=== PATIENT | male | born 1935 | race African-American/Black ===

== ENCOUNTER 2016-08-04 19:28 | Inpatient (IN) | payer OTHER ==
--- NOTE | 2016-08-04 19:44 | PDOC ---
History of Present Illness - General History Source: Old Records - History of Present Illness Initial Comments: 08/04/16 23:32 Patient is an 80 year old male with significant medical hx of HTN, HLD, prostate CA, Parkinsons, peripheral neuropathy, and on Heparin (subcutaneous) for DVT, who is presenting to the ED via EMS s/p fall from today. The patient reports he ambulates poorly due to Parkinsons and today he fell on the way to the bathroom. He states that he felt both legs collapse and he hit his right shoulder against the wall on his way down. The patient denies head trauma or LOC. The patient was on the floor for six hours until his came home and found him. The patient notes that hes had increased weakness over the past few weeks. He complains of pain to his right arm and right axilla. EMS reports that when they brought him in, they received a container of urine that was dark brown. Denies headache, chest pain, shortness of breath, shoulder pain, dizziness, and nausea. <Elvira Greene - Last Filed: 08/05/16 01:21> <Shannon Pichardo - Last Filed: 08/05/16 02:56> - General Stated Complaint: FALL/WEAKNESS Time Seen by Provider: 08/04/16 19:38 Past History <Elvira Greene - Last Filed: 08/05/16 01:21> - Past Medical History Anemia: No Asthma: No Cancer: Yes (PROSTATE) Cardiac Disorders: No CVA: No COPD: No CHF: No Dementia: No Diabetes: No GI Disorders: No Disorders: Yes (PROSTATE CA) HTN: Yes Hypercholesterolemia: Yes Liver Disease: No Seizures: No Thyroid Disease: No - Surgical History Abdominal Surgery: No Appendectomy: No Cardiac Surgery: No Cholecystectomy: No Lung Surgery: No Neurologic Surgery: No Orthopedic Surgery: No - Psycho/Social/Smoking Cessation Hx Anxiety: No Suicidal Ideation: No Smoking Status: No Smoking History: Former smoker Have you smoked in the past 12 months: No Number of Cigarettes Smoked Daily: 0 If you are a former smoker, when did you quit?: 1950 Hx Alcohol Use: No Drug/Substance Use Hx: No Substance Use Type: None Hx Substance Use Treatment: No <Shannon Pichardo - Last Filed: 08/05/16 02:56> - Past Medical History Allergies/Adverse Reactions: Allergies Allergy/AdvReac Type Severity Reaction Status Date / Time No Known Allergies Allergy Verified 08/04/16 19:59 Home Medications: Ambulatory Orders Aspirin [ASA -] 81 mg PO DAILY #30 tab.chew 03/30/14 Meclizine HCl [Antivert -] 12.5 mg PO Q12H PRN #0 tablet 03/30/14 Losartan/Hydrochlorothiazide [Losartan-Hctz 100-25 mg Tab] 1 each PO DAILY 12/06 Meloxicam 7.5 mg PO DAILY 12/07/15 Acetaminophen [Tylenol .Regular Strength -] 650 mg PO Q4H PRN #0 tablet Carbidopa/Levodopa 25/250 [Sinemet 25/250 -] 1 each PO TID #90 tablet 12/11/15 Ropinirole HCl [Requip -] 1 mg PO TID #90 tablet 12/11/15 Review of Systems - Review of Systems Comments:: 08/04/16 23:33 CONSTITUTIONAL: Present: generalized weakness Absent: fever, chills, diaphoresis, malaise, loss of appetite HEENT: Absent: rhinorrhea, nasal congestion, throat pain, throat swelling, difficulty swallowing, mouth swelling, ear pain, eye pain, visual changes CARDIOVASCULAR: Absent: chest pain, syncope, palpitations, irregular heart rate, lightheadedness , peripheral edema RESPIRATORY: Absent: cough, shortness of breath, dyspnea with exertion, orthopnea, wheezing, stridor, hemoptysis GASTROINTESTINAL: Absent: abdominal pain, abdominal distension, nausea, vomiting, diarrhea, constipation, melena, hematochezia GENITOURINARY: Absent: dysuria, frequency, urgency, hesitancy, hematuria, flank pain, genital pain MUSCULOSKELETAL: Present: right arm and right axillary pain Absent: joint swelling SKIN: Absent: rash, itching, pallor HEMATOLOGIC/IMMUNOLOGIC: Absent: easy bleeding, easy bruising, lymphadenopathy, frequent infections ENDOCRINE: Absent: unexplained weight gain, unexplained weight loss, heat intolerance, cold intolerance NEUROLOGIC: Absent: headache, focal weakness or paresthesia, dizziness, unsteady gait, seizure, mental status changes, bladder or bowel incontinence. PSYCHIATRIC: Absent: anxiety, depression, suicidal or homicidal ideation, hallucinations <Elvira Greene - Last Filed: 08/05/16 01:21> *Physical Exam - Vital Signs Last Vital Signs Temp Pulse Resp BP Pulse Ox 97.8 F 96 H 19 140/98 99 08/04/16 19:54 08/04/16 19:54 08/04/16 19:54 08/04/16 19:54 08/04/16 19:54 - Physical Exam Comments: 08/05/16 01:16 GENERAL: Well developed, well nourished. Awake and alert. No acute distress. HEENT: Normocephalic, atraumatic. PERRLA, EOMI. No conjunctival pallor. Sclera are non- icteric. Moist mucous membranes. Oropharynx is clear. NECK: Supple. Full ROM. No JVD. Carotid pulses 2+ and symmetric, without bruits. No thyromegaly. No lymphadenopathy. CARDIOVASCULAR: Regular rate and rhythm. No murmurs, rubs, or gallops. Distal pulses are 2+ and symmetric. PULMONARY: No evidence of respiratory distress. Lungs clear to auscultation bilaterally. No wheezing, rales or rhonchi. ABDOMINAL: Soft. Non-tender. Non-distended. No rebound or guarding. No organomegaly. Normoactive bowel sounds. MUSCULOSKELETAL: Right axilla erythema. Cannot fully extend right arm chronically, mild contracture. No edema. EXTREMITIES: No cyanosis. No clubbing. No edema. No calf tenderness. SKIN: Warm and dry. Normal capillary refill. No rashes. No jaundice. NEUROLOGICAL: Alert, awake, appropriate. Cranial nerves 2-12 intact. No resistance against gravity to lower extremities. Normal speech. PSYCHIATRIC: Cooperative. Good eye contact. Appropriate mood and affect. <Elvira Greene - Last Filed: 08/05/16 01:21> Heart Score/ECG Review #1 08/04/16 23:34 Normal sinus rhythm at 82 bpm Inferior infarct, age undetermined Abnormal ECG <Elvira Greene - Last Filed: 08/05/16 01:21> ED Treatment Course - LABORATORY CBC & Chemistry Diagram: 08/04/16 21:00 08/04/16 22:00 - ADDITIONAL ORDERS Additional order review: Laboratory Results 08/04/16 08/04/16 08/04/16 22:20 22:00 21:00 INR Sodium 143 Potassium 3.2 L Chloride 104 Carbon Dioxide 27 Anion Gap 12 BUN 33 H D Creatinine 1.3 D Creat Clearance w eGFR 52.98 Random Glucose 110 H Calcium 9.6 Total Bilirubin 0.8 AST 87 H D ALT 41 D Alkaline Phosphatase 142 H D Creatine Kinase Creatine Kinase Index CK-MB (CK-2) CK-MB (CK-2) Rel Index Cancelled Troponin I Total Protein 7.1 D Albumin 4.2 D Urine Color Yellow Urine Appearance Clear Urine pH 5.0 Ur Specific [place] 1.020 Urine Protein Negative Urine Glucose (UA) Negative Urine Ketones Trace H Urine Blood 1+ H Urine Nitrite Negative Urine Bilirubin Negative Urine Urobilinogen Negative Ur Leukocyte Esterase Negative Urine RBC <1 Urine WBC <1 Ur Epithelial Cells Rare Hyaline Casts 1 Granular Casts 2 Urine Mucus Rare 08/04/16 08/04/16 21:00 21:00 INR 1.18 H Sodium Potassium Chloride Carbon Dioxide Anion Gap BUN Creatinine Creat Clearance w eGFR Random Glucose Calcium Total Bilirubin AST ALT Alkaline Phosphatase Creatine Kinase 3478 H D Creatine Kinase Index 0.4 CK-MB (CK-2) 12.390 H CK-MB (CK-2) Rel Index Troponin I 0.02 Total Protein Albumin Urine Color Urine Appearance Urine pH Ur Specific [place] Urine Protein Urine Glucose (UA) Urine Ketones Urine Blood Urine Nitrite Urine Bilirubin Urine Urobilinogen Ur Leukocyte Esterase Urine RBC Urine WBC Ur Epithelial Cells Hyaline Casts Granular Casts Urine Mucus 08/04/16 21:00 RBC 3.77 L MCV 90.5 MCHC 34.2 RDW 12.6 MPV 9.4 Neutrophils % 72.3 D Lymphocytes % 19.0 D Monocytes % 8.1 Eosinophils % 0.3 D Basophils % 0.3 - RADIOLOGY Radiograph Interpretation: 08/04/16 23:[address] Impression: No significant interval change or acute lung disease is present. 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 Reported By: Shanti Alfaro MD - Medications Given in the ED: ED Medications Discontinued Medications Generic Name Dose Route Start Last Admin Trade Name Freq PRN Reason Stop Dose Admin Ketorolac Tromethamine 60 mg 08/04/16 22:05 08/04/16 22:24 Toradol Injection - IM 08/04/16 22:06 60 mg ONCE ONE Administration <Elvira Greene - Last Filed: 08/05/16 01:21> - LABORATORY CBC & Chemistry Diagram: 08/04/16 21:00 08/04/16 22:00 <Shannon Pichardo - Last Filed: 08/05/16 02:56> Medical Decision Making - Medical Decision Making 08/05/16 02:06 80-year-old male with a history of advanced Parkinson's fell today in the bathroom and was not able to get up. He is not on any anticoagulation. -At this time he is wheelchair dependent -initially He didn't have any complaints but after several hour he started have pain in the right shoulder. He states as he was falling he hit his right shoulder and that broke his fall. X-ray of the right shoulder did not show any dislocation or fracture. -CAT scan of head was negative for any acute intracranial pathology EKG was normal sinus rhythm at 82 bpm. . His first troponin is negative -significant CPK over 3400, and requires IV hydration -The patient had been having frequent falls last year and was sent to [place] for rehabilitation. His states that after he left [place] he was totally wheelchair bound and unable to ambulate. He was then sent to [facility] and discharged home in April. 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 -he has not seen his Neurologist for his worsening Parkinson's and at least half a year because of the difficulty of getting him to the physician's office IMP Worsening Parkinsonism/ frequent falls/ rhabdo /dehydration requiring Iv hydration 08/05/16 02:11 08/05/16 02:50 Dr. Radhames Arechiga is covered by Dr. Mejia who was being covered by Dr. Burgos WHO IS being covered by Dr. Amor I spoke with who requested that we give the patient to the hospitalist, who can then signout to Dr. Mejia in the morning <Shannon Pichardo - Last Filed: 08/05/16 02:56> *DC/Admit/Observation/Transfer - Attestations Scribe Attestion: 08/04/16 23:37 Documentation prepared by Elvira Greene, acting as medical translator for Shannon Pichardo MD. <Elvira Greene - Last Filed: 08/05/16 01:21> - Discharge Dispostion Admit: Yes <Shannon Pichardo - Last Filed: 08/05/16 02:56> Diagnosis at time of Disposition: Parkinson disease Fall Qualifiers: Encounter type: initial encounter Qualified Code(s): W19.XXXA - Unspecified fall, initial encounter Rhabdomyolysis Qualifiers: Rhabdomyolysis type: traumatic Encounter type: initial encounter Qualified Code (s): T79.6XXA - Traumatic ischemia of muscle, initial encounter - Referrals
[2016-08-04 21:24] LABS: BASOPHIL 0.3 % (0-2.0); EOSINOPHIL 0.3 % (0-4.5); MCHC 34.2 g/dl (32.0-35.9); MEAN CELL VOLUME 90.5 fl (80-96); MEAN PLT VOLUME 9.4 fl (7.5-11.1); NEUTROPHILS 72.3 % (42.8-82.8); PLATELET COUNT 144 K/MM3 (134-434); RDW 12.6 % (11.9-15.9); WHITE BLOOD COUNT 7.1 K/mm3 (4.0-10.0)
[2016-08-04 21:51] LABS: INR 1.18 (0.82-1.09)
[2016-08-04 22:05] LABS: TROPONIN I 0.02 ng/ml (0.00-0.05)
[2016-08-04] MEDS ORDERED: KETOROLAC TROMETHAMINE 60 MG/2 ML VIAL IM ONE (22:05)
[2016-08-04] MEDS ORDERED: KETOROLAC TROMETHAMINE 60 MG/2 ML VIAL ONE (22:08)
[2016-08-04 22:28] LABS: URINE APPEARANCE CLEAR; URINE BILIRUBIN NEGATIVE (NEGATIVE); URINE BLOOD 1+ (NEGATIVE); URINE COLOR YELLOW; URINE GLUCOSE (UA) NEGATIVE (NEGATIVE); URINE KETONE TRACE (NEGATIVE); URINE LEUK ESTERASE NEGATIVE (NEGATIVE); URINE NITRITE NEGATIVE (NEGATIVE); URINE PROTEIN NEGATIVE (NEGATIVE); URINE UROBILINOGEN NEGATIVE E.U./dl (0.2-1.0)
[2016-08-04 22:30] LABS: GRANULAR CASTS 2 /lpf; URINE HYALINE CAST 1 /lpf; URINE MUCUS RARE; URINE RBC <1 /hpf (0-3); URINE WBC <1 /hpf (3-5)
[2016-08-04 22:52] LABS: ALBUMIN 4.2 g/dl (3.4-5.0); BILIRUBIN,TOTAL 0.8 mg/dL (0.2-1.0); CALCIUM 9.6 mg/dL (8.5-10.1); CREATININE 1.3 mg/dL (0.7-1.3); TOT PROT 7.1 g/dl (6.4-8.2)
[2016-08-04] MEDS ORDERED: SODIUM CHLORIDE 1,000 ML IV STA (23:13)
[2016-08-04] MEDS ORDERED: POTASSIUM CHLORIDE TABS 20 MEQ TABLET.ER (FP) PO ONE ×2 (23:29→23:32)
--- NOTE | 2016-08-05 02:56 | PN ---
<Jocelin Gamboa - Last Filed: 08/05/16 02:56> Teaching Attending Note Name of Resident: Lovely Girard ATTENDING PHYSICIAN STATEMENT I saw and evaluated the patient. I reviewed the resident's note and discussed the case with the resident. I agree with the resident's findings and plan as documented. SUBJECTIVE: OBJECTIVE: ASSESSMENT AND PLAN: <RolandoMillie chua - Last Filed: 08/05/16 04:15> Teaching Attending Note ATTENDING PHYSICIAN STATEMENT I saw and evaluated the patient. I reviewed the resident's note and discussed the case with the resident. I agree with the resident's findings and plan as documented. SUBJECTIVE: The patient is a 80 yo M with a PMHx of HTN, HLD, Prostate CA, Parkinsons, Peripheral Neuropathy, on Heparin SQ for DVT who presents s/p mechanical fall in the bathroom today. The patient states both of his legs gave out and hit his R shoulder on the wall. He denies chest pain, headache or dizziness. He denies fever, chills, nausea, vomit, diarrhea or constipation. He denies dysuria, frequency, urgency and hematuria. OBJECTIVE: Physical Last Vital Signs Temp Pulse Resp BP Pulse Ox 97.8 F 96 H 19 140/98 99 08/04/16 19:54 08/04/16 19:54 08/04/16 19:54 08/04/16 19:54 08/04/16 19:54 GEN: NAD + Mildly drowsy. Unable to answer questions. HEENT: NCAT, PERRL CARD: RRR, S1 S2 RESP: CTAB ABD: NT, BWS x4 EXT: - CC. + 1+ pitting edema. CBCD WBC 7.1 K/mm3 (4.0-10.0) D 08/04/16 21:00 RBC 3.77 M/mm3 (4.00-5.60) L 08/04/16 21:00 Hgb 11.7 GM/dL (11.7-16.9) 08/04/16 21:00 Hct 34.1 % (35.4-49) L 08/04/16 21:00 MCV 90.5 fl (80-96) 08/04/16 21:00 MCHC 34.2 g/dl (32.0-35.9) 08/04/16 21:00 RDW 12.6 % (11.9-15.9) 08/04/16 21:00 Plt Count 144 K/MM3 (134-434) D 08/04/16 21:00 MPV 9.4 fl (7.5-11.1) 08/04/16 21:00 CMP Sodium 143 mmol/L (136-145) 08/04/16 22:00 Potassium 3.2 mmol/L (3.5-5.1) L 08/04/16 22:00 Chloride 104 mmol/L (98-107) 08/04/16 22:00 Carbon Dioxide 27 mmol/L (21-32) 08/04/16 22:00 Anion Gap 12 (8-16) 08/04/16 22:00 BUN 33 mg/dL (7-18) H D 08/04/16 22:00 Creatinine 1.3 mg/dL (0.7-1.3) D 08/04/16 22:00 Creat Clearance w eGFR 52.98 (>60) 08/04/16 22:00 Calcium 9.6 mg/dL (8.5-10.1) 08/04/16 22:00 Total Bilirubin 0.8 mg/dL (0.2-1.0) 08/04/16 22:00 AST 87 U/L (15-37) H D 08/04/16 22:00 ALT 41 U/L (12-78) D 08/04/16 22:00 Alkaline Phosphatase 142 U/L (45-117) H D 08/04/16 22:00 Total Protein 7.1 g/dl (6.4-8.2) D 08/04/16 22:00 Albumin 4.2 g/dl (3.4-5.0) D 08/04/16 22:00 Imaging: Head CT Impression: No significant interval change or acute lung disease is present R Shoulder Xray Impression: 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 Chest Xray Impression: Cardiomegaly ASSESSMENT AND PLAN: The patient is a 80 yo M with a PMHx of HTN, HLD, Prostate CA, Parkinsons, Peripheral Neuropathy, on Heparin SQ for DVT who presents with RABDO. 1.) Rhabdomyolysis - IVF - Recheck electrolytes 2.) Mechanical Fall - PT evaluation 3.) Parkinson's - Continue home meds 4.) Transaminitis - Trend LFTs 5.) Acute Renal Failure - IV hydration 6.) DVT PPx - Low to moderate risk - Heparin --- Asked by Dr. Day to admit patient to go back to Dr. Mejia in the AM. Admit to Med Surg Documentation prepared by Millie Marshall, acting as medical office scheduler for Jocelin Gamboa MD
[2016-08-05] MEDS ORDERED: HYDROmorphone HCL CARPU-JECT 1 MG/1 ML DISP.SYRIN ONE (03:24)
[2016-08-05] MEDS: SODIUM CHLORIDE 1,000 ML IV SCH ×3 (03:28→23:23)
[2016-08-05] MEDS ORDERED: HYDROmorphone HCL CARPU-JECT 1 MG/1 ML DISP.SYRIN IVPUSH ONE (03:31)
--- NOTE | 2016-08-05 04:06 | HP ---
CHIEF COMPLAINT: Fall PCP: Dr. Radhames Arechiga HISTORY OF PRESENT ILLNESS: Unable to obtain full history due to patients medical condition. Patient is an 80 year old male with a PMHx of HTN, HLD, Prostate CA, Parkinsons , Peripheral Neuropathy, DVT's who is a poor historian who presented today s/p mechanical fall that happened yesterday afternoon around 13:00. Patient reports his "legs gave out on him" and he fell against the door on his right shoulder and was on the floor for unknown amount of time. Patient reported earlier that his Parkinson's is getting worse and he has not followed up with his Neurologist, Dr. Hartmann, in over 6 months. Patient denied having any shortness of breath, dizziness, palpitations, or seizure activity before or after the fall. Otherwise, patient denies nausea, vomiting, chest pain, fever, chills, abdominal pain, headache. ER course was notable for: (1) Shoulder x-ray, Head CT, Chest X-ray (2) Toradol, Dilaudid Potassium chloride (3) IV Gabby Saline Recent Travel: Denies PAST MEDICAL HISTORY: HTN, HLD, Prostate CA, Parkinsons, Peripheral Neuropathy PAST SURGICAL HISTORY: Denies Social History: Smoking: Denies Alcohol: Denies Drugs: Denies Family History: Unable to obtain due to patients medical condition Allergies: No Known Allergies Allergy (Verified 08/04/16 19:59) HOME MEDICATIONS: Medication Instructions Recorded Aspirin [ASA -] 81 mg PO DAILY #30 tab.chew 03/30/14 Meclizine HCl [Antivert -] 12.5 mg PO Q12H PRN #0 tablet 03/30/14 Losartan/Hydrochlorothiazide 1 each PO DAILY 12/07/15 [Losartan-Hctz 100-25 mg Tab] Meloxicam 7.5 mg PO DAILY 12/07/15 Acetaminophen [Tylenol .Regular 650 mg PO Q4H PRN #0 tablet 12/11/15 Strength -] Carbidopa/Levodopa 25/250 [Sinemet 1 each PO TID #90 tablet 12/11/15 25/250 -] Ropinirole HCl [Requip -] 1 mg PO TID #90 tablet 12/11/15 REVIEW OF SYSTEMS Unable to obtain due to patients medical condition PHYSICAL EXAMINATION Vital Signs - 24 hr 08/05/16 03:27 Pulse Rate [ 86 Left Radial] Respiratory 18 Rate Blood Pressure 187/109 [Right Arm] O2 Sat by Pulse 100 Oximetry (%) GENERAL: In no acute distress, mildly lethargic and drowsy. Unable to answer many questions HEAD: Normal with no signs of trauma. NECK: No lymphadenopathy, JVD, or masses. LUNGS: Breath sounds equal, clear to auscultation bilaterally. No wheezes, and no crackles. No accessory muscle use. HEART: Regular rate and rhythm, normal S1 and S2 without murmur, rub or gallop. ABDOMEN: Soft, nontender, not distended, normoactive bowel sounds, no guarding, no rebound, no masses. No hepatomegaly or splenomegaly. MUSCULOSKELETAL: Normal range of motion at all joints. No bony deformities or tenderness. No CVA tenderness. UPPER EXTREMITIES: (+) Gynecomastia. No peripheral edema. LOWER EXTREMITIES: 1+ pitting edema SKIN: Warm, dry, normal turgor, no rashes or lesions noted. ASSESSMENT/PLAN: Patient is an 80 year old male with a PMHx of HTN, HLD, Prostate CA, Parkinsons , Peripheral Neuropathy, DVT's who presented s/p mechanical fall and was found to have Rhabdomyolysis. Patient admitted to med/surg for further monitoring and management. Rhabdomyolysis -From s/p mechanical fall with a long period of time on the floor -CK >3000 and potassium 3.2 -Potassium chloride 40meq once given in ED -Continue hydration with IV NS @100mls/hr -Continue to monitor BMP and CK Acute Kidney Injury -Likely from Rhabdomyolysis s/p mechanical fall -Creatinine 1.3 with baseline 0.8-1.0 -Continue hydration with Normal Saline @100mls/hr -Trend BMP Mechanical Fall -Likely from worsening Parkinson's disease -Physical Therapy evaluation -Fall Risk precautions Parkinson's Disease -Continue Sinemet 25/250mg TID -Continue Ropinirole HCl 1 tab daily -Neurology consult Transaminitis -Alkaline Phosphatase 142, AST 87 -Continue to trend CMP HTN -Home medication Losartan-HCTZ placed on hold due to ROBERT -Continue to monitor BP HLD -On no medication History of DVT's -Medical records state patient is on Heparin but is not on patients ambulatory medications -Will follow up with pharmaxcy F/E/N -On normal saline @100mls/hr -Hypokalemia. Repleted with Postassium chloride 40meq once -Sodium controlled diet Prophylaxis -Heparin for DVT -No GI needed Disposition -Full code -Admitted to med/surg. Asked by Dr. Day to admit patient and will go back to Dr. Mejia in the morning. Visit type - Emergency Visit Emergency Visit: Yes ED Registration Date: 08/05/16 Care time: The patient presented to the Emergency Department on the above date and was hospitalized for further evaluation of their emergent condition. - New Patient This patient is new to me today: Yes Date on this admission: 08/05/16 - Critical Care Critical Care patient: No
[2016-08-05] MEDS: CARBIDOPA/LEVODOPA 25/250 TABLET (FP) PO SCH ×4 (06:56→22:30)
[2016-08-05] MEDS: rOPINIRole HCL 1 MG TABLET (FP) PO SCH ×4 (06:56→22:41)
[2016-08-05] MEDS: INSULIN SLIDING SCALE (NOVOLOG) 1 VIAL SQ SCH ×2 (06:59→17:37)
[2016-08-05 07:39] VITALS: BMI 27.6
[2016-08-05 08:15] LABS: BASOPHIL 0.3 % (0-2.0); EOSINOPHIL 2.5 % (0-4.5); MCH 31.3 pg (25.7-33.7); MCHC 34.6 g/dl (32.0-35.9); MEAN CELL VOLUME 90.6 fl (80-96); MEAN PLT VOLUME 9.3 fl (7.5-11.1); NEUTROPHILS 55.4 % (42.8-82.8); PLATELET COUNT 121 K/MM3 (134-434); RDW 12.8 % (11.9-15.9); WHITE BLOOD COUNT 5.4 K/mm3 (4.0-10.0)
[2016-08-05 09:13] LABS: ALBUMIN 3.6 g/dl (3.4-5.0); BILIRUBIN,TOTAL 0.8 mg/dL (0.2-1.0); CALCIUM 8.9 mg/dL (8.5-10.1); CREATININE 1.2 mg/dL (0.7-1.3); TOT PROT 6.3 g/dl (6.4-8.2)
[2016-08-05] MEDS: ASPIRIN 81 MG CHEWABLE TABLETS PO SCH ×2 (09:30→13:23)
[2016-08-05] MEDS ORDERED: PATIENT'S OWN MEDICATION (NON-FORMULARY) (Losartan/Hydrochlorothiazide [Losartan-Hctz 100- PO SCH (10:00)
[2016-08-05] MEDS ORDERED: PATIENT'S OWN MEDICATION (NON-FORMULARY) (Meloxicam [Meloxicam] 7.5 MG) PO SCH (10:00)
--- NOTE | 2016-08-05 10:53 | HP ---
Admitting History and Physical - Primary Care Physician PCP: Radhames Arechiga - Admission Chief Complaint: s/p fall History of Present Illness: Patient is an 80 year old male with significant medical hx of HTN, HLD, prostate CA, Parkinsons, peripheral neuropathy, and on Heparin (subcutaneous) for DVT, who is presenting to the ED via EMS s/p fall from today. The patient reports he ambulates poorly due to Parkinsons and today he fell on the way to the bathroom. He states that he felt both legs collapse and he hit his right shoulder against the wall on his way down. The patient denies head trauma or LOC. The patient was on the floor for six hours until his came home and found him. The patient notes that hes had increased weakness over the past few weeks. He complains of pain to his right arm and right axilla. EMS reports that when they brought him in, they received a container of urine that was dark brown. Denies headache, chest pain, shortness of breath, shoulder pain, dizziness, and nausea. 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: Peripheral Neuropathy, Parkinson's (RUE tremor), Vertigo, Other Cardiovascular: Yes: HTN, Hyperlipdemia Heme/Onc: Yes: Other (prostate cancer.) - Past Surgical History Past Surgical History: Yes: None - Smoking History Smoking history: Former smoker Have you smoked in the past 12 months: No Aproximately how many cigarettes per day: 0 If you are a former smoker, when did you quit?: 1950 - Alcohol/Substance Use Hx Alcohol Use: No History of Substance Use: reports: None Home Medications - Allergies Allergies/Adverse Reactions: Allergies Allergy/AdvReac Type Severity Reaction Status Date / Time No Known Allergies Allergy Verified 08/04/16 19:59 - Home Medications Home Medications: Ambulatory Orders Aspirin [ASA -] 81 mg PO DAILY #30 tab.chew 03/30/14 Meclizine HCl [Antivert -] 12.5 mg PO Q12H PRN #0 tablet 03/30/14 Losartan/Hydrochlorothiazide [Losartan-Hctz 100-25 mg Tab] 1 each PO DAILY 12/06 Meloxicam 7.5 mg PO DAILY 12/07/15 Acetaminophen [Tylenol .Regular Strength -] 650 mg PO Q4H PRN #0 tablet Carbidopa/Levodopa 25/250 [Sinemet 25/250 -] 1 each PO TID #90 tablet 12/11/15 Ropinirole HCl [Requip -] 1 mg PO TID #90 tablet 12/11/15 Review of Systems Unable to obtain ROS, reason: sleepy Physical Examination Vital Signs: Vital Signs Temperature 98.1 F 08/05/16 07:36 Pulse Rate 66 08/05/16 07:36 Respiratory Rate 18 08/05/16 07:36 Blood Pressure 135/76 08/05/16 07:36 O2 Sat by Pulse Oximetry (%) 97 08/05/16 07:28 Constitutional: Yes: Other (sleepy but arousable able to tell me his name and that he is in hospital and that he fell) Cardiovascular: Yes: Regular Rate and Rhythm, S1, S2 Respiratory: Yes: CTA Bilaterally Gastrointestinal: Yes: Normal Bowel Sounds, Soft Edema: (trace edema) Labs: CBC, BMP 08/05/16 08:06 08/05/16 08:06 Imaging - Results Chest X-ray: Report Reviewed Cat Scan: Report Reviewed Problem List - Problems (1) Fall Assessment/Plan: neuro eval PT iv hydration will mostlikely need rehab on discharge dct ppx check 25 hyroxy level as outpatient Code(s): W19.XXXA - UNSPECIFIED FALL, INITIAL ENCOUNTER Qualifiers: Encounter type: initial encounter Qualified Code(s): W19.XXXA - Unspecified fall, initial encounter (2) Parkinson disease Assessment/Plan: sinemet neuro Code(s): G20 - PARKINSON'S DISEASE (3) Rhabdomyolysis Assessment/Plan: iv fluid trend CK and renal function trend liver fucntion test(decerasing) Code(s): M62.82 - RHABDOMYOLYSIS Qualifiers: Rhabdomyolysis type: traumatic Encounter type: initial encounter Qualified Code(s): T79.6XXA - Traumatic ischemia of muscle, initial encounter (4) Hypertension Assessment/Plan: will hold HCTZ and losartan for now BP is ok monitor Code(s): I10 - ESSENTIAL (PRIMARY) HYPERTENSION
[2016-08-05] MEDS ORDERED: PT OWN MED DRAWER 7, Y5N ONE (13:20)
[2016-08-05] MEDS ORDERED: INFLUENZA VACCINE 45 MCG/0.5 ML (MDV 16-17) IM ONE (14:00)
[2016-08-05] MEDS: traMADol HCL 50 MG TABLET PO PRN (15:36)
--- NOTE | 2016-08-05 19:16 | CON.NEURO ---
Consult Consult Specialty:: NEUROLOGY Reason for Consultation:: fall at home, rigidity, Parkinson's disease - History of Present Illness History of Present Illness: 80 year old male with significant medical hx of HTN, falls, HLD, prostate CA, Parkinsons disease, peripheral neuropathy, and on Heparin (subcutaneous) for DVT, who is presenting to the ED via EMS s/p fall from today. The patient reports he ambulates poorly due to Parkinsons, he was in multiple rehab. facilities and last night he felt on the way to the bathroom. He states that he felt both legs collapse and he hit his right shoulder against the wall on his way down. The patient denies head trauma or LOC. The patient was on the floor for six hours until his came home and found him. The patient complains of increased weakness over the past few weeks. He complains of pain to his right arm and right axilla. EMS reports that when they brought him in, they received a container of urine that was dark brown. He is a patient of Neurology and last week he had adjustement in his Parkinson's medication. 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, Parkinson's (RUE tremor), Vertigo, Other Cardio/Vascular: Yes: HTN, Hyperlipdemia - Past Surgical History Past Surgical History: Yes: None - Alcohol/Substance Use Hx Alcohol Use: No History of Substance Use: reports: None - Smoking History Smoking history: Former smoker Have you smoked in the past 12 months: No Aproximately how many cigarettes per day: 0 If you are a former smoker, when did you quit?: 1950 - Social History Usual Living Arrangement: Alone Home Medications - Allergies Allergies/Adverse Reactions: Allergies Allergy/AdvReac Type Severity Reaction Status Date / Time No Known Allergies Allergy Verified 08/04/16 19:59 - Home Medications Home Medications: Ambulatory Orders Aspirin [ASA -] 81 mg PO DAILY #30 tab.chew 03/30/14 Meclizine HCl [Antivert -] 12.5 mg PO Q12H PRN #0 tablet 03/30/14 Losartan/Hydrochlorothiazide [Losartan-Hctz 100-25 mg Tab] 1 each PO DAILY 12/06 Meloxicam 7.5 mg PO DAILY 12/07/15 Acetaminophen [Tylenol .Regular Strength -] 650 mg PO Q4H PRN #0 tablet Carbidopa/Levodopa 25/250 [Sinemet 25/250 -] 1 each PO QID 08/05/16 Ropinirole HCl [Requip] 1 mg PO QID 08/05/16 Review of Systems - Review of Systems Constitutional: reports: Malaise, Weakness Eyes: reports: No Symptoms HENT: reports: No Symptoms Neck: reports: No Symptoms Cardiovascular: reports: No Symptoms Respiratory: reports: No Symptoms Genitourinary: reports: Other (brown urine) Breasts: reports: No Symptoms Reported Musculoskeletal: reports: Decreased ROM, Extremity Pain, Joint Pain, Muscle Weakness Neurological: reports: Incoordination, Pre-Existing Deficit, Tremors, Unsteady Gait, Weakness Endocrine: reports: No Symptoms Hematology/Lymphatic: reports: No Symptoms Psychiatric: reports: No Symptoms Physical Exam-Neuro Vital Signs: Vital Signs Temperature 98 F 08/05/16 16:30 Pulse Rate 74 08/05/16 16:30 Respiratory Rate 18 08/05/16 16:30 Blood Pressure 140/70 08/05/16 16:30 O2 Sat by Pulse Oximetry (%) 99 08/05/16 09:00 Constitutional: Yes: No Distress, Calm Neck: Yes: Supple, Trachea Midline. No: Lymphadenopathy Cardiovascular: Yes: Regular Rate and Rhythm, S1, S2 Respiratory: Yes: Regular, CTA Bilaterally Gastrointestinal: Yes: Normal Bowel Sounds, Soft Renal/: Yes: WNL Musculoskeletal: Yes: Joint Stiffness, Muscle Pain, Muscle Weakness, Other ( rigidity) Edema: Yes Edema: LLE: 1+, RLE: 1+ Psychiatric: Yes: Alert, Oriented Labs: CBC, BMP 08/05/16 08:06 08/05/16 08:06 INR, PTT INR 1.18 (0.82-1.09) H 08/04/16 21:00 - Neuro Exam Level Of Consciousness: Yes: Oriented to Person, Oriented to Place, Oriented to Time Eyes: Yes: PERRLA Speech: WNL Dominant Hand: Right Cranial Nerves II-XII Intact: Yes Gag: Present DTR's: 0 Left Bicep, 0 Right Bicep, 0 Left Tricep, 0 Right Tricep, 0 Left Brachioradialis, 0 Right Brachioradialis, 0 Left Achilles, 0 Right Achilles Babinski: Absent Response to light touch: Normal Response to pain prick: Normal Response to temperature: Normal Response to vibration: Normal Movement Disorders: Spasticity, Other (masked facies, flexion RUE , ) Coordination: Normal: Precision Finger Tap Motor Strength: 3/5: Right Leg, 5/5: Left Arm, Right Arm, Left Leg Gait: Ataxia, Deferred Imaging - Results Cat Scan: Report Reviewed, Image Reviewed Problem List - Problems (1) Parkinson disease Code(s): G20 - PARKINSON'S DISEASE (2) Gait abnormality Code(s): R26.9 - UNSPECIFIED ABNORMALITIES OF GAIT AND MOBILITY (3) Rigidity Code(s): R29.898 - OT SYMPTOMS AND SIGNS INVOLVING THE MUSCULOSKELETAL SYSTEM (4) Fall (on)(from) incline, initial encounter Code(s): W10.2XXA - FALL (ON)(FROM) INCLINE, INITIAL ENCOUNTER Assessment/Plan 80 year old male with significant medical hx of HTN, falls, HLD, prostate CA, Parkinsons disease, peripheral neuropathy, and on Heparin (subcutaneous) for DVT, who is presenting to the ED via EMS s/p fall from today. The patient reports he ambulates poorly due to Parkinsons, he was in multiple rehab. facilities and last night he felt on the way to the bathroom. He states that he felt both legs collapse and he hit his right shoulder against the wall on his way down. The patient denies head trauma or LOC. The patient was on the floor for six hours until his came home and found him. The patient complains of increased weakness over the past few weeks. He complains of pain to his right arm and right axilla. EMS reports that when they brought him in, they received a container of urine that was dark brown. He is a patient of Neurology and last week he had adjustement in his Parkinson's medication. Impression: severe rigidity, Parkinson's disease, falls high risk Right side increased rigidity, contraction. Arthritis. Plan: - PT/OT/ST evaluation- most probable he needs rehabilitation. - continues Sinemet per home dose. - increase Requip from 1 mg qid to 1.25 mg qid. - start Comtan 200mg.po qid with each dose of Sinemet. - Decadrone 10 mg. iv x1 for arthritis. - DVT prophyl . lovenox - CT head - no ICP - banana bag. iv daily. Thank you for this consult.
[2016-08-05] MEDS: LOSARTAN 50MG/HCTZ 12.5MG 1 TAB (FP) PO SCH (19:45)
[2016-08-05] MEDS ORDERED: FOLIC ACID INJECTION - 1 MG, THIAMINE HCL 100 MG, MULTIVIT INJECTION ADULT 10 ML in SOD... IVPB ONE (19:50)
--- NOTE | 2016-08-05 23:21 | EKG ---
Test Reason : Blood Pressure : / mmHG Vent. 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
[2016-08-06] MEDS: INSULIN SLIDING SCALE (NOVOLOG) 1 VIAL SQ SCH ×2 (06:32→17:42)
[2016-08-06] MEDS ORDERED: DEXAMETHASONE SOD PHOSPHATE 10 MG/1 ML VIAL IVPB ONE (07:38)
[2016-08-06] MEDS: SODIUM CHLORIDE 1,000 ML IV SCH ×2 (08:04→19:07)
[2016-08-06 09:17] LABS: ANION GAP 9 (8-16); BILIRUBIN,TOTAL 0.5 mg/dL (0.2-1.0); CALCIUM 8.2 mg/dL (8.5-10.1); CO2 26 mmol/L (21-32); GLUCOSE,RANDOM 97 mg/dL (74-106); SGOT/AST 42 U/L (15-37); SGPT/ALT 10 U/L (12-78)
[2016-08-06 09:18] LABS: ALK PHOS 112 U/L (45-117); CREATININE 1.1 mg/dL (0.7-1.3); TOT PROT 5.7 g/dl (6.4-8.2)
[2016-08-06] MEDS ORDERED: PT OWN MED DRAWER 7, Y5N ONE ×8 (09:45→21:09)
[2016-08-06] MEDS: LOSARTAN 50MG/HCTZ 12.5MG 1 TAB (FP) PO SCH (09:47)
[2016-08-06] MEDS: ASPIRIN 81 MG CHEWABLE TABLETS PO SCH (09:48)
[2016-08-06] MEDS: CARBIDOPA/LEVODOPA 25/250 TABLET (FP) PO SCH ×4 (09:48→21:39)
[2016-08-06] MEDS: ENTACAPONE 200 MG TABLET PO SCH ×4 (09:49→21:38)
[2016-08-06] MEDS ORDERED: rOPINIRole HCL 1 MG TABLET (FP) PO SCH (10:00)
[2016-08-06] MEDS ORDERED: rOPINIRole HCL 2 MG TABLET (FP) PO SCH (10:00)
[2016-08-06] MEDS: ROPINIROLE HCL PO SCH ×4 (10:30→21:39)
[2016-08-06] MEDS: traMADol HCL 50 MG TABLET PO PRN ×2 (11:28→23:53)
--- NOTE | 2016-08-06 15:22 | PN ---
Progress Note (short form) - Note Progress Note: Pt seen and examined. He is an 80 yo M with Parkinsons who fell onto his right side/shoulder 2 days ago. He c/o mild pain R shoulder, getting better. PE RUE looks good, no bruising, minimal swelling. No malangulation or deformity NVI (at his baseline, with a tremor) Goos ROM at the right shoulder in all planes, elbow, forearm, wrist, fingers Xray and CT scan show only mild OA of the glenohumeral joint. No acute pathology , no fractures. Imp 2 days s/p fall, R shoulder contusion Rec ROM exercises, WBAT RUE. No sling Can DC from an ortho pov
--- NOTE | 2016-08-06 22:15 | PN ---
Progress Note, Physician History of Present Illness: No new complaints - Current Medication List Current Medications: Active Medications Aspirin (Asa -) 81 mg PO DAILY [facility] Last Admin: 08/06/16 09:48 Dose: 81 mg Carbidopa/Levodopa (Sinemet 25/250 -) 1 each PO QID [facility] Last Admin: 08/06/16 21:39 Dose: 1 each Entacapone (Comtan -) 200 mg PO QID [facility] Last Admin: 08/06/16 21:38 Dose: 200 mg HCTZ/Losartan Potassium (Hyzaar -) 2 tab PO DAILY [facility] Last Admin: 08/06/16 09:47 Dose: 2 tab Sodium Chloride (Normal Saline -) 1,000 mls @ 50 mls/hr IV ASDIR [facility] Last Admin: 08/06/16 19:07 Dose: Not Given Insulin Aspart (Novolog Vial Sliding Scale -) 1 vial SQ BIDI [facility] PRN Reason: Protocol Last Admin: 08/06/16 17:42 Dose: 2 units Ropinirole HCl 1 mg/ (Ropinirole HCl 0.25 mg) 1.25 mg PO QID [facility] Last Admin: 08/06/16 21:39 Dose: 1.25 mg Tramadol HCl (Ultram -) 50 mg PO Q6H PRN PRN Reason: PAIN Last Admin: 08/06/16 11:28 Dose: 50 mg - Objective Vital Signs: Vital Signs Temperature 98.6 F 08/06/16 16:30 Pulse Rate 75 08/06/16 16:30 Respiratory Rate 20 08/06/16 16:30 Blood Pressure 126/64 08/06/16 16:30 O2 Sat by Pulse Oximetry (%) 96 08/06/16 09:00 Constitutional: Yes: Calm Cardiovascular: Yes: WNL, Regular Rate and Rhythm Respiratory: Yes: WNL, Regular, CTA Bilaterally Gastrointestinal: Yes: WNL, Normal Bowel Sounds, Soft, Abdomen, Obese Labs: CBC, BMP 08/05/16 08:06 08/06/16 06:15 INR, PTT INR 1.18 (0.82-1.09) H 08/04/16 21:00 Problem List - Problems (1) Fall Assessment/Plan: Multifactorial May need PT eval Code(s): W19.XXXA - UNSPECIFIED FALL, INITIAL ENCOUNTER Qualifiers: Encounter type: initial encounter Qualified Code(s): W19.XXXA - Unspecified fall, initial encounter (2) Parkinson disease Assessment/Plan: Cont sinemet Requip was increased Code(s): G20 - PARKINSON'S DISEASE (3) Rhabdomyolysis Assessment/Plan: Cont to monitor Code(s): M62.82 - RHABDOMYOLYSIS Qualifiers: Rhabdomyolysis type: traumatic Encounter type: initial encounter Qualified Code(s): T79.6XXA - Traumatic ischemia of muscle, initial encounter (4) Gait abnormality Code(s): R26.9 - UNSPECIFIED ABNORMALITIES OF GAIT AND MOBILITY (5) Hypertension Assessment/Plan: BP stable Code(s): I10 - ESSENTIAL (PRIMARY) HYPERTENSION
[2016-08-07] MEDS ORDERED: PT OWN MED DRAWER 7, Y5N ONE ×8 (06:14→21:22)
[2016-08-07] MEDS: SODIUM CHLORIDE 1,000 ML IV SCH ×3 (06:28→22:01)
[2016-08-07] MEDS: INSULIN SLIDING SCALE (NOVOLOG) 1 VIAL SQ SCH ×2 (06:29→17:27)
[2016-08-07 08:01] LABS: BASOPHIL 0.1 % (0-2.0); EOSINOPHIL 1.3 % (0-4.5); MCH 31.7 pg (25.7-33.7); MCHC 35.1 g/dl (32.0-35.9); MEAN CELL VOLUME 90.2 fl (80-96); MEAN PLT VOLUME 9.7 fl (7.5-11.1); PLATELET COUNT 103 K/MM3 (134-434); RDW 12.5 % (11.9-15.9); WHITE BLOOD COUNT 5.9 K/mm3 (4.0-10.0)
[2016-08-07 08:32] LABS: ALBUMIN 2.9 g/dl (3.4-5.0); ANION GAP 11 (8-16); BILIRUBIN,TOTAL 0.3 mg/dL (0.2-1.0); CALCIUM 8.2 mg/dL (8.5-10.1); CO2 25 mmol/L (21-32); GLUCOSE,RANDOM 104 mg/dL (74-106); SGOT/AST 28 U/L (15-37); SGPT/ALT 9 U/L (12-78); TOT PROT 5.5 g/dl (6.4-8.2)
[2016-08-07 08:33] LABS: ALK PHOS 107 U/L (45-117)
[2016-08-07] MEDS: ASPIRIN 81 MG CHEWABLE TABLETS PO SCH (09:59)
[2016-08-07] MEDS: LOSARTAN 50MG/HCTZ 12.5MG 1 TAB (FP) PO SCH (09:59)
[2016-08-07] MEDS: ROPINIROLE HCL PO SCH ×4 (10:00→22:00)
[2016-08-07] MEDS: CARBIDOPA/LEVODOPA 25/250 TABLET (FP) PO SCH ×4 (10:00→22:00)
[2016-08-07] MEDS: ENTACAPONE 200 MG TABLET PO SCH ×4 (10:00→22:00)
--- NOTE | 2016-08-07 10:11 | PN ---
Progress Note (short form) - Note Progress Note: Pt seen, doing well, R shoulder with min pain, he is trying to move it more. Overall R shoulder doing fine. ROM exercises, P.T. if necessary
--- NOTE | 2016-08-07 16:33 | PN ---
Progress Note, Physician History of Present Illness: 80 year old male with significant medical hx of HTN, falls, HLD, prostate CA, Parkinsons disease, peripheral neuropathy, and on Heparin (subcutaneous) for DVT, who is presenting to the ED via EMS s/p fall from today. The patient reports he ambulates poorly due to Parkinsons, he was in multiple rehab. facilities and last night he felt on the way to the bathroom. He states that he felt both legs collapse and he hit his right shoulder against the wall on his way down. The patient denies head trauma or LOC. The patient was on the floor for six hours until his came home and found him. The patient complains of increased weakness over the past few weeks. He complains of pain to his right arm and right axilla. EMS reports that when they brought him in, they received a container of urine that was dark brown. He is a patient of Neurology and last week he had adjustement in his Parkinson's medication. - Current Medication List Current Medications: Active Medications Aspirin (Asa -) 81 mg PO DAILY [facility] Last Admin: 08/07/16 09:59 Dose: 81 mg Carbidopa/Levodopa (Sinemet 25/250 -) 1 each PO QID [facility] Last Admin: 08/07/16 14:21 Dose: 1 each Entacapone (Comtan -) 200 mg PO QID [facility] Last Admin: 08/07/16 14:22 Dose: 200 mg HCTZ/Losartan Potassium (Hyzaar -) 2 tab PO DAILY [facility] Last Admin: 08/07/16 09:59 Dose: 2 tab Sodium Chloride (Normal Saline -) 1,000 mls @ 50 mls/hr IV ASDIR [facility] Last Admin: 08/07/16 06:28 Dose: 50 mls/hr Insulin Aspart (Novolog Vial Sliding Scale -) 1 vial SQ BIDI [facility] PRN Reason: Protocol Last Admin: 08/07/16 06:29 Dose: Not Given Meclizine HCl (Antivert -) 12.5 mg PO Q6H PRN PRN Reason: vertigo Ropinirole HCl 1 mg/ (Ropinirole HCl 0.25 mg) 1.25 mg PO QID [facility] Last Admin: 08/07/16 14:21 Dose: 1.25 mg Tramadol HCl (Ultram -) 50 mg PO Q6H PRN PRN Reason: PAIN Last Admin: 08/06/16 23:53 Dose: 50 mg - Objective Vital Signs: Vital Signs Temperature 98.0 F 08/07/16 14:50 Pulse Rate 82 08/07/16 14:50 Respiratory Rate 16 08/07/16 14:50 Blood Pressure 140/70 08/07/16 14:50 O2 Sat by Pulse Oximetry (%) 97 08/07/16 09:00 Constitutional: Yes: No Distress, Calm Eyes: Yes: Conjunctiva Clear, EOM Intact, PERRL HENT: Yes: Atraumatic, Normocephalic Neck: Yes: Supple, Trachea Midline Cardiovascular: Yes: Regular Rate and Rhythm, S1, S2 Respiratory: Yes: Regular, CTA Bilaterally Gastrointestinal: Yes: Normal Bowel Sounds, Soft Genitourinary: Yes: WNL Breast(s): Yes: WNL Musculoskeletal: Yes: Back Pain, Joint Stiffness, Muscle Pain Extremities: Yes: WNL Edema: Yes Edema: LLE: 1+, RLE: 1+ Peripheral Pulses WNL: Yes Peripheral Pulses: Left Radial: 1+, Right Radial: 1+ Neurological: Yes: Alert, Oriented, Asterixis, Ataxia, Babinski negative, Cran Nerves II-XII Intact, Tremors, Unsteady Gait, Other (rigidity , masked facies, spasticity RUE with flexion contraction, RLE 4/5 , LLE 4/5 , RUE 4/5, LUE 5/5 , ataxia FTN, asterixis, tremor UE bilaterally,) Psychiatric: Yes: Alert, Oriented Labs: CBC, BMP 08/07/16 06:20 08/07/16 06:20 INR, PTT INR 1.18 (0.82-1.09) H 08/04/16 21:00 Problem List - Problems (1) Parkinson disease Code(s): G20 - PARKINSON'S DISEASE (2) Gait abnormality Code(s): R26.9 - UNSPECIFIED ABNORMALITIES OF GAIT AND MOBILITY (3) Rigidity Code(s): R29.898 - OTH SYMPTOMS AND SIGNS INVOLVING THE MUSCULOSKELETAL SYSTEM (4) Fall (on)(from) incline, initial encounter Code(s): W10.2XXA - FALL (ON)(FROM) INCLINE, INITIAL ENCOUNTER (5) Fall Code(s): W19.XXXA - UNSPECIFIED FALL, INITIAL ENCOUNTER Qualifiers: Encounter type: initial encounter Qualified Code(s): W19.XXXA - Unspecified fall, initial encounter Assessment/Plan 80 year old male with significant medical hx of HTN, falls, HLD, prostate CA, Parkinsons disease, peripheral neuropathy, and on Heparin (subcutaneous) for DVT, who is presenting to the ED via EMS s/p fall from today. The patient reports he ambulates poorly due to Parkinsons, he was in multiple rehab. facilities and last night he felt on the way to the bathroom. He states that he felt both legs collapse and he hit his right shoulder against the wall on his way down. The patient denies head trauma or LOC. The patient was on the floor for six hours until his came home and found him. The patient complains of increased weakness over the past few weeks. He complains of pain to his right arm and right axilla. EMS reports that when they brought him in, they received a container of urine that was dark brown. Today the patient is more alert, awake, the rigidity of the body is improved. We increased Requip and we started Entacapone for his Parkinson's rigidity. Impression: severe rigidity, Parkinson's disease, falls high risk, ataxic gait. Right side increased rigidity, contraction. Arthritis. Plan: - PT/OT/ST evaluation - continues Sinemet per home dose. - he tolerated well the increase Requip from 1 mg qid to 1.25 mg qid. - he tolerated well starting Comtan 200mg.po qid with each dose of Sinemet. - DVT prophyl . lovenox - banana bag. iv daily. Thank you for this consult.
--- NOTE | 2016-08-07 22:51 | PN ---
Progress Note, Physician - Current Medication List Current Medications: Active Medications Aspirin (Asa -) 81 mg PO DAILY [facility] Last Admin: 08/07/16 09:59 Dose: 81 mg Carbidopa/Levodopa (Sinemet 25/250 -) 1 each PO QID [facility] Last Admin: 08/07/16 22:00 Dose: 1 each Entacapone (Comtan -) 200 mg PO QID [facility] Last Admin: 08/07/16 22:00 Dose: 200 mg HCTZ/Losartan Potassium (Hyzaar -) 2 tab PO DAILY [facility] Last Admin: 08/07/16 09:59 Dose: 2 tab Sodium Chloride (Normal Saline -) 1,000 mls @ 50 mls/hr IV ASDIR [facility] Last Admin: 08/07/16 22:01 Dose: 50 mls/hr Insulin Aspart (Novolog Vial Sliding Scale -) 1 vial SQ BIDI [facility] PRN Reason: Protocol Last Admin: 08/07/16 17:27 Dose: Not Given Meclizine HCl (Antivert -) 12.5 mg PO Q6H PRN PRN Reason: vertigo Ropinirole HCl 1 mg/ (Ropinirole HCl 0.25 mg) 1.25 mg PO QID [facility] Last Admin: 08/07/16 22:00 Dose: 1.25 mg Tramadol HCl (Ultram -) 50 mg PO Q6H PRN PRN Reason: PAIN Last Admin: 08/06/16 23:53 Dose: 50 mg - Objective Vital Signs: Vital Signs Temperature 98.5 F 08/07/16 17:12 Pulse Rate 60 08/07/16 17:12 Respiratory Rate 20 08/07/16 17:12 Blood Pressure 122/64 08/07/16 17:12 O2 Sat by Pulse Oximetry (%) 97 08/07/16 09:00 Labs: CBC, BMP 08/07/16 06:20 08/07/16 06:20 INR, PTT INR 1.18 (0.82-1.09) H 08/04/16 21:00 Problem List - Problems (1) Fall Code(s): W19.XXXA - UNSPECIFIED FALL, INITIAL ENCOUNTER Qualifiers: Encounter type: initial encounter Qualified Code(s): W19.XXXA - Unspecified fall, initial encounter (2) Parkinson disease Code(s): G20 - PARKINSON'S DISEASE (3) Rhabdomyolysis Code(s): M62.82 - RHABDOMYOLYSIS Qualifiers: Rhabdomyolysis type: traumatic Encounter type: initial encounter Qualified Code(s): T79.6XXA - Traumatic ischemia of muscle, initial encounter (4) Gait abnormality Code(s): R26.9 - UNSPECIFIED ABNORMALITIES OF GAIT AND MOBILITY (5) Hypertension Code(s): I10 - ESSENTIAL (PRIMARY) HYPERTENSION
[2016-08-07] MEDS: traMADol HCL 50 MG TABLET PO PRN (23:14)
[2016-08-08] MEDS: INSULIN SLIDING SCALE (NOVOLOG) 1 VIAL SQ SCH ×2 (06:22→17:40)
[2016-08-08] MEDS ORDERED: PT OWN MED DRAWER 7, Y5N ONE ×2 (09:28→21:29)
[2016-08-08] MEDS: ASPIRIN 81 MG CHEWABLE TABLETS PO SCH (09:29)
[2016-08-08] MEDS: ENTACAPONE 200 MG TABLET PO SCH ×4 (09:30→22:27)
[2016-08-08] MEDS: LOSARTAN 50MG/HCTZ 12.5MG 1 TAB (FP) PO SCH (09:30)
[2016-08-08] MEDS: ROPINIROLE HCL PO SCH ×4 (09:31→22:27)
[2016-08-08] MEDS: CARBIDOPA/LEVODOPA 25/250 TABLET (FP) PO SCH ×4 (09:32→22:28)
[2016-08-08] MEDS: traMADol HCL 50 MG TABLET PO PRN (09:32)
--- NOTE | 2016-08-08 09:53 | PN ---
Progress Note (short form) - Note Progress Note: Ortho Pt seen and examined feeling better but still c/o pain decr pain, incr rom nvi a/p PT pain control d/c planning d/w Dr. Ramos
--- NOTE | 2016-08-08 22:47 | PN ---
Progress Note, Physician - Current Medication List Current Medications: Active Medications Aspirin (Asa -) 81 mg PO DAILY [facility] Last Admin: 08/08/16 09:29 Dose: 81 mg Carbidopa/Levodopa (Sinemet 25/250 -) 1 each PO QID [facility] Last Admin: 08/08/16 22:28 Dose: 1 each Entacapone (Comtan -) 200 mg PO QID [facility] Last Admin: 08/08/16 22:27 Dose: 200 mg HCTZ/Losartan Potassium (Hyzaar -) 2 tab PO DAILY [facility] Last Admin: 08/08/16 09:30 Dose: 2 tab Insulin Aspart (Novolog Vial Sliding Scale -) 1 vial SQ BIDI [facility] PRN Reason: Protocol Last Admin: 08/08/16 17:40 Dose: Not Given Meclizine HCl (Antivert -) 12.5 mg PO Q6H PRN PRN Reason: vertigo Meloxicam 7.5mg (Pt (Own Med)) 1 each PO DAILY [facility] Ropinirole HCl 1 mg/ (Ropinirole HCl 0.25 mg) 1.25 mg PO QID [facility] Last Admin: 08/08/16 22:27 Dose: 1.25 mg - Objective Vital Signs: Vital Signs Temperature 98.0 F 08/08/16 17:41 Pulse Rate 67 08/08/16 17:41 Respiratory Rate 18 08/08/16 17:41 Blood Pressure 135/80 08/08/16 17:41 O2 Sat by Pulse Oximetry (%) 98 08/08/16 09:00 Labs: CBC, BMP 08/07/16 06:20 08/07/16 06:20 INR, PTT INR 1.18 (0.82-1.09) H 08/04/16 21:00 Problem List - Problems (1) Fall Code(s): W19.XXXA - UNSPECIFIED FALL, INITIAL ENCOUNTER Qualifiers: Encounter type: initial encounter Qualified Code(s): W19.XXXA - Unspecified fall, initial encounter (2) Parkinson disease Code(s): G20 - PARKINSON'S DISEASE (3) Rhabdomyolysis Code(s): M62.82 - RHABDOMYOLYSIS Qualifiers: Rhabdomyolysis type: traumatic Encounter type: initial encounter Qualified Code(s): T79.6XXA - Traumatic ischemia of muscle, initial encounter (4) Gait abnormality Code(s): R26.9 - UNSPECIFIED ABNORMALITIES OF GAIT AND MOBILITY (5) Hypertension Code(s): I10 - ESSENTIAL (PRIMARY) HYPERTENSION
[2016-08-09] MEDS ORDERED: PT OWN MED DRAWER 7, Y5N ONE ×8 (06:09→21:41)
[2016-08-09] MEDS: INSULIN SLIDING SCALE (NOVOLOG) 1 VIAL SQ SCH ×2 (06:17→16:58)
[2016-08-09] MEDS: ASPIRIN 81 MG CHEWABLE TABLETS PO SCH (09:56)
[2016-08-09] MEDS: ROPINIROLE HCL PO SCH ×4 (09:56→21:57)
[2016-08-09] MEDS: CARBIDOPA/LEVODOPA 25/250 TABLET (FP) PO SCH ×4 (09:56→21:58)
[2016-08-09] MEDS: LOSARTAN 50MG/HCTZ 12.5MG 1 TAB (FP) PO SCH (09:56)
[2016-08-09] MEDS: MELOXICAM 7.5 MG PO SCH (09:57)
[2016-08-09] MEDS: ENTACAPONE 200 MG TABLET PO SCH ×4 (09:58→21:57)
[2016-08-09] MEDS ORDERED: INSULIN (NOVOLOG) ASPART 100 UNITS/ML 10ML VIAL ONE (18:12)
[2016-08-09] MEDS ORDERED: INSULIN DETEMIR 100 UNITS/ML MDV SQ ONE (18:12)
--- NOTE | 2016-08-09 22:39 | PN ---
Progress Note, Physician History of Present Illness: No new complaints Pt c/o rt shoulder pain and states his legs are weak - Current Medication List Current Medications: Active Medications Aspirin (Asa -) 81 mg PO DAILY [facility] Last Admin: 08/09/16 09:56 Dose: 81 mg Carbidopa/Levodopa (Sinemet 25/250 -) 1 each PO QID [facility] Last Admin: 08/09/16 21:58 Dose: 1 each Entacapone (Comtan -) 200 mg PO QID [facility] Last Admin: 08/09/16 21:57 Dose: 200 mg HCTZ/Losartan Potassium (Hyzaar -) 2 tab PO DAILY [facility] Last Admin: 08/09/16 09:56 Dose: 2 tab Insulin Aspart (Novolog Vial Sliding Scale -) 1 vial SQ BIDI [facility] PRN Reason: Protocol Last Admin: 08/09/16 16:58 Dose: Not Given Meclizine HCl (Antivert -) 12.5 mg PO Q6H PRN PRN Reason: vertigo Meloxicam 7.5mg (Pt (Own Med)) 1 each PO DAILY [facility] Last Admin: 08/09/16 09:57 Dose: 1 each Ropinirole HCl 1 mg/ (Ropinirole HCl 0.25 mg) 1.25 mg PO QID [facility] Last Admin: 08/09/16 21:57 Dose: 1.25 mg - Objective Vital Signs: Vital Signs Temperature 98.8 F 08/09/16 18:01 Pulse Rate 77 08/09/16 18:01 Respiratory Rate 20 08/09/16 18:01 Blood Pressure 137/70 08/09/16 18:01 O2 Sat by Pulse Oximetry (%) 98 08/09/16 09:00 Cardiovascular: Yes: WNL, Regular Rate and Rhythm Respiratory: Yes: WNL, Regular, CTA Bilaterally Gastrointestinal: Yes: WNL, Normal Bowel Sounds, Soft Edema: No Labs: CBC, BMP 08/07/16 06:20 08/07/16 06:20 INR, PTT INR 1.18 (0.82-1.09) H 08/04/16 21:00 Problem List - Problems (1) Fall Assessment/Plan: Multifactorial Long d/w pt about possible need for STR and dc planning Code(s): W19.XXXA - UNSPECIFIED FALL, INITIAL ENCOUNTER Qualifiers: Encounter type: initial encounter Qualified Code(s): W19.XXXA - Unspecified fall, initial encounter (2) Parkinson disease Assessment/Plan: Cont sinemet Cont Requip Code(s): G20 - PARKINSON'S DISEASE (3) Rhabdomyolysis Assessment/Plan: Cont to monitor Code(s): M62.82 - RHABDOMYOLYSIS Qualifiers: Rhabdomyolysis type: traumatic Encounter type: initial encounter Qualified Code(s): T79.6XXA - Traumatic ischemia of muscle, initial encounter (4) Gait abnormality Code(s): R26.9 - UNSPECIFIED ABNORMALITIES OF GAIT AND MOBILITY (5) Hypertension Code(s): I10 - ESSENTIAL (PRIMARY) HYPERTENSION
[2016-08-10] MEDS ORDERED: PT OWN MED DRAWER 7, Y5N ONE ×8 (06:55→23:22)
[2016-08-10] MEDS: INSULIN SLIDING SCALE (NOVOLOG) 1 VIAL SQ SCH ×2 (07:02→17:09)
[2016-08-10] MEDS: MELOXICAM 7.5 MG PO SCH ×2 (07:39→09:18)
[2016-08-10] MEDS: CARBIDOPA/LEVODOPA 25/250 TABLET (FP) PO SCH ×4 (09:25→22:32)
[2016-08-10] MEDS: ASPIRIN 81 MG CHEWABLE TABLETS PO SCH (09:25)
[2016-08-10] MEDS: ENTACAPONE 200 MG TABLET PO SCH ×4 (09:25→22:35)
[2016-08-10] MEDS: ROPINIROLE HCL PO SCH ×4 (09:25→22:36)
[2016-08-10] MEDS: LOSARTAN 50MG/HCTZ 12.5MG 1 TAB (FP) PO SCH (09:25)
[2016-08-10] MEDS ORDERED: traMADol HCL 50 MG TABLET PO PRN (18:44)
--- NOTE | 2016-08-10 20:47 | PN ---
Progress Note, Physician History of Present Illness: No new change - Current Medication List Current Medications: Active Medications Aspirin (Asa -) 81 mg PO DAILY [facility] Last Admin: 08/10/16 09:25 Dose: 81 mg Carbidopa/Levodopa (Sinemet 25/250 -) 1 each PO QID [facility] Last Admin: 08/10/16 18:14 Dose: 1 each Entacapone (Comtan -) 200 mg PO QID [facility] Last Admin: 08/10/16 18:14 Dose: 200 mg HCTZ/Losartan Potassium (Hyzaar -) 2 tab PO DAILY [facility] Last Admin: 08/10/16 09:25 Dose: 2 tab Insulin Aspart (Novolog Vial Sliding Scale -) 1 vial SQ BIDI [facility] PRN Reason: Protocol Last Admin: 08/10/16 17:09 Dose: Not Given Meclizine HCl (Antivert -) 12.5 mg PO Q6H PRN PRN Reason: vertigo Meloxicam 7.5mg (Pt (Own Med)) 1 each PO DAILY [facility] Last Admin: 08/10/16 09:18 Dose: Not Given Ropinirole HCl 1 mg/ (Ropinirole HCl 0.25 mg) 1.25 mg PO QID [facility] Last Admin: 08/10/16 18:13 Dose: 1.25 mg Tramadol HCl (Ultram -) 50 mg PO Q6H PRN PRN Reason: PAIN Last Admin: 08/10/16 18:50 Dose: 50 mg - Objective Vital Signs: Vital Signs Temperature 98.9 F 08/10/16 17:08 Pulse Rate 84 08/10/16 17:08 Respiratory Rate 20 08/10/16 17:08 Blood Pressure 118/64 08/10/16 17:08 O2 Sat by Pulse Oximetry (%) 98 08/10/16 09:00 Cardiovascular: Yes: WNL, Regular Rate and Rhythm Respiratory: Yes: WNL, Regular, CTA Bilaterally Gastrointestinal: Yes: WNL, Normal Bowel Sounds, Soft, Abdomen, Obese Extremities: Yes: Other (Limited ROM due to pain) Labs: CBC, BMP 08/07/16 06:20 08/07/16 06:20 INR, PTT INR 1.18 (0.82-1.09) H 08/04/16 21:00 Problem List - Problems (1) Fall Code(s): W19.XXXA - UNSPECIFIED FALL, INITIAL ENCOUNTER Qualifiers: Encounter type: initial encounter Qualified Code(s): W19.XXXA - Unspecified fall, initial encounter (2) Parkinson disease Code(s): G20 - PARKINSON'S DISEASE (3) Rhabdomyolysis Code(s): M62.82 - RHABDOMYOLYSIS Qualifiers: Rhabdomyolysis type: traumatic Encounter type: initial encounter Qualified Code(s): T79.6XXA - Traumatic ischemia of muscle, initial encounter (4) Gait abnormality Code(s): R26.9 - UNSPECIFIED ABNORMALITIES OF GAIT AND MOBILITY (5) Hypertension Code(s): I10 - ESSENTIAL (PRIMARY) HYPERTENSION
[2016-08-10] MEDS: MECLIZINE HCL 12.5 MG TABLET PO PRN (22:34)
[2016-08-11] MEDS: INSULIN SLIDING SCALE (NOVOLOG) 1 VIAL SQ SCH ×2 (06:35→17:40)
[2016-08-11] MEDS: MECLIZINE HCL 12.5 MG TABLET PO PRN (09:46)
[2016-08-11] MEDS: CARBIDOPA/LEVODOPA 25/250 TABLET (FP) PO SCH ×4 (09:46→21:48)
[2016-08-11] MEDS: ASPIRIN 81 MG CHEWABLE TABLETS PO SCH (09:46)
[2016-08-11] MEDS: ROPINIROLE HCL PO SCH ×4 (09:47→21:45)
[2016-08-11] MEDS: ENTACAPONE 200 MG TABLET PO SCH ×4 (09:49→21:46)
[2016-08-11] MEDS: LOSARTAN 50MG/HCTZ 12.5MG 1 TAB (FP) PO SCH (09:50)
[2016-08-11] MEDS: MELOXICAM 7.5 MG PO SCH (09:51)
[2016-08-11] MEDS ORDERED: PT OWN MED DRAWER 7, Y5N ONE (17:43)
--- NOTE | 2016-08-11 19:51 | PN ---
Progress Note, Physician History of Present Illness: No new change - Current Medication List Current Medications: Active Medications Aspirin (Asa -) 81 mg PO DAILY [facility] Last Admin: 08/11/16 09:46 Dose: 81 mg Carbidopa/Levodopa (Sinemet 25/250 -) 1 each PO QID [facility] Last Admin: 08/11/16 17:44 Dose: 1 each Entacapone (Comtan -) 200 mg PO QID [facility] Last Admin: 08/11/16 17:38 Dose: 200 mg HCTZ/Losartan Potassium (Hyzaar -) 2 tab PO DAILY [facility] Last Admin: 08/11/16 09:50 Dose: 2 tab Insulin Aspart (Novolog Vial Sliding Scale -) 1 vial SQ BIDI [facility] PRN Reason: Protocol Last Admin: 08/11/16 17:40 Dose: Not Given Meclizine HCl (Antivert -) 12.5 mg PO Q6H PRN PRN Reason: vertigo Last Admin: 08/11/16 09:46 Dose: 12.5 mg Meloxicam 7.5mg (Pt (Own Med)) 1 each PO DAILY [facility] Last Admin: 08/11/16 09:51 Dose: 1 each Ropinirole HCl 1 mg/ (Ropinirole HCl 0.25 mg) 1.25 mg PO QID [facility] Last Admin: 08/11/16 17:39 Dose: 1.25 mg Tramadol HCl (Ultram -) 50 mg PO Q6H PRN PRN Reason: PAIN Last Admin: 08/10/16 18:50 Dose: 50 mg - Objective Vital Signs: Vital Signs Temperature 97.5 F L 08/11/16 15:00 Pulse Rate 76 08/11/16 15:00 Respiratory Rate 18 08/11/16 15:00 Blood Pressure 109/61 08/11/16 15:00 O2 Sat by Pulse Oximetry (%) 98 08/11/16 09:00 Neck: Yes: Supple Cardiovascular: Yes: WNL, Regular Rate and Rhythm Respiratory: Yes: WNL, Regular, CTA Bilaterally Gastrointestinal: Yes: WNL, Normal Bowel Sounds, Soft, Abdomen, Obese Labs: CBC, BMP 08/07/16 06:20 08/07/16 06:20 INR, PTT INR 1.18 (0.82-1.09) H 08/04/16 21:00 Problem List - Problems (1) Fall Assessment/Plan: Multifactorial Long d/w pt about possible need for STR and dc planning Code(s): W19.XXXA - UNSPECIFIED FALL, INITIAL ENCOUNTER Qualifiers: Encounter type: initial encounter Qualified Code(s): W19.XXXA - Unspecified fall, initial encounter (2) Parkinson disease Assessment/Plan: Cont sinemet Cont Requip Code(s): G20 - PARKINSON'S DISEASE (3) Rhabdomyolysis Code(s): M62.82 - RHABDOMYOLYSIS Qualifiers: Rhabdomyolysis type: traumatic Encounter type: initial encounter Qualified Code(s): T79.6XXA - Traumatic ischemia of muscle, initial encounter (4) Gait abnormality Code(s): R26.9 - UNSPECIFIED ABNORMALITIES OF GAIT AND MOBILITY (5) Hypertension Assessment/Plan: BP stable Code(s): I10 - ESSENTIAL (PRIMARY) HYPERTENSION
[2016-08-12] MEDS: INSULIN SLIDING SCALE (NOVOLOG) 1 VIAL SQ SCH (06:05)
[2016-08-12 08:50] VITALS: BP 123/59; PULSE 86; TEMP 98.2
[2016-08-12] MEDS: ASPIRIN 81 MG CHEWABLE TABLETS PO SCH (09:56)
[2016-08-12] MEDS: CARBIDOPA/LEVODOPA 25/250 TABLET (FP) PO SCH (09:56)
[2016-08-12] MEDS: MECLIZINE HCL 12.5 MG TABLET PO PRN (09:57)
[2016-08-12] MEDS: MELOXICAM 7.5 MG PO SCH (09:58)
[2016-08-12] MEDS: ENTACAPONE 200 MG TABLET PO SCH (09:59)
[2016-08-12] MEDS: ROPINIROLE HCL PO SCH (09:59)
[2016-08-12] MEDS: LOSARTAN 50MG/HCTZ 12.5MG 1 TAB (FP) PO SCH (10:00)
[2016-08-12] MEDS ORDERED: PT OWN MED DRAWER 7, Y5N ONE (11:45)
== END 2016-08-12 11:47 | DRG 565 ==
LOC: JER 19:28 → JERBED 08-05 02:16 → UNDOADMIN 08-05 02:16 → JERBED 08-05 02:56 → J8W 08-05 05:45 → JERBED 08-05 05:45 → J8W 08-06 16:45
PROVIDERS: ADMIT Internal Medicine; ATTEND Internal Medicine
DX: T79.6XXA Traumatic ischemia of muscle, initial encounter (principal); N17.9 Acute kidney failure, unspecified; G20 Parkinson's disease; G62.9 Polyneuropathy, unspecified; I10 Essential (primary) hypertension; E78.5 Hyperlipidemia, unspecified; E86.0 Dehydration; M25.511 Pain in right shoulder; W18.39XA Other fall on same level, initial encounter; Z91.81 History of falling; Y92.002 Bathroom of unspecified non-institutional (private) residence as the place of occurrence of the external cause; R26.2 Difficulty in walking, not elsewhere classified; R74.0 Nonspecific elevation of levels of transaminase and lactic acid dehydrogenase [LDH]; E87.6 Hypokalemia; M19.011 Primary osteoarthritis, right shoulder
CPT/HCPCS: 36415; 70450-TC; 71010-TC; 73030-TC-RT; 73200-TC-RT; 80053; 81003; 81015; 82550; 82553; 84484; 85025; 85610; 93005; 93010; 97116-GP; 97162-PG; 99281-25; 99284-25; G0008; Q2037

== ENCOUNTER 2016-10-15 10:00 | Emergency (ER) | payer OTHER ==
[2016-10-15 10:21] VITALS: BMI 28.7
--- NOTE | 2016-10-15 10:34 | PDOC ---
History of Present Illness - General History Source: Patient, Old Records Exam Limitations: Clinical Condition <Montserrat Greene - Last Filed: 10/15/16 13:27> - General History Source: Patient, Friend (Neighbor) - History of Present Illness Initial Comments: 10/15/16 10:34 The patient is an 80-year-old man with a significant past medical history of hypertension, hypercholesterolemia, deep venous thrombosis, peripheral neuropathy, prostate Ca, Parkinsons disease, who presents to the emergency department for further evaluation via EMS for further evaluation of generalized weakness. Patient was obtained by patient's neighbor, who checks up on the patient every morning, to make sure he is doing okay. As per neighbor, she checked up on the patient this morning, when she noted that the patient appeared to be breathing slowly and to not respond to verbal stimuli. He states he is unable to walk on his own and often has difficulty transferring from his wheelchair to the bed. He notes that his difficulty transferring now more so than usual, over the past 2 weeks. Last night, he attempted to transfer, but "slid off his wheelchair". No fall, head injury, as per patient. He currently reports right chronic shoulder pain that radiates down his arm, with associated numbness and tingling at his fingertips and he reports feeling stiff, but attributes these symptoms to his Parkinson's disease, as he admits he has not followed up with his Neurologist, Dr. Hartmann. Patient did not take his morning medications, as he was in a pedro to come to the emergency department. Patient was admitted to this ED on July for similar complaints. He was ultimately discharged to [facility] for physical therapy. Allergies: No known drug allergies. Past Surgical History: None reported Social History: No tobacco, ETOH use and recreational drug use. Primary Care Physician: Dr. Radhames Arechiga [phone] Neurologist: Dr. Kulwant Hartmann [phone] <Vida Goff - Last Filed: 10/15/16 15:05> - General Chief Complaint: Weakness Stated Complaint: WEAKNESS Time Seen by Provider: 10/15/16 10:14 Past History - Past Medical History Anemia: No Cancer: Yes (PROSTATE) Disorders: Yes (PROSTATE CA) HTN: Yes Hypercholesterolemia: Yes Other medical history: PARKINSONS. - Psycho/Social/Smoking Cessation Hx Anxiety: No Suicidal Ideation: No Smoking Status: No Smoking History: Former smoker Have you smoked in the past 12 months: No Number of Cigarettes Smoked Daily: 0 If you are a former smoker, when did you quit?: 1949 Information on smoking cessation initiated: No Hx Alcohol Use: No Drug/Substance Use Hx: No Substance Use Type: None Hx Substance Use Treatment: No <Montserrat Greene - Last Filed: 10/15/16 13:27> <Vida Goff - Last Filed: 10/15/16 15:05> - Past Medical History Allergies/Adverse Reactions: Allergies Allergy/AdvReac Type Severity Reaction Status Date / Time No Known Allergies Allergy Verified 10/15/16 10:21 Home Medications: Ambulatory Orders Losartan/Hydrochlorothiazide [Losartan-Hctz 100-25 mg Tab] 1 each PO DAILY 12/06 Carbidopa/Levodopa 25/250 [Sinemet 25/250 -] 1 each PO QID tablet 08/12/16 Insulin Sliding Scale [Novolog Vial Sliding Scale -] 1 vial SQ BIDI units 08/12 Meclizine HCl [Antivert -] 12.5 mg PO Q6H PRN #0 tablet 08/12/16 Docusate Sodium 100 mg PO BID 10/15/16 Entacapone 200 mg PO QID 10/15/16 Ropinirole HCl [Requip -] 1.25 mg PO QID 10/15/16 Sennosides/Docusate Sodium [[facility]vs Senna Plus Tablet] 2 each PO HS 10/15/16 *Physical Exam - Vital Signs Last Vital Signs Temp Pulse Resp BP Pulse Ox 86 18 119/60 98 10/15/16 10:18 10/15/16 10:18 10/15/16 10:18 10/15/16 10:18 <Montserrat Greene - Last Filed: 10/15/16 13:27> - Vital Signs Last Vital Signs Temp Pulse Resp BP Pulse Ox 86 18 119/60 98 10/15/16 10:18 10/15/16 10:18 10/15/16 10:18 10/15/16 10:18 - Physical Exam Comments: 10/15/16 10:34 GENERAL: Awake. Alert. HEENT: Normocephalic, atraumatic. PERRLA, EOMI. No conjunctival pallor. Sclera are non-icteric. Moist mucous membranes. Oropharynx is clear. NECK: Supple. Full ROM. No JVD. CARDIOVASCULAR: Regular rate and rhythm. No murmurs, rubs, or gallops. PULMONARY: No evidence of respiratory distress. Lungs clear to auscultation bilaterally. No wheezing, rales or rhonchi. ABDOMINAL: Soft. Non-tender. Non-distended. No rebound or guarding. No organomegaly. Normoactive bowel sounds. MUSCULOSKELETAL: Normal range of motion at all joints. No bony deformities or tenderness. No CVA tenderness. EXTREMITIES: No cyanosis. No clubbing. No edema. No calf tenderness. SKIN: Warm and dry. Normal capillary refill. No rashes. No jaundice. NEUROLOGICAL: Alert, awake, appropriate. Normal speech. PSYCHIATRIC: Cooperative. Good eye contact. Appropriate mood and affect. <Vida Goff - Last Filed: 10/15/16 15:05> Heart Score/ECG Review #1 ECG reviewed & interpreted by me at: 10:22 Normal sinus rhythm at a rate of 88 bpm with a poor baseline. Occasional PVCs. Normal intervals. <Vida Goff - Last Filed: 10/15/16 15:05> ED Treatment Course - LABORATORY CBC & Chemistry Diagram: 10/15/16 10:40 10/15/16 10:40 <Montserrat Greene - Last Filed: 10/15/16 13:27> - LABORATORY CBC & Chemistry Diagram: 10/15/16 10:40 10/15/16 10:40 - ADDITIONAL ORDERS Additional order review: 10/15/16 10:40 RBC 3.51 L MCV 92.5 MCHC 34.4 RDW 13.5 MPV 9.7 Neutrophils % 52.8 Lymphocytes % 30.3 Monocytes % 11.3 H Eosinophils % 5.1 H D Basophils % 0.5 D - RADIOLOGY Radiograph Interpretation: 10/15/16 11:39 EXAM: RAD/CHEST X-RAY PORTABLE IMPRESSION: A single view the chest reveals clear lungs, rotation to the right, normal mediastinum with some hilar calcifications and sharp angles. An acute process is not seen. Since 08/05/2016, there is a better inspiration and no sign of an acute change. EXAM: CT/HEAD CT WITHOUT CONTRAST IMPRESSION: Compared to prior examination dated 08/04/2016 There remains moderate atrophy, ventricular dilatation and mild periventricular chronic microvascular ischemic changes. No mass lesion, gross acute infarct or intracranial hemorrhage is identified. There is no shift of the midline structures. The calvarium is intact. Minimal mucosal thickening in the ethmoid air cells. Mild deformity of the right orbital medial wall consistent with an old fracture. Calcification of the cavernous carotid arteries are present. The mastoid air cells are well aerated - Medications Given in the ED: ED Medications Discontinued Medications Generic Name Dose Route Start Last Admin Trade Name Freq PRN Reason Stop Dose Admin Oxycodone/Acetaminophen 1 combo 10/15/16 10:58 10/15/16 11:22 Percocet 5/325 - PO 10/15/16 10:59 1 combo ONCE ONE Administration Oxycodone/Acetaminophen 1 combo 10/15/16 11:16 10/15/16 11:22 Percocet 5/325 - PO 10/15/16 11:17 1 combo ONCE ONE Administration <Vida Goff - Last Filed: 10/15/16 15:05> Medical Decision Making - Medical Decision Making 10/15/16 11:56 am 80-year-old male with history of hypertension, high cholesterol, DVT, prostate CA, Parkinson's disease who presents the emergency department with his Neighbors/friend who states that the patient has generalized weakness and has had difficulty ambulating at home. Differential diagnosis includes but is not limited to: Infection (pneumonia versus UTI), electrolyte abnormality, dehydration, ACS, intracranial process. Plan: 1. Labs 2. Chest x-ray 3. CT head 4. Urine analysis 5. Social work consult to evaluate home situation 6. Observe and reevaluate 10/15/16 13:27 Addendum: The labs were reviewed and are noted in the EMR> CXR and CT head were negative and all serologic studies are within acceptable parameters. The SW team has arranged for visiting nurse evaluation at the patient's home within the next 24 hours. Will discharge home, follow-up with PCP and return to the ED if Sx persist, worsen or new Sx arise. <Montserrat Greene - Last Filed: 10/15/16 13:27> - Medical Decision Making 10/15/16 10:34 Documentation prepared by Vida Goff, acting as emergency medical dispatcher for Montserrat Greene MD. <Vida Goff - Last Filed: 10/15/16 15:05> *DC/Admit/Observation/Transfer - Discharge Dispostion Admit: No - Attestations Physician Attestion: 10/15/16 11:56 I, Dr. Montserrat Greene, attest that the scribes documentation that appears above has been prepared under my direction and personally reviewed by me in its entirety. I confirmed that the note above accurately reflects all work, treatment, procedures, and medical decision-making performed by me. <Montserrat Greene - Last Filed: 10/15/16 13:27> <Vida Goff - Last Filed: 10/15/16 15:05> Diagnosis at time of Disposition: Weakness, Parkinson disease - Discharge Dispostion Disposition: HOME Condition at time of disposition: Stable - Referrals Referrals: Radhames Arechiga MD [Primary Care Provider] - - Patient Instructions Printed Discharge Instructions: DI for Muscle Weakness Additional Instructions: Please follow-up with your primary care physician within the next week. You will be getting an evaluation for visiting nurse services in your home within the next 24 hours. Return to the ED if your symptoms persist, worsen or new symptoms arise.
[2016-10-15 10:52] LABS: BASOPHIL 0.5 % (0-2.0); EOSINOPHIL 5.1 % (0-4.5); MCH 31.9 pg (25.7-33.7); MCHC 34.4 g/dl (32.0-35.9); MEAN CELL VOLUME 92.5 fl (80-96); MEAN PLT VOLUME 9.7 fl (7.5-11.1); NEUTROPHILS 52.8 % (42.8-82.8); PLATELET COUNT 120 K/MM3 (134-434); RDW 13.5 % (11.9-15.9)
[2016-10-15] MEDS ORDERED: OXYCODONE/APAP 5/325MG COMBO TABLET PO ONE ×2 (10:58→11:16)
[2016-10-15] MEDS ORDERED: OXYCODONE/APAP 5/325MG COMBO TABLET ONE (11:18)
[2016-10-15 11:19] LABS: ALBUMIN 3.6 g/dl (3.4-5.0); ANION GAP 9 (8-16); BILIRUBIN,TOTAL 0.8 mg/dL (0.2-1.0); CALCIUM 8.8 mg/dL (8.5-10.1); CO2 25 mmol/L (21-32); COCKROFT - GAULT 61.94; CREATININE 1.2 mg/dL (0.7-1.3); GLUCOSE,RANDOM 137 mg/dL (74-106); PHOSPHOROUS 3.1 mg/dL (2.5-4.9); SGPT/ALT 24 U/L (12-78); TOT PROT 6.7 g/dl (6.4-8.2)
[2016-10-15 11:20] LABS: ALK PHOS 144 U/L (45-117); TROPONIN I < 0.02 ng/ml (0.00-0.05)
[2016-10-15 11:30] LABS: URINE APPEARANCE CLEAR; URINE BILIRUBIN NEGATIVE (NEGATIVE); URINE BLOOD NEGATIVE (NEGATIVE); URINE COLOR YELLOW; URINE GLUCOSE (UA) NEGATIVE (NEGATIVE); URINE KETONE TRACE (NEGATIVE); URINE LEUK ESTERASE NEGATIVE (NEGATIVE); URINE NITRITE NEGATIVE (NEGATIVE); URINE PROTEIN NEGATIVE (NEGATIVE); URINE UROBILINOGEN NEGATIVE E.U./dl (0.2-1.0)
[2016-10-15 11:31] LABS: MAGNESIUM 2.1 mg/dL (1.8-2.4); SGOT/AST 45 U/L (15-37)
[2016-10-15 11:59] VITALS: TEMP 98.1
[2016-10-15 14:04] VITALS: PULSE 81
--- NOTE | 2016-10-15 14:11 | EKG ---
Test Reason : Blood Pressure : / mmHG Vent. Rate : 088 BPM Atrial Rate : 088 BPM P-R Int : 186 ms QRS Dur : 076 ms QT Int : 358 ms P-R-T Axes : 068 035 -10 degrees QTc Int : 433 ms SINUS RHYTHM WITH OCCASIONAL PREMATURE VENTRICULAR COMPLEXES NONSPECIFIC ST ABNORMALITY ABNORMAL ECG WHEN COMPARED WITH ECG OF 04-AUG-2016 20:58, PREMATURE VENTRICULAR COMPLEXES ARE NOW PRESENT CRITERIA FOR INFERIOR INFARCT ARE NO LONGER PRESENT T WAVE INVERSION MORE EVIDENT IN INFERIOR LEADS Confirmed by MIGUEL ANGEL ALLISON, FAY ([id number]) on 10/15/2016 2:10:41 PM Referred By: Confirmed By:FAY MICHELLE MD
[2016-10-15 15:40] VITALS: BP 124/74
--- NOTE | 2016-10-18 19:40 | PDOC ---
Patient Follow-up (Call Back) - Post ED Follow - Up Condition at time of discharge: Stable Disposition at time of original discharge: HOME Reason for Call Back: Abnwl. Microbiology (urine C & S + for enterococcus faecalis > 100,00 sensitive to PCN will order keflex 500 mg bid for 7 days, pt. called and informed results he [place] [facility] [place] it [place] tomorrow, he was also informed to follow up with his PCP)
== END 2016-10-15 15:40 | disposition home or self-care (01) ==
LOC: JER 10:00
DX: G20 Parkinson's disease (principal); I10 Essential (primary) hypertension; E78.00 Pure hypercholesterolemia, unspecified; Z85.46 Personal history of malignant neoplasm of prostate; Z86.718 Personal history of other venous thrombosis and embolism; Z79.01 Long term (current) use of anticoagulants
CPT/HCPCS: 36415; 70450-TC; 71010-TC; 73030-TC-RT; 73060-TC-RT; 73070-TC-RT; 80053; 81003; 82550; 82553; 83690; 83735; 84100; 84484; 85025; 87086; 87186; 93005; 93010; 99285-25

== ENCOUNTER 2016-11-06 11:52 | Inpatient (IN) | payer OTHER ==
--- NOTE | 2016-11-06 12:23 | PDOC ---
[id number] 100 11/06/16 12:05 11/06/16 12:05 11/06/16 12:05 11/06/16 12:05 11/06/16 12:05 - Physical Exam Comments: 11/06/16 12:23 Pt seen by the Advanced Practice Provider under my direct supervision Pt interviewed and examined Ancillary studies reviewed I agree with plan as outlined by the Advanced Practice Provider ED Treatment Course - LABORATORY CBC & Chemistry Diagram: 11/08/16 06:00 11/08/16 06:00 *DC/Admit/Observation/Transfer Diagnosis at time of Disposition: Dizziness, Weakness, Parkinson disease, Poor appetite - Discharge Dispostion Disposition: CUSTODIAL FACILITY
--- NOTE | 2016-11-06 12:44 | PDOC ---
History of Present Illness - General Chief Complaint: Weakness Stated Complaint: WEAKNESS Time Seen by Provider: 11/06/16 12:09 History Source: Patient Exam Limitations: No Limitations - History of Present Illness Initial Comments: 11/06/16 13:07 80-year-old male resents the ED with complaints of generalized weakness, decreased appetite, decreased ambulation, and intermittent dizziness for the past few months worsening over the past month. Patient has not seen his PCP for the above and decided to bring him to the ER for further evaluation. Patient denies fever, chills, chest pain, cough, abdominal pain, dysuria or diarrhea. Patient also denies constipation, rash, or lower extremity edema. Timing/Duration: getting worse Severity: moderate Associated Symptoms: reports: loss of appetite, weakness Past History - Past Medical History Allergies/Adverse Reactions: Allergies Allergy/AdvReac Type Severity Reaction Status Date / Time No Known Allergies Allergy Verified 11/06/16 12:05 Home Medications: Ambulatory Orders Carbidopa/Levodopa 25/250 [Sinemet 25/250 -] 1 each PO QID tablet 08/12/16 Meclizine HCl [Antivert -] 12.5 mg PO Q6H PRN #0 tablet 08/12/16 Entacapone 200 mg PO QID 10/15/16 Ropinirole HCl [Requip -] 1 mg PO QID 10/15/16 Losartan/Hydrochlorothiazide [Losartan-Hctz 100-12.5 mg Tab] 1 each PO DAILY 10/20 Meloxicam 7.5 mg PO DAILY 11/06/16 Anemia: No Cancer: Yes (PROSTATE) Disorders: Yes (PROSTATE CA) HTN: Yes Hypercholesterolemia: Yes - Psycho/Social/Smoking Cessation Hx Anxiety: No Suicidal Ideation: No Smoking Status: No Smoking History: Former smoker Have you smoked in the past 12 months: No Number of Cigarettes Smoked Daily: 0 If you are a former smoker, when did you quit?: 1950 Information on smoking cessation initiated: No Hx Alcohol Use: No Drug/Substance Use Hx: No Substance Use Type: None Hx Substance Use Treatment: No Patient Lives Alone: No Lives with/in: spouse/SO Review of Systems - Review of Systems Able to Perform ROS?: Yes Constitutional: Yes: Loss of Appetite, Weakness HEENTM: No: Symptoms Reported Respiratory: No: Symptoms reported Cardiac (ROS): No: Symptoms Reported ABD/GI: Yes: Poor Appetite, Poor Fluid Intake : No: Symptoms Reported Musculoskeletal: Yes: Muscle Weakness Integumentary: No: Symptoms Reported Neurological: Yes: Weakness, Dizziness Endocrine: No: Symptoms Reported Hematologic/Lymphatic: No: Symptoms Reported *Physical Exam - Vital Signs Last Vital Signs Temp Pulse Resp BP Pulse Ox 97.4 F L 76 20 131/66 100 11/06/16 12:05 11/06/16 12:05 11/06/16 12:05 11/06/16 12:05 11/06/16 12:05 - Physical Exam General Appearance: Yes: Nourished, Appropriately Dressed. No: Apparent Distress HEENT: positive: EOMI, SCOTT. negative: Pale Conjunctivae Neck: positive: Supple Respiratory/Chest: positive: Lungs Clear, Normal Breath Sounds. negative: Respiratory Distress, Accessory Muscle Use Cardiovascular: positive: Regular Rhythm, Regular Rate. negative: Murmur Gastrointestinal/Abdominal: positive: Soft. negative: Tenderness Extremity: positive: Normal Capillary Refill. negative: Pedal Edema Integumentary: positive: Normal Color, Warm, Moist Neurologic: positive: Normal Mood/Affect Heart Score/ECG Review - Electrocardiogram EKG: Normal - Age Age: >/= 65 - Risk Factors Based on the list above the patient has:: 1-2 risk factors - Troponin Troponin: </= normal limit - ECG Intrepretation Rhythm: Regular Rhythm (rate 70 normal sinus rhythm) ED Treatment Course - LABORATORY CBC & Chemistry Diagram: 11/08/16 06:00 11/08/16 06:00 Medical Decision Making - Medical Decision Making 11/06/16 13:15 Patient brought in by for worsening weakness, decreased appetite increased dizziness, concerning for dehydration. Called Dr. Arechiga and explained the case to him who told me to contact Dr. Mejia which I did and is aware patient will be admitted to [facility] inpatient if labs are not critical 11/06/16 13:19 Chest x-ray negative 11/06/16 14:38 Laboratory Tests 11/06/16 11/06/16 12:50 12:50 WBC 7.0 D Hgb 12.2 Hct 34.3 L Plt Count 148 D Sodium 139 Potassium 3.9 Chloride 107 Carbon Dioxide 22 Anion Gap 10 BUN 29 H Creatinine 1.3 Creat Clearance w eGFR 52.98 Random Glucose 92 D Calcium 9.3 Magnesium 2.0 Total Bilirubin 0.5 D AST 25 D ALT 26 Alkaline Phosphatase 130 H Troponin I < 0.02 urine pending *DC/Admit/Observation/Transfer Diagnosis at time of Disposition: Dizziness, Weakness, Parkinson disease, Poor appetite - Discharge Dispostion Admit: Yes - Referrals
[2016-11-06 13:43] LABS: ALBUMIN 3.7 g/dl (3.4-5.0); ANION GAP 10 (8-16); BILIRUBIN,TOTAL 0.5 mg/dL (0.2-1.0); CALCIUM 9.3 mg/dL (8.5-10.1); CO2 22 mmol/L (21-32); COCKROFT - GAULT 62.9; CREATININE 1.3 mg/dL (0.7-1.3); GLUCOSE,RANDOM 92 mg/dL (74-106); SGPT/ALT 26 U/L (12-78); TOT PROT 7.1 g/dl (6.4-8.2)
[2016-11-06 13:45] LABS: ALK PHOS 130 U/L (45-117); TROPONIN I < 0.02 ng/ml (0.00-0.05)
[2016-11-06 14:11] LABS: SGOT/AST 25 U/L (15-37)
[2016-11-06 14:19] LABS: BASOPHIL 0.2 % (0-2.0); EOSINOPHIL 1.6 % (0-4.5); MCH 32.2 pg (25.7-33.7); MCHC 35.7 g/dl (32.0-35.9); MEAN CELL VOLUME 90.4 fl (80-96); NEUTROPHILS 55.5 % (42.8-82.8); PLATELET COUNT 148 K/MM3 (134-434); RDW 13.2 % (11.9-15.9)
[2016-11-06 19:29] VITALS: BMI 27.4
--- NOTE | 2016-11-07 02:15 | HP ---
Admitting History and Physical - Admission History of Present Illness: Pt is a 80 y/o male W/ PMH significant for HTN, parkinson's dz, diabetes, vertigo and restless leg syndrome. Pt was brought to the ER by his who is not present now bc of deterioration of general medical condition. This included weakness and decreased appetite the ED with complaints of generalized weakness, decreased appetite, and decreased ambulation. Pt has also had significant vertigo. - Past Medical History [employer]: Yes: Peripheral Neuropathy, Parkinson's (RUE tremor), Vertigo, Other Cardiovascular: Yes: HTN, Hyperlipdemia Heme/Onc: Yes: Other (prostate cancer.) - Past Surgical History Past Surgical History: Yes: None - Smoking History Smoking history: Former smoker Have you smoked in the past 12 months: No Aproximately how many cigarettes per day: 0 If you are a former smoker, when did you quit?: 1950 - Alcohol/Substance Use Hx Alcohol Use: No History of Substance Use: reports: None Home Medications - Allergies Allergies/Adverse Reactions: Allergies Allergy/AdvReac Type Severity Reaction Status Date / Time No Known Allergies Allergy Verified 11/06/16 12:05 - Home Medications Home Medications: Ambulatory Orders Carbidopa/Levodopa 25/250 [Sinemet 25/250 -] 1 each PO QID tablet 08/12/16 Meclizine HCl [Antivert -] 12.5 mg PO Q6H PRN #0 tablet 08/12/16 Entacapone 200 mg PO QID 10/15/16 Ropinirole HCl [Requip -] 1 mg PO QID 10/15/16 Losartan/Hydrochlorothiazide [Losartan-Hctz 100-12.5 mg Tab] 1 each PO DAILY 10/20 Meloxicam 7.5 mg PO DAILY 11/06/16 Family Disease History - Family Disease History Family History: Unable to Obtain Review of Systems - Review of Systems Constitutional: reports: Loss of Appetite, Malaise, Weakness Eyes: reports: No Symptoms HENT: reports: No Symptoms Neck: reports: No Symptoms Cardiovascular: reports: No Symptoms Respiratory: reports: No Symptoms Gastrointestinal: reports: No Symptoms Genitourinary: reports: No Symptoms Physical Examination Vital Signs: Vital Signs Temperature 98.1 F 11/06/16 19:21 Pulse Rate 87 11/06/16 19:21 Respiratory Rate 18 11/06/16 19:21 Blood Pressure 126/58 11/06/16 19:21 O2 Sat by Pulse Oximetry (%) 97 11/06/16 19:21 Constitutional: Yes: Well Nourished HENT: Yes: WNL Neck: Yes: WNL Cardiovascular: Yes: WNL, Regular Rate and Rhythm Respiratory: Yes: WNL, Regular, CTA Bilaterally Gastrointestinal: Yes: WNL, Normal Bowel Sounds, Soft, Abdomen, Obese Musculoskeletal: Yes: WNL Extremities: Yes: WNL Edema: No Neurological: Yes: WNL, Alert, Oriented ...Motor Strength: WNL Problem List - Problems (1) Dizziness Assessment/Plan: Will check ct scan head/caarotid doppler and echo Neuro consult called IVF PT eval Pt may need placement Code(s): R42 - DIZZINESS AND GIDDINESS (2) Parkinson disease Assessment/Plan: Cont sinemet Code(s): G20 - PARKINSON'S DISEASE (3) Weakness Code(s): R53.1 - WEAKNESS (4) Hypertension Code(s): I10 - ESSENTIAL (PRIMARY) HYPERTENSION (5) Poor appetite Code(s): R63.0 - ANOREXIA
[2016-11-07] MEDS ORDERED: PT OWN MED DRAWER 7, Y5N ONE ×2 (09:11→22:00)
[2016-11-07] MEDS: CARBIDOPA/LEVODOPA 25/250 TABLET (FP) PO SCH ×4 (09:12→22:46)
[2016-11-07] MEDS: MECLIZINE HCL 12.5 MG TABLET PO PRN (09:13)
[2016-11-07] MEDS: HEPARIN NA (PORCINE) 5,000 UNITS/ML 1ML VIAL SQ SCH ×2 (09:13→22:46)
[2016-11-07] MEDS: ENTACAPONE 200 MG TABLET PO SCH ×4 (09:13→22:45)
[2016-11-07] MEDS: rOPINIRole HCL 1 MG TABLET (FP) PO SCH ×4 (09:13→22:45)
[2016-11-07] MEDS ORDERED: PATIENT'S OWN MEDICATION (NON-FORMULARY) (Meloxicam [Meloxicam] 7.5 MG) PO SCH (10:00)
--- NOTE | 2016-11-07 10:57 | EKG ---
Test Reason : Blood Pressure : / mmHG Vent. Rate : 070 BPM Atrial Rate : 070 BPM P-R Int : 182 ms QRS Dur : 076 ms QT Int : 384 ms P-R-T Axes : 054 -02 031 degrees QTc Int : 414 ms NORMAL SINUS RHYTHM INFERIOR INFARCT , AGE UNDETERMINED ABNORMAL ECG Confirmed by CAMI GARDINER MD ([id number]) on 11/07/2016 10:57:13 AM Referred By: Confirmed By:CAMI GARDINER MD
[2016-11-08] MEDS ORDERED: ACETAMINOPHEN 325 MG TABLET (FP) PO ONE (02:45)
[2016-11-08 07:46] LABS: BASOPHIL 0.2 % (0-2.0); EOSINOPHIL 6.6 % (0-4.5); MCH 32.3 pg (25.7-33.7); MCHC 35.4 g/dl (32.0-35.9); MEAN CELL VOLUME 91.2 fl (80-96); NEUTROPHILS 38.8 % (42.8-82.8); PLATELET COUNT 119 K/MM3 (134-434); RDW 12.8 % (11.9-15.9); WHITE BLOOD COUNT 4.3 K/mm3 (4.0-10.0)
[2016-11-08 08:20] LABS: ALBUMIN 3.3 g/dl (3.4-5.0); ANION GAP 5 (8-16); CALCIUM 8.8 mg/dL (8.5-10.1); CO2 27 mmol/L (21-32); COCKROFT - GAULT 59.31; CREATININE 1.2 mg/dL (0.7-1.3); GLUCOSE,RANDOM 104 mg/dL (74-106); SGOT/AST 13 U/L (15-37); SGPT/ALT 7 U/L (12-78)
[2016-11-08 08:25] LABS: ALK PHOS 107 U/L (45-117); BILIRUBIN,TOTAL 0.3 mg/dL (0.2-1.0); TOT PROT 5.9 g/dl (6.4-8.2); TROPONIN I < 0.02 ng/ml (0.00-0.05)
[2016-11-08] MEDS ORDERED: PT OWN MED DRAWER 7, Y5N ONE (09:05)
[2016-11-08] MEDS: CARBIDOPA/LEVODOPA 25/250 TABLET (FP) PO SCH ×4 (09:30→21:49)
[2016-11-08] MEDS: MECLIZINE HCL 12.5 MG TABLET PO PRN (09:30)
[2016-11-08] MEDS: HEPARIN NA (PORCINE) 5,000 UNITS/ML 1ML VIAL SQ SCH ×2 (09:30→21:49)
[2016-11-08] MEDS: ENTACAPONE 200 MG TABLET PO SCH ×4 (09:31→21:49)
[2016-11-08] MEDS: rOPINIRole HCL 1 MG TABLET (FP) PO SCH ×4 (09:31→21:49)
--- NOTE | 2016-11-08 17:52 | CONSULT ---
Consult - text type - Consultation Consultation Note: NEUROLOGY CONSULTATION is greatly appreciated: This 80 RH s man lives with his girlfriend who cares for him. 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 PMH of HTN, DM (?) and "Parkinson's disease" x "1 1/2 years." He describes a relatively sudden-onset of tremors in the Right side with gait deterioration. Claims Dx of PD was "confirmed" at [facility]. Has been treating with Dr. Hadley and is currently maintained on: Sinemet 25/250 + entacadone 200mg + ropinirole 1mg @ 9, 1, 5 and 9 but doesn't feel the meds are working. Notes he has not walked at home for "1 1/2 years" and that it is sometimes hard for his girlfriend to care for him. Over the last year he has been "in and out of nursing homes" and thinks [place] "[place]." Denies pain or insomnia but does note Numbness, tingling, and "sleepiness" over the Right side of his body. PORFIRIO: No bruits. No head trauma. Cor reg. Contracture Right knee. NEURO: MS/Speech: Normal. Not hypophonic. CN II-XII normal. Good facial expressiveness. Gag Normal. Full EOM's including vertical gaze. Motor: Right arm and leg are extremely rigid with high frequency tremor (8-10 cps) at rest and with intended mov't. Almost no BEN's right hand. Brisk reflexes on right. Right Babinski. No tremor on left. Minimal cogwheeling on Left. Coord: slow on left with tremor. Sensory: Extinguishes DSS on the right. Gait: Cannot IMP: Many features are not classical for PD including the degree of asymmetry and rigidity and the frequency of tremor, rapidity of onset and apparent lack of responsiveness to L-Dopa. May be more consistent with a basal ganglia stroke or Cortico-Basal Ganglia Degeneration (CBGD). Suggest: Aggressive PT for Right knee contracture. MRI of brain (C-) prior to D/C or transfer. Review prior work-up and consider Dopamine Transporter (ALAN) scan. Continue current meds at this time (D/C meclizine). Thank you very much, Lei Varela MD
[2016-11-08] MEDS ORDERED: ACETAMINOPHEN 325 MG TABLET (FP) PO PRN (19:17)
--- NOTE | 2016-11-08 20:42 | PN ---
Progress Note, Physician History of Present Illness: No new complaints Pt remains confused ?Probable baseline - Current Medication List Current Medications: Active Medications Acetaminophen (Tylenol -) 650 mg PO Q4H PRN PRN Reason: FEVER OR PAIN Carbidopa/Levodopa (Sinemet 25/250 -) 1 each PO QID [facility] Last Admin: 11/08/16 17:06 Dose: 1 each Entacapone (Comtan -) 200 mg PO QID [facility] Last Admin: 11/08/16 17:06 Dose: 200 mg Heparin Sodium (Porcine) (Heparin -) 5,000 unit SQ BID [facility] Last Admin: 11/08/16 09:30 Dose: 5,000 unit Non-Formulary Medication (Meloxicam [Meloxicam]) 7.5 mg PO DAILY [facility] Ropinirole HCl (Requip -) 1 mg PO QID [facility] Last Admin: 11/08/16 17:06 Dose: 1 mg - Objective Vital Signs: Vital Signs Temperature 98.6 F 11/08/16 17:44 Pulse Rate 102 H 11/08/16 17:44 Respiratory Rate 18 11/08/16 17:44 Blood Pressure 126/66 11/08/16 17:44 O2 Sat by Pulse Oximetry (%) 98 11/08/16 09:00 Constitutional: Yes: Well Nourished Neck: Yes: Supple Cardiovascular: Yes: WNL, Regular Rate and Rhythm Respiratory: Yes: WNL, Regular, CTA Bilaterally Gastrointestinal: Yes: WNL, Normal Bowel Sounds, Soft Extremities: Yes: WNL Edema: No Labs: CBC, BMP 11/08/16 06:00 11/08/16 06:00 Problem List - Problems (1) Unsteady gait Assessment/Plan: Neuro consult appreciated Progression of parkinson's vs new event Check MRI brain to r/o cva Carotid doppler did not show any significant stenosis Code(s): R26.81 - UNSTEADINESS ON FEET (2) Dizziness Assessment/Plan: Check MRI brain Will need STR Code(s): R42 - DIZZINESS AND GIDDINESS (3) Parkinson disease Assessment/Plan: Cont sinemet/comtan Code(s): G20 - PARKINSON'S DISEASE (4) Weakness Code(s): R53.1 - WEAKNESS (5) Hypertension Assessment/Plan: BP stable off antihypertensives Code(s): I10 - ESSENTIAL (PRIMARY) HYPERTENSION (6) Poor appetite Code(s): R63.0 - ANOREXIA
[2016-11-09] MEDS ORDERED: PT OWN MED DRAWER 7, Y5N ONE (08:52)
[2016-11-09] MEDS: HEPARIN NA (PORCINE) 5,000 UNITS/ML 1ML VIAL SQ SCH ×2 (09:05→21:36)
[2016-11-09] MEDS: rOPINIRole HCL 1 MG TABLET (FP) PO SCH ×4 (09:07→21:36)
[2016-11-09] MEDS: CARBIDOPA/LEVODOPA 25/250 TABLET (FP) PO SCH ×4 (09:07→21:37)
[2016-11-09] MEDS: ENTACAPONE 200 MG TABLET PO SCH ×4 (09:07→21:36)
--- NOTE | 2016-11-09 22:00 | PN ---
Progress Note, Physician History of Present Illness: Pt complains of constipation - Current Medication List Current Medications: Active Medications Acetaminophen (Tylenol -) 650 mg PO Q4H PRN PRN Reason: FEVER OR PAIN Last Admin: 11/08/16 21:49 Dose: 650 mg Carbidopa/Levodopa (Sinemet 25/250 -) 1 each PO QID [facility] Last Admin: 11/09/16 21:37 Dose: 1 each Entacapone (Comtan -) 200 mg PO QID [facility] Last Admin: 11/09/16 21:36 Dose: 200 mg Heparin Sodium (Porcine) (Heparin -) 5,000 unit SQ BID [facility] Last Admin: 11/09/16 21:36 Dose: 5,000 unit Non-Formulary Medication (Meloxicam [Meloxicam]) 7.5 mg PO DAILY [facility] Ropinirole HCl (Requip -) 1 mg PO QID [facility] Last Admin: 11/09/16 21:36 Dose: 1 mg - Objective Vital Signs: Vital Signs Temperature 98.3 F 11/09/16 16:25 Pulse Rate 63 11/09/16 16:25 Respiratory Rate 20 11/09/16 16:25 Blood Pressure 110/58 11/09/16 16:25 O2 Sat by Pulse Oximetry (%) 98 11/09/16 09:00 Constitutional: Yes: Well Nourished Neck: Yes: Supple Cardiovascular: Yes: WNL, Regular Rate and Rhythm Respiratory: Yes: WNL, Regular, CTA Bilaterally Gastrointestinal: Yes: WNL, Normal Bowel Sounds, Soft Labs: CBC, BMP 11/08/16 06:00 11/08/16 06:00 Problem List - Problems (1) Unsteady gait Assessment/Plan: DC planning for am to STR Progression of parkinson's vs new event MRI did not show any acute pathoogy Carotid doppler did not show any significant stenosis Code(s): R26.81 - UNSTEADINESS ON FEET (2) Dizziness Code(s): R42 - DIZZINESS AND GIDDINESS (3) Parkinson disease Code(s): G20 - PARKINSON'S DISEASE (4) Weakness Code(s): R53.1 - WEAKNESS (5) Hypertension Code(s): I10 - ESSENTIAL (PRIMARY) HYPERTENSION (6) Poor appetite Code(s): R63.0 - ANOREXIA
[2016-11-09] MEDS: DOCUSATE SODIUM 100 MG CAPSULE (FP) PO PRN (22:16)
[2016-11-10] MEDS ORDERED: PT OWN MED DRAWER 7, Y5N ONE ×2 (09:52→14:18)
[2016-11-10] MEDS: ENTACAPONE 200 MG TABLET PO SCH ×4 (10:00→22:01)
[2016-11-10] MEDS: HEPARIN NA (PORCINE) 5,000 UNITS/ML 1ML VIAL SQ SCH ×2 (10:00→22:01)
[2016-11-10] MEDS: CARBIDOPA/LEVODOPA 25/250 TABLET (FP) PO SCH ×4 (10:00→22:01)
[2016-11-10] MEDS: rOPINIRole HCL 1 MG TABLET (FP) PO SCH ×4 (10:00→22:01)
--- NOTE | 2016-11-10 21:47 | PN ---
Progress Note, Physician History of Present Illness: Pt complains of constipation - Current Medication List Current Medications: Active Medications Acetaminophen (Tylenol -) 650 mg PO Q4H PRN PRN Reason: FEVER OR PAIN Last Admin: 11/08/16 21:49 Dose: 650 mg Carbidopa/Levodopa (Sinemet 25/250 -) 1 each PO QID [facility] Last Admin: 11/10/16 18:43 Dose: 1 each Docusate Sodium (Colace -) 300 mg PO HS PRN PRN Reason: CONSTIPATION Last Admin: 11/09/16 22:16 Dose: 300 mg Entacapone (Comtan -) 200 mg PO QID [facility] Last Admin: 11/10/16 18:44 Dose: 200 mg Heparin Sodium (Porcine) (Heparin -) 5,000 unit SQ BID [facility] Last Admin: 11/10/16 10:00 Dose: 5,000 unit Non-Formulary Medication (Meloxicam [Meloxicam]) 7.5 mg PO DAILY [facility] Polyethylene Glycol (Miralax (For Daily Use) -) 17 gm PO DAILY [facility] Ropinirole HCl (Requip -) 1 mg PO QID [facility] Last Admin: 11/10/16 18:43 Dose: 1 mg - Objective Vital Signs: Vital Signs Temperature 97.5 F L 11/10/16 16:20 Pulse Rate 62 11/10/16 16:20 Respiratory Rate 18 11/10/16 20:15 Blood Pressure 109/59 11/10/16 16:20 O2 Sat by Pulse Oximetry (%) 97 11/10/16 20:15 Constitutional: Yes: Well Nourished HENT: Yes: WNL Neck: Yes: Supple Cardiovascular: Yes: WNL, Regular Rate and Rhythm Respiratory: Yes: WNL, Regular, CTA Bilaterally Gastrointestinal: Yes: WNL, Normal Bowel Sounds, Soft Labs: CBC, BMP 11/08/16 06:00 11/08/16 06:00 Problem List - Problems (1) Unsteady gait Assessment/Plan: DC planning for am to STR Progression of parkinson's vs new event MRI did not show any acute pathoogy Carotid doppler did not show any significant stenosis Code(s): R26.81 - UNSTEADINESS ON FEET (2) Parkinson disease Assessment/Plan: Cont sinemet/comtan Code(s): G20 - PARKINSON'S DISEASE (3) Dizziness Assessment/Plan: Resolved Code(s): R42 - DIZZINESS AND GIDDINESS (4) Weakness Code(s): R53.1 - WEAKNESS (5) Hypertension Code(s): I10 - ESSENTIAL (PRIMARY) HYPERTENSION (6) Poor appetite Code(s): R63.0 - ANOREXIA
[2016-11-10] MEDS: DOCUSATE SODIUM 100 MG CAPSULE (FP) PO PRN (22:05)
[2016-11-10] MEDS: POLYETHYLENE GLYCOL 3350 119 GM BTL PO SCH (22:05)
[2016-11-11] MEDS ORDERED: PT OWN MED DRAWER 7, Y5N ONE ×2 (09:35→09:45)
[2016-11-11] MEDS: HEPARIN NA (PORCINE) 5,000 UNITS/ML 1ML VIAL SQ SCH (09:43)
[2016-11-11] MEDS: ENTACAPONE 200 MG TABLET PO SCH (09:43)
[2016-11-11] MEDS: CARBIDOPA/LEVODOPA 25/250 TABLET (FP) PO SCH (09:43)
[2016-11-11] MEDS: POLYETHYLENE GLYCOL 3350 119 GM BTL PO SCH (09:44)
[2016-11-11] MEDS: rOPINIRole HCL 1 MG TABLET (FP) PO SCH (09:46)
[2016-11-11 11:20] VITALS: BP 116/87; PULSE 102; TEMP 98.8
== END 2016-11-11 11:23 | DRG 57 ==
LOC: JER 11:52 → SUPCPDRO 11:52 → JERBED 14:45 → J8W 18:20
PROVIDERS: ADMIT Internal Medicine; ATTEND Internal Medicine
DX: G20 Parkinson's disease (principal); I10 Essential (primary) hypertension; E11.9 Type 2 diabetes mellitus without complications; Z87.891 Personal history of nicotine dependence; R42 Dizziness and giddiness; R26.81 Unsteadiness on feet; G25.81 Restless legs syndrome; K59.00 Constipation, unspecified; R63.0 Anorexia
CPT/HCPCS: 36415; 70450-TC; 70551-TC; 71010-TC; 80053; 82550; 83735; 84484; 85025; 87086; 93005; 93010; 93306-TC; 93880-TC; 97116-GP; 97161-GP; 99283-25; J1644

== ENCOUNTER 2017-11-12 23:29 | Inpatient (IN) | payer OTHER ==
--- NOTE | 2017-11-12 23:53 | PDOC ---
History of Present Illness - General History Source: Patient Exam Limitations: No Limitations - History of Present Illness Initial Comments: 11/13/17 00:37 The patient is an 82 year old male with a significant past medical history of Prostate cancer, HTN, HLD, and parkinsons disease, brought in by EMS from longterm, presents to the emergency department for evaluation of period of unresponsiveness. As per EMS, the patient was found unresponsive in the longterm and not responding to tactile stimulation for 10 minutes. At presentation, the patient is awake and alert. Of note, the medics were not able to administer IV, so IO was placed. The patient denies chest pain, shortness of breath, headache, and dizziness. Denies fevers, chills, nausea, vomiting, diarrhea, and constipation. Denies dysuria, frequency, urgency, and hematuria. Denies any other kinds of injury and falls. Allergies: NKA Past surgical history: Patient denies. Social history: Former smoker 1950. No reported alcohol or drug use. <Facundo Romero - Last Filed: 11/13/17 00:37> <Cleo Ken - Last Filed: 11/13/17 02:05> - General Chief Complaint: Lethargy Stated Complaint: DEHYDRATED Time Seen by Provider: 11/12/17 23:39 Past History <Facundo Romero - Last Filed: 11/13/17 00:37> - Past Medical History Anemia: No Cancer: Yes (PROSTATE) COPD: No Disorders: Yes (PROSTATE CA) HTN: Yes Hypercholesterolemia: Yes Other medical history: parkinsons - Suicide/Smoking/Psychosocial Hx Smoking Status: No Smoking History: Former smoker Have you smoked in the past 12 months: No Number of Cigarettes Smoked Daily: 0 If you are a former smoker, when did you quit?: 1950 Information on smoking cessation initiated: No Hx Alcohol Use: No Drug/Substance Use Hx: No Substance Use Type: None Hx Substance Use Treatment: No <Cleo Ken - Last Filed: 11/13/17 02:05> - Past Medical History Allergies/Adverse Reactions: Allergies Allergy/AdvReac Type Severity Reaction Status Date / Time No Known Allergies Allergy Verified 11/12/17 23:39 Home Medications: Ambulatory Orders Aspirin 81 mg PO DAILY 11/12/17 Carbidopa/Levodopa 25/250 [Sinemet 25/250 -] 1.5 each PO QID 11/12/17 Cyanocobalamin [Vitamin B12 -] 1,000 mcg PO DAILY 11/12/17 Entacapone 200 mg PO QID 11/12/17 Losartan/Hydrochlorothiazide [Losartan-Hctz 100-12.5 mg Tab] 0.5 each PO DAILY 11/12/17 Ropinirole HCl [Requip] 1 mg PO ASDIR 11/12/17 Ropinirole HCl [Requip] 2 mg PO HS 11/12/17 Tamsulosin HCl [Flomax] 0.8 mg PO DAILY 11/12/17 clonazePAM [Klonopin -] 0.125 mg PO BID 11/12/17 Review of Systems - Review of Systems Able to Perform ROS?: Yes Comments:: GENERAL/CONSTITUTIONAL: (+)Weakness. No fever or chills. HEAD, EYES, EARS, NOSE AND THROAT: No change in vision. No ear pain or discharge. No sore throat. GASTROINTESTINAL: No nausea, vomiting, diarrhea or constipation. GENITOURINARY: No dysuria, frequency, or change in urination. CARDIOVASCULAR: No chest pain or shortness of breath. RESPIRATORY: No cough, wheezing, or hemoptysis. MUSCULOSKELETAL: No joint or muscle swelling or pain. No neck or back pain. SKIN: No rash NEUROLOGIC: No headache, vertigo, loss of consciousness, or change in strength/ sensation. ENDOCRINE: No increased thirst. No abnormal weight change. HEMATOLOGIC/LYMPHATIC: No anemia, easy bleeding, or history of blood clots. ALLERGIC/IMMUNOLOGIC: No hives or skin allergy. <Facundo Romero - Last Filed: 11/13/17 00:37> *Physical Exam - Vital Signs Last Vital Signs Temp Pulse Resp BP Pulse Ox 98.2 F 66 18 126/66 96 11/12/17 23:30 11/12/17 23:30 11/12/17 23:30 11/12/17 23:30 11/12/17 23:30 - Physical Exam Comments: Constitutional: Awake, alert, oriented. No acute distress. Head: Normocephalic. Atraumatic Eyes: PERRL. EOMI. Conjunctivae are not pale. ENT: (+)Dry cracked tongue. (+)Very dry mucous membrane. Posterior pharynx without exudates or erythema. Uvula midline. Neck: Supple. Full ROM. No lymphadenopathy. Cardiovascular: Regular rate. Regular rhythm. S1, S2 regular. Distal pulses are 2+ and symmetric. Pulmonary/Chest: No evidence of respiratory distress. Clear to auscultation bilaterally No wheezing, rales or rhonchi. Abdominal: Soft and non-distended. There is no tenderness. No rebound, guarding or rigidity. No organomegaly. No palpable masses. Good bowel sounds. Back: No CVA tenderness. Musculoskeletal: (+) Parkinsonian tremor to upper extremity. No edema. No cyanosis. No clubbing. Full range of motion in all extremities. Nocalf tenderness. Radial/pedal pulses are intact and 2+ bilaterally Genitourinary: External genitalia normal, circumcised, no rashes, no wounds. Skin: Skin is warm and dry. No petechiae. No purpura. Neurological: (+)Drooping of right eyelid,chronic. (+)Generally weak all over, but nothing focal. Awake, alert, and oriented to person, place, and time. Cranial nerves II-XII are grossly intact. Normal speech. No sensory deficits. Psychiatric: Good eye contact. Normal interaction, affect and behavior. <aFcundo Romero - Last Filed: 11/13/17 00:37> - Vital Signs Last Vital Signs Temp Pulse Resp BP Pulse Ox 98.2 F 66 18 126/66 96 11/12/17 23:30 11/12/17 23:30 11/12/17 23:30 11/12/17 23:30 11/12/17 23:30 <Cleo Ken - Last Filed: 11/13/17 02:05> Heart Score/ECG Review - ECG Intrepretation Comment:: 11/13/17 00:56 sinus at 66, nl axis, nl interval, no acute st/t wave findings <Cleo Ken - Last Filed: 11/13/17 02:05> ED Treatment Course - LABORATORY CBC & Chemistry Diagram: 11/13/17 00:27 11/13/17 00:27 <Facundo Romero - Last Filed: 11/13/17 00:37> - LABORATORY CBC & Chemistry Diagram: 11/13/17 00:27 11/13/17 00:27 <Cleo Ken - Last Filed: 11/13/17 02:05> Medical Decision Making - Medical Decision Making 11/13/17 01:08 a/p: 82yo male sent from the [place] for eval of unresponsiveness -difficult to arouse per the [place] records -arrives with medics awake, alert, oriented -pt appears dehydrated on exam -pt with dry mm, tachy mm -denies somatic complaints -resting tremor from parkinsons -nonfocal neuro exam -will cehck labs, ua, ekg, cxr, head ct -will monitor and reassess 11/13/17 02:[address] without acute finding labs reviewed, mildly dehydrated on bun pending UA and repeat lactate pt will be signed out the oncoming ED physician pending repeat eval and pending labs <Cleo Ken - Last Filed: 11/13/17 02:05> *DC/Admit/Observation/Transfer - Attestations Scribe Attestion: Documentation prepared by Facundo Romero, acting as certified medical technician assistant for Cleo Ken DO. <Facundo Romero - Last Filed: 11/13/17 00:37> - Attestations Physician Attestion: 11/13/17 02:04 I, Dr. Cleo Ken DO, attest that this document has been prepared under my direction and personally reviewed by me in its entirety. I further attest, that it accurately reflects all work, treatment, procedures and medical decision -making performed by me. <Cleo Ken - Last Filed: 11/13/17 02:05> Diagnosis at time of Disposition: Dehydration
[2017-11-13 00:34] LABS: BASO % 0.2 % (0-2.0); EOS % 4.5 % (0-4.5); HEMATOCRIT 33.7 % (35.4-49); HEMOGLOBIN 12.1 GM/dL (11.7-16.9); MCH 33.6 pg (25.7-33.7); MCHC 35.7 g/dl (32.0-35.9); MEAN CELL VOLUME 93.9 fl (80-96); MEAN PLT VOLUME 8.6 fl (7.5-11.1); MONO % 10.5 % (3.8-10.2); NEUT % 39.8 % (42.8-82.8); PLATELET COUNT 155 K/MM3 (134-434); RBC 3.59 M/mm3 (4.00-5.60); RDW 13.1 % (11.9-15.9); WHITE BLOOD COUNT 4.3 K/mm3 (4.0-10.0)
[2017-11-13 00:48] LABS: INR 1.07 (0.82-1.09); PROTHROMBIN TIME (PATIENT) 12.1 SEC (9.7-13.0)
[2017-11-13 00:58] LABS: ALBUMIN 3.7 g/dl (3.4-5.0); ANION GAP 10 (8-16); BILIRUBIN,TOTAL 0.6 mg/dL (0.2-1.0); BLOOD UREA NITROGEN 21 mg/dL (7-18); CALCIUM 9.1 mg/dL (8.5-10.1); CHLORIDE 107 mmol/L (98-107); CO2 27 mmol/L (21-32); CREATININE 1.1 mg/dL (0.7-1.3); GLUCOSE,RANDOM 112 mg/dL (74-106); SGOT/AST 18 U/L (15-37); SGPT/ALT 8 U/L (12-78); SODIUM 144 mmol/L (136-145); TOT PROT 6.6 g/dl (6.4-8.2)
[2017-11-13 01:01] LABS: ALK PHOS 175 U/L (45-117)
[2017-11-13] MEDS ORDERED: SODIUM CHLORIDE 0.9% 1000 ML INFUS.BAG IV ONE ×2 (01:41→02:00)
[2017-11-13 02:19] LABS: URINE APPEARANCE CLEAR; URINE BILIRUBIN NEGATIVE (<2.0 mg/dL); URINE COLOR AMBER; URINE GLUCOSE (UA) NEGATIVE (NEGATIVE); URINE KETONE TRACE (NEGATIVE); URINE NITRITE NEGATIVE (NEGATIVE); URINE PROTEIN NEGATIVE (NEGATIVE); URINE UROBILINOGEN NEGATIVE mg/dL (0.2-1.0)
[2017-11-13 02:22] LABS: URINE LEUK ESTERASE 1+ (NEGATIVE)
[2017-11-13 02:25] LABS: EPI CELLS RARE /HPF (FEW); URINE MUCUS RARE
--- NOTE | 2017-11-13 04:24 | PDOC ---
*Physical Exam - Vital Signs Last Vital Signs Temp Pulse Resp BP Pulse Ox 98.2 F 66 18 126/66 96 11/12/17 23:30 11/12/17 23:30 11/12/17 23:30 11/12/17 23:30 11/12/17 23:30 ED Treatment Course - LABORATORY CBC & Chemistry Diagram: 11/13/17 00:27 11/13/17 00:27 - ADDITIONAL ORDERS Additional order review: Laboratory Results 11/13/17 11/13/17 11/13/17 03:25 03:25 02:14 PT with INR INR Sodium Potassium Chloride Carbon Dioxide Anion Gap BUN Creatinine Creat Clearance w eGFR POC Glucometer Random Glucose Lactic Acid 3.4 H* Calcium Magnesium Total Bilirubin AST ALT Alkaline Phosphatase Creatine Kinase Troponin I < 0.02 Total Protein Albumin Urine Color Jennie Urine Appearance Clear Urine pH 5.0 Ur Specific Orient 1.024 Urine Protein Negative Urine Glucose (UA) Negative Urine Ketones Trace H Urine Blood 2+ H Urine Nitrite Negative Urine Bilirubin Negative Urine Urobilinogen Negative Ur Leukocyte Esterase 1+ H Urine WBC (Auto) 29 Urine RBC (Auto) 23 Ur Epithelial Cells Rare Urine Mucus Rare 11/13/17 11/13/17 11/13/17 00:27 00:27 00:27 PT with INR 12.10 INR 1.07 Sodium 144 Potassium 4.0 Chloride 107 Carbon Dioxide 27 Anion Gap 10 BUN 21 H D Creatinine 1.1 Creat Clearance w eGFR > 60 POC Glucometer Random Glucose 112 H Lactic Acid 2.5 H* Calcium 9.1 Magnesium 2.0 Total Bilirubin 0.6 D AST 18 D ALT 8 L Alkaline Phosphatase 175 H D Creatine Kinase 60 Troponin I < 0.02 Total Protein 6.6 Albumin 3.7 Urine Color Urine Appearance Urine pH Ur Specific Orient Urine Protein Urine Glucose (UA) Urine Ketones Urine Blood Urine Nitrite Urine Bilirubin Urine Urobilinogen Ur Leukocyte Esterase Urine WBC (Auto) Urine RBC (Auto) Ur Epithelial Cells Urine Mucus 11/13/17 00:15 PT with INR INR Sodium Potassium Chloride Carbon Dioxide Anion Gap BUN Creatinine Creat Clearance w eGFR POC Glucometer [id number] Random Glucose Lactic Acid Calcium Magnesium Total Bilirubin AST ALT Alkaline Phosphatase Creatine Kinase Troponin I Total Protein Albumin Urine Color Urine Appearance Urine pH Ur Specific Orient Urine Protein Urine Glucose (UA) Urine Ketones Urine Blood Urine Nitrite Urine Bilirubin Urine Urobilinogen Ur Leukocyte Esterase Urine WBC (Auto) Urine RBC (Auto) Ur Epithelial Cells Urine Mucus 11/13/17 11/13/17 00:27 00:15 RBC 3.59 L MCV 93.9 MCHC 35.7 RDW 13.1 MPV 8.6 D Neutrophils % 39.8 L Lymphocytes % 45.0 H Monocytes % 10.5 H Eosinophils % 4.5 Basophils % 0.2 POC Glucometer [id number] - Medications Given in the ED: ED Medications Discontinued Medications Generic Name Dose Route Start Last Admin Trade Name Freq PRN Reason Stop Dose Admin Sodium Chloride 1,000 ml 11/13/17 01:41 11/13/17 00:30 Normal Saline - IV 11/13/17 01:42 1,000 ml ONCE ONE Administration Sodium Chloride 1,000 ml 11/13/17 02:00 11/13/17 02:08 Normal Saline - IV 11/13/17 02:01 1,000 ml ONCE ONE Administration Medical Decision Making - Medical Decision Making 11/13/17 04:33 Pt with recurrent UTI. C/o back pain as well. will give ABx for UTI and Morphine for back pain 11/13/17 05:[address] Mejia, covering for Dr. Radhames Moore. She will give orders and admit pt. *DC/Admit/Observation/Transfer Diagnosis at time of Disposition: Dehydration UTI (urinary tract infection) Qualifiers: Urinary tract infection type: site unspecified Hematuria presence: without hematuria Qualified Code(s): N39.0 - Urinary tract infection, site not specified - Discharge Dispostion Condition at time of disposition: Stable Decision to Admit order: Yes - Referrals - Patient Instructions - Post Discharge Activity
[2017-11-13] MEDS ORDERED: morphine CARPU-JECT 2 MG/1 ML DISP.SYRIN IVPUSH ONE ×2 (04:32→04:36)
[2017-11-13] MEDS ORDERED: ONDANSETRON 4 MG/2 ML VIAL IVPUSH STA (04:32)
[2017-11-13] MEDS ORDERED: morphine SULFATE 4 MG/ML VIAL ONE (04:52)
[2017-11-13] MEDS ORDERED: CEFTRIAXONE 1 GM/50 ML BAG ONE (04:53)
[2017-11-13] MEDS ORDERED: ONDANSETRON 4 MG/2 ML VIAL ONE (04:53)
--- NOTE | 2017-11-13 09:33 | EKG ---
Test Reason : Blood Pressure : / mmHG Vent. 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
[2017-11-13] MEDS ORDERED: PATIENT'S OWN MEDICATION (NON-FORMULARY) (Losartan/Hydrochlorothiazide [Losartan-Hctz 100- PO SCH (13:45)
--- NOTE | 2017-11-13 14:42 | CON.ID ---
Consult Consult Specialty:: infectious diseases Reason for Consultation:: ams,sepsis - History of Present Illness Chief Complaint: ams History of Present Illness: 82 year old male with a significant past medical history of Prostate cancer, HTN, HLD, and parkinsons disease, brought in by EMS from intermediate, presents to the emergency department for evaluation of period of unresponsiveness. As per EMS, the patient was found unresponsive in the intermediate and not responding to stimulation f. At presentation, the patient is awake and alert. 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: Peripheral Neuropathy, Parkinson's (RUE tremor), Vertigo, Other Cardio/Vascular: Yes: HTN, Hyperlipdemia - Past Surgical History Past Surgical History: Yes: None - Alcohol/Substance Use Hx Alcohol Use: No History of Substance Use: reports: None - Smoking History Smoking history: Former smoker Have you smoked in the past 12 months: No Aproximately how many cigarettes per day: 0 If you are a former smoker, when did you quit?: 1949 - Social History Usual Living Arrangement: Alone Home Medications - Allergies Allergies/Adverse Reactions: Allergies Allergy/AdvReac Type Severity Reaction Status Date / Time No Known Allergies Allergy Verified 11/12/17 23:39 - Home Medications Home Medications: Ambulatory Orders Aspirin 81 mg PO DAILY 11/12/17 Carbidopa/Levodopa 25/250 [Sinemet 25/250 -] 1.5 each PO QID 11/12/17 Cyanocobalamin [Vitamin B12 -] 1,000 mcg PO DAILY 11/12/17 Entacapone 200 mg PO QID 11/12/17 Losartan/Hydrochlorothiazide [Losartan-Hctz 100-12.5 mg Tab] 0.5 each PO DAILY 11/12/17 Ropinirole HCl [Requip] 1 mg PO ASDIR 11/12/17 Ropinirole HCl [Requip] 2 mg PO HS 11/12/17 Tamsulosin HCl [Flomax] 0.8 mg PO DAILY 11/12/17 clonazePAM [Klonopin -] 0.125 mg PO BID 11/12/17 Review of Systems Unable to obtain ROS, reason: unable to obtain Physical Exam Vital Signs: Vital Signs Temperature 98.0 F 11/13/17 08:46 Pulse Rate 84 11/13/17 08:46 Respiratory Rate 18 11/13/17 08:46 Blood Pressure 148/89 11/13/17 08:46 O2 Sat by Pulse Oximetry (%) 96 11/13/17 08:46 Constitutional: Yes: Well Nourished, No Distress, Calm Eyes: Yes: Conjunctiva Clear Neck: Yes: Supple, Trachea Midline Cardiovascular: Yes: Regular Rate and Rhythm Respiratory: Yes: Regular, CTA Bilaterally Gastrointestinal: Yes: Normal Bowel Sounds, Soft Musculoskeletal: Yes: WNL Extremities: Yes: WNL Neurological: Yes: Alert, Other Psychiatric: Yes: Other Labs: CBC, BMP 11/13/17 00:27 11/13/17 00:27 Imaging - Results Chest X-ray: Report Reviewed, Image Reviewed Cat Scan: Report Reviewed, Image Reviewed Assessment/Plan uti sepsis lactic acid dehydration plan will stop ceftriaxone will switch to zosyn await for cx reports hydration rest as per the team
[2017-11-13] MEDS: CYANOCOBALAMIN 1,000 MCG TABLET (FP) PO SCH (15:01)
[2017-11-13] MEDS: DEXTROSE 5%-0.45% SALINE 1,000 ML IV SCH (15:18)
[2017-11-13 16:14] VITALS: BMI 30.8
[2017-11-13] MEDS ORDERED: PIPERACILLIN/TAZOBACTAM 3.375 GM VIAL IVPB ONE (17:15)
[2017-11-13] MEDS ORDERED: DEXTROSE 5%-WATER - 50 ML IVPB ONE (17:15)
[2017-11-13] MEDS: PIPERACILLIN/TAZOB 3.375 GM 3.375 GM in DEXTROSE 5%-WATER - 50 ML IVPB SCH (17:20)
[2017-11-13] MEDS: CARBIDOPA/LEVODOPA 25/250 TABLET (FP) PO SCH ×3 (17:54→21:18)
[2017-11-13] MEDS: ENTACAPONE 200 MG TABLET PO SCH ×3 (17:54→21:18)
[2017-11-13] MEDS ORDERED: PT OWN MED DRAWER 7, Y5N ONE (21:15)
[2017-11-13] MEDS ORDERED: clonazePAM 0.5 MG TABLET PO SCH (22:00)
[2017-11-14] MEDS ORDERED: DEXTROSE 5%-WATER - 50 ML IVPB ONE ×3 (02:04→19:16)
[2017-11-14] MEDS ORDERED: PIPERACILLIN/TAZOBACTAM 3.375 GM VIAL IVPB ONE ×3 (02:04→19:16)
[2017-11-14] MEDS: DEXTROSE 5%-0.45% SALINE 1,000 ML IV SCH ×2 (02:08→21:22)
[2017-11-14] MEDS: PIPERACILLIN/TAZOB 3.375 GM 3.375 GM in DEXTROSE 5%-WATER - 50 ML IVPB SCH ×3 (02:08→19:19)
--- NOTE | 2017-11-14 03:02 | HP ---
Admitting History and Physical - Admission History of Present Illness: Pt is an 82 y/o male with a PMH significant for Prostate cancer, HTN, HLD, and parkinsons disease. Pt was brought in by EMS from senior care for evaluation of period of unresponsiveness. As per EMS, the patient was found unresponsive in the senior care and not responding to tactile stimulation for 10 minutes. In the ER pt was awake and alert. She was found to have lactic acid of 2.5 but was afebrile w/ normal WBC. 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: Peripheral Neuropathy, Parkinson's (RUE tremor), Vertigo, Other Cardiovascular: Yes: HTN, Hyperlipdemia Heme/Onc: Yes: Other (prostate cancer.) - Past Surgical History Past Surgical History: Yes: None - Advance Directives Advance Directives: Yes: DNR - Smoking History Smoking history: Former smoker Have you smoked in the past 12 months: No Aproximately how many cigarettes per day: 0 If you are a former smoker, when did you quit?: 1950 - Alcohol/Substance Use Hx Alcohol Use: No History of Substance Use: reports: None Home Medications - Allergies Allergies/Adverse Reactions: Allergies Allergy/AdvReac Type Severity Reaction Status Date / Time No Known Allergies Allergy Verified 11/12/17 23:39 - Home Medications Home Medications: Ambulatory Orders Aspirin 81 mg PO DAILY 11/12/17 Carbidopa/Levodopa 25/250 [Sinemet 25/250 -] 1.5 each PO QID 11/12/17 Cyanocobalamin [Vitamin B12 -] 1,000 mcg PO DAILY 11/12/17 Entacapone 200 mg PO QID 11/12/17 Losartan/Hydrochlorothiazide [Losartan-Hctz 100-12.5 mg Tab] 0.5 each PO DAILY 11/12/17 Ropinirole HCl [Requip] 1 mg PO ASDIR 11/12/17 Ropinirole HCl [Requip] 2 mg PO HS 11/12/17 Tamsulosin HCl [Flomax] 0.8 mg PO DAILY 11/12/17 clonazePAM [Klonopin -] 0.125 mg PO BID 11/12/17 Family Disease History - Family Disease History Family History: Unremarkable Review of Systems - Review of Systems Constitutional: reports: No Symptoms HENT: reports: No Symptoms Neck: reports: No Symptoms Cardiovascular: reports: No Symptoms Respiratory: reports: No Symptoms Gastrointestinal: reports: No Symptoms Physical Examination Vital Signs: Vital Signs Temperature 97.8 F 11/14/17 02:00 Pulse Rate 66 11/14/17 02:00 Respiratory Rate 20 11/14/17 02:00 Blood Pressure 138/70 11/14/17 02:00 O2 Sat by Pulse Oximetry (%) 96 11/13/17 22:00 HENT: Yes: WNL Neck: Yes: WNL, Supple Cardiovascular: Yes: WNL, Regular Rate and Rhythm Respiratory: Yes: WNL, Regular, CTA Bilaterally Gastrointestinal: Yes: WNL, Normal Bowel Sounds, Soft Extremities: Yes: WNL Neurological: Yes: WNL, Alert, Oriented ...Motor Strength: WNL Labs: CBC, BMP 11/13/17 00:27 11/13/17 00:27 Problem List - Problems (1) Sepsis Assessment/Plan: Due to UTI Cont IV antibxs ID consult Code(s): A41.9 - SEPSIS, UNSPECIFIED ORGANISM (2) Hypertension Assessment/Plan: BP stable Cont losartan/hctz Code(s): I10 - ESSENTIAL (PRIMARY) HYPERTENSION (3) Parkinson disease Assessment/Plan: Cont sinemet/comtan Code(s): G20 - PARKINSON'S DISEASE (4) Prostate cancer Code(s): C61 - MALIGNANT NEOPLASM OF PROSTATE
[2017-11-14 08:27] LABS: BASO % 0.4 % (0-2.0); EOS % 6.2 % (0-4.5); HEMATOCRIT 34.8 % (35.4-49); HEMOGLOBIN 12.4 GM/dL (11.7-16.9); LYMPH % 28.9 % (8-40); MCH 33.6 pg (25.7-33.7); MCHC 35.6 g/dl (32.0-35.9); MEAN CELL VOLUME 94.2 fl (80-96); MEAN PLT VOLUME 8.9 fl (7.5-11.1); NEUT % 54.5 % (42.8-82.8); PLATELET COUNT 134 K/MM3 (134-434); RBC 3.69 M/mm3 (4.00-5.60); WHITE BLOOD COUNT 5.4 K/mm3 (4.0-10.0)
[2017-11-14 09:07] LABS: ALBUMIN 3.1 g/dl (3.4-5.0); ANION GAP 6 (8-16); BLOOD UREA NITROGEN 14 mg/dL (7-18); CALCIUM 8.4 mg/dL (8.5-10.1); CHLORIDE 110 mmol/L (98-107); CO2 28 mmol/L (21-32); GLUCOSE,RANDOM 107 mg/dL (74-106); POTASSIUM 3.9 mmol/L (3.5-5.1); SODIUM 144 mmol/L (136-145)
[2017-11-14] MEDS: TAMSULOSIN HCL 0.4 MG CAP.ER.24H (FP) PO SCH (09:08)
[2017-11-14] MEDS: ASPIRIN 81 MG CHEWABLE TABLETS PO SCH (09:08)
[2017-11-14] MEDS: HEPARIN NA (PORCINE) 5,000 UNITS/ML 1ML VIAL SQ SCH ×2 (09:08→21:24)
[2017-11-14] MEDS: CYANOCOBALAMIN 1,000 MCG TABLET (FP) PO SCH (09:08)
[2017-11-14] MEDS: ENTACAPONE 200 MG TABLET PO SCH ×4 (09:09→21:24)
[2017-11-14] MEDS: CARBIDOPA/LEVODOPA 25/250 TABLET (FP) PO SCH ×4 (09:09→21:23)
[2017-11-14 09:10] LABS: ALK PHOS 161 U/L (45-117); BILIRUBIN,TOTAL 0.7 mg/dL (0.2-1.0); CREATININE 1.1 mg/dL (0.7-1.3); SGOT/AST 17 U/L (15-37); SGPT/ALT 13 U/L (12-78); TOT PROT 6.2 g/dl (6.4-8.2)
[2017-11-14] MEDS ORDERED: HYDROCHLOROTHIAZIDE 12.5 MG CAPSULE (FP) PO SCH (10:00)
[2017-11-14] MEDS ORDERED: LOSARTAN POTASSIUM 50 MG TABLET (FP) PO SCH (10:00)
[2017-11-14] MEDS ORDERED: CEFTRIAXONE 1 GM in DEXTROSE 5%-WATER - 50 ML IVPB SCH (10:00)
[2017-11-14] MEDS: rOPINIRole HCL 1 MG TABLET (FP) PO SCH ×3 (10:38→18:28)
[2017-11-14] MEDS ORDERED: PT OWN MED DRAWER 7, Y5N ONE ×3 (10:38→21:15)
--- NOTE | 2017-11-14 14:28 | PN ---
Progress Note, Physician History of Present Illness: ID f/u: Pt seen and examined. Girlfriend at bedside. He is alert but weak, remains afebrile. Unable to say if he has urinary f/u/d. Still sleepy as per GF. No other complaints. - Current Medication List Current Medications: Active Medications Aspirin (Asa -) 81 mg PO DAILY [facility] Last Admin: 11/14/17 09:08 Dose: 81 mg Carbidopa/Levodopa (Sinemet 25/250 -) 1.5 each PO QID [facility] Last Admin: 11/14/17 09:09 Dose: 1.5 each Clonazepam (Klonopin -) 0.125 mg PO BID [facility] Cyanocobalamin (Vitamin B12 -) 1,000 mcg PO DAILY [facility] Last Admin: 11/14/17 09:08 Dose: 1,000 mcg Entacapone (Comtan -) 200 mg PO QID [facility] Last Admin: 11/14/17 09:09 Dose: 200 mg Heparin Sodium (Porcine) (Heparin -) 5,000 unit SQ BID [facility] Last Admin: 11/14/17 09:08 Dose: 5,000 unit Dextrose/Sodium Chloride (D5-1/2ns -) 1,000 mls @ 75 mls/hr IV ASDIR [facility] Last Admin: 11/14/17 02:08 Dose: 75 mls/hr Piperacillin Sod/Tazobactam (Sod 3.375 gm/ Dextrose) 50 mls @ 100 mls/hr IVPB Q8H-IV [facility] PRN Reason: Protocol Last Admin: 11/14/17 09:08 Dose: 100 mls/hr Non-Formulary Medication (Losartan/Hydrochlorothiazide [Losartan-Hctz 100-12.5 Mg Tab]) 0.5 each PO DAILY [facility] Ropinirole HCl (Requip -) 1 mg PO 0630,1100,1500,1900 [facility] Last Admin: 11/14/17 10:38 Dose: 1 mg Tamsulosin HCl (Flomax -) 0.8 mg PO DAILY@0830 [facility] Last Admin: 11/14/17 09:08 Dose: 0.8 mg - Objective Vital Signs: Vital Signs Temperature 98 F 11/14/17 05:32 Pulse Rate 54 L 11/14/17 10:42 Respiratory Rate 20 11/14/17 10:42 Blood Pressure 127/80 11/14/17 10:42 O2 Sat by Pulse Oximetry (%) 96 11/13/17 22:00 Constitutional: Yes: No Distress, Calm Neck: Yes: Supple Cardiovascular: Yes: Regular Rate and Rhythm Respiratory: Yes: Regular Gastrointestinal: Yes: Normal Bowel Sounds, Soft Genitourinary: Yes: WNL Extremities: Yes: WNL Integumentary: Yes: WNL Neurological: Yes: Tremors (RUE tremor) Psychiatric: Yes: Alert Labs: CBC, BMP 11/14/17 07:45 11/14/17 07:45 INR, PTT INR 1.07 (0.82-1.09) 11/13/17 00:27 Microbiology 11/13/17 10:30 Blood - Peripheral Venous Blood Culture - Preliminary NO GROWTH OBTAINED AFTER 24 HOURS, INCUBATION TO CONTINUE FOR 4 DAYS. 11/13/17 09:48 Blood - Peripheral Venous Blood Culture - Preliminary NO GROWTH OBTAINED AFTER 24 HOURS, INCUBATION TO CONTINUE FOR 4 DAYS. Urine culture result pending Lactate 2.1 Problem List - Problems (1) Dehydration Code(s): E86.0 - DEHYDRATION (2) Dizziness Code(s): R42 - DIZZINESS AND GIDDINESS (3) Hypertension Code(s): I10 - ESSENTIAL (PRIMARY) HYPERTENSION (4) Parkinson disease Code(s): G20 - PARKINSON'S DISEASE (5) Prostate cancer Code(s): C61 - MALIGNANT NEOPLASM OF PROSTATE (6) Unsteady gait Code(s): R26.81 - UNSTEADINESS ON FEET Assessment/Plan 82 y.o. male with Hx of Parkinsons, HTN, HLD, and Prostate CA (s/p treatment, details unknown) presenting with AMS/lack of responsiveness and elevated lactate level. As per GF pt underwent a possible urologic procedure as outpt at [facility] 3-4 wks ago and had a f/u appt 2 days from now. Pt still more somnolent than usual as per GF. r/o UTI f/u urine culture results cont Zosyn empirically for now lactate level decreased pt currently afebrile continue monitor
[2017-11-15] MEDS ORDERED: DEXTROSE 5%-WATER - 50 ML IVPB ONE ×3 (01:37→17:45)
[2017-11-15] MEDS ORDERED: PIPERACILLIN/TAZOBACTAM 3.375 GM VIAL IVPB ONE ×3 (01:37→17:45)
[2017-11-15] MEDS ORDERED: PT OWN MED DRAWER 7, Y5N ONE ×5 (01:38→20:55)
[2017-11-15] MEDS: PIPERACILLIN/TAZOB 3.375 GM 3.375 GM in DEXTROSE 5%-WATER - 50 ML IVPB SCH ×3 (01:53→17:49)
[2017-11-15] MEDS: rOPINIRole HCL 1 MG TABLET (FP) PO SCH ×4 (05:57→18:37)
[2017-11-15 08:10] LABS: ALBUMIN 3.2 g/dl (3.4-5.0); ANION GAP 6 (8-16); BLOOD UREA NITROGEN 12 mg/dL (7-18); CALCIUM 8.4 mg/dL (8.5-10.1); CHLORIDE 110 mmol/L (98-107); CO2 27 mmol/L (21-32); GLUCOSE,RANDOM 117 mg/dL (74-106); POTASSIUM 3.6 mmol/L (3.5-5.1); SODIUM 143 mmol/L (136-145)
[2017-11-15 08:12] LABS: ALK PHOS 159 U/L (45-117); BILIRUBIN,TOTAL 0.7 mg/dL (0.2-1.0); CREATININE 1.1 mg/dL (0.7-1.3); SGOT/AST 18 U/L (15-37); SGPT/ALT 14 U/L (12-78); TOT PROT 6.2 g/dl (6.4-8.2)
[2017-11-15] MEDS: TAMSULOSIN HCL 0.4 MG CAP.ER.24H (FP) PO SCH (08:36)
[2017-11-15] MEDS: CARBIDOPA/LEVODOPA 25/250 TABLET (FP) PO SCH ×4 (09:01→21:15)
[2017-11-15] MEDS: HEPARIN NA (PORCINE) 5,000 UNITS/ML 1ML VIAL SQ SCH ×2 (09:01→21:13)
[2017-11-15] MEDS: ENTACAPONE 200 MG TABLET PO SCH ×4 (09:01→21:16)
[2017-11-15] MEDS: ASPIRIN 81 MG CHEWABLE TABLETS PO SCH (09:01)
[2017-11-15] MEDS: CYANOCOBALAMIN 1,000 MCG TABLET (FP) PO SCH (09:01)
[2017-11-15 09:43] LABS: BASO % 0.6 % (0-2.0); HEMATOCRIT 34.4 % (35.4-49); HEMOGLOBIN 12.3 GM/dL (11.7-16.9); LYMPH % 27.1 % (8-40); MCH 33.5 pg (25.7-33.7); MEAN CELL VOLUME 93.4 fl (80-96); MEAN PLT VOLUME 10.3 fl (7.5-11.1); NEUT % 57.3 % (42.8-82.8); PLATELET COUNT 105 K/MM3 (134-434); RBC 3.68 M/mm3 (4.00-5.60); RDW 13.5 % (11.9-15.9); WHITE BLOOD COUNT 5.6 K/mm3 (4.0-10.0)
[2017-11-15 09:45] LABS: MCHC 35.8 g/dl (32.0-35.9)
--- NOTE | 2017-11-15 11:58 | PN ---
Progress Note, Physician History of Present Illness: Pt more alert today. Remains afebrile, without distress. No new complaints. - Current Medication List Current Medications: Active Medications Aspirin (Asa -) 81 mg PO DAILY [facility] Last Admin: 11/15/17 09:01 Dose: 81 mg Carbidopa/Levodopa (Sinemet 25/250 -) 1.5 each PO QID [facility] Last Admin: 11/15/17 09:01 Dose: 1.5 each Clonazepam (Klonopin -) 0.125 mg PO BID [facility] Cyanocobalamin (Vitamin B12 -) 1,000 mcg PO DAILY [facility] Last Admin: 11/15/17 09:01 Dose: 1,000 mcg Entacapone (Comtan -) 200 mg PO QID [facility] Last Admin: 11/15/17 09:01 Dose: 200 mg Heparin Sodium (Porcine) (Heparin -) 5,000 unit SQ BID [facility] Last Admin: 11/15/17 09:01 Dose: 5,000 unit Dextrose/Sodium Chloride (D5-1/2ns -) 1,000 mls @ 75 mls/hr IV ASDIR [facility] Last Admin: 11/14/17 21:22 Dose: 75 mls/hr Piperacillin Sod/Tazobactam (Sod 3.375 gm/ Dextrose) 50 mls @ 100 mls/hr IVPB Q8H-IV [facility] PRN Reason: Protocol Last Admin: 11/15/17 09:00 Dose: 100 mls/hr Non-Formulary Medication (Losartan/Hydrochlorothiazide [Losartan-Hctz 100-12.5 Mg Tab]) 0.5 each PO DAILY [facility] Ropinirole HCl (Requip -) 1 mg PO 0630,1100,1500,1900 [facility] Last Admin: 11/15/17 11:21 Dose: 1 mg Tamsulosin HCl (Flomax -) 0.8 mg PO DAILY@0830 [facility] Last Admin: 11/15/17 08:36 Dose: 0.8 mg - Objective Vital Signs: Vital Signs Temperature 98.6 F 11/15/17 06:00 Pulse Rate 82 11/15/17 06:00 Respiratory Rate 18 11/15/17 06:00 Blood Pressure 130/68 11/15/17 06:00 O2 Sat by Pulse Oximetry (%) 97 11/14/17 21:00 Constitutional: Yes: No Distress, Calm Cardiovascular: Yes: Regular Rate and Rhythm Respiratory: Yes: Regular Gastrointestinal: Yes: Normal Bowel Sounds, Soft Genitourinary: Yes: WNL Neurological: Yes: Alert Labs: CBC, BMP 11/15/17 07:20 11/15/17 07:20 INR, PTT INR 1.07 (0.82-1.09) 11/13/17 00:27 Microbiology 11/13/17 10:30 Blood - Peripheral Venous Blood Culture - Preliminary NO GROWTH OBTAINED AFTER 48 HOURS, INCUBATION TO CONTINUE FOR 3 DAYS. 11/13/17 09:48 Blood - Peripheral Venous Blood Culture - Preliminary NO GROWTH OBTAINED AFTER 48 HOURS, INCUBATION TO CONTINUE FOR 3 DAYS. 11/13/17 13:16 Urine - Urine Clean Catch Urine Culture - Final NO GROWTH OBTAINED 11/15/17: lactate - wnl Problem List - Problems (1) Dehydration Code(s): E86.0 - DEHYDRATION (2) Dizziness Code(s): R42 - DIZZINESS AND GIDDINESS (3) Hypertension Code(s): I10 - ESSENTIAL (PRIMARY) HYPERTENSION (4) Parkinson disease Code(s): G20 - PARKINSON'S DISEASE (5) Prostate cancer Code(s): C61 - MALIGNANT NEOPLASM OF PROSTATE (6) Unsteady gait Code(s): R26.81 - UNSTEADINESS ON FEET Assessment/Plan 82 y.o. male with Hx of Parkinsons, HTN, HLD, and Prostate CA (s/p treatment, details unknown) presenting with AMS/lack of responsiveness and elevated lactate level. Urine culture neg, Blood cultures no growth d/c Zosyn after today's doses afebrile, no leukocytosis Pt appears alert, without distress today continue monitor
--- NOTE | 2017-11-15 21:12 | PN ---
Progress Note, Physician History of Present Illness: No new complaints - Current Medication List Current Medications: Active Medications Aspirin (Asa -) 81 mg PO DAILY [facility] Last Admin: 11/15/17 09:01 Dose: 81 mg Carbidopa/Levodopa (Sinemet 25/250 -) 1.5 each PO QID [facility] Last Admin: 11/15/17 17:54 Dose: 1.5 each Clonazepam (Klonopin -) 0.125 mg PO BID [facility] Cyanocobalamin (Vitamin B12 -) 1,000 mcg PO DAILY [facility] Last Admin: 11/15/17 09:01 Dose: 1,000 mcg Entacapone (Comtan -) 200 mg PO QID [facility] Last Admin: 11/15/17 17:53 Dose: 200 mg Heparin Sodium (Porcine) (Heparin -) 5,000 unit SQ BID [facility] Last Admin: 11/15/17 09:01 Dose: 5,000 unit Dextrose/Sodium Chloride (D5-1/2ns -) 1,000 mls @ 75 mls/hr IV ASDIR [facility] Last Admin: 11/14/17 21:22 Dose: 75 mls/hr Piperacillin Sod/Tazobactam (Sod 3.375 gm/ Dextrose) 50 mls @ 100 mls/hr IVPB Q8H-IV [facility] PRN Reason: Protocol Last Admin: 11/15/17 17:49 Dose: 100 mls/hr Non-Formulary Medication (Losartan/Hydrochlorothiazide [Losartan-Hctz 100-12.5 Mg Tab]) 0.5 each PO DAILY [facility] Ropinirole HCl (Requip -) 1 mg PO 0630,1100,1500,1900 [facility] Last Admin: 11/15/17 18:37 Dose: 1 mg Tamsulosin HCl (Flomax -) 0.8 mg PO DAILY@0830 [facility] Last Admin: 11/15/17 08:36 Dose: 0.8 mg - Objective Vital Signs: Vital Signs Temperature 98.2 F 11/15/17 20:18 Pulse Rate 64 11/15/17 20:18 Respiratory Rate 20 11/15/17 20:18 Blood Pressure 123/67 11/15/17 20:18 O2 Sat by Pulse Oximetry (%) 97 11/15/17 20:26 HENT: Yes: WNL Neck: Yes: WNL, Supple Cardiovascular: Yes: WNL, Regular Rate and Rhythm Respiratory: Yes: WNL, Regular, CTA Bilaterally Gastrointestinal: Yes: WNL, Normal Bowel Sounds, Soft Labs: CBC, BMP 11/15/17 07:20 11/15/17 07:20 INR, PTT INR 1.07 (0.82-1.09) 11/13/17 00:27 Problem List - Problems (1) Sepsis Assessment/Plan: Due to UTI Cont IV antibxs for another 24 hrs as per ID Cultures remain negative Code(s): A41.9 - SEPSIS, UNSPECIFIED ORGANISM (2) Hypertension Assessment/Plan: BP stable Cont losartan/hctz Code(s): I10 - ESSENTIAL (PRIMARY) HYPERTENSION (3) Parkinson disease Assessment/Plan: Cont sinemet/comtan Code(s): G20 - PARKINSON'S DISEASE (4) Prostate cancer Code(s): C61 - MALIGNANT NEOPLASM OF PROSTATE
[2017-11-15] MEDS: DEXTROSE 5%-0.45% SALINE 1,000 ML IV SCH (21:47)
[2017-11-16] MEDS ORDERED: PIPERACILLIN/TAZOBACTAM 3.375 GM VIAL IVPB ONE ×3 (01:12→17:10)
[2017-11-16] MEDS ORDERED: DEXTROSE 5%-WATER - 50 ML IVPB ONE ×3 (01:12→17:11)
[2017-11-16] MEDS: PIPERACILLIN/TAZOB 3.375 GM 3.375 GM in DEXTROSE 5%-WATER - 50 ML IVPB SCH ×3 (01:36→18:21)
[2017-11-16] MEDS: rOPINIRole HCL 1 MG TABLET (FP) PO SCH ×4 (06:11→18:22)
[2017-11-16] MEDS ORDERED: PT OWN MED DRAWER 7, Y5N ONE ×2 (09:29→22:01)
[2017-11-16] MEDS: HEPARIN NA (PORCINE) 5,000 UNITS/ML 1ML VIAL SQ SCH ×2 (09:41→22:36)
[2017-11-16] MEDS: CARBIDOPA/LEVODOPA 25/250 TABLET (FP) PO SCH ×4 (09:41→22:35)
[2017-11-16] MEDS: TAMSULOSIN HCL 0.4 MG CAP.ER.24H (FP) PO SCH (09:41)
[2017-11-16] MEDS: CYANOCOBALAMIN 1,000 MCG TABLET (FP) PO SCH (09:43)
[2017-11-16] MEDS: ASPIRIN 81 MG CHEWABLE TABLETS PO SCH (09:43)
[2017-11-16] MEDS: ENTACAPONE 200 MG TABLET PO SCH ×4 (09:43→22:35)
--- NOTE | 2017-11-16 11:39 | PN ---
Progress Note, Physician History of Present Illness: patient doing much better awake and alert feels like crap comfortable though - Current Medication List Current Medications: Active Medications Aspirin (Asa -) 81 mg PO DAILY [facility] Last Admin: 11/16/17 09:43 Dose: 81 mg Carbidopa/Levodopa (Sinemet 25/250 -) 1.5 each PO QID [facility] Last Admin: 11/16/17 09:41 Dose: 1.5 each Clonazepam (Klonopin -) 0.125 mg PO BID [facility] Cyanocobalamin (Vitamin B12 -) 1,000 mcg PO DAILY [facility] Last Admin: 11/16/17 09:43 Dose: 1,000 mcg Entacapone (Comtan -) 200 mg PO QID [facility] Last Admin: 11/16/17 09:43 Dose: 200 mg Heparin Sodium (Porcine) (Heparin -) 5,000 unit SQ BID [facility] Last Admin: 11/16/17 09:41 Dose: 5,000 unit Dextrose/Sodium Chloride (D5-1/2ns -) 1,000 mls @ 75 mls/hr IV ASDIR [facility] Last Admin: 11/15/17 21:47 Dose: 75 mls/hr Piperacillin Sod/Tazobactam (Sod 3.375 gm/ Dextrose) 50 mls @ 100 mls/hr IVPB Q8H-IV [facility] PRN Reason: Protocol Last Admin: 11/16/17 11:18 Dose: 100 mls/hr Non-Formulary Medication (Losartan/Hydrochlorothiazide [Losartan-Hctz 100-12.5 Mg Tab]) 0.5 each PO DAILY [facility] Ropinirole HCl (Requip -) 1 mg PO 0630,1100,1500,1900 [facility] Last Admin: 11/16/17 06:11 Dose: 1 mg Tamsulosin HCl (Flomax -) 0.8 mg PO DAILY@0830 [facility] Last Admin: 11/16/17 09:41 Dose: 0.8 mg - Objective Vital Signs: Vital Signs Temperature 98.4 F 11/16/17 09:24 Pulse Rate 78 11/16/17 09:24 Respiratory Rate 17 11/16/17 09:24 Blood Pressure 121/55 11/16/17 09:24 O2 Sat by Pulse Oximetry (%) 97 11/15/17 20:26 Constitutional: Yes: No Distress, Calm Cardiovascular: Yes: Regular Rate and Rhythm Respiratory: Yes: Regular, CTA Bilaterally Gastrointestinal: Yes: Normal Bowel Sounds, Soft Musculoskeletal: Yes: WNL Extremities: Yes: WNL Neurological: Yes: Alert Psychiatric: Yes: Alert Labs: CBC, BMP 11/15/17 07:20 11/15/17 07:20 INR, PTT INR 1.07 (0.82-1.09) 11/13/17 00:27 Assessment/Plan Problem List - Problems (1) Sepsis Code(s): A41.9 - SEPSIS, UNSPECIFIED ORGANISM (2) Hypertension Code(s): I10 - ESSENTIAL (PRIMARY) HYPERTENSION (3) Parkinson disease Code(s): G20 - PARKINSON'S DISEASE (4) Prostate cancer Code(s): C61 - MALIGNANT NEOPLASM OF PROSTATE plan stop zosyn after completing todays dose rest continue current mgmt patient improving
[2017-11-16] MEDS: DEXTROSE 5%-0.45% SALINE 1,000 ML IV SCH (14:30)
--- NOTE | 2017-11-16 21:57 | PN ---
Progress Note, Physician History of Present Illness: No new complaints - Current Medication List Current Medications: Active Medications Aspirin (Asa -) 81 mg PO DAILY [facility] Last Admin: 11/16/17 09:43 Dose: 81 mg Carbidopa/Levodopa (Sinemet 25/250 -) 1.5 each PO QID [facility] Last Admin: 11/16/17 18:22 Dose: 1.5 each Clonazepam (Klonopin -) 0.125 mg PO BID [facility] Cyanocobalamin (Vitamin B12 -) 1,000 mcg PO DAILY [facility] Last Admin: 11/16/17 09:43 Dose: 1,000 mcg Entacapone (Comtan -) 200 mg PO QID [facility] Last Admin: 11/16/17 18:22 Dose: 200 mg Heparin Sodium (Porcine) (Heparin -) 5,000 unit SQ BID [facility] Last Admin: 11/16/17 09:41 Dose: 5,000 unit Dextrose/Sodium Chloride (D5-1/2ns -) 1,000 mls @ 75 mls/hr IV ASDIR [facility] Last Admin: 11/16/17 14:30 Dose: 75 mls/hr Piperacillin Sod/Tazobactam (Sod 3.375 gm/ Dextrose) 50 mls @ 100 mls/hr IVPB Q8H-IV [facility] PRN Reason: Protocol Last Admin: 11/16/17 18:21 Dose: 100 mls/hr Non-Formulary Medication (Losartan/Hydrochlorothiazide [Losartan-Hctz 100-12.5 Mg Tab]) 0.5 each PO DAILY [facility] Ropinirole HCl (Requip -) 1 mg PO 0630,1100,1500,1900 [facility] Last Admin: 11/16/17 18:22 Dose: 1 mg Tamsulosin HCl (Flomax -) 0.8 mg PO DAILY@0830 [facility] Last Admin: 11/16/17 09:41 Dose: 0.8 mg - Objective Vital Signs: Vital Signs Temperature 97.6 F 11/16/17 19:55 Pulse Rate 64 11/16/17 19:55 Respiratory Rate 18 11/16/17 19:55 Blood Pressure 112/54 11/16/17 19:55 O2 Sat by Pulse Oximetry (%) 97 11/16/17 09:00 Neck: Yes: WNL, Supple Cardiovascular: Yes: WNL, Regular Rate and Rhythm Respiratory: Yes: WNL, Regular, CTA Bilaterally Gastrointestinal: Yes: WNL, Normal Bowel Sounds, Soft Labs: CBC, BMP 11/15/17 07:20 11/15/17 07:20 INR, PTT INR 1.07 (0.82-1.09) 11/13/17 00:27 Problem List - Problems (1) Sepsis Assessment/Plan: Due to UTI Change to PO antibxs in am DC planning for am Cultures remain negative Code(s): A41.9 - SEPSIS, UNSPECIFIED ORGANISM (2) Hypertension Assessment/Plan: BP stable Cont losartan/hctz Code(s): I10 - ESSENTIAL (PRIMARY) HYPERTENSION (3) Parkinson disease Assessment/Plan: Cont sinemet/comtan Code(s): G20 - PARKINSON'S DISEASE (4) Prostate cancer Code(s): C61 - MALIGNANT NEOPLASM OF PROSTATE
[2017-11-17] MEDS ORDERED: PIPERACILLIN/TAZOBACTAM 3.375 GM VIAL IVPB ONE ×2 (02:17→09:00)
[2017-11-17] MEDS ORDERED: DEXTROSE 5%-WATER - 50 ML IVPB ONE ×2 (02:17→09:01)
[2017-11-17] MEDS: PIPERACILLIN/TAZOB 3.375 GM 3.375 GM in DEXTROSE 5%-WATER - 50 ML IVPB SCH ×2 (02:25→09:09)
[2017-11-17] MEDS: DEXTROSE 5%-0.45% SALINE 1,000 ML IV SCH (04:15)
[2017-11-17] MEDS: rOPINIRole HCL 1 MG TABLET (FP) PO SCH ×4 (06:32→18:24)
[2017-11-17] MEDS ORDERED: PT OWN MED DRAWER 7, Y5N ONE ×2 (06:45→09:01)
[2017-11-17] MEDS: TAMSULOSIN HCL 0.4 MG CAP.ER.24H (FP) PO SCH (08:25)
[2017-11-17] MEDS: ASPIRIN 81 MG CHEWABLE TABLETS PO SCH (09:07)
[2017-11-17] MEDS: CYANOCOBALAMIN 1,000 MCG TABLET (FP) PO SCH (09:07)
[2017-11-17] MEDS: ENTACAPONE 200 MG TABLET PO SCH ×3 (09:08→17:51)
[2017-11-17] MEDS: HEPARIN NA (PORCINE) 5,000 UNITS/ML 1ML VIAL SQ SCH (09:08)
[2017-11-17] MEDS: CARBIDOPA/LEVODOPA 25/250 TABLET (FP) PO SCH ×3 (09:08→17:51)
--- NOTE | 2017-11-17 11:42 | PN ---
Progress Note, Physician History of Present Illness: patient stable no complaints - Current Medication List Current Medications: Active Medications Aspirin (Asa -) 81 mg PO DAILY [facility] Last Admin: 11/17/17 09:07 Dose: 81 mg Carbidopa/Levodopa (Sinemet 25/250 -) 1.5 each PO QID [facility] Last Admin: 11/17/17 09:08 Dose: 1.5 each Clonazepam (Klonopin -) 0.125 mg PO BID [facility] Cyanocobalamin (Vitamin B12 -) 1,000 mcg PO DAILY [facility] Last Admin: 11/17/17 09:07 Dose: 1,000 mcg Entacapone (Comtan -) 200 mg PO QID [facility] Last Admin: 11/17/17 09:08 Dose: 200 mg Heparin Sodium (Porcine) (Heparin -) 5,000 unit SQ BID [facility] Last Admin: 11/17/17 09:08 Dose: 5,000 unit Dextrose/Sodium Chloride (D5-1/2ns -) 1,000 mls @ 75 mls/hr IV ASDIR [facility] Last Admin: 11/17/17 04:15 Dose: 75 mls/hr Piperacillin Sod/Tazobactam (Sod 3.375 gm/ Dextrose) 50 mls @ 100 mls/hr IVPB Q8H-IV [facility] PRN Reason: Protocol Last Admin: 11/17/17 09:09 Dose: 100 mls/hr Non-Formulary Medication (Losartan/Hydrochlorothiazide [Losartan-Hctz 100-12.5 Mg Tab]) 0.5 each PO DAILY [facility] Ropinirole HCl (Requip -) 1 mg PO 0630,1100,1500,1900 [facility] Last Admin: 11/17/17 11:01 Dose: 1 mg Tamsulosin HCl (Flomax -) 0.8 mg PO DAILY@0830 [facility] Last Admin: 11/17/17 08:25 Dose: 0.8 mg - Objective Vital Signs: Vital Signs Temperature 99.4 F 11/17/17 09:07 Pulse Rate 75 11/17/17 09:07 Respiratory Rate 18 11/17/17 09:07 Blood Pressure 136/56 11/17/17 09:07 O2 Sat by Pulse Oximetry (%) 97 11/17/17 09:00 Constitutional: Yes: No Distress, Calm Cardiovascular: Yes: Regular Rate and Rhythm Respiratory: Yes: Regular, CTA Bilaterally Gastrointestinal: Yes: Normal Bowel Sounds, Soft Musculoskeletal: Yes: WNL Extremities: Yes: WNL Neurological: Yes: Alert, Other Psychiatric: Yes: Alert Labs: CBC, BMP 11/15/17 07:20 11/15/17 07:20 INR, PTT INR 1.07 (0.82-1.09) 11/13/17 00:27 Assessment/Plan Problem List - Problems (1) Sepsis Code(s): A41.9 - SEPSIS, UNSPECIFIED ORGANISM (2) Hypertension Code(s): I10 - ESSENTIAL (PRIMARY) HYPERTENSION (3) Parkinson disease Code(s): G20 - PARKINSON'S DISEASE (4) Prostate cancer Code(s): C61 - MALIGNANT NEOPLASM OF PROSTATE plan stop abx continue to monitor rest as per the team patient stable
[2017-11-17 14:36] VITALS: BP 112/55; PULSE 63; TEMP 99
--- NOTE | 2017-11-18 16:22 | DS ---
Physical Examination Vital Signs: Vital Signs Temperature 99.0 F 11/17/17 14:35 Pulse Rate 63 11/17/17 14:35 Respiratory Rate 18 11/17/17 09:07 Blood Pressure 112/55 11/17/17 14:35 O2 Sat by Pulse Oximetry (%) 97 11/17/17 09:00 Constitutional: Yes: No Distress Neck: Yes: Trachea Midline Cardiovascular: Yes: Regular Rate and Rhythm Respiratory: Yes: Regular, CTA Bilaterally Gastrointestinal: Yes: Normal Bowel Sounds Labs: CBC, BMP 11/15/17 07:20 11/15/17 07:20 Discharge Summary Reason For Visit: UTI/DEHYDRATION (1) Sepsis (2) Hypertension (3) Parkinson disease (4) Prostate cancer Hospital Course: Pt is an 82 y/o male with a PMH significant for Prostate cancer, HTN, HLD, and parkinsons disease. Pt was brought in by EMS from longterm for evaluation of period of unresponsiveness. As per EMS, the patient was found unresponsive in the longterm and not responding to tactile stimulation for 10 minutes. In the ER pt was awake and alert. She was found to have lactic acid of 2.5 but was afebrile w/ normal WBC. He was found to have sepsis from UTI. He was treated with abx and improved significantly. He was d/c'd to nursing facility. Condition: Stable - Instructions Diet, Activity, Other Instructions: 2 gram sodium diet See Dr Arechiga in 1 week Disposition: ASSISTED FACILITY - Home Medications Comprehensive Discharge Medication List: Ambulatory Orders Aspirin 81 mg PO DAILY 11/12/17 Carbidopa/Levodopa 25/250 [Sinemet 25/250 -] 1.5 each PO QID 11/12/17 Cyanocobalamin [Vitamin B12 -] 1,000 mcg PO DAILY 11/12/17 Entacapone 200 mg PO QID 11/12/17 Losartan/Hydrochlorothiazide [Losartan-Hctz 100-12.5 mg Tab] 0.5 each PO DAILY 11/12/17 Ropinirole HCl [Requip] 1 mg PO ASDIR 11/12/17 Ropinirole HCl [Requip] 2 mg PO HS 11/12/17 Tamsulosin HCl [Flomax -] 0.8 mg PO DAILY 11/12/17 clonazePAM [Klonopin -] 0.125 mg PO BID 11/12/17
== END 2017-11-17 19:30 | DRG 690 ==
LOC: JER 23:29 → JERBED 11-13 04:30 → J6S 11-13 10:24
PROVIDERS: ADMIT Internal Medicine; ATTEND Internal Medicine
DX: N39.0 Urinary tract infection, site not specified (principal); E86.0 Dehydration; I10 Essential (primary) hypertension; E78.5 Hyperlipidemia, unspecified; G20 Parkinson's disease; G62.9 Polyneuropathy, unspecified; M54.9 Dorsalgia, unspecified; R42 Dizziness and giddiness; R26.81 Unsteadiness on feet; C61 Malignant neoplasm of prostate; Z85.46 Personal history of malignant neoplasm of prostate; Z66 Do not resuscitate
CPT/HCPCS: 36415; 70450-TC; 71045-TC-FY; 80053; 81003; 81015; 82550; 82962; 83605; 83735; 84484; 85025; 85610; 87040; 87086; 93005; 93010; 99284-25; J1644; J7030

== ENCOUNTER 2018-01-22 21:03 | Inpatient (IN) | payer OTHER ==
[2018-01-22] MEDS ORDERED: SODIUM CHLORIDE 1,000 ML IV STA (21:21)
--- NOTE | 2018-01-22 21:23 | PDOC ---
History of Present Illness - General Chief Complaint: SIRS, Suspected/Possible Stated Complaint: HYPOXIA Time Seen by Provider: 01/22/18 21:20 Past History - Past Medical History Allergies/Adverse Reactions: Allergies Allergy/AdvReac Type Severity Reaction Status Date / Time No Known Allergies Allergy Verified 01/22/18 21:09 Home Medications: Ambulatory Orders Aspirin 81 mg PO DAILY 11/12/17 Carbidopa/Levodopa 25/250 [Sinemet 25/250 -] 1.5 each PO QID 11/12/17 Cyanocobalamin [Vitamin B12 -] 1,000 mcg PO DAILY 11/12/17 Entacapone 200 mg PO QID 11/12/17 Losartan/Hydrochlorothiazide [Losartan-Hctz 100-12.5 mg Tab] 0.5 each PO DAILY 11/12/17 Ropinirole HCl [Requip] 1 mg PO ASDIR 11/12/17 Ropinirole HCl [Requip] 2 mg PO HS 11/12/17 Tamsulosin HCl [Flomax -] 0.8 mg PO DAILY 11/12/17 clonazePAM [Klonopin -] 0.125 mg PO BID 11/12/17 Anemia: No Cancer: Yes (PROSTATE) COPD: No Disorders: Yes (PROSTATE CA) HTN: Yes Hypercholesterolemia: Yes - Suicide/Smoking/Psychosocial Hx Smoking Status: No Smoking History: Unknown if ever smoked Have you smoked in the past 12 months: No Number of Cigarettes Smoked Daily: 0 If you are a former smoker, when did you quit?: 1949 Information on smoking cessation initiated: No Hx Alcohol Use: No Drug/Substance Use Hx: No Substance Use Type: None Hx Substance Use Treatment: No Respiratory Specific PMHX - Complaint Specific PMHX Pulmonary Embolus: No *Physical Exam - Vital Signs Last Vital Signs Temp Pulse Resp BP Pulse Ox 100.1 F H 124 H 22 105/60 93 L 01/22/18 21:09 01/22/18 21:09 01/22/18 21:09 01/22/18 21:09 01/22/18 21:09
--- NOTE | 2018-01-22 21:59 | PDOC ---
History of Present Illness - General Chief Complaint: SIRS, Suspected/Possible Stated Complaint: HYPOXIA Time Seen by Provider: 01/22/18 21:20 - History of Present Illness Initial Comments: 82 year old male with PMH of prostate cancer, HTN, HLD, and Parkinson disease presenting with hematuria, urinary burning, fevers, and hypoxia from [facility]. Patient and family at bedside state he saw his urologist (Dr. Arechiga) earlier today and he attempted to perform some procedure. Per Dr. Arechiga, he attempted to place a Menendez because of concern for a UTI. Menendez placement was unsuccessful but then patient voided on his own later. When he returned to the [place] they noted hematuria and the patient became acutely hypoxic. Upon EMS arrival, they noted Hyoxia to high 70s, monitor demonstrating frequent PVCs, and slightly elevated temperature of 100.1. Patient was placed on non-rebreather and his SATs improved. In our ED his SATs were 100% on RA, he was tachycardic to 130s with frequent PVCs, and pressures were elevated to 140s systolic. Patient was also mentating per his baseline AOx2 and able to illicit 01/23/18 00:44 Past History - Past Medical History Allergies/Adverse Reactions: Allergies Allergy/AdvReac Type Severity Reaction Status Date / Time No Known Allergies Allergy Verified 01/22/18 21:09 Home Medications: Ambulatory Orders Aspirin 81 mg PO DAILY 11/12/17 Carbidopa/Levodopa 25/250 [Sinemet 25/250 -] 1.5 each PO QID 11/12/17 Cyanocobalamin [Vitamin B12 -] 1,000 mcg PO DAILY 11/12/17 Entacapone 200 mg PO QID 11/12/17 Losartan/Hydrochlorothiazide [Losartan-Hctz 100-12.5 mg Tab] 0.5 each PO DAILY 11/12/17 Ropinirole HCl [Requip] 1 mg PO ASDIR 11/12/17 Tamsulosin HCl [Flomax -] 0.8 mg PO DAILY 11/12/17 clonazePAM [Klonopin -] 0.125 mg PO BID 11/12/17 Acetaminophen [Tylenol] 325 mg PO BID PRN 01/23/18 Cefuroxime Axetil [Cefuroxime] 500 mg PO DAILY 01/23/18 Cephalexin [Keflex] 500 mg PO TID 01/23/18 Cyanocobalamin (Vitamin B-12) [Vitamin B-12] 1,000 mcg PO DAILY 01/23/18 Lactobacillus Acidophilus [Bacid -] 1 each PO TID 01/23/18 Magnesium Hydrox 2400MG/30Ml [Milk of Magnesia -] 30 ml PO DAILY 01/23/18 Meclizine HCl 25 mg PO DAILY 01/23/18 Anemia: No Cancer: Yes (PROSTATE) COPD: No Disorders: Yes (PROSTATE CA) HTN: Yes Hypercholesterolemia: Yes - Suicide/Smoking/Psychosocial Hx Smoking Status: No Smoking History: Unknown if ever smoked Have you smoked in the past 12 months: No Number of Cigarettes Smoked Daily: 0 If you are a former smoker, when did you quit?: 1950 Information on smoking cessation initiated: No Hx Alcohol Use: No Drug/Substance Use Hx: No Substance Use Type: None Hx Substance Use Treatment: No Review of Systems - Review of Systems Constitutional: Yes: Fever. No: Chills, Diaphoresis HEENTM: No: Blurred Vision, Tearing, Recent change in vision, Double Vision Respiratory: Yes: Shortness of Breath. No: Cough, Wheezing, Productive cough Cardiac (ROS): No: Chest Pain, Irregular Heart Rate, Chest Tightness ABD/GI: No: Diarrhea, Difficulty Swallowing, Nausea, Poor Appetite, Poor Fluid Intake, Vomiting : Yes: Burning, Dysuria, Frequency, Hematuria, Incontinence, Urgency. No: Discharge Musculoskeletal: No: Back Pain, Joint Swelling Integumentary: No: Flushing, Lesions, Lumps Neurological: No: Headache, Numbness, Paresthesia Psychiatric: No: Anxiety, Depression Endocrine: No: Flushing, Intolerance to Cold, Intolerance to Heat *Physical Exam - Vital Signs Last Vital Signs Temp Pulse Resp BP Pulse Ox 100.1 F H 124 H 22 105/60 93 L 01/22/18 21:09 01/22/18 21:09 01/22/18 21:01/22/18 21:01/22/18 21:09 - Physical Exam General Appearance: Yes: Nourished, Appropriately Dressed. No: Apparent Distress HEENT: positive: EOMI, SCOTT, Normal ENT Inspection. negative: Normal Voice ( tremulous voice) Neck: positive: Trachea midline, Normal Thyroid, Supple. negative: Tender, Rigid Respiratory/Chest: positive: Lungs Clear, Normal Breath Sounds. negative: Chest Tender, Respiratory Distress, Accessory Muscle Use Cardiovascular: positive: Tachycardia, Other (PVCS). negative: Regular Rhythm, Regular Rate Gastrointestinal/Abdominal: positive: Normal Bowel Sounds, Flat, Soft. negative : Tender Male Genitalia: positive: normal genitalia, hematuria Lymphatic: negative: Adenopathy, Tenderness Musculoskeletal: positive: Decreased Range of Motion, Muscle Spasm, Other ( contracted and tremulous). negative: Normal Inspection Extremity: positive: Normal Capillary Refill, Normal Inspection. negative: Normal Range of Motion (contracted per above) Integumentary: positive: Normal Color, Dry, Warm Neurologic: positive: Alert, Normal Mood/Affect, Normal Response. negative: Fully Oriented (AOx 2 and communicative) ED Treatment Course - LABORATORY CBC & Chemistry Diagram: 01/22/18 22:46 01/22/18 22:46 Medical Decision Making - Medical Decision Making 82 year old with recent suspected UTI presenting with hematuria, fevers, hypoxia , and general weakness for the past day after attempted Menendez placement at Dr. Arechiga's office. We attempted to place a Menendez multiple times without success. There was some blood at the meatus. Spoke to Dr. Arechiga and he will set patient up for cystoscopy tomorrow. Labs combined with tachycardia corroborate severe sepsis with likely source in the urine, however, we were unable to collect urine. Patient given 3 L NS for elevated lactic acid and repeat lacate/ repeat troponin pending. ASA was deferred because of hematuria. Patient was signed out to Dr. Mejia with consults for Dr. Arechiga and Inga. EKG demonstrated Rate of 107, VA 187, QRS 78, QTc 429, II/III/aVF TW flattening/ inversion but no ST or T wave changes otherwise. There are frequent PVCs. Overall the EKG is similar to the previous EKG in our system. 01/23/18 02:24 *DC/Admit/Observation/Transfer Diagnosis at time of Disposition: Severe sepsis, Elevated troponin I level, ROBERT (acute kidney injury) UTI (urinary tract infection) Qualifiers: Urinary tract infection type: acute cystitis Hematuria presence: with hematuria Qualified Code(s): N30.01 - Acute cystitis with hematuria - Referrals - Patient Instructions - Post Discharge Activity
--- NOTE | 2018-01-22 22:21 | PDOC ---
Attending Attestation - HPI HPI: 01/23/18 01:44 The patient is a 82 year old male, from [facility], with a significant PMH of prostate cancer, HTN, HLD, and parkinson's disease, who presents to the emergency department via EMS with hematuria, dysuria, fever and hypoxia noted on room air beginning today. As per patient and family present at bedside, the patient visited his urologist Dr. Darlene Arechiga earlier today for a kern placement. They report the kern placement procedure was unsuccessful but the patient was able to urinate on his own later. Family states that after the patient arrived back to the intermediate they noted hematuria and that the patient was hypoxic on room air which prompted the call to EMS for the ED visit. EMS states upon arrival the patient was hypoxic to high 70s, frequent PVCs on monitor and febrile to 100.1 F. EMS reports giving the patient a non rebreather mask with improvement. The patient denies chest pain, headache and dizziness. Denies nausea, vomit, diarrhea and constipation. Denies frequency and urgency. Allergies: NKA Urologist: Dr Darlene Arechiga. PCP: Dr Radhames Arechiga - Physicial Exam PE: 01/23/18 02:43 GENERAL: Awake, alert, and fully oriented, in no acute distress HEAD: No signs of trauma EYES: PERRLA, EOMI, sclera anicteric, conjunctiva clear ENT: Auricles normal inspection, hearing grossly normal, nares patent, oropharynx clear without exudates. Moist mucosa NECK: Normal ROM, supple, no lymphadenopathy, JVD, or masses LUNGS: Breath sounds equal, clear to auscultation bilaterally. No wheezes, and no crackles HEART: (+) Tachycardia. Normal S1 and S2, no murmurs, rubs or gallops ABDOMEN: Soft, nontender, normoactive bowel sounds. No guarding, no rebound. No masses EXTREMITIES: (+) Decreased range of motion. No edema. No clubbing or cyanosis. No cords, erythema, or tenderness NEUROLOGICAL: Cranial nerves II through XII grossly intact. Normal speech. SKIN: Warm, Dry, normal turgor, no rashes or lesions noted. <Moris Ayala - Last Filed: 01/23/18 02:46> - Resident Resident Name: Emily Owen - ED Attending Attestation I have performed the following: I have examined & evaluated the patient, The case was reviewed & discussed with the resident, I agree w/resident's findings & plan - Medical Decision Making 01/24/18 00:49 Pt was sent to the ER for evaluation and admission by his urologist today as t has pain and prostate enlargement possible prostatitis and uti. 01/24/18 00:50 Pt appears septic in the ER and he is unable to urinate. Lactic acid went from 7 +tp 4+ in the ER. Pt has low grade temp. He will be admitted for further management, as urology outpatient and we in the ER were unable to place a kern catheter through the patient's penis to his bladder. <Marsha Moore - Last Filed: 01/24/18 00:51> Attestations - Attestations 01/23/18 01:45 Documentation prepared by Moris Ayala, acting as medical scheduler for Marsha Moore MD. <Moris Ayala - Last Filed: 01/23/18 02:46>
[2018-01-22 23:15] LABS: BASO % 0.1 % (0-2.0); EOS % 0.2 % (0-4.5); HEMOGLOBIN 12.3 GM/dL (11.7-16.9); LYMPH % 3.7 % (8-40); MCH 33.2 pg (25.7-33.7); MCHC 35.2 g/dl (32.0-35.9); MEAN CELL VOLUME 94.3 fl (80-96); MEAN PLT VOLUME 9.4 fl (7.5-11.1); MONO % 0.7 % (3.8-10.2); NEUT % 95.3 % (42.8-82.8); PLATELET COUNT 118 K/MM3 (134-434); RBC 3.71 M/mm3 (4.00-5.60); RDW 12.9 % (11.9-15.9); WHITE BLOOD COUNT 10.8 K/mm3 (4.0-10.0)
[2018-01-22] MEDS ORDERED: ACETAMINOPHEN 1000 MG/100 ML VIAL (NON FORMULARY) IVPB ONE (23:19)
[2018-01-22] MEDS ORDERED: CEFTRIAXONE 1,000 MG in DEXTROSE 5%-WATER - 50 ML IVPB ONE (23:19)
[2018-01-22 23:29] LABS: INR 1.21 (0.82-1.09); PROTHROMBIN TIME (PATIENT) 13.7 SEC (9.7-13.0)
[2018-01-22 23:31] LABS: ACTIVATED PTT 26.1 SECONDS (25.2-36.5)
[2018-01-22 23:38] LABS: ALBUMIN 3.7 g/dl (3.4-5.0); ALK PHOS 172 U/L (45-117); ANION GAP 11 (8-16); BILIRUBIN,TOTAL 0.6 mg/dL (0.2-1.0); BLOOD UREA NITROGEN 28 mg/dL (7-18); CALCIUM 9.2 mg/dL (8.5-10.1); CHLORIDE 106 mmol/L (98-107); CO2 22 mmol/L (21-32); CREATININE 1.9 mg/dL (0.7-1.3); GLUCOSE,RANDOM 94 mg/dL (74-106); POTASSIUM 3.7 mmol/L (3.5-5.1); SGOT/AST 28 U/L (15-37); SGPT/ALT 18 U/L (12-78); SODIUM 139 mmol/L (136-145); TOT PROT 6.7 g/dl (6.4-8.2)
[2018-01-22] MEDS ORDERED: SODIUM CHLORIDE 0.9% 500 ML INFUS.BAG IV ONE (23:51)
[2018-01-22 23:59] LABS: ANISOCYTOSIS 1+; MACROCYTOSIS 1+; PLATELET ESTIMATE SLT DECREASE
[2018-01-23 00:18] LABS: ARTERIAL BLD GAS O2 SATURATION 97.3 % (90-98.9); ARTERIAL BLOOD GAS BASE EXCESS -5.3 meq/l (-2-2); ARTERIAL BLOOD GAS PO2 83.3 mmHg (68-100); ARTERIAL BLOOD GAS pH 7.46 (7.35-7.45); CARBOXYHEMOGLOBIN 1.5 gm% (0.5-2.0)
[2018-01-23 00:19] LABS: ALLENS TEST POSITIVE
[2018-01-23 00:20] LABS: ARTERIAL BLOOD GAS PCO2 24.5 mmHg (35-45)
[2018-01-23] MEDS ORDERED: ACETAMINOPHEN INJECTION 100 ML IVPB ONE (01:21)
[2018-01-23] MEDS ORDERED: CEFTRIAXONE 1 GM/50 ML BAG ONE (01:21)
[2018-01-23] MEDS ORDERED: clonazePAM 0.5 MG TABLET PO PRN (05:29)
[2018-01-23] MEDS: DEXTROSE 5%-0.45% SALINE 1,000 ML IV SCH ×2 (06:23→19:47)
[2018-01-23] MEDS: LACTOBACILLUS ACIDOPHILUS 1 TABLET PO SCH ×3 (06:25→21:38)
[2018-01-23] MEDS: ACETAMINOPHEN 325 MG TABLET (FP) PO PRN ×2 (06:47→21:53)
[2018-01-23 08:56] LABS: BASO % 0.2 % (0-2.0); EOS % 0.5 % (0-4.5); HEMATOCRIT 31.9 % (35.4-49); HEMOGLOBIN 11.3 GM/dL (11.7-16.9); LYMPH % 1.7 % (8-40); MCH 33.6 pg (25.7-33.7); MCHC 35.4 g/dl (32.0-35.9); MEAN CELL VOLUME 95.1 fl (80-96); MEAN PLT VOLUME 9.6 fl (7.5-11.1); MONO % 8.7 % (3.8-10.2); NEUT % 88.9 % (42.8-82.8); PLATELET COUNT 98 K/MM3 (134-434); RBC 3.36 M/mm3 (4.00-5.60)
[2018-01-23 09:35] LABS: ALBUMIN 3.2 g/dl (3.4-5.0); ANION GAP 11 (8-16); BLOOD UREA NITROGEN 32 mg/dL (7-18); CALCIUM 8.4 mg/dL (8.5-10.1); CHLORIDE 112 mmol/L (98-107); CO2 20 mmol/L (21-32); GLUCOSE,RANDOM 84 mg/dL (74-106); POTASSIUM 4.5 mmol/L (3.5-5.1); SODIUM 143 mmol/L (136-145)
--- NOTE | 2018-01-23 09:35 | EKG ---
Test Reason : Blood Pressure : / mmHG Vent. 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 RATE HAS INCREASED BY 45 BPM Confirmed by MIGUEL ANGEL ALLISON, FAY ([id number]) on 01/23/2018 9:35:12 AM Referred By: Confirmed By:FAY MICHELLE MD
--- NOTE | 2018-01-23 09:35 | EKG ---
Test Reason : Blood Pressure : / mmHG Vent. 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
[2018-01-23] MEDS: TAMSULOSIN HCL 0.4 MG CAP.ER.24H (FP) PO SCH (09:37)
[2018-01-23] MEDS: MAGNESIUM HYDROX 2400MG/30ML ORAL SUSPENSION 30 ML CUP PO SCH (09:37)
[2018-01-23] MEDS: ASPIRIN 81 MG CHEWABLE TABLETS PO SCH (09:38)
[2018-01-23] MEDS: MECLIZINE HCL 25 MG TABLET (FP) PO SCH (09:38)
[2018-01-23] MEDS: HEPARIN NA (PORCINE) 5,000 UNITS/ML 1ML VIAL SQ SCH ×2 (09:39→21:38)
[2018-01-23] MEDS ORDERED: DEXTROSE 5%-WATER 100 ML IVPB ONE (09:42)
[2018-01-23] MEDS ORDERED: cefTRIAXone SODIUM 1 GM VIAL ONE (09:42)
[2018-01-23 09:49] LABS: ALK PHOS 135 U/L (45-117); BILIRUBIN,TOTAL 0.5 mg/dL (0.2-1.0); SGOT/AST 49 U/L (15-37); SGPT/ALT 37 U/L (12-78); TOT PROT 6.1 g/dl (6.4-8.2)
[2018-01-23] MEDS ORDERED: CEFTRIAXONE 1 GM in DEXTROSE 5%-WATER 100 ML IVPB SCH (10:00)
--- NOTE | 2018-01-23 11:02 | CON.CARD ---
Consult Consult Specialty:: Cardiology f/u for Dr. Fleming Referred by:: Rasheeda Mejia Reason for Consultation:: +Trops - History of Present Illness Chief Complaint: Acute hypoxic respiratory failure, urinary retention History of Present Illness: 82 year old male with PMH of prostate cancer, HTN, HLD, and Parkinson disease referred with hematuria, dysuria, fevers, and hypoxia from [facility]. Dr. Arechiga attempted to place a Kern, was unsiccessful, but then patient voided on his own later. When he returned to the [place] they noted hematuria and the patient became acutely hypoxic. Upon EMS arrival, they noted Hyoxia to high 70s, monitor demonstrating frequent PVCs, and slightly elevated temperature of 100.1. Patient was placed on non-rebreather and his O2 sats improved. In our ED his SATs were 100% on RA, he was tachycardic to 130s with frequent PVCs, and pressures were elevated to 140s systolic. Patient was also mentating per his baseline AOx2. The patient denies chest pain, dyspnea, palpitations, cardiology input requested for demand ischemia. Allergies: NKA Urologist: Dr Darlene Arechiga. 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: Peripheral Neuropathy, Parkinson's (RUE tremor), Vertigo, Other Cardio/Vascular: Yes: HTN, Hyperlipdemia - Past Surgical History Past Surgical History: Yes: None - Alcohol/Substance Use Hx Alcohol Use: No History of Substance Use: reports: None - Smoking History Smoking history: Unknown if ever smoked Have you smoked in the past 12 months: No Aproximately how many cigarettes per day: 0 If you are a former smoker, when did you quit?: 1950 - Social History Usual Living Arrangement: Alone Home Medications - Allergies Allergies/Adverse Reactions: Allergies Allergy/AdvReac Type Severity Reaction Status Date / Time No Known Allergies Allergy Verified 01/22/18 21:09 - Home Medications Home Medications: Ambulatory Orders Aspirin 81 mg PO DAILY 11/12/17 Carbidopa/Levodopa 25/250 [Sinemet 25/250 -] 1.5 each PO QID 11/12/17 Cyanocobalamin [Vitamin B12 -] 1,000 mcg PO DAILY 11/12/17 Entacapone 200 mg PO QID 11/12/17 Losartan/Hydrochlorothiazide [Losartan-Hctz 100-12.5 mg Tab] 0.5 each PO DAILY 11/12/17 Ropinirole HCl [Requip] 1 mg PO ASDIR 11/12/17 Tamsulosin HCl [Flomax -] 0.8 mg PO DAILY 11/12/17 clonazePAM [Klonopin -] 0.125 mg PO BID 11/12/17 Acetaminophen [Tylenol] 325 mg PO BID PRN 01/23/18 Cefuroxime Axetil [Cefuroxime] 500 mg PO DAILY 01/23/18 Cephalexin [Keflex] 500 mg PO TID 01/23/18 Cyanocobalamin (Vitamin B-12) [Vitamin B-12] 1,000 mcg PO DAILY 01/23/18 Lactobacillus Acidophilus [Bacid -] 1 each PO TID 01/23/18 Magnesium Hydrox 2400MG/30Ml [Milk of Magnesia -] 30 ml PO DAILY 01/23/18 Meclizine HCl 25 mg PO DAILY 01/23/18 Review of Systems - Review of Systems Genitourinary: reports: Burning, Hematuria Vital Signs: Vital Signs Temperature 102.0 F H 01/23/18 09:05 Pulse Rate 108 H 01/23/18 09:05 Respiratory Rate 22 01/23/18 09:05 Blood Pressure 127/70 01/23/18 09:05 O2 Sat by Pulse Oximetry (%) 98 01/23/18 09:00 Constitutional: Yes: No Distress, Calm Neck: Yes: Supple Respiratory: Yes: Regular, Diminished Gastrointestinal: Yes: Normal Bowel Sounds, Soft Renal/: Yes: Hematuria Cardiovascular: Yes: Regular Rate and Rhythm, Tachycardia JVD: No Carotid Bruit: No Heart Sounds: Yes: S1, S2 Edema: No - Other Data Labs, Other Data: CBC, BMP 01/23/18 08:30 01/23/18 08:30 INR, PTT INR 1.21 (0.82-1.09) H 01/22/18 22:46 Troponin, BNP 01/22/18 01/23/18 01/23/18 22:46 03:30 08:30 Troponin I 0.16 H D 0.12 H 0.12 H Troponin, BNP 01/22/18 01/23/18 01/23/18 22:46 03:30 08:30 Troponin I 0.16 H D 0.[address] @ 108 PVC Ejection Fraction %: LVEF > or = 40 % Imaging - Results Chest X-ray: Report Reviewed (Possible RLL infiltrate) Problem List - Problems (1) Demand ischemia Code(s): I24.8 - OTHER FORMS OF ACUTE ISCHEMIC HEART DISEASE (2) Urinary retention Code(s): R33.9 - RETENTION OF URINE, UNSPECIFIED (3) ROBERT (acute kidney injury) Code(s): N17.9 - ACUTE KIDNEY FAILURE, UNSPECIFIED (4) Elevated troponin I level Code(s): R74.8 - ABNORMAL LEVELS OF OTHER SERUM ENZYMES (5) UTI (urinary tract infection) Code(s): N39.0 - URINARY TRACT INFECTION, SITE NOT SPECIFIED Qualifiers: Urinary tract infection type: acute cystitis Hematuria presence: with hematuria Qualified Code(s): N30.01 - Acute cystitis with hematuria (6) Hypertension Code(s): I10 - ESSENTIAL (PRIMARY) HYPERTENSION Qualifiers: Hypertension type: essential hypertension Qualified Code(s): I10 - Essential (primary) hypertension (7) Parkinson disease Code(s): G20 - PARKINSON'S DISEASE (8) Sepsis Code(s): A41.9 - SEPSIS, UNSPECIFIED ORGANISM Qualifiers: Sepsis type: sepsis due to unspecified organism Qualified Code(s): A41.9 - Sepsis, unspecified organism Assessment/Plan 11/07/2016 Echo: Normal LV size and fxn without sig valve abnl 1. Sepsis source with lactic acidosis, leukocytosis, hematuria, urinary retention 2. Demand ischemia 3. Acute hypoxic respiratory failure 4. Acute kidney injury suspect obstructive uropathy 5. PVC 6. Parkinson's Disease 7. HTN 8. Hyperlipidemia 9. Prostate culture P: 1. Unsuccessful kern placement by [facility] PARKER plans for cystoscopy 2. IVF, abx, trend trops, WBC and lactate to document peak, O2 as needed, monitor renal fxn 3. Echo to assess ventricular and valve fxn 4. input to relieve obstruction and obtain urine for cultures 5. Hold Hyzaar pending renal recovery, ASA and heparin pending cystoscopy 6. Thank you for consultative oppprtunity
[2018-01-23] MEDS ORDERED: ACETAMINOPHEN 1000 MG/100 ML VIAL (NON FORMULARY) IVPB ONE (11:30)
[2018-01-23] MEDS: ENTACAPONE 200 MG TABLET PO SCH ×4 (11:33→21:35)
[2018-01-23] MEDS: CARBIDOPA/LEVODOPA 25/250 TABLET (FP) PO SCH ×4 (11:33→21:35)
[2018-01-23] MEDS ORDERED: PIPERACILLIN/TAZOB 2.25 GM 2.25 GM in DEXTROSE 5%-WATER - 50 ML IVPB SCH (12:00)
--- NOTE | 2018-01-23 12:43 | CON.ID ---
Consult - History of Present Illness History of Present Illness: 82 y.o. male with PMH of Prostate CA, uti/hematuria, Parkinsons disease presents with fever, dysuria, hematuria, fever (now 102F) and leukocytosis, lactic acidosis, worsening renal function, hypoxia with O2 sat 70% initially, and altered mental status. Patient was started on IV ceftriaxone and today wbc count is increased to 22K and patient remains extremely lethargic and tachycardic. Attempts to place a kern catheter multiple times have been unsuccessful. O2 sats have improved on O2 NC. 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: Peripheral Neuropathy, Parkinson's (RUE tremor), Vertigo, Other Cardio/Vascular: Yes: HTN, Hyperlipdemia Renal/: Yes: Hematuria Heme/Onc: Yes: Other (Prostate CA) - Past Surgical History Past Surgical History: Yes: None - Alcohol/Substance Use Hx Alcohol Use: No History of Substance Use: reports: None - Smoking History Smoking history: Unknown if ever smoked Have you smoked in the past 12 months: No Aproximately how many cigarettes per day: 0 If you are a former smoker, when did you quit?: 1950 - Social History Usual Living Arrangement: Alone Home Medications - Allergies Allergies/Adverse Reactions: Allergies Allergy/AdvReac Type Severity Reaction Status Date / Time No Known Allergies Allergy Verified 01/22/18 21:09 - Home Medications Home Medications: Ambulatory Orders Aspirin 81 mg PO DAILY 11/12/17 Carbidopa/Levodopa 25/250 [Sinemet 25/250 -] 1.5 each PO QID 11/12/17 Cyanocobalamin [Vitamin B12 -] 1,000 mcg PO DAILY 11/12/17 Entacapone 200 mg PO QID 11/12/17 Losartan/Hydrochlorothiazide [Losartan-Hctz 100-12.5 mg Tab] 0.5 each PO DAILY 11/12/17 Ropinirole HCl [Requip] 1 mg PO ASDIR 11/12/17 Tamsulosin HCl [Flomax -] 0.8 mg PO DAILY 11/12/17 clonazePAM [Klonopin -] 0.125 mg PO BID 11/12/17 Acetaminophen [Tylenol] 325 mg PO BID PRN 01/23/18 Cefuroxime Axetil [Cefuroxime] 500 mg PO DAILY 01/23/18 Cephalexin [Keflex] 500 mg PO TID 01/23/18 Cyanocobalamin (Vitamin B-12) [Vitamin B-12] 1,000 mcg PO DAILY 01/23/18 Lactobacillus Acidophilus [Bacid -] 1 each PO TID 01/23/18 Magnesium Hydrox 2400MG/30Ml [Milk of Magnesia -] 30 ml PO DAILY 01/23/18 Meclizine HCl 25 mg PO DAILY 01/23/18 Review of Systems - Review of Systems Constitutional: reports: Fever, Lethargy Eyes: reports: No Symptoms HENT: reports: No Symptoms Neck: reports: No Symptoms Respiratory: reports: SOB Gastrointestinal: reports: No Symptoms Genitourinary: reports: Burning, Hematuria Musculoskeletal: reports: No Symptoms Integumentary: reports: No Symptoms Neurological: reports: Other (altered mental status) Physical Exam Vital Signs: Vital Signs Temperature 101.2 F H 01/23/18 12:21 Pulse Rate 108 H 01/23/18 09:05 Respiratory Rate 22 01/23/18 09:05 Blood Pressure 127/70 01/23/18 09:05 O2 Sat by Pulse Oximetry (%) 98 01/23/18 09:00 Constitutional: Yes: Other (lethargic) Neck: Yes: Supple Cardiovascular: Yes: Tachycardia Respiratory: Yes: Regular Gastrointestinal: Yes: Normal Bowel Sounds, Soft Renal/: Yes: Hematuria, Oliguria Extremities: Yes: WNL Integumentary: Yes: WNL Neurological: Yes: Lethargy Labs: CBC, BMP 01/23/18 08:30 01/23/18 08:30 Laboratory Tests 01/22/18 01/22/18 01/22/18 22:46 22:46 22:46 WBC 10.8 H RBC 3.71 L Hgb 12.3 Hct 35.0 L MCV 94.3 MCH 33.2 MCHC 35.2 RDW 12.9 Plt Count 118 L MPV 9.4 Absolute Neuts (auto) 10.3 Total Counted 100 Neutrophils % 95.3 H D Neutrophils % (Manual) 87.0 H Band Neutrophils % 5.0 Lymphocytes % 3.7 L D Lymphocytes % (Manual) 4.0 L Monocytes % 0.7 L D Monocytes % (Manual) 4 Eosinophils % 0.2 D Eosinophils % (Manual) Basophils % 0.1 Basophils % (Manual) Myelocytes % (Man) Promyelocytes % (Man) Blast Cells % (Manual) Nucleated RBC % 0 Metamyelocytes Hypochromia 1+ Platelet Estimate Slt decrease Platelet Comment No clumping noted Anisocytosis 1+ Macrocytosis 1+ PT with INR 13.70 H INR 1.21 H PTT (Actin FS) 26.1 L Puncture Site ABG pH ABG pCO2 at Pt Temp ABG pO2 at Pt Temp ABG HCO3 ABG O2 Sat (Measured) ABG O2 Content ABG Base Excess Justin Test Carboxyhemoglobin Methemoglobin O2 Delivery Device Oxygen Flow Rate PEEP Sodium 139 Potassium 3.7 Chloride 106 Carbon Dioxide 22 Anion Gap 11 BUN 28 H Creatinine 1.9 H Creat Clearance w eGFR 34.02 Random Glucose 94 Lactic Acid Calcium 9.2 Total Bilirubin 0.6 AST 28 D ALT 18 D Alkaline Phosphatase 172 H Creatine Kinase Creatine Kinase Index CK-MB (CK-2) Troponin I Total Protein 6.7 Albumin 3.7 01/22/18 01/22/18 01/23/18 22:46 22:46 00:10 WBC RBC Hgb Hct MCV MCH MCHC RDW Plt Count MPV Absolute Neuts (auto) Total Counted Neutrophils % Neutrophils % (Manual) Band Neutrophils % Lymphocytes % Lymphocytes % (Manual) Monocytes % Monocytes % (Manual) Eosinophils % Eosinophils % (Manual) Basophils % Basophils % (Manual) Myelocytes % (Man) Promyelocytes % (Man) Blast Cells % (Manual) Nucleated RBC % Metamyelocytes Hypochromia Platelet Estimate Platelet Comment Anisocytosis Macrocytosis PT with INR INR PTT (Actin FS) Puncture Site Right radial ABG pH 7.46 H ABG pCO2 at Pt Temp 24.5 L ABG pO2 at Pt Temp 83.3 ABG HCO3 16.9 L ABG O2 Sat (Measured) 97.3 ABG O2 Content 15.5 ABG Base Excess -5.3 L Justin Test Positive Carboxyhemoglobin 1.5 Methemoglobin 1.5 O2 Delivery Device Nasal Oxygen Flow Rate 3l PEEP 0.0 Sodium Potassium Chloride Carbon Dioxide Anion Gap BUN Creatinine Creat Clearance w eGFR Random Glucose Lactic Acid 7.1 H* Calcium Total Bilirubin AST ALT Alkaline Phosphatase Creatine Kinase Creatine Kinase Index CK-MB (CK-2) Troponin I 0.16 H D Total Protein Albumin 01/23/18 01/23/18 01/23/18 01:51 03:30 08:30 WBC RBC Hgb Hct MCV MCH MCHC RDW Plt Count MPV Absolute Neuts (auto) Total Counted Neutrophils % Neutrophils % (Manual) Band Neutrophils % Lymphocytes % Lymphocytes % (Manual) Monocytes % Monocytes % (Manual) Eosinophils % Eosinophils % (Manual) Basophils % Basophils % (Manual) Myelocytes % (Man) Promyelocytes % (Man) Blast Cells % (Manual) Nucleated RBC % Metamyelocytes Hypochromia Platelet Estimate Platelet Comment Anisocytosis Macrocytosis PT with INR INR PTT (Actin FS) Puncture Site ABG pH ABG pCO2 at Pt Temp ABG pO2 at Pt Temp ABG HCO3 ABG O2 Sat (Measured) ABG O2 Content ABG Base Excess Justin Test Carboxyhemoglobin Methemoglobin O2 Delivery Device Oxygen Flow Rate PEEP Sodium 143 Potassium 4.5 D Chloride 112 H Carbon Dioxide 20 L Anion Gap 11 BUN 32 H Creatinine 2.0 H Creat Clearance w eGFR 32.07 Random Glucose 84 Lactic Acid 4.2 H* Calcium 8.4 L Total Bilirubin 0.5 AST 49 H D ALT 37 D Alkaline Phosphatase 135 H D Creatine Kinase 1788 H Creatine Kinase Index 0.3 CK-MB (CK-2) 6.72 H Troponin I 0.12 H 0.12 H Total Protein 6.1 L Albumin 3.2 L 01/23/18 01/23/18 08:30 08:30 WBC 22.0 H RBC 3.36 L Hgb 11.3 L Hct 31.9 L MCV 95.1 MCH 33.6 MCHC 35.4 RDW 13.0 Plt Count 98 L MPV 9.6 Absolute Neuts (auto) 19.6 Total Counted Neutrophils % 88.9 H Neutrophils % (Manual) 55.3 D Band Neutrophils % 23.4 Lymphocytes % 1.7 L D Lymphocytes % (Manual) 3.2 L Monocytes % 8.7 D Monocytes % (Manual) 5 Eosinophils % 0.5 D Eosinophils % (Manual) 0.0 Basophils % 0.2 Basophils % (Manual) 1.1 Myelocytes % (Man) 0 Promyelocytes % (Man) 0 Blast Cells % (Manual) 0 Nucleated RBC % 0 Metamyelocytes 11 H Hypochromia Platelet Estimate Platelet Comment Anisocytosis Macrocytosis PT with INR INR PTT (Actin FS) Puncture Site ABG pH ABG pCO2 at Pt Temp ABG pO2 at Pt Temp ABG HCO3 ABG O2 Sat (Measured) ABG O2 Content ABG Base Excess Justin Test Carboxyhemoglobin Methemoglobin O2 Delivery Device Oxygen Flow Rate PEEP Sodium Potassium Chloride Carbon Dioxide Anion Gap BUN Creatinine Creat Clearance w eGFR Random Glucose Lactic Acid 6.5 H* Calcium Total Bilirubin AST ALT Alkaline Phosphatase Creatine Kinase Creatine Kinase Index CK-MB (CK-2) Troponin I Total Protein Albumin Microbiology 01/22/18 22:46 Blood - Peripheral Venous Blood Culture - Preliminary Pending Organism 01/22/18 22:46 Blood - Peripheral Venous Blood Culture - Preliminary Pending Organism Blood cultures +Gram negative bacilli Imaging - Results Chest X-ray: Report Reviewed (questionable RLL infiltrate) Problem List - Problems (1) ROBERT (acute kidney injury) Code(s): N17.9 - ACUTE KIDNEY FAILURE, UNSPECIFIED (2) Demand ischemia Code(s): I24.8 - OTHER FORMS OF ACUTE ISCHEMIC HEART DISEASE (3) Severe sepsis Code(s): A41.9 - SEPSIS, UNSPECIFIED ORGANISM; R65.20 - SEVERE SEPSIS WITHOUT SEPTIC SHOCK (4) UTI (urinary tract infection) Code(s): N39.0 - URINARY TRACT INFECTION, SITE NOT SPECIFIED Qualifiers: Urinary tract infection type: acute cystitis Hematuria presence: with hematuria Qualified Code(s): N30.01 - Acute cystitis with hematuria (5) Urinary retention Code(s): R33.9 - RETENTION OF URINE, UNSPECIFIED (6) Hypertension Code(s): I10 - ESSENTIAL (PRIMARY) HYPERTENSION Qualifiers: Hypertension type: essential hypertension Qualified Code(s): I10 - Essential (primary) hypertension (7) Parkinson disease Code(s): G20 - PARKINSON'S DISEASE (8) Prostate cancer Code(s): C61 - MALIGNANT NEOPLASM OF PROSTATE Assessment/Plan 82 y.o. male with PMH of Prostate CA, hematuria, Parkinsons Disease, HTN presenting with altered mental status, dysuria, oliguria, worsening renal function, fever, tachycardia, hypoxia, elevated wbc and lactic acid level Severe sepsis/impending shock Gram negative Bacteremia Prostate CA with stricture Altered mental status Hematuria Worsening leukocytosis Fever ROBERT -- will d/c Ceftriaxone, start Meropenem -- recommend critical care evaluation -- urology following -- on IV fluids, O2 NC -- send urine c+s, f/u blood culture results -- repeat lactic acid, monitor wbc and renal function -- case d/w Dr Cotton and Dr Owen -- will follow up Thank you
[2018-01-23] MEDS: MEROPENEM 1 GM in DEXTROSE 5%-WATER 100 ML IVPB SCH ×2 (13:13→21:34)
--- NOTE | 2018-01-23 13:24 | PN ---
Progress Note (short form) - Note Progress Note: UROLOGY NOTE 82 Y/O Male patient with history of Prostate cancer, HT, Hyperlipedemia and parkinson disease, he developed sepsis, he is on IV ceftrixone, ID consult done to change antibiotic, patient admitted to ICU, patient seen on bedside, bladder is not palpable, bladder scan 70ml, multiple trial of kern catheter insertion done but failed, so plan is to book patient for cystoscopy and OIU, change IV antibiotic according to culture and ID doc.
--- NOTE | 2018-01-23 14:16 | PN ---
Teaching Attending Note Name of Resident: Oswaldo Arechiga ATTENDING PHYSICIAN STATEMENT I saw and evaluated the patient. I reviewed the resident's note and discussed the case with the resident. I agree with the resident's findings and plan as documented. SUBJECTIVE: Pt seen and examined in the ICU. Briefly, 82yo male with h/o HTN, hyperlipidemia , prostate ca, Parkinsons disease who was admitted with fevers, hypoxia and altered mental status. Currently lethargic, unable to provide further history at this time. Tachycardic, borderline hypotensive with leukocytosis, lactic acidosis and acute renal failure. Blood cultures growing gram negative bacilli. Transferred to the ICU for closer monitoring. Menendez has not been placed after multiple attempts. OBJECTIVE: Vital Signs Period Temp Pulse Resp BP Sys/Howard Pulse Ox Last 24 Hr 100.1 F-102.0 F 89-124 20-22 105-127/42-78 93-98 Intake & Output 01/20/18 01/21/18 01/22/18 01/23/18 23:59 23:59 23:59 23:59 Intake Total 350 Balance 350 Weight 90.718 kg 91.036 kg Gen: lethargic Heart: RRR Lung: decreased breath sounds at the bases Abd: soft, nontender, distended bladder Ext: distal edema CBC, BMP 01/23/18 08:30 01/23/18 08:30 Active Medications Acetaminophen (Tylenol -) 650 mg PO Q4H PRN PRN Reason: FEVER Last Admin: 01/23/18 06:47 Dose: 650 mg Aspirin (Asa -) 81 mg PO DAILY [facility] Last Admin: 01/23/18 09:38 Dose: 81 mg Carbidopa/Levodopa (Sinemet 25/250 -) 1.5 each PO QID [facility] Last Admin: 01/23/18 11:33 Dose: 1.5 each Clonazepam (Klonopin -) 0.125 mg PO BID PRN PRN Reason: ANXIETY Last Admin: 01/23/18 09:39 Dose: 0.125 mg Entacapone (Comtan -) 200 mg PO QID [facility] Last Admin: 01/23/18 11:33 Dose: 200 mg Heparin Sodium (Porcine) (Heparin -) 5,000 unit SQ BID [facility] Last Admin: 01/23/18 09:39 Dose: Not Given Dextrose/Sodium Chloride (D5-1/2ns -) 1,000 mls @ 75 mls/hr IV ASDIR [facility] Last Admin: 01/23/18 06:23 Dose: 75 mls/hr Meropenem 1 gm/ Dextrose 100 mls @ 0 mls/hr IVPB BID [facility] Last Admin: 01/23/18 13:13 Dose: 100 mls/hr Lactobacillus Acidophilus (Bacid -) 1 tab PO TID [facility] Last Admin: 01/23/18 06:25 Dose: 1 tab Magnesium Hydroxide (Milk Of Magnesia -) 30 ml PO DAILY [facility] Last Admin: 01/23/18 09:37 Dose: 30 ml Meclizine HCl (Antivert -) 25 mg PO DAILY [facility] Last Admin: 01/23/18 09:38 Dose: 25 mg Ropinirole HCl (Requip -) 1 mg PO ASDIR [facility] Tamsulosin HCl (Flomax -) 0.8 mg PO DAILY@0830 [facility] Last Admin: 01/23/18 09:37 Dose: 0.8 mg ASSESSMENT AND PLAN: UTI/Urinary Retention h/o Prostate Ca Gram Negative Bacteremia Severe Sepsis Lactic Acidosis Acute Kidney Injury +Troponins likely Demand Ischemia Thrombocytopenia Parkinsons Disease - IV antibiotics - IVF resuscitation - monitor urine output, creatinine - trend cardiac enzymes - trend lactic acid - urology f/u as pt may need suprapubic catheter placement - echocardiogram - monitor CXR with IVF resuscitation - aspiration precautions - DVT prophylaxis - ICU monitoring critical care time spent in reviewing chart, evaluating patient and formulating plan 35 min
[2018-01-23 14:29] LABS: PLATELET ESTIMATE SLT DECREASE
[2018-01-23] MEDS ORDERED: LIDOCAINE HCL 1%, 10 MG/ML (20ML VIAL) ONE (15:07)
--- NOTE | 2018-01-23 15:59 | PN ---
Progress Note (short form) - Note Progress Note: UROLOGY NOTE at 3.00 pm patient developed AUR with bladder scan 300ml under U/S guide SPC 12F inserted and drained 400 ml. SPC was fixed with 15 ml ballon and 03 silk suture. Plan: keep SPC and do manual bladder irrigation Q12 Hrs.
--- NOTE | 2018-01-23 18:15 | HP ---
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: Peripheral Neuropathy, Parkinson's (RUE tremor), Vertigo, Other Cardiovascular: Yes: HTN, Hyperlipdemia Renal/: Yes: Hematuria Heme/Onc: Yes: Other (Prostate CA) - Past Surgical History Past Surgical History: Yes: None - Advance Directives Advance Directives: Yes: Health Care Proxy - Smoking History Smoking history: Unknown if ever smoked Have you smoked in the past 12 months: No Aproximately how many cigarettes per day: 0 If you are a former smoker, when did you quit?: 1950 - Alcohol/Substance Use Hx Alcohol Use: No History of Substance Use: reports: None Home Medications - Allergies Allergies/Adverse Reactions: Allergies Allergy/AdvReac Type Severity Reaction Status Date / Time No Known Allergies Allergy Verified 01/22/18 21:09 - Home Medications Home Medications: Ambulatory Orders Aspirin 81 mg PO DAILY 11/12/17 Carbidopa/Levodopa 25/250 [Sinemet 25/250 -] 1.5 each PO QID 11/12/17 Cyanocobalamin [Vitamin B12 -] 1,000 mcg PO DAILY 11/12/17 Entacapone 200 mg PO QID 11/12/17 Losartan/Hydrochlorothiazide [Losartan-Hctz 100-12.5 mg Tab] 0.5 each PO DAILY 11/12/17 Ropinirole HCl [Requip] 1 mg PO ASDIR 11/12/17 Tamsulosin HCl [Flomax -] 0.8 mg PO DAILY 11/12/17 clonazePAM [Klonopin -] 0.125 mg PO BID 11/12/17 Acetaminophen [Tylenol] 325 mg PO BID PRN 01/23/18 Cefuroxime Axetil [Cefuroxime] 500 mg PO DAILY 01/23/18 Cephalexin [Keflex] 500 mg PO TID 01/23/18 Cyanocobalamin (Vitamin B-12) [Vitamin B-12] 1,000 mcg PO DAILY 01/23/18 Lactobacillus Acidophilus [Bacid -] 1 each PO TID 01/23/18 Magnesium Hydrox 2400MG/30Ml [Milk of Magnesia -] 30 ml PO DAILY 01/23/18 Meclizine HCl 25 mg PO DAILY 01/23/18 Physical Examination Vital Signs: Vital Signs Temperature 101.2 F H 01/23/18 12:21 Pulse Rate 108 H 01/23/18 09:05 Respiratory Rate 22 01/23/18 09:05 Blood Pressure 127/70 01/23/18 09:05 O2 Sat by Pulse Oximetry (%) 98 01/23/18 09:00 Labs: CBC, BMP 01/23/18 08:30 01/23/18 08:30
[2018-01-23 21:27] LABS: BASO % 0.1 % (0-2.0); EOS % 0.1 % (0-4.5); HEMATOCRIT 31.9 % (35.4-49); HEMOGLOBIN 11.2 GM/dL (11.7-16.9); LYMPH % 3.6 % (8-40); MCH 33.1 pg (25.7-33.7); MCHC 35.2 g/dl (32.0-35.9); MEAN CELL VOLUME 93.8 fl (80-96); MEAN PLT VOLUME 9.5 fl (7.5-11.1); MONO % 6.3 % (3.8-10.2); NEUT % 89.9 % (42.8-82.8); PLATELET COUNT 90 K/MM3 (134-434); WHITE BLOOD COUNT 21.6 K/mm3 (4.0-10.0)
[2018-01-23 21:51] LABS: ALBUMIN 2.9 g/dl (3.4-5.0); ANION GAP 8 (8-16); BILIRUBIN,TOTAL 0.6 mg/dL (0.2-1.0); BLOOD UREA NITROGEN 30 mg/dL (7-18); CHLORIDE 112 mmol/L (98-107); CO2 22 mmol/L (21-32); CREATININE 1.3 mg/dL (0.7-1.3); GLUCOSE,RANDOM 105 mg/dL (74-106); POTASSIUM 4.1 mmol/L (3.5-5.1); SGOT/AST 68 U/L (15-37); SGPT/ALT 13 U/L (12-78); SODIUM 142 mmol/L (136-145); TOT PROT 5.7 g/dl (6.4-8.2)
[2018-01-23 21:52] LABS: ALK PHOS 125 U/L (45-117)
--- NOTE | 2018-01-23 22:40 | CONSULT ---
Consultation: REQUESTING PROVIDER: CONSULT REQUEST: We have been asked to medically evaluate this patient for ( Sepsis). HISTORY OF PRESENT ILLNESS: Pt is an 82 y/o gentleman with a PMH of Prostate CA, uti/hematuria, and Parkinson's disease who presented to [facility] ED from [facility] with fever, dysuria , hematuria, (102F max) and leukocytosis (WBC 22 max,), lactic acidosis ( 7.1 in ED trending down---> 3.0 most recent level this evening), acute kidney injury ( BUN/Cr 28/1.9----> trending down, now 30/1.3), hypoxia with O2 sat 70% initially, as well as altered mental status. Multiple trial of kern catheter insertion done as outpatient and inpatient but unsuccessful. Patient was started on IV ceftriaxone which was switched to IV meropenem. Bedside ultrasound this afternoon of urinary bladder revealed a volume of 302 ml. Due to patient being unable to void and have regular kern catheter insertion, U/S guided suprapubic cystotomy 12F was inserted and drained 400 ml of urine. Suprapubic cystotomy was fixed with 15 ml balloon and 03 silk suture. This evening, pt's O2 sat dropped and he was subsequently placed on nonrebreather. Now on venti mask 50% and has been saturating near 100. REVIEW OF SYSTEMS: CONSTITUTIONAL: PRESENT: fever, chills, generalized weakness, malaise, HEENT: Absent: rhinorrhea, nasal congestion, throat pain, throat swelling, difficulty swallowing, mouth swelling, ear pain, eye pain, visual changes CARDIOVASCULAR: Absent: chest pain, syncope, palpitations, irregular heart rate, lightheadedness , peripheral edema RESPIRATORY: Absent: cough, shortness of breath, dyspnea with exertion, orthopnea, wheezing, stridor, hemoptysis GASTROINTESTINAL: Absent: abdominal pain, abdominal distension, nausea, vomiting, diarrhea, constipation, melena, hematochezia GENITOURINARY: PRESENT: dysuria, frequency, urgency, hesitancy, hematuria, genital pain MUSCULOSKELETAL: Absent: myalgia, arthralgia, joint swelling, back pain, neck pain SKIN: Absent: rash, itching, pallor HEMATOLOGIC/IMMUNOLOGIC: Absent: easy bleeding, easy bruising, lymphadenopathy, frequent infections ENDOCRINE: Absent: unexplained weight gain, unexplained weight loss, heat intolerance, cold intolerance NEUROLOGIC: Absent: headache, focal weakness or paresthesias, dizziness, unsteady gait, seizure, mental status changes, bladder or bowel incontinence PSYCHIATRIC: Absent: anxiety, depression, suicidal or homicidal ideation, hallucinations. PHYSICAL EXAMINATION Vital Signs - 24 hr 01/23/18 01/23/18 01/23/18 00:13 03:02 03:24 Temperature 100.3 F H 100.6 F H Pulse Rate Pulse Rate [ 110 H 89 Right Radial] Respiratory 20 22 Rate Blood Pressure Blood Pressure 112/78 110/68 [Left Arm] O2 Sat by Pulse Oximetry (%) 01/23/18 01/23/18 01/23/18 06:00 08:36 09:00 Temperature 101.5 F H 101.6 F H Pulse Rate 108 H 103 H Pulse Rate [ Right Radial] Respiratory 21 22 22 Rate Blood Pressure 124/42 127/70 Blood Pressure [Left Arm] O2 Sat by Pulse 98 98 Oximetry (%) 01/23/18 01/23/18 01/23/18 09:05 12:21 20:00 Temperature 102.0 F H 101.2 F H 100.1 F H Pulse Rate 108 H 100 H Pulse Rate [ Right Radial] Respiratory 22 20 Rate Blood Pressure 127/70 127/58 Blood Pressure [Left Arm] O2 Sat by Pulse Oximetry (%) GENERAL: RUE TREMOR 2/2 PARKINSON'S, AAOX3, LETHARGIC HEAD: NC/AT EYES: EOMI EARS, NOSE, THROAT: WNL. NECK: NO JVD LUNGS: HEART: TACHYCARDIC ABDOMEN: DISTENDED MUSCULOSKELETAL: COGWHEEL RIGIDITY UPPER EXTREMITIES: NO CCE. TREMOR LOWER EXTREMITIES: 2+ PULSES. NEUROLOGICAL: PARKINSON'S SKIN: Warm. Laboratory Results - last 24 hr 01/22/18 01/22/18 01/22/18 22:46 22:46 22:46 WBC 10.8 H RBC 3.71 L Hgb 12.3 Hct 35.0 L MCV 94.3 MCH 33.2 MCHC 35.2 RDW 12.9 Plt Count 118 L MPV 9.4 Absolute Neuts (auto) 10.3 Total Counted 100 Neutrophils % 95.3 H D Neutrophils % (Manual) 87.0 H Band Neutrophils % 5.0 Lymphocytes % 3.7 L D Lymphocytes % (Manual) 4.0 L Monocytes % 0.7 L D Monocytes % (Manual) 4 Eosinophils % 0.2 D Eosinophils % (Manual) Basophils % 0.1 Basophils % (Manual) Myelocytes % (Man) Promyelocytes % (Man) Blast Cells % (Manual) Nucleated RBC % 0 Metamyelocytes Hypochromia 1+ Platelet Estimate Slt decrease Platelet Comment No clumping noted Anisocytosis 1+ Macrocytosis 1+ PT with INR 13.70 H INR 1.21 H PTT (Actin FS) 26.1 L Puncture Site ABG pH ABG pCO2 at Pt Temp ABG pO2 at Pt Temp ABG HCO3 ABG O2 Sat (Measured) ABG O2 Content ABG Base Excess Justin Test Carboxyhemoglobin Methemoglobin O2 Delivery Device Oxygen Flow Rate PEEP Sodium 139 Potassium 3.7 Chloride 106 Carbon Dioxide 22 Anion Gap 11 BUN 28 H Creatinine 1.9 H Creat Clearance w eGFR 34.02 Random Glucose 94 Lactic Acid Calcium 9.2 Total Bilirubin 0.6 AST 28 D ALT 18 D Alkaline Phosphatase 172 H Creatine Kinase Creatine Kinase Index CK-MB (CK-2) Troponin I Total Protein 6.7 Albumin 3.7 01/22/18 01/22/18 01/23/18 22:46 22:46 00:10 WBC RBC Hgb Hct MCV MCH MCHC RDW Plt Count MPV Absolute Neuts (auto) Total Counted Neutrophils % Neutrophils % (Manual) Band Neutrophils % Lymphocytes % Lymphocytes % (Manual) Monocytes % Monocytes % (Manual) Eosinophils % Eosinophils % (Manual) Basophils % Basophils % (Manual) Myelocytes % (Man) Promyelocytes % (Man) Blast Cells % (Manual) Nucleated RBC % Metamyelocytes Hypochromia Platelet Estimate Platelet Comment Anisocytosis Macrocytosis PT with INR INR PTT (Actin FS) Puncture Site Right radial ABG pH 7.46 H ABG pCO2 at Pt Temp 24.5 L ABG pO2 at Pt Temp 83.3 ABG HCO3 16.9 L ABG O2 Sat (Measured) 97.3 ABG O2 Content 15.5 ABG Base Excess -5.3 L Justin Test Positive Carboxyhemoglobin 1.5 Methemoglobin 1.5 O2 Delivery Device Nasal Oxygen Flow Rate 3l PEEP 0.0 Sodium Potassium Chloride Carbon Dioxide Anion Gap BUN Creatinine Creat Clearance w eGFR Random Glucose Lactic Acid 7.1 H* Calcium Total Bilirubin AST ALT Alkaline Phosphatase Creatine Kinase Creatine Kinase Index CK-MB (CK-2) Troponin I 0.16 H D Total Protein Albumin 01/23/18 01/23/18 01/23/18 01:51 03:30 08:30 WBC RBC Hgb Hct MCV MCH MCHC RDW Plt Count MPV Absolute Neuts (auto) Total Counted Neutrophils % Neutrophils % (Manual) Band Neutrophils % Lymphocytes % Lymphocytes % (Manual) Monocytes % Monocytes % (Manual) Eosinophils % Eosinophils % (Manual) Basophils % Basophils % (Manual) Myelocytes % (Man) Promyelocytes % (Man) Blast Cells % (Manual) Nucleated RBC % Metamyelocytes Hypochromia Platelet Estimate Platelet Comment Anisocytosis Macrocytosis PT with INR INR PTT (Actin FS) Puncture Site ABG pH ABG pCO2 at Pt Temp ABG pO2 at Pt Temp ABG HCO3 ABG O2 Sat (Measured) ABG O2 Content ABG Base Excess Justin Test Carboxyhemoglobin Methemoglobin O2 Delivery Device Oxygen Flow Rate PEEP Sodium 143 Potassium 4.5 D Chloride 112 H Carbon Dioxide 20 L Anion Gap 11 BUN 32 H Creatinine 2.0 H Creat Clearance w eGFR 32.07 Random Glucose 84 Lactic Acid 4.2 H* Calcium 8.4 L Total Bilirubin 0.5 AST 49 H D ALT 37 D Alkaline Phosphatase 135 H D Creatine Kinase 1788 H Creatine Kinase Index 0.3 CK-MB (CK-2) 6.72 H Troponin I 0.12 H 0.12 H Total Protein 6.1 L Albumin 3.2 L 01/23/18 01/23/18 01/23/18 08:30 08:30 16:40 WBC 22.0 H RBC 3.36 L Hgb 11.3 L Hct 31.9 L MCV 95.1 MCH 33.6 MCHC 35.4 RDW 13.0 Plt Count 98 L MPV 9.6 Absolute Neuts (auto) 19.6 Total Counted Neutrophils % 88.9 H Neutrophils % (Manual) 55.3 D Band Neutrophils % 23.4 Lymphocytes % 1.7 L D Lymphocytes % (Manual) 3.2 L Monocytes % 8.7 D Monocytes % (Manual) 5 Eosinophils % 0.5 D Eosinophils % (Manual) 0.0 Basophils % 0.2 Basophils % (Manual) 1.1 Myelocytes % (Man) 0 Promyelocytes % (Man) 0 Blast Cells % (Manual) 0 Nucleated RBC % 0 Metamyelocytes 11 H Hypochromia Platelet Estimate Slt decrease Platelet Comment Anisocytosis Macrocytosis PT with INR INR PTT (Actin FS) Puncture Site ABG pH ABG pCO2 at Pt Temp ABG pO2 at Pt Temp ABG HCO3 ABG O2 Sat (Measured) ABG O2 Content ABG Base Excess Justin Test Carboxyhemoglobin Methemoglobin O2 Delivery Device Oxygen Flow Rate PEEP Sodium Potassium Chloride Carbon Dioxide Anion Gap BUN Creatinine Creat Clearance w eGFR Random Glucose Lactic Acid 6.5 H* 3.0 H* Calcium Total Bilirubin AST ALT Alkaline Phosphatase Creatine Kinase Creatine Kinase Index CK-MB (CK-2) Troponin I Total Protein Albumin 01/23/18 21:00 WBC 21.6 H RBC 3.40 L Hgb 11.2 L Hct 31.9 L MCV 93.8 MCH 33.1 MCHC 35.2 RDW 13.0 Plt Count 90 L MPV 9.5 Absolute Neuts (auto) 19.4 Total Counted Neutrophils % 89.9 H Neutrophils % (Manual) Band Neutrophils % Lymphocytes % 3.6 L D Lymphocytes % (Manual) Monocytes % 6.3 Monocytes % (Manual) Eosinophils % 0.1 Eosinophils % (Manual) Basophils % 0.1 Basophils % (Manual) Myelocytes % (Man) Promyelocytes % (Man) Blast Cells % (Manual) Nucleated RBC % 0 Metamyelocytes Hypochromia Platelet Estimate Platelet Comment Anisocytosis Macrocytosis PT with INR INR PTT (Actin FS) Puncture Site ABG pH ABG pCO2 at Pt Temp ABG pO2 at Pt Temp ABG HCO3 ABG O2 Sat (Measured) ABG O2 Content ABG Base Excess Justin Test Carboxyhemoglobin Methemoglobin O2 Delivery Device Oxygen Flow Rate PEEP Sodium Potassium Chloride Carbon Dioxide Anion Gap BUN Creatinine Creat Clearance w eGFR Random Glucose Lactic Acid Calcium Total Bilirubin AST ALT Alkaline Phosphatase Creatine Kinase Creatine Kinase Index CK-MB (CK-2) Troponin I Total Protein Albumin Active Medications Generic Name Dose Route Start Last Admin Trade Name Freq PRN Reason Stop Dose Admin Acetaminophen 650 mg 01/23/18 05:33 01/23/18 21:53 Tylenol - PO 650 mg Q4H PRN Administration FEVER Aspirin 81 mg 01/23/18 10:00 01/23/18 09:38 Asa - PO 81 mg DAILY CRISTAL Administration Carbidopa/Levodopa 1.5 each 01/23/18 10:00 01/23/18 21:35 Sinemet 25/250 - PO 1.5 each QID CRISTAL Administration Clonazepam 0.125 mg 01/23/18 05:29 01/23/18 09:39 Klonopin - PO 0.125 mg BID PRN Administration ANXIETY Entacapone 200 mg 01/23/18 10:00 01/23/18 21:35 Comtan - PO 200 mg QID CRISTAL Administration Heparin Sodium (Porcine) 5,000 unit 01/23/18 10:00 01/23/18 21:38 Heparin - SQ 5,000 unit BID CRISTAL Administration Dextrose/Sodium Chloride 1,000 mls @ 75 mls/hr 01/23/18 05:45 01/23/18 19:47 D5-1/2ns - IV 75 mls/hr ASDIR CRISTAL Administration Meropenem 1 gm/ Dextrose 100 mls @ 0 mls/hr 01/23/18 12:30 01/23/18 21:34 IVPB 100 mls/hr BID CRISTAL Administration As Directed Lactobacillus Acidophilus 1 tab 01/23/18 06:00 01/23/18 21:38 Bacid - PO 1 tab TID CRISTAL Administration Magnesium Hydroxide 30 ml 01/23/18 10:00 01/23/18 09:37 Milk Of Magnesia - PO 30 ml DAILY CRISTAL Administration Meclizine HCl 25 mg 01/23/18 10:00 01/23/18 09:38 Antivert - PO 25 mg DAILY CRISTAL Administration Ropinirole HCl 1 mg 01/23/18 05:30 Requip - PO ASDIR CRISTAL Tamsulosin HCl 0.8 mg 01/23/18 08:30 01/23/18 09:37 Flomax - PO 0.8 mg DAILY@0830 CRISTAL Administration ASSESSMENT/PLAN: Sepsis 2/2 UTI--Gram Negative Bacteremia IV Meropenem ID on board Maintain suprapubic cystotomy tube and do manual bladder irrigation Q12 Hrs. Repeat Lactic Acid Monitor WBC F/U Bun/Cr levels Flomax 0.8 mg PO Daily Parkinson's Disease Ropinirole HCl 1 mg PO Entacapone 200 mg PO QID Carbidopa/Levodopa 1.5 each PO QID FEN D5-1/2ns 75 mls/hr Monitor electrolytes NPO DVT ppx: Heparin 5,000 U SQ BID Dispo: We will continue to follow the patient. Thank you for this consultative opportunity. Visit type - Emergency Visit Emergency Visit: Yes ED Registration Date: 01/23/18 Care time: The patient presented to the Emergency Department on the above date and was hospitalized for further evaluation of their emergent condition. - New Patient This patient is new to me today: Yes Date on this admission: 01/23/18 - Critical Care Critical Care patient: Yes Total Critical Care Time (in minutes): 36 Critical Care Statement: The care of this patient involved high complexity decision making to prevent further life threatening deterioration of the patient 's condition and/or to evaluate & treat vital organ system(s) failure or risk of failure.
[2018-01-24] MEDS ORDERED: SODIUM CHLORIDE 0.9% 500 ML INFUS.BAG IV ONE (04:09)
[2018-01-24] MEDS: LACTOBACILLUS ACIDOPHILUS 1 TABLET PO SCH ×3 (06:22→21:45)
[2018-01-24] MEDS: DEXTROSE 5%-0.45% SALINE 1,000 ML IV SCH (06:22)
[2018-01-24 08:53] LABS: BASO % 0.2 % (0-2.0); EOS % 0.2 % (0-4.5); HEMATOCRIT 26.5 % (35.4-49); HEMOGLOBIN 9.3 GM/dL (11.7-16.9); LYMPH % 3.9 % (8-40); MCH 33.2 pg (25.7-33.7); MCHC 35.3 g/dl (32.0-35.9); MEAN CELL VOLUME 94.2 fl (80-96); MEAN PLT VOLUME 9.6 fl (7.5-11.1); MONO % 6.5 % (3.8-10.2); NEUT % 89.2 % (42.8-82.8); PLATELET COUNT 70 K/MM3 (134-434); RBC 2.81 M/mm3 (4.00-5.60); RDW 12.8 % (11.9-15.9); WHITE BLOOD COUNT 18.5 K/mm3 (4.0-10.0)
[2018-01-24] MEDS: TAMSULOSIN HCL 0.4 MG CAP.ER.24H (FP) PO SCH (09:00)
[2018-01-24 09:21] LABS: ANION GAP 8 (8-16); BLOOD UREA NITROGEN 30 mg/dL (7-18); CHLORIDE 112 mmol/L (98-107); CO2 22 mmol/L (21-32); CREATININE 1.3 mg/dL (0.7-1.3); GLUCOSE,RANDOM 129 mg/dL (74-106); MAGNESIUM 1.7 mg/dL (1.8-2.4); PHOSPHOROUS 2.4 mg/dL (2.5-4.9); POTASSIUM 3.8 mmol/L (3.5-5.1); SODIUM 142 mmol/L (136-145)
--- NOTE | 2018-01-24 09:38 | PN ---
Teaching Attending Note Name of Resident: Dwayne Echevarria ATTENDING PHYSICIAN STATEMENT I saw and evaluated the patient. I reviewed the resident's note and discussed the case with the resident. I agree with the resident's findings and plan as documented. SUBJECTIVE: Pt seen and examined in the ICU. s/p bedside percutaneous suprapubic catheter placement yesterday by urology. More arousable today. Bloody drainage in collection bag. OBJECTIVE: Vital Signs Period Temp Pulse Resp BP Sys/Howard Pulse Ox Last 24 Hr 97.5 F-101.2 F 94-112 17-20 86-142/47-77 100 Intake & Output 01/21/18 01/22/18 01/23/18 01/24/18 23:59 23:59 23:59 23:59 Intake Total 450 1600 Output Total 700 600 Balance -250 1000 Weight 90.718 kg 91.036 kg 102.058 kg Gen: somnolent but arousable Heart: tachycardic, regular Lung: decreased breath sounds at the bases Abd: soft, nontender Ext: + distal edema CBC, BMP 01/24/18 08:30 01/24/18 08:30 Active Medications Acetaminophen (Tylenol -) 650 mg PO Q4H PRN PRN Reason: FEVER Last Admin: 01/23/18 21:53 Dose: 650 mg Aspirin (Asa -) 81 mg PO DAILY [facility] Last Admin: 01/23/18 09:38 Dose: 81 mg Carbidopa/Levodopa (Sinemet 25/250 -) 1.5 each PO QID [facility] Last Admin: 01/23/18 21:35 Dose: 1.5 each Clonazepam (Klonopin -) 0.125 mg PO BID PRN PRN Reason: ANXIETY Last Admin: 01/23/18 09:39 Dose: 0.125 mg Entacapone (Comtan -) 200 mg PO QID [facility] Last Admin: 01/23/18 21:35 Dose: 200 mg Heparin Sodium (Porcine) (Heparin -) 5,000 unit SQ BID [facility] Last Admin: 01/23/18 21:38 Dose: 5,000 unit Dextrose/Sodium Chloride (D5-1/2ns -) 1,000 mls @ 75 mls/hr IV ASDIR [facility] Last Admin: 01/24/18 06:22 Dose: Not Given Meropenem 1 gm/ Dextrose 100 mls @ 0 mls/hr IVPB BID [facility] Last Admin: 01/23/18 21:34 Dose: 100 mls/hr Lactobacillus Acidophilus (Bacid -) 1 tab PO TID [facility] Last Admin: 01/24/18 06:22 Dose: 1 tab Magnesium Hydroxide (Milk Of Magnesia -) 30 ml PO DAILY [facility] Last Admin: 01/23/18 09:37 Dose: 30 ml Meclizine HCl (Antivert -) 25 mg PO DAILY [facility] Last Admin: 01/23/18 09:38 Dose: 25 mg Ropinirole HCl (Requip -) 1 mg PO ASDIR [facility] Tamsulosin HCl (Flomax -) 0.8 mg PO DAILY@0830 [facility] Last Admin: 01/23/18 09:37 Dose: 0.8 mg ASSESSMENT AND PLAN: UTI/Urinary Retention h/o Prostate Ca s/p Percutaneous Suprapubic Catheter placement Gram Negative Bacteremia Severe Sepsis Lactic Acidosis Acute Kidney Injury +Troponins likely Demand Ischemia Thrombocytopenia Parkinsons Disease - continue antibiotics - IVF - monitor urine output, creatinine - trend cardiac enzymes - trend lactic acid - monitor H/H, transfuse as needed - echocardiogram - monitor CXR with IVF resuscitation - aspiration precautions - DVT prophylaxis - continue ICU monitoring critical care time spent in reviewing chart, evaluating patient and formulating plan 35 min
[2018-01-24 09:55] LABS: ACANTHOCYTES 0; ANISOCYTOSIS 0; HELMET CELLS 0; HOWELL-JOLLY BODIES 0; MACROCYTOSIS 0; OVALOCYTE 0; PLATELET ESTIMATE DECREASED; ROULEAU 0; SICKELED CELLS 0; TARGET CELLS 0; TEAR DROP CELLS 0; TOXIC GRANULATION 0
[2018-01-24] MEDS ORDERED: PT OWN MED DRAWER 7, Y5N ONE (10:48)
[2018-01-24] MEDS: MECLIZINE HCL 25 MG TABLET (FP) PO SCH (10:53)
[2018-01-24] MEDS: CARBIDOPA/LEVODOPA 25/250 TABLET (FP) PO SCH ×4 (10:53→21:45)
[2018-01-24] MEDS: MAGNESIUM HYDROX 2400MG/30ML ORAL SUSPENSION 30 ML CUP PO SCH (10:55)
[2018-01-24] MEDS: MEROPENEM 1 GM in DEXTROSE 5%-WATER 100 ML IVPB SCH ×2 (10:55→18:36)
[2018-01-24] MEDS: HEPARIN NA (PORCINE) 5,000 UNITS/ML 1ML VIAL SQ SCH (10:57)
[2018-01-24] MEDS: ENTACAPONE 200 MG TABLET PO SCH ×4 (10:57→21:45)
[2018-01-24] MEDS: ASPIRIN 81 MG CHEWABLE TABLETS PO SCH (10:58)
--- NOTE | 2018-01-24 11:20 | PN ---
Physical Exam: SUBJECTIVE: Previously suprapubic catheter was placed due to urinary retention with hematuria noted. Pt today continues to have hematuria and was last irrigated at 6am. Pt currently c/o some malaise, however denies any dizziness, lightheadedness, shortness of breath, chest pain. OBJECTIVE: Vital Signs Period Temp Pulse Resp BP Sys/Howard Pulse Ox Last 24 Hr 97.5 F-101.2 F 94-116 17-20 86-142/47-77 100-100 GENERAL: NAD, awake, alert, and fully oriented HEENT: NC/AT, FELIPE, MMM LUNGS: Poor inspiratory effort noted with some diminished breath sounds bilaterally, no overt wheezes or crackels. Currently on 50% VM w/o any accessory muscle use. HEART: Tachycardic with regular rhythm, S1, S2 without murmur ABDOMEN: Soft, hypo-normoactive BS, slight tenderness at site of catheter, nondistended, bandage overlying catheter site with minimal let-through on bandage. EXTREMITIES: 2+ DP pulses, warm, well-perfused, no edema. NEUROLOGICAL: Nonfocal exam. Baseline tremor at rest noted to be chronic. PSYCH: Normal mood, normal affect. SKIN: Warm, dry, no rashes or lesions noted Laboratory Results - last 24 hr 01/23/18 01/23/18 01/23/18 08:30 16:40 21:00 WBC 21.6 H RBC 3.40 L Hgb 11.2 L Hct 31.9 L MCV 93.8 MCH 33.1 MCHC 35.2 RDW 13.0 Plt Count 90 L MPV 9.5 Absolute Neuts (auto) 19.4 Neutrophils % 89.9 H Neutrophils % (Manual) 55.3 D Band Neutrophils % 23.4 Lymphocytes % 3.6 L D Lymphocytes % (Manual) 3.2 L Monocytes % 6.3 Monocytes % (Manual) 5 Eosinophils % 0.1 Eosinophils % (Manual) 0.0 Basophils % 0.1 Basophils % (Manual) 1.1 Myelocytes % (Man) 0 Promyelocytes % (Man) 0 Blast Cells % (Manual) 0 Nucleated RBC % 0 0 Metamyelocytes 11 H Hypochromia Toxic Granulation Dohle Bodies Platelet Estimate Slt decrease Polychromasia Poikilocytosis Basophilic Stippling Anisocytosis Microcytosis Macrocytosis Spherocytes Sickle Cells Target Cells Tear Drop Cells Ovalocytes Stomatocytes Helmet Cells Ritter-Daykin Bodies [place] Rings [place] Cells Acanthocytes (Spur) Rouleaux Fragmented RBCs Schistocytes Sodium Potassium Chloride Carbon Dioxide Anion Gap BUN Creatinine Creat Clearance w eGFR Random Glucose Lactic Acid 3.0 H* Calcium Phosphorus Magnesium Total Bilirubin AST ALT Alkaline Phosphatase Creatine Kinase Creatine Kinase Index CK-MB (CK-2) Troponin I Total Protein Albumin 01/23/18 01/24/18 01/24/18 21:00 08:30 08:30 WBC 18.5 H RBC 2.81 L Hgb 9.3 L Hct 26.5 L D MCV 94.2 MCH 33.2 MCHC 35.3 RDW 12.8 Plt Count 70 L D MPV 9.6 Absolute Neuts (auto) 16.5 Neutrophils % 89.2 H Neutrophils % (Manual) 90.5 H D Band Neutrophils % 2.9 Lymphocytes % 3.9 L Lymphocytes % (Manual) 3.8 L Monocytes % 6.5 Monocytes % (Manual) 3 L Eosinophils % 0.2 D Eosinophils % (Manual) 0.0 Basophils % 0.2 Basophils % (Manual) 0.0 Myelocytes % (Man) 0 Promyelocytes % (Man) 0 Blast Cells % (Manual) 0 Nucleated RBC % 0 Metamyelocytes 0 D Hypochromia 0 Toxic Granulation 0 Dohle Bodies 0 Platelet Estimate Decreased Polychromasia 0 Poikilocytosis 0 Basophilic Stippling 0 Anisocytosis 0 Microcytosis 0 Macrocytosis 0 Spherocytes 0 Sickle Cells 0 Target Cells 0 Tear Drop Cells 0 Ovalocytes 0 Stomatocytes 0 Helmet Cells 0 Ritter-Daykin Bodies 0 [place] Rings 0 [place] Cells 0 Acanthocytes (Spur) 0 Rouleaux 0 Fragmented RBCs 0 Schistocytes 0 Sodium 142 142 Potassium 4.1 3.8 Chloride 112 H 112 H Carbon Dioxide 22 22 Anion Gap 8 8 BUN 30 H 30 H Creatinine 1.3 1.3 Creat Clearance w eGFR 52.72 52.72 Random Glucose 105 D 129 H D Lactic Acid Calcium 8.0 L 8.0 L Phosphorus 2.4 L D Magnesium 1.7 L Total Bilirubin 0.6 AST 68 H D ALT 13 D Alkaline Phosphatase 125 H D Creatine Kinase 1558 H Creatine Kinase Index 0.2 CK-MB (CK-2) 3.41 Troponin I 0.06 H D Total Protein 5.7 L Albumin 2.9 L 01/24/18 08:30 WBC RBC Hgb Hct MCV MCH MCHC RDW Plt Count MPV Absolute Neuts (auto) Neutrophils % Neutrophils % (Manual) Band Neutrophils % Lymphocytes % Lymphocytes % (Manual) Monocytes % Monocytes % (Manual) Eosinophils % Eosinophils % (Manual) Basophils % Basophils % (Manual) Myelocytes % (Man) Promyelocytes % (Man) Blast Cells % (Manual) Nucleated RBC % Metamyelocytes Hypochromia Toxic Granulation Dohle Bodies Platelet Estimate Polychromasia Poikilocytosis Basophilic Stippling Anisocytosis Microcytosis Macrocytosis Spherocytes Sickle Cells Target Cells Tear Drop Cells Ovalocytes Stomatocytes Helmet Cells Ritter-Daykin Bodies [place] Rings Trista Cells Acanthocytes (Spur) Rouleaux Fragmented RBCs Schistocytes Sodium Potassium Chloride Carbon Dioxide Anion Gap BUN Creatinine Creat Clearance w eGFR Random Glucose Lactic Acid 2.2 H* Calcium Phosphorus Magnesium Total Bilirubin AST ALT Alkaline Phosphatase Creatine Kinase Creatine Kinase Index CK-MB (CK-2) Troponin I Total Protein Albumin Active Medications Generic Name Dose Route Start Last Admin Trade Name Freq PRN Reason Stop Dose Admin Acetaminophen 650 mg 01/23/18 05:33 01/23/18 21:53 Tylenol - PO 650 mg Q4H PRN Administration FEVER Aspirin 81 mg 01/23/18 10:00 01/24/18 10:58 Asa - PO 81 mg DAILY CRISTAL Administration Carbidopa/Levodopa 1.5 each 01/23/18 10:00 01/24/18 10:53 Sinemet 25/250 - PO 1.5 each QID CRISTAL Administration Clonazepam 0.125 mg 01/23/18 05:29 01/23/18 09:39 Klonopin - PO 0.125 mg BID PRN Administration ANXIETY Entacapone 200 mg 01/23/18 10:00 01/24/18 10:57 Comtan - PO 200 mg QID CRISTAL Administration Heparin Sodium (Porcine) 5,000 unit 01/23/18 10:00 01/24/18 10:57 Heparin - SQ Not Given BID CRISTAL Dextrose/Sodium Chloride 1,000 mls @ 75 mls/hr 01/23/18 05:45 01/24/18 06:22 D5-1/2ns - IV Not Given ASDIR CRISTAL Meropenem 1 gm/ Dextrose 100 mls @ 0 mls/hr 01/23/18 12:30 01/24/18 10:55 IVPB 100 mls/hr BID CRISTAL Administration As Directed Lactobacillus Acidophilus 1 tab 01/23/18 06:00 01/24/18 06:22 Bacid - PO 1 tab TID CRISTAL Administration Magnesium Hydroxide 30 ml 01/23/18 10:00 01/24/18 10:55 Milk Of Magnesia - PO 30 ml DAILY CRISTAL Administration Meclizine HCl 25 mg 01/23/18 10:00 01/24/18 10:53 Antivert - PO 25 mg DAILY CRISTAL Administration Ropinirole HCl 1 mg 01/23/18 05:30 Requip - PO ASDIR CRISTAL Tamsulosin HCl 0.8 mg 01/23/18 08:30 01/24/18 09:00 Flomax - PO 0.8 mg DAILY@0830 CRISTAL Administration ASSESSMENT/PLAN: Neuro: Pt at baseline mentation Requip medication was pending: clarified dosing times 9am, 1pm, 5pm, 9pm according to previous scheduling in medical chart Continue Entacapone 200 QID Continue Sinemet 1.5 QID Respiratory: Not in acute distress Cardiac: Holding Hyzaar due to renal function Continue ASA for cardio-protective effects despite hematuria Dr. Sosa on board --Echo for LV assessment Continue to trend troponins; likely demand ischemia : Urinary retention: s/p suprapubic catherization --Continue irrigation q12h at minimum to avoid clots --ROBERT is improving in setting of catherization Hematuria --CBC repeat in afternoon to assess any further drop in Hgb --If pt continues to have drop of Hgb will discontinue Heparin SQ --Monitor H/H and transfuse if needed ID: Gram negative Bacteremia --Most likley urological in nature due to retention --Continue Meropenem 1gm --UCx to be performed (now able to collect) --Monitor fever trend; tylenol PRN --Lactic Acidosis continues to resolve; will trend one more layer FEN: Fluids: discontinue fluids Electrolyte abnormalities: None currently Nutrition: Puree diet regular; advance as pt is more arousable PPX: DVT - SCDs only; stop heparin in lieu of H/H Dispo: continue ICU monitoring Case discussed with Dr. Yury Echevarria, DO - IM PGY-2 Visit type - Emergency Visit Emergency Visit: No - New Patient This patient is new to me today: No - Critical Care Critical Care patient: Yes Total Critical Care Time (in minutes): 35 Critical Care Statement: The care of this patient involved high complexity decision making to prevent further life threatening deterioration of the patient 's condition and/or to evaluate & treat vital organ system(s) failure or risk of failure.
--- NOTE | 2018-01-24 13:38 | PN ---
Progress Note, Physician Chief Complaint: Cardiology f/u for Dr. Fleming History of Present Illness: Patient underwent suprapubic catheter placement, gram neg bacteremia noted. Fever curve decreasing. - Current Medication List Current Medications: Active Medications Acetaminophen (Tylenol -) 650 mg PO Q4H PRN PRN Reason: FEVER Last Admin: 01/23/18 21:53 Dose: 650 mg Aspirin (Asa -) 81 mg PO DAILY [facility] Last Admin: 01/24/18 10:58 Dose: 81 mg Carbidopa/Levodopa (Sinemet 25/250 -) 1.5 each PO QID [facility] Last Admin: 01/24/18 10:53 Dose: 1.5 each Clonazepam (Klonopin -) 0.125 mg PO BID PRN PRN Reason: ANXIETY Last Admin: 01/23/18 09:39 Dose: 0.125 mg Entacapone (Comtan -) 200 mg PO QID [facility] Last Admin: 01/24/18 10:57 Dose: 200 mg Heparin Sodium (Porcine) (Heparin -) 5,000 unit SQ BID [facility] Last Admin: 01/24/18 10:57 Dose: Not Given Dextrose/Sodium Chloride (D5-1/2ns -) 1,000 mls @ 75 mls/hr IV ASDIR [facility] Last Admin: 01/24/18 06:22 Dose: Not Given Meropenem 1 gm/ Dextrose 100 mls @ 0 mls/hr IVPB BID [facility] Last Admin: 01/24/18 10:55 Dose: 100 mls/hr Lactobacillus Acidophilus (Bacid -) 1 tab PO TID [facility] Last Admin: 01/24/18 06:22 Dose: 1 tab Magnesium Hydroxide (Milk Of Magnesia -) 30 ml PO DAILY [facility] Last Admin: 01/24/18 10:55 Dose: 30 ml Meclizine HCl (Antivert -) 25 mg PO DAILY [facility] Last Admin: 01/24/18 10:53 Dose: 25 mg Ropinirole HCl (Requip -) 1 mg PO ASDIR [facility] Tamsulosin HCl (Flomax -) 0.8 mg PO DAILY@0830 [facility] Last Admin: 01/24/18 09:00 Dose: 0.8 mg - Objective Vital Signs: Vital Signs Temperature 100 F H 01/24/18 06:00 Pulse Rate 116 H 01/24/18 10:00 Respiratory Rate 18 01/24/18 10:00 Blood Pressure 128/67 01/24/18 10:00 O2 Sat by Pulse Oximetry (%) 100 01/24/18 09:00 Constitutional: Yes: No Distress, Calm Neck: Yes: Supple Cardiovascular: Yes: Regular Rate and Rhythm Respiratory: Yes: Regular, Diminished, On Nasal O2 Gastrointestinal: Yes: Normal Bowel Sounds, Soft Edema: No Labs: CBC, BMP 01/24/18 08:30 01/24/18 08:30 INR, PTT INR 1.21 (0.82-1.09) H 01/22/18 22:46 - ....Imaging Chest X-ray: Report Reviewed (NAD) Problem List - Problems (1) Demand ischemia Code(s): I24.8 - OTHER FORMS OF ACUTE ISCHEMIC HEART DISEASE (2) Urinary retention Code(s): R33.9 - RETENTION OF URINE, UNSPECIFIED (3) ROBERT (acute kidney injury) Code(s): N17.9 - ACUTE KIDNEY FAILURE, UNSPECIFIED (4) Elevated troponin I level Code(s): R74.8 - ABNORMAL LEVELS OF OTHER SERUM ENZYMES (5) UTI (urinary tract infection) Code(s): N39.0 - URINARY TRACT INFECTION, SITE NOT SPECIFIED Qualifiers: Urinary tract infection type: acute cystitis Hematuria presence: with hematuria Qualified Code(s): N30.01 - Acute cystitis with hematuria (6) Hypertension Code(s): I10 - ESSENTIAL (PRIMARY) HYPERTENSION Qualifiers: Hypertension type: essential hypertension Qualified Code(s): I10 - Essential (primary) hypertension (7) Parkinson disease Code(s): G20 - PARKINSON'S DISEASE (8) Sepsis Code(s): A41.9 - SEPSIS, UNSPECIFIED ORGANISM Qualifiers: Sepsis type: sepsis due to unspecified organism Qualified Code(s): A41.9 - Sepsis, unspecified organism (9) Suprapubic catheter Code(s): Z93.59 - OTHER CYSTOSTOMY STATUS Assessment/Plan 11/07/2016 Echo: Normal LV size and fxn without sig valve abnl 1. Gram Negative sepsis source with lactic acidosis, leukocytosis, hematuria , urinary retention s/p Percutaneous Suprapubic Catheter placement 2. Demand ischemia 3. Acute hypoxic respiratory failure 4. Acute kidney injury suspect obstructive uropathy 5. PVC 6. Parkinson's Disease 7. HTN 8. Hyperlipidemia 9. Prostate culture 10. Thrombocytopenia P: 1. POD#1 SPT 2. IVF, abx per C&S, trend trops, WBC and lactate to document peak, O2 as needed , monitor renal fxn 3. Echo to assess ventricular and valve fxn 4. Hold Hyzaar pending renal recovery, resumed ASA and heparin post-procedure
[2018-01-24 14:30] LABS: URINE APPEARANCE CLOUDY; URINE BILIRUBIN NEGATIVE (<2.0 mg/dL); URINE COLOR RED; URINE GLUCOSE (UA) 1+ (NEGATIVE); URINE KETONE NEGATIVE (NEGATIVE); URINE LEUK ESTERASE NEGATIVE (NEGATIVE); URINE NITRITE NEGATIVE (NEGATIVE); URINE UROBILINOGEN NEGATIVE mg/dL (0.2-1.0)
[2018-01-24 14:31] LABS: URINE PROTEIN 2+ (NEGATIVE)
[2018-01-24 14:37] LABS: EPI CELLS MODERATE /HPF (FEW); URINE BACTERIA 3 /hpf (NONE SEEN); URINE HYALINE CAST 2 /lpf; URINE MUCUS 2+
--- NOTE | 2018-01-24 15:50 | PN ---
Progress Note, Physician History of Present Illness: Pt seen and examined. Had suprapubic catheter placement +hematuria. Slightly more responsive today but remains lethargic. Currently with low grade fever but wbc trending down. - Current Medication List Current Medications: Active Medications Acetaminophen (Tylenol -) 650 mg PO Q4H PRN PRN Reason: FEVER Last Admin: 01/23/18 21:53 Dose: 650 mg Aspirin (Asa -) 81 mg PO DAILY [facility] Last Admin: 01/24/18 10:58 Dose: 81 mg Carbidopa/Levodopa (Sinemet 25/250 -) 1.5 each PO QID [facility] Last Admin: 01/24/18 14:30 Dose: 1.5 each Clonazepam (Klonopin -) 0.125 mg PO BID PRN PRN Reason: ANXIETY Last Admin: 01/23/18 09:39 Dose: 0.125 mg Entacapone (Comtan -) 200 mg PO QID [facility] Last Admin: 01/24/18 14:30 Dose: 200 mg Heparin Sodium (Porcine) (Heparin -) 5,000 unit SQ BID [facility] Last Admin: 01/24/18 10:57 Dose: Not Given Dextrose/Sodium Chloride (D5-1/2ns -) 1,000 mls @ 75 mls/hr IV ASDIR [facility] Last Admin: 01/24/18 06:22 Dose: Not Given Meropenem 1 gm/ Dextrose 100 mls @ 0 mls/hr IVPB BID [facility] Last Admin: 01/24/18 10:55 Dose: 100 mls/hr Lactobacillus Acidophilus (Bacid -) 1 tab PO TID [facility] Last Admin: 01/24/18 14:30 Dose: 1 tab Magnesium Hydroxide (Milk Of Magnesia -) 30 ml PO DAILY [facility] Last Admin: 01/24/18 10:55 Dose: 30 ml Meclizine HCl (Antivert -) 25 mg PO DAILY [facility] Last Admin: 01/24/18 10:53 Dose: 25 mg Ropinirole HCl (Requip -) 1 mg PO 0900,1300,1700,2100 [facility] Tamsulosin HCl (Flomax -) 0.8 mg PO DAILY@0830 [facility] Last Admin: 01/24/18 09:00 Dose: 0.8 mg - Objective Vital Signs: Vital Signs Temperature 100 F H 01/24/18 06:00 Pulse Rate 116 H 01/24/18 10:00 Respiratory Rate 01/24/18 10:00 Blood Pressure 128/67 01/24/18 10:00 O2 Sat by Pulse Oximetry (%) 100 01/24/18 09:00 Constitutional: Yes: No Distress Neck: Yes: Supple Cardiovascular: Yes: Tachycardia Respiratory: Yes: Regular Gastrointestinal: Yes: Normal Bowel Sounds, Soft Genitourinary: Yes: Hematuria, Other (suprapubic catheter with dressing intact) Edema: LLE: 1+, RLE: 1+ Integumentary: Yes: WNL Neurological: Yes: Lethargy Labs: CBC, BMP 01/24/18 08:30 01/24/18 08:30 INR, PTT INR 1.21 (0.82-1.09) H 01/22/18 22:46 Microbiology 01/22/18 22:46 Blood - Peripheral Venous Blood Culture - Preliminary Non Lactose Fermenting Gnb 01/22/18 22:46 Blood - Peripheral Venous Blood Culture - Preliminary Non Lactose Fermenting Gnb Problem List - Problems (1) ROBERT (acute kidney injury) Code(s): N17.9 - ACUTE KIDNEY FAILURE, UNSPECIFIED (2) Demand ischemia Code(s): I24.8 - OTHER FORMS OF ACUTE ISCHEMIC HEART DISEASE (3) Severe sepsis Code(s): A41.9 - SEPSIS, UNSPECIFIED ORGANISM; R65.20 - SEVERE SEPSIS WITHOUT SEPTIC SHOCK (4) UTI (urinary tract infection) Code(s): N39.0 - URINARY TRACT INFECTION, SITE NOT SPECIFIED Qualifiers: Urinary tract infection type: acute cystitis Hematuria presence: with hematuria Qualified Code(s): N30.01 - Acute cystitis with hematuria (5) Urinary retention Code(s): R33.9 - RETENTION OF URINE, UNSPECIFIED (6) Hypertension Code(s): I10 - ESSENTIAL (PRIMARY) HYPERTENSION Qualifiers: Hypertension type: essential hypertension Qualified Code(s): I10 - Essential (primary) hypertension (7) Parkinson disease Code(s): G20 - PARKINSON'S DISEASE (8) Prostate cancer Code(s): C61 - MALIGNANT NEOPLASM OF PROSTATE Assessment/Plan 82 y.o. male with PMH of Prostate CA, hematuria, Parkinsons Disease, HTN presenting with altered mental status, dysuria, oliguria, worsening renal function, fever, tachycardia, hypoxia, elevated wbc and lactic acid level Sepsis Gram negative Bacteremia Prostate CA with stricture s/p suprapubic catheter placement Altered mental status Hematuria Leukocytosis Fever ROBERT - improving -- will adjust dose of Meropenem -- f/u blood culture results, urine cultures -- urology following -- wbc trending down, febrile- continue monitor vitals closely
[2018-01-24] MEDS: rOPINIRole HCL 1 MG TABLET (FP) PO SCH ×2 (18:39→21:45)
--- NOTE | 2018-01-24 19:39 | PN ---
Progress Note, Physician - Current Medication List Current Medications: Active Medications Acetaminophen (Tylenol -) 650 mg PO Q4H PRN PRN Reason: FEVER Last Admin: 01/23/18 21:53 Dose: 650 mg Aspirin (Asa -) 81 mg PO DAILY [facility] Last Admin: 01/24/18 10:58 Dose: 81 mg Carbidopa/Levodopa (Sinemet 25/250 -) 1.5 each PO QID [facility] Last Admin: 01/24/18 18:37 Dose: 1.5 each Clonazepam (Klonopin -) 0.125 mg PO BID PRN PRN Reason: ANXIETY Last Admin: 01/23/18 09:39 Dose: 0.125 mg Entacapone (Comtan -) 200 mg PO QID [facility] Last Admin: 01/24/18 18:37 Dose: 200 mg Heparin Sodium (Porcine) (Heparin -) 5,000 unit SQ BID [facility] Last Admin: 01/24/18 10:57 Dose: Not Given Meropenem 1 gm/ Dextrose 100 mls @ 200 mls/hr IVPB Q8H-IV [facility] Last Admin: 01/24/18 18:36 Dose: 200 mls/hr Lactobacillus Acidophilus (Bacid -) 1 tab PO TID [facility] Last Admin: 01/24/18 14:30 Dose: 1 tab Magnesium Hydroxide (Milk Of Magnesia -) 30 ml PO DAILY [facility] Last Admin: 01/24/18 10:55 Dose: 30 ml Meclizine HCl (Antivert -) 25 mg PO DAILY [facility] Last Admin: 01/24/18 10:53 Dose: 25 mg Ropinirole HCl (Requip -) 1 mg PO 0900,1300,1700,2100 [facility] Last Admin: 01/24/18 18:39 Dose: 1 mg Tamsulosin HCl (Flomax -) 0.8 mg PO DAILY@0830 [facility] Last Admin: 01/24/18 09:00 Dose: 0.8 mg - Objective Vital Signs: Vital Signs Temperature 99.5 F 01/24/18 16:00 Pulse Rate 104 H 01/24/18 18:12 Respiratory Rate 18 01/24/18 18:12 Blood Pressure 132/93 01/24/18 18:12 O2 Sat by Pulse Oximetry (%) 100 01/24/18 09:00 Labs: CBC, BMP 01/24/18 08:30 01/24/18 08:30 INR, PTT INR 1.21 (0.82-1.09) H 01/22/18 22:46
[2018-01-24 19:56] LABS: HEMATOCRIT 24.5 % (35.4-49); HEMOGLOBIN 8.5 GM/dL (11.7-16.9); MCH 32.7 pg (25.7-33.7); MCHC 34.7 g/dl (32.0-35.9); MEAN CELL VOLUME 94.2 fl (80-96); MEAN PLT VOLUME 9.8 fl (7.5-11.1); PLATELET COUNT 73 K/MM3 (134-434); RDW 13.1 % (11.9-15.9)
[2018-01-25] MEDS: MEROPENEM 1 GM in DEXTROSE 5%-WATER 100 ML IVPB SCH ×3 (01:19→18:43)
[2018-01-25] MEDS: LACTOBACILLUS ACIDOPHILUS 1 TABLET PO SCH ×3 (05:22→21:52)
[2018-01-25] MEDS ORDERED: PT OWN MED DRAWER 7, Y5N ONE ×4 (05:30→18:42)
[2018-01-25 06:02] LABS: HEMATOCRIT 22.6 % (35.4-49); HEMOGLOBIN 7.7 GM/dL (11.7-16.9); MCH 32.2 pg (25.7-33.7); MEAN CELL VOLUME 94.7 fl (80-96); MEAN PLT VOLUME 10.6 fl (7.5-11.1); PLATELET COUNT 76 K/MM3 (134-434); RBC 2.39 M/mm3 (4.00-5.60); RDW 12.8 % (11.9-15.9); WHITE BLOOD COUNT 20.1 K/mm3 (4.0-10.0)
[2018-01-25 06:35] LABS: ALBUMIN 2.4 g/dl (3.4-5.0); ANION GAP 5 (8-16); BLOOD UREA NITROGEN 26 mg/dL (7-18); CHLORIDE 108 mmol/L (98-107); CO2 25 mmol/L (21-32); CREATININE 1.1 mg/dL (0.7-1.3); GLUCOSE,RANDOM 181 mg/dL (74-106); MAGNESIUM 1.8 mg/dL (1.8-2.4); PHOSPHOROUS 1.8 mg/dL (2.5-4.9); POTASSIUM 3.7 mmol/L (3.5-5.1); SGOT/AST 37 U/L (15-37); SGPT/ALT 10 U/L (12-78); SODIUM 138 mmol/L (136-145)
[2018-01-25 06:42] LABS: ALK PHOS 95 U/L (45-117); BILIRUBIN,TOTAL 0.5 mg/dL (0.2-1.0); TOT PROT 4.8 g/dl (6.4-8.2)
--- NOTE | 2018-01-25 08:42 | PN ---
Progress Note, Physician - Current Medication List Current Medications: Active Medications Acetaminophen (Tylenol -) 650 mg PO Q4H PRN PRN Reason: FEVER Last Admin: 01/23/18 21:53 Dose: 650 mg Aspirin (Asa -) 81 mg PO DAILY [facility] Last Admin: 01/24/18 10:58 Dose: 81 mg Carbidopa/Levodopa (Sinemet 25/250 -) 1.5 each PO QID [facility] Last Admin: 01/24/18 21:45 Dose: 1.5 each Clonazepam (Klonopin -) 0.125 mg PO BID PRN PRN Reason: ANXIETY Last Admin: 01/23/18 09:39 Dose: 0.125 mg Entacapone (Comtan -) 200 mg PO QID [facility] Last Admin: 01/24/18 21:45 Dose: 200 mg Meropenem 1 gm/ Dextrose 100 mls @ 200 mls/hr IVPB Q8H-IV [facility] Last Admin: 01/25/18 01:19 Dose: 200 mls/hr Lactobacillus Acidophilus (Bacid -) 1 tab PO TID [facility] Last Admin: 01/25/18 05:22 Dose: 1 tab Magnesium Hydroxide (Milk Of Magnesia -) 30 ml PO DAILY [facility] Last Admin: 01/24/18 10:55 Dose: 30 ml Meclizine HCl (Antivert -) 25 mg PO DAILY [facility] Last Admin: 01/24/18 10:53 Dose: 25 mg Ropinirole HCl (Requip -) 1 mg PO 0900,1300,1700,2100 [facility] Last Admin: 01/24/18 21:45 Dose: 1 mg Tamsulosin HCl (Flomax -) 0.8 mg PO DAILY@0830 [facility] Last Admin: 01/24/18 09:00 Dose: 0.8 mg - Objective Vital Signs: Vital Signs Temperature 99.9 F H 01/25/18 05:00 Pulse Rate 102 H 01/25/18 05:00 Respiratory Rate 20 01/25/18 05:00 Blood Pressure 127/82 01/25/18 05:00 O2 Sat by Pulse Oximetry (%) 100 01/24/18 09:00 Labs: CBC, BMP 01/25/18 05:30 01/25/18 05:30 INR, PTT INR 1.21 (0.82-1.09) H 01/22/18 22:46 Microbiology 01/22/18 22:46 Blood - Peripheral Venous Blood Culture - Preliminary Non Lactose Fermenting Gnb 01/22/18 22:46 Blood - Peripheral Venous Blood Culture - Preliminary Non Lactose Fermenting Gnb Laboratory Tests 01/22/18 01/23/18 01/23/18 22:46 03:30 08:30 WBC Hgb Plt Count Sodium Potassium BUN Creatinine Creatine Kinase Troponin I 0.16 H D 0.12 H 0.12 H 01/24/18 01/25/18 01/25/18 08:30 05:30 05:30 WBC 20.1 H Hgb 7.7 L Plt Count 76 L Sodium 138 Potassium 3.7 BUN 26 H Creatinine 1.1 Creatine Kinase 423 H Troponin I 0.06 H D 0.03 D Assessment/Plan Assessment/Plan 11/07/2016 Echo: Normal LV size and fxn without sig valve abnl 1. Gram Negative sepsis source with lactic acidosis, leukocytosis, hematuria , urinary retention s/p Percutaneous Suprapubic Catheter placement 2. Demand ischemia in setting of sepsis. 3. Acute hypoxic respiratory failure 4. Acute kidney injury suspect obstructive uropathy 5. PVC 6. Parkinson's Disease 7. HTN 8. Hyperlipidemia 9. Prostate culture 10. Thrombocytopenia P: 1. POD#2 SPT 2. IVF, abx per C&S, trend trops, WBC and lactate to document peak, O2 as needed , monitor renal fxn 3. Echo to assess ventricular and valve fxn today 4. Hold ARB pending renal recovery, resumed ASA. 5. Initiate DVT prophylaxis.
[2018-01-25] MEDS: ASPIRIN 81 MG CHEWABLE TABLETS PO SCH (09:10)
[2018-01-25] MEDS: TAMSULOSIN HCL 0.4 MG CAP.ER.24H (FP) PO SCH (09:18)
[2018-01-25] MEDS: rOPINIRole HCL 1 MG TABLET (FP) PO SCH ×4 (09:20→21:52)
[2018-01-25] MEDS: CARBIDOPA/LEVODOPA 25/250 TABLET (FP) PO SCH ×4 (09:21→21:52)
[2018-01-25] MEDS: MAGNESIUM HYDROX 2400MG/30ML ORAL SUSPENSION 30 ML CUP PO SCH (09:41)
[2018-01-25] MEDS: MECLIZINE HCL 25 MG TABLET (FP) PO SCH (09:42)
[2018-01-25] MEDS: ENTACAPONE 200 MG TABLET PO SCH ×4 (09:42→21:52)
--- NOTE | 2018-01-25 12:16 | ECHO ---
Name: VALERIANO JIE Exam:Adult Echocardiogram Study Date: 01/25/2018 09:16 AM Age: 82 yrs Reason For Study: ELEVATED TROPONIN Height: 68 in Weight: 200 lb BSA: 2.0 m2 MMode/2D Measurements & Calculations IVSd: 1.2 cm LA dimension: 2.5 cm LVIDd: 5.0 cm LVIDs: 3.7 cm LVPWd: 1.1 cm LVPWs: 1.5 cm EDV(Teich): 116.6 ml ESV(Teich): 57.7 ml LVOT diam: 3.2 cm Doppler Measurements & Calculations MV E max mio: 69.6 cm/sec Med Peak E' Mio: 6.6 cm/sec MV A max mio: 96.3 cm/sec Med E/e': 10.6 MV E/A: 0.72 Lat Peak E' Mio: 8.1 cm/sec MV dec time: 0.19 sec Lat E/e': 8.6 Procedure A two-dimensional transthoracic echocardiogram with color flow and Doppler was performed. The study w as technically difficult with many images being suboptimal in quality. Left Ventricle The left ventricular size, thickness and function are normal. The left ventricular ejection fraction is normal. E/A reversal consistent with but not diagnostic of poor LV compliance. Regional wall motion abnormalities cannot be excluded due to limited visualization. Right Ventricle The right ventricle is not well visualized. Atria Normal left and right atrial size and function. Mitral Valve There is mild mitral valve thickening. There is no mitral valve stenosis. There is trace to mild mitr al regurgitation. Tricuspid Valve The tricuspid valve is not well visualized. There is no tricuspid stenosis. There was insufficient TR detected to calculate RV systolic pressure. Aortic Valve The aortic valve is not well visualized. No hemodynamically significant valvular aortic stenosis. No aortic regurgitation is present. Pulmonic Valve The pulmonic valve is not well visualized. Great Vessels The aortic root is not well visualized. Pericardium/Pleura There is no pericardial effusion. Interpretation Summary The left ventricular ejection fraction is normal. The left ventricular size, thickness and function are normal The study was technically difficult with many images being suboptimal in quality. Regional wall motion abnormalities cannot be excluded due to limited visualization. The right ventricle is not well visualized. There is mild mitral valve thickening. E/A reversal consistent with but not diagnostic of poor LV compliance There is trace to mild mitral regurgitation. There was insufficient TR detected to calculate RV systolic pressure. MD Clive Martinez 01/25/2018 12:15 PM
--- NOTE | 2018-01-25 15:08 | PN ---
Teaching Attending Note Name of Resident: Oswaldo Arechiga ATTENDING PHYSICIAN STATEMENT I saw and evaluated the patient. I reviewed the resident's note and discussed the case with the resident. I agree with the resident's findings and plan as documented. SUBJECTIVE: Patient seen and examined in the ICU. Awake. Confused. Noted that a suprapubic catheter was placed yesterday, dark/bloody output. Hemodynamics remains stable. Intake & Output 01/22/18 01/23/18 01/24/18 01/25/18 23:59 23:59 23:59 23:59 Intake Total 450 2950 260 Output Total 700 2000 400 Balance -250 950 -140 Weight 200 lb 200 lb 11.2 oz 225 lb 226 lb Last Vital Signs Temp Pulse Resp BP Pulse Ox 99.9 F H 101 H 20 112/64 100 01/25/18 05:00 01/25/18 12:00 01/25/18 12:00 01/25/18 12:00 01/24/18 09:00 Active Medications Acetaminophen (Tylenol -) 650 mg PO Q4H PRN PRN Reason: FEVER Last Admin: 01/23/18 21:53 Dose: 650 mg Aspirin (Asa -) 81 mg PO DAILY [facility] Last Admin: 01/25/18 09:10 Dose: Not Given Carbidopa/Levodopa (Sinemet 25/250 -) 1.5 each PO QID [facility] Last Admin: 01/25/18 14:34 Dose: 1.5 each Clonazepam (Klonopin -) 0.125 mg PO BID PRN PRN Reason: ANXIETY Last Admin: 01/23/18 09:39 Dose: 0.125 mg Entacapone (Comtan -) 200 mg PO QID [facility] Last Admin: 01/25/18 14:33 Dose: 200 mg Meropenem 1 gm/ Dextrose 100 mls @ 200 mls/hr IVPB Q8H-IV [facility] Last Admin: 01/25/18 09:18 Dose: 200 mls/hr Lactobacillus Acidophilus (Bacid -) 1 tab PO TID [facility] Last Admin: 01/25/18 14:34 Dose: 1 tab Magnesium Hydroxide (Milk Of Magnesia -) 30 ml PO DAILY [facility] Last Admin: 01/25/18 09:41 Dose: 30 ml Meclizine HCl (Antivert -) 25 mg PO DAILY [facility] Last Admin: 01/25/18 09:42 Dose: 25 mg Ropinirole HCl (Requip -) 1 mg PO 0900,1300,1700,2100 [facility] Last Admin: 01/25/18 14:33 Dose: 1 mg Tamsulosin HCl (Flomax -) 0.8 mg PO DAILY@0830 [facility] Last Admin: 01/25/18 09:18 Dose: 0.8 mg GENERAL: NAD, awake, alert, and fully oriented HEENT: NC/AT, FELIPE, MMM LUNGS: Diminished at the bases, no wheezes or crackle HEART: Tachycardic with regular rhythm, S1, S2 without murmur ABDOMEN: Soft, (+) BS, slight tenderness at site of catheter, nondistended EXTREMITIES: warm, well-perfused, (+) edema. NEUROLOGICAL: slight tremor, confusion SKIN: Warm, dry, no rashes or lesions noted Laboratory Results - last 24 hr 01/24/18 01/24/18 01/25/18 19:30 19:30 05:15 WBC 19.0 H RBC 2.60 L Hgb 8.5 L Hct 24.5 L MCV 94.2 MCH 32.7 MCHC 34.7 RDW 13.1 Plt Count 73 L MPV 9.8 Sodium Potassium Chloride Carbon Dioxide Anion Gap BUN Creatinine Creat Clearance w eGFR Random Glucose Lactic Acid 1.8 Calcium Phosphorus Magnesium Total Bilirubin AST ALT Alkaline Phosphatase Creatine Kinase Creatine Kinase Index CK-MB (CK-2) Troponin I Total Protein Albumin Blood Type O POSITIVE Antibody Screen Crossmatch 01/25/18 01/25/18 01/25/18 05:30 05:30 05:30 WBC 20.1 H RBC 2.39 L Hgb 7.7 L Hct 22.6 L MCV 94.7 MCH 32.2 MCHC 34.0 RDW 12.8 Plt Count 76 L MPV 10.6 Sodium 138 Potassium 3.7 Chloride 108 H Carbon Dioxide 25 Anion Gap 5 L BUN 26 H Creatinine 1.1 Creat Clearance w eGFR > 60 Random Glucose 181 H D Lactic Acid Calcium 8.0 L Phosphorus 1.8 L D Magnesium 1.8 Total Bilirubin 0.5 AST 37 D ALT 10 L D Alkaline Phosphatase 95 D Creatine Kinase 423 H Creatine Kinase Index 0.2 CK-MB (CK-2) 1.09 Troponin I 0.03 D Total Protein 4.8 L Albumin 2.4 L Blood Type O POSITIVE Antibody Screen Negative Crossmatch See Detail ASSESSMENT/PLAN: Gram Negative Sepsis from a source Lactic acidosis Leukocytosis Hematuria Urinary retention S/P Percutaneous Suprapubic Catheter insertion Demand ischemia ROBERT due to obstructive uropathy Parkinson's Disease HTN Hyperlipidemia (?) BPH Thrombocytopenia Urology follow up Flush Catheter to avoid clot formation ECHO IVF ABX per ID Normal transfusion thresholds O2 as needed VTE prophylaxis Hold ARB ICU monitoring Dr Clinton Critical care time spent in reviewing chart, evaluating patient and formulating plan - 36 minutes.
--- NOTE | 2018-01-25 16:09 | PN ---
Progress Note, Physician History of Present Illness: events noted patient in icu hematuria from suprapubic catheter plan to see why patient having hematuria placement from foleys failed - Current Medication List Current Medications: Active Medications Acetaminophen (Tylenol -) 650 mg PO Q4H PRN PRN Reason: FEVER Last Admin: 01/23/18 21:53 Dose: 650 mg Aspirin (Asa -) 81 mg PO DAILY [facility] Last Admin: 01/25/18 09:10 Dose: Not Given Carbidopa/Levodopa (Sinemet 25/250 -) 1.5 each PO QID [facility] Last Admin: 01/25/18 14:34 Dose: 1.5 each Clonazepam (Klonopin -) 0.125 mg PO BID PRN PRN Reason: ANXIETY Last Admin: 01/23/18 09:39 Dose: 0.125 mg Entacapone (Comtan -) 200 mg PO QID [facility] Last Admin: 01/25/18 14:33 Dose: 200 mg Meropenem 1 gm/ Dextrose 100 mls @ 200 mls/hr IVPB Q8H-IV [facility] Last Admin: 01/25/18 09:18 Dose: 200 mls/hr Lactobacillus Acidophilus (Bacid -) 1 tab PO TID [facility] Last Admin: 01/25/18 14:34 Dose: 1 tab Magnesium Hydroxide (Milk Of Magnesia -) 30 ml PO DAILY [facility] Last Admin: 01/25/18 09:41 Dose: 30 ml Meclizine HCl (Antivert -) 25 mg PO DAILY [facility] Last Admin: 01/25/18 09:42 Dose: 25 mg Ropinirole HCl (Requip -) 1 mg PO 0900,1300,1700,2100 [facility] Last Admin: 01/25/18 14:33 Dose: 1 mg Tamsulosin HCl (Flomax -) 0.8 mg PO DAILY@0830 [facility] Last Admin: 01/25/18 09:18 Dose: 0.8 mg - Objective Vital Signs: Vital Signs Temperature 99.9 F H 01/25/18 05:00 Pulse Rate 101 H 01/25/18 14:00 Respiratory Rate 20 01/25/18 12:00 Blood Pressure 115/59 01/25/18 14:00 O2 Sat by Pulse Oximetry (%) 100 01/24/18 09:00 Constitutional: Yes: Calm, Mild Distress Neck: Yes: Supple Cardiovascular: Yes: Regular Rate and Rhythm Respiratory: Yes: Regular, CTA Bilaterally Gastrointestinal: Yes: Normal Bowel Sounds, Soft Genitourinary: Yes: Other (suprapubic catheter with blood) Extremities: Yes: WNL Neurological: Yes: Alert, Other (confusion) Psychiatric: Yes: Alert Labs: CBC, BMP 01/25/18 05:30 01/25/18 05:30 INR, PTT INR 1.21 (0.82-1.09) H 01/22/18 22:46 Assessment/Plan Problem List - Problems (1) ROBERT (acute kidney injury) Code(s): N17.9 - ACUTE KIDNEY FAILURE, UNSPECIFIED (2) Demand ischemia Code(s): I24.8 - OTHER FORMS OF ACUTE ISCHEMIC HEART DISEASE (3) Severe sepsis Code(s): A41.9 - SEPSIS, UNSPECIFIED ORGANISM; R65.20 - SEVERE SEPSIS WITHOUT SEPTIC SHOCK (4) UTI (urinary tract infection) Code(s): N39.0 - URINARY TRACT INFECTION, SITE NOT SPECIFIED Qualifiers: Urinary tract infection type: acute cystitis Hematuria presence: with hematuria Qualified Code(s): N30.01 - Acute cystitis with hematuria (5) Urinary retention Code(s): R33.9 - RETENTION OF URINE, UNSPECIFIED (6) Hypertension Code(s): I10 - ESSENTIAL (PRIMARY) HYPERTENSION Qualifiers: Hypertension type: essential hypertension Qualified Code(s): I10 - Essential (primary) hypertension (7) Parkinson disease Code(s): G20 - PARKINSON'S DISEASE (8) Prostate cancer Code(s): C61 - MALIGNANT NEOPLASM OF PROSTATE Assessment/Plan 82 y.o. male with PMH of Prostate CA, hematuria, Parkinsons Disease, HTN presenting with altered mental status, dysuria, oliguria, worsening renal function, fever, tachycardia, hypoxia, elevated wbc and lactic acid level Sepsis Gram negative Bacteremia Prostate CA with stricture s/p suprapubic catheter placement Altered mental status Hematuria Leukocytosis Fever ROBERT - improving continue abx repeat blood cx ordered monitor wbc rest as per the the icu transfuse if needed
--- NOTE | 2018-01-25 17:36 | PN ---
Physical Exam: SUBJECTIVE: Patient seen and examined today in icu. Pt resting in bed. Suprapubic tube in place and draining. Denies cp, sob, carney, nausea, or vomiting. OBJECTIVE: Vital Signs Period Temp Pulse Resp BP Sys/Howard Pulse Ox Last 24 Hr 99.2 F-99.9 F 100-113 18- 104-132/51-93 GENERAL: Resting in bed. Hand tremors. AAOx3. HEAD: NC/AT EYES: EOMI. ENT: WNL NECK: Supple LUNGS: CTA B/L HEART: RRR, no MRG, s1,s2+ ABDOMEN: NT, ND, No HSM. . EXTREMITIES: No CCE NEUROLOGICAL: Parkinson's disease PSYCH: Normal mood, normal affect. SKIN: Warm. Laboratory Results - last 24 hr 01/24/18 01/24/18 01/25/18 19:30 19:30 05:15 WBC 19.0 H RBC 2.60 L Hgb 8.5 L Hct 24.5 L MCV 94.2 MCH 32.7 MCHC 34.7 RDW 13.1 Plt Count 73 L MPV 9.8 Sodium Potassium Chloride Carbon Dioxide Anion Gap BUN Creatinine Creat Clearance w eGFR Random Glucose Lactic Acid 1.8 Calcium Phosphorus Magnesium Total Bilirubin AST ALT Alkaline Phosphatase Creatine Kinase Creatine Kinase Index CK-MB (CK-2) Troponin I Total Protein Albumin Blood Type O POSITIVE Antibody Screen Crossmatch 01/25/18 01/25/18 01/25/18 05:30 05:30 05:30 WBC 20.1 H RBC 2.39 L Hgb 7.7 L Hct 22.6 L MCV 94.7 MCH 32.2 MCHC 34.0 RDW 12.8 Plt Count 76 L MPV 10.6 Sodium 138 Potassium 3.7 Chloride 108 H Carbon Dioxide 25 Anion Gap 5 L BUN 26 H Creatinine 1.1 Creat Clearance w eGFR > 60 Random Glucose 181 H D Lactic Acid Calcium 8.0 L Phosphorus 1.8 L D Magnesium 1.8 Total Bilirubin 0.5 AST 37 D ALT 10 L D Alkaline Phosphatase 95 D Creatine Kinase 423 H Creatine Kinase Index 0.2 CK-MB (CK-2) 1.09 Troponin I 0.03 D Total Protein 4.8 L Albumin 2.4 L Blood Type O POSITIVE Antibody Screen Negative Crossmatch See Detail Active Medications Generic Name Dose Route Start Last Admin Trade Name Freq PRN Reason Stop Dose Admin Acetaminophen 650 mg 01/23/18 05:33 01/23/18 21:53 Tylenol - PO 650 mg Q4H PRN Administration FEVER Aspirin 81 mg 01/23/18 10:00 01/25/18 09:10 Asa - PO Not Given DAILY [facility] Carbidopa/Levodopa 1.5 each 01/23/18 10:00 01/25/18 14:34 Sinemet 25/250 - PO 1.5 each QID [facility] Administration Clonazepam 0.125 mg 01/23/18 05:29 01/23/18 09:39 Klonopin - PO 0.125 mg BID PRN Administration ANXIETY Entacapone 200 mg 01/23/18 10:00 01/25/18 14:33 Comtan - PO 200 mg QID [facility] Administration Meropenem 1 gm/ Dextrose 100 mls @ 200 mls/hr 01/24/18 18:00 01/25/18 09:18 IVPB 200 mls/hr Q8H-IV [facility] Administration Lactobacillus Acidophilus 1 tab 01/23/18 06:00 01/25/18 14:34 Bacid - PO 1 tab TID [facility] Administration Magnesium Hydroxide 30 ml 01/23/18 10:00 01/25/18 09:41 Milk Of Magnesia - PO 30 ml DAILY [facility] Administration Meclizine HCl 25 mg 01/23/18 10:00 01/25/18 09:42 Antivert - PO 25 mg DAILY [facility] Administration Ropinirole HCl 1 mg 01/24/18 17:00 01/25/18 14:33 Requip - PO 1 mg 0900,1300,1700,2100 [facility] Administration Tamsulosin HCl 0.8 mg 01/23/18 08:30 01/25/18 09:18 Flomax - PO 0.8 mg DAILY@0830 [facility] Administration ASSESSMENT/PLAN: G.U -Acute Urinary Retention 2/2 Obstructive Uropathy, 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 Irrigated bladder with tumi syringe, evacuated clots. Will need cystoscopy and OIU as outpatient once patient's CBC returns to normal and is afebrile. No acute surgical intervention required at this time. Cannot r/o -Kidney/Bladder Ultrasound (01/25/18) performed today at bedside. Per Dr Castano- --> Evaluation of bladder reveals echogenic material most likely blood clots. Possibility of neoplasm CANNOT be excluded therefore cystoscopic evaluation is recommended I.D -Dr Gutierrez evaluated pt today. Explained that bacteremia not from urinary source as urine cultures are negative. Blood Cultures + for Enterobacter Aerogenes -Sensative to Meropenem -Contine w/ I.V Meropenem 200 mls/hr Q8H Neuro- Parkinson's Disease Requip 1 mg po daily Comtan 200 mg PO QID Sinemet 25/250 1.5 each PO QID Chest X-Ray today (01/25/18)--No definite airspace consolidation, pulmonary vascular congestion, or pleural effusion. FEN No Fluids Monitor Electrolytes Sodium Controlled DVT ppx: SCD's Dispo Continue to monitor in icu. Visit type - Emergency Visit Emergency Visit: Yes ED Registration Date: 01/23/18 Care time: The patient presented to the Emergency Department on the above date and was hospitalized for further evaluation of their emergent condition. - New Patient This patient is new to me today: No - Critical Care Critical Care patient: Yes Total Critical Care Time (in minutes): 36 Critical Care Statement: The care of this patient involved high complexity decision making to prevent further life threatening deterioration of the patient 's condition and/or to evaluate & treat vital organ system(s) failure or risk of failure.
[2018-01-25 18:53] LABS: BASO % 0.1 % (0-2.0); HEMOGLOBIN 8.2 GM/dL (11.7-16.9); LYMPH % 8.2 % (8-40); MCH 31.4 pg (25.7-33.7); MEAN CELL VOLUME 92.4 fl (80-96); MEAN PLT VOLUME 10.2 fl (7.5-11.1); MONO % 6.5 % (3.8-10.2); NEUT % 83.2 % (42.8-82.8); PLATELET COUNT 76 K/MM3 (134-434); RBC 2.59 M/mm3 (4.00-5.60); RDW 14.2 % (11.9-15.9); WHITE BLOOD COUNT 17.6 K/mm3 (4.0-10.0)
[2018-01-25 19:40] LABS: ALBUMIN 2.4 g/dl (3.4-5.0); ANION GAP 6 (8-16); BILIRUBIN,TOTAL 0.7 mg/dL (0.2-1.0); BLOOD UREA NITROGEN 23 mg/dL (7-18); CALCIUM 8.1 mg/dL (8.5-10.1); CHLORIDE 110 mmol/L (98-107); CO2 25 mmol/L (21-32); CREATININE 0.8 mg/dL (0.7-1.3); GLUCOSE,RANDOM 90 mg/dL (74-106); POTASSIUM 3.6 mmol/L (3.5-5.1); SGOT/AST 32 U/L (15-37); SGPT/ALT 8 U/L (12-78); SODIUM 141 mmol/L (136-145); TOT PROT 4.8 g/dl (6.4-8.2)
[2018-01-25 19:41] LABS: ALK PHOS 91 U/L (45-117)
--- NOTE | 2018-01-25 21:48 | PN ---
Progress Note (short form) - Note Progress Note: UROLOGY NOTE. 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 s/p suprapubic cystostomy,still with gross,totel hematuria. renal and bladder ultrasoud reveal multiple filling defects in urinary bladder,most likey blood clots but bladder tumor must be ruled out.pt. will need a cysto scopy when he is med. ok.
[2018-01-26] MEDS ORDERED: PT OWN MED DRAWER 7, Y5N ONE ×3 (00:37→17:09)
[2018-01-26] MEDS: MEROPENEM 1 GM in DEXTROSE 5%-WATER 100 ML IVPB SCH ×3 (01:02→17:36)
[2018-01-26] MEDS: LACTOBACILLUS ACIDOPHILUS 1 TABLET PO SCH ×3 (05:41→21:33)
[2018-01-26 05:57] LABS: BASO % 0.3 % (0-2.0); EOS % 3.4 % (0-4.5); HEMATOCRIT 23.5 % (35.4-49); HEMOGLOBIN 8.4 GM/dL (11.7-16.9); LYMPH % 9.8 % (8-40); MCH 32.8 pg (25.7-33.7); MCHC 35.6 g/dl (32.0-35.9); MEAN CELL VOLUME 92.1 fl (80-96); MEAN PLT VOLUME 9.8 fl (7.5-11.1); MONO % 6.6 % (3.8-10.2); NEUT % 79.9 % (42.8-82.8); PLATELET COUNT 74 K/MM3 (134-434); RBC 2.55 M/mm3 (4.00-5.60); RDW 14.5 % (11.9-15.9); WHITE BLOOD COUNT 14.9 K/mm3 (4.0-10.0)
[2018-01-26 06:33] LABS: ALBUMIN 2.6 g/dl (3.4-5.0); ANION GAP 7 (8-16); BLOOD UREA NITROGEN 19 mg/dL (7-18); CALCIUM 8.2 mg/dL (8.5-10.1); CHLORIDE 109 mmol/L (98-107); CO2 25 mmol/L (21-32); POTASSIUM 3.6 mmol/L (3.5-5.1); SODIUM 141 mmol/L (136-145)
[2018-01-26 06:38] LABS: ALK PHOS 93 U/L (45-117); BILIRUBIN,TOTAL 0.6 mg/dL (0.2-1.0); CREATININE 0.8 mg/dL (0.7-1.3); GLUCOSE,RANDOM 98 mg/dL (74-106); PHOSPHOROUS 2.1 mg/dL (2.5-4.9); SGOT/AST 31 U/L (15-37); SGPT/ALT 12 U/L (12-78)
--- NOTE | 2018-01-26 08:11 | PN ---
Progress Note, Physician Chief Complaint: no CP or SOB TELE: NSR, with occ. [facility] Urology note reviewed - Current Medication List Current Medications: Active Medications Acetaminophen (Tylenol -) 650 mg PO Q4H PRN PRN Reason: FEVER Last Admin: 01/23/18 21:53 Dose: 650 mg Aspirin (Asa -) 81 mg PO DAILY [facility] Last Admin: 01/25/18 09:10 Dose: Not Given Carbidopa/Levodopa (Sinemet 25/250 -) 1.5 each PO QID [facility] Last Admin: 01/25/18 21:52 Dose: 1.5 each Clonazepam (Klonopin -) 0.125 mg PO BID PRN PRN Reason: ANXIETY Last Admin: 01/23/18 09:39 Dose: 0.125 mg Entacapone (Comtan -) 200 mg PO QID [facility] Last Admin: 01/25/18 21:52 Dose: 200 mg Meropenem 1 gm/ Dextrose 100 mls @ 200 mls/hr IVPB Q8H-IV [facility] Last Admin: 01/26/18 01:02 Dose: 200 mls/hr Lactobacillus Acidophilus (Bacid -) 1 tab PO TID [facility] Last Admin: 01/26/18 05:41 Dose: 1 tab Magnesium Hydroxide (Milk Of Magnesia -) 30 ml PO DAILY [facility] Last Admin: 01/25/18 09:41 Dose: 30 ml Meclizine HCl (Antivert -) 25 mg PO DAILY [facility] Last Admin: 01/25/18 09:42 Dose: 25 mg Ropinirole HCl (Requip -) 1 mg PO 0900,1300,1700,2100 [facility] Last Admin: 01/25/18 21:52 Dose: 1 mg Tamsulosin HCl (Flomax -) 0.8 mg PO DAILY@0830 [facility] Last Admin: 01/25/18 09:18 Dose: 0.8 mg - Objective Vital Signs: Vital Signs Temperature 98.8 F 01/26/18 06:00 Pulse Rate 85 01/26/18 06:00 Respiratory Rate 17 01/26/18 06:00 Blood Pressure 126/63 01/26/18 06:00 O2 Sat by Pulse Oximetry (%) 100 01/24/18 09:00 Constitutional: Yes: Calm Cardiovascular: Yes: Regular Rate and Rhythm Respiratory: Yes: CTA Bilaterally Gastrointestinal: Yes: Soft (no rebound or guarding) Edema: No Neurological: Yes: Alert, Oriented Labs: CBC, BMP 01/26/18 05:30 01/26/18 05:30 INR, PTT INR 1.21 (0.82-1.09) H 01/22/18 22:46 Microbiology 01/22/18 22:46 Blood - Peripheral Venous Blood Culture - Final Enterobacter Aerogenes Laboratory Tests 01/25/18 01/26/18 01/26/18 05:30 05:30 05:30 WBC 14.9 H Hgb 8.4 L Hct 23.5 L Plt Count 74 L Sodium 141 Potassium 3.6 BUN 19 H Creatinine 0.8 AST 31 Troponin I 0.03 D - ....Imaging EKG: Image Reviewed Assessment/Plan Assessment/Plan 11/07/2016 Echo: Normal LV size and fxn without sig valve abnl 1. Gram Negative sepsis source with lactic acidosis, leukocytosis, hematuria , urinary retention s/p Percutaneous Suprapubic Catheter placement 2. Demand ischemia in setting of sepsis. 3. Acute hypoxic respiratory failure 4. Acute kidney injury 5. PVCs 6. Parkinson's Disease 7. HTN 8. Hyperlipidemia 9. Prostate culture 10. Thrombocytopenia P: 1. POD#3 SPT 2. IVF, abx per C&S, trend trops, WBC and lactate 3. Repeat echo normal LV fxn, no sig valve dz 4. Hold ARB pending renal recovery, resumed ASA. 5. DVT prophylaxis as per ICU team
[2018-01-26 08:52] LABS: PLATELET ESTIMATE DECREASED; TOXIC GRANULATION 1+
[2018-01-26] MEDS: TAMSULOSIN HCL 0.4 MG CAP.ER.24H (FP) PO SCH (09:07)
[2018-01-26] MEDS: rOPINIRole HCL 1 MG TABLET (FP) PO SCH ×4 (09:08→21:32)
[2018-01-26] MEDS: MECLIZINE HCL 25 MG TABLET (FP) PO SCH (09:09)
[2018-01-26] MEDS: ASPIRIN 81 MG CHEWABLE TABLETS PO SCH (09:09)
[2018-01-26] MEDS: ENTACAPONE 200 MG TABLET PO SCH ×4 (09:09→22:53)
[2018-01-26] MEDS: CARBIDOPA/LEVODOPA 25/250 TABLET (FP) PO SCH ×4 (09:10→21:33)
[2018-01-26] MEDS: MAGNESIUM HYDROX 2400MG/30ML ORAL SUSPENSION 30 ML CUP PO SCH (09:10)
--- NOTE | 2018-01-26 11:35 | PN ---
Teaching Attending Note Name of Resident: Oswaldo Arechiga ATTENDING PHYSICIAN STATEMENT I saw and evaluated the patient. I reviewed the resident's note and discussed the case with the resident. I agree with the resident's findings and plan as documented. SUBJECTIVE: Patient seen and examined in the ICU. Awake. Mildy Confused. Suprapubic catheter still draining dark/bloody output. Hemodynamics remains stable. Intake & Output 01/23/18 01/24/18 01/25/18 01/26/18 23:59 23:59 23:59 23:59 Intake Total 450 2950 1260 250 Output Total 700 2000 1750 400 Balance -250 950 -490 -150 Weight 200 lb 11.2 oz 225 lb 226 lb 224 lb 3 oz Last Vital Signs Temp Pulse Resp BP Pulse Ox 98.8 F 80 20 116/69 100 01/26/18 06:00 01/26/18 10:00 01/26/18 10:00 01/26/18 10:00 01/24/18 09:00 Active Medications Acetaminophen (Tylenol -) 650 mg PO Q4H PRN PRN Reason: FEVER Last Admin: 01/23/18 21:53 Dose: 650 mg Aspirin (Asa -) 81 mg PO DAILY [facility] Last Admin: 01/26/18 09:09 Dose: 81 mg Carbidopa/Levodopa (Sinemet 25/250 -) 1.5 each PO QID [facility] Last Admin: 01/26/18 09:10 Dose: 1.5 each Clonazepam (Klonopin -) 0.125 mg PO BID PRN PRN Reason: ANXIETY Last Admin: 01/23/18 09:39 Dose: 0.125 mg Entacapone (Comtan -) 200 mg PO QID [facility] Last Admin: 01/26/18 09:09 Dose: 200 mg Meropenem 1 gm/ Dextrose 100 mls @ 200 mls/hr IVPB Q8H-IV [facility] Last Admin: 01/26/18 09:10 Dose: 200 mls/hr Lactobacillus Acidophilus (Bacid -) 1 tab PO TID [facility] Last Admin: 01/26/18 05:41 Dose: 1 tab Magnesium Hydroxide (Milk Of Magnesia -) 30 ml PO DAILY [facility] Last Admin: 01/26/18 09:10 Dose: Not Given Meclizine HCl (Antivert -) 25 mg PO DAILY [facility] Last Admin: 01/26/18 09:09 Dose: 25 mg Ropinirole HCl (Requip -) 1 mg PO 0900,1300,1700,2100 [facility] Last Admin: 01/26/18 09:08 Dose: 1 mg Tamsulosin HCl (Flomax -) 0.8 mg PO DAILY@0830 [facility] Last Admin: 01/26/18 09:07 Dose: 0.8 mg GENERAL: NAD, awake, alert, mildly confused HEENT: NC/AT, FELIPE, MMM LUNGS: Diminished at the bases, no wheezes or crackle HEART: Tachycardic with regular rhythm, S1, S2 without murmur ABDOMEN: Soft, (+) BS, slight tenderness at site of catheter, nondistended EXTREMITIES: warm, well-perfused, (+) edema. NEUROLOGICAL: slight tremor, confusion SKIN: Warm, dry, no rashes or lesions noted Laboratory Results - last 24 hr 01/25/18 01/25/18 01/26/18 18:40 18:40 05:30 WBC 17.6 H 14.9 H RBC 2.59 L 2.55 L Hgb 8.2 L 8.4 L Hct 24.0 L 23.5 L MCV 92.4 92.1 MCH 31.4 32.8 MCHC 34.0 35.6 RDW 14.2 D 14.5 Plt Count 76 L 74 L MPV 10.2 9.8 Absolute Neuts (auto) 14.7 11.9 Total Counted 100 Neutrophils % 83.2 H 79.9 Neutrophils % (Manual) 75.0 Band Neutrophils % 7.0 Lymphocytes % 8.2 D 9.8 Lymphocytes % (Manual) 10.0 D Monocytes % 6.5 6.6 Monocytes % (Manual) 5 Eosinophils % 2.0 D 3.4 Eosinophils % (Manual) 3.0 D Basophils % 0.1 0.3 Nucleated RBC % 0 0 Hypochromia 1+ Toxic Granulation 1+ Platelet Estimate Decreased Platelet Comment No clumping noted Polychromasia 1+ Sodium 141 Potassium 3.6 Chloride 110 H Carbon Dioxide 25 Anion Gap 6 L BUN 23 H Creatinine 0.8 Creat Clearance w eGFR > 60 Random Glucose 90 D Calcium 8.1 L Phosphorus Magnesium Total Bilirubin 0.7 AST 32 ALT 8 L Alkaline Phosphatase 91 Total Protein 4.8 L Albumin 2.4 L 01/26/18 05:30 WBC RBC Hgb Hct MCV MCH MCHC RDW Plt Count MPV Absolute Neuts (auto) Total Counted Neutrophils % Neutrophils % (Manual) Band Neutrophils % Lymphocytes % Lymphocytes % (Manual) Monocytes % Monocytes % (Manual) Eosinophils % Eosinophils % (Manual) Basophils % Nucleated RBC % Hypochromia Toxic Granulation Platelet Estimate Platelet Comment Polychromasia Sodium 141 Potassium 3.6 Chloride 109 H Carbon Dioxide 25 Anion Gap 7 L BUN 19 H Creatinine 0.8 Creat Clearance w eGFR > 60 Random Glucose 98 Calcium 8.2 L Phosphorus 2.1 L Magnesium 2.0 Total Bilirubin 0.6 AST 31 ALT 12 D Alkaline Phosphatase 93 Total Protein 5.0 L Albumin 2.6 L ASSESSMENT/PLAN: Gram Negative Sepsis from a source Lactic acidosis Leukocytosis Hematuria Urinary retention S/P Percutaneous Suprapubic Catheter insertion Demand ischemia ROBERT due to obstructive uropathy Parkinson's Disease HTN Hyperlipidemia (?) BPH Thrombocytopenia Flush Catheter Q6h to avoid clot formation ABX per ID Normal transfusion thresholds O2 as needed VTE prophylaxis Hold ARB Floor Urology follow up Dr Clinton Critical care time spent in reviewing chart, evaluating patient and formulating plan - 36 minutes.
--- NOTE | 2018-01-26 14:55 | PN ---
Progress Note, Physician History of Present Illness: events noted stable still with hematuria but improving and lightening patient is awake and alert - Current Medication List Current Medications: Active Medications Acetaminophen (Tylenol -) 650 mg PO Q4H PRN PRN Reason: FEVER Last Admin: 01/23/18 21:53 Dose: 650 mg Aspirin (Asa -) 81 mg PO DAILY [facility] Last Admin: 01/26/18 09:09 Dose: 81 mg Carbidopa/Levodopa (Sinemet 25/250 -) 1.5 each PO QID [facility] Last Admin: 01/26/18 13:06 Dose: 1.5 each Clonazepam (Klonopin -) 0.125 mg PO BID PRN PRN Reason: ANXIETY Last Admin: 01/23/18 09:39 Dose: 0.125 mg Entacapone (Comtan -) 200 mg PO QID [facility] Last Admin: 01/26/18 13:06 Dose: 200 mg Meropenem 1 gm/ Dextrose 100 mls @ 200 mls/hr IVPB Q8H-IV [facility] Last Admin: 01/26/18 09:10 Dose: 200 mls/hr Lactobacillus Acidophilus (Bacid -) 1 tab PO TID [facility] Last Admin: 01/26/18 13:06 Dose: 1 tab Magnesium Hydroxide (Milk Of Magnesia -) 30 ml PO DAILY [facility] Last Admin: 01/26/18 09:10 Dose: Not Given Meclizine HCl (Antivert -) 25 mg PO DAILY [facility] Last Admin: 01/26/18 09:09 Dose: 25 mg Ropinirole HCl (Requip -) 1 mg PO 0900,1300,1700,2100 [facility] Last Admin: 01/26/18 12:22 Dose: 1 mg Tamsulosin HCl (Flomax -) 0.8 mg PO DAILY@0830 [facility] Last Admin: 01/26/18 09:07 Dose: 0.8 mg - Objective Vital Signs: Vital Signs Temperature 98.8 F 01/26/18 06:00 Pulse Rate 82 01/26/18 14:00 Respiratory Rate 20 01/26/18 14:00 Blood Pressure 96/54 01/26/18 14:00 O2 Sat by Pulse Oximetry (%) 100 01/24/18 09:00 Constitutional: Yes: No Distress, Calm Cardiovascular: Yes: Regular Rate and Rhythm Respiratory: Yes: Regular, CTA Bilaterally Gastrointestinal: Yes: Normal Bowel Sounds, Hypoactive Bowel Sounds Genitourinary: Yes: Other (suprapubic foleys with heamturia) Musculoskeletal: Yes: WNL Extremities: Yes: WNL Neurological: Yes: Alert, Oriented Psychiatric: Yes: Alert, Oriented Labs: CBC, BMP 01/26/18 05:30 01/26/18 05:30 INR, PTT INR 1.21 (0.82-1.09) H 01/22/18 22:46 Assessment/Plan Problem List - Problems (1) ROBERT (acute kidney injury) Code(s): N17.9 - ACUTE KIDNEY FAILURE, UNSPECIFIED (2) Demand ischemia Code(s): I24.8 - OTHER FORMS OF ACUTE ISCHEMIC HEART DISEASE (3) Severe sepsis Code(s): A41.9 - SEPSIS, UNSPECIFIED ORGANISM; R65.20 - SEVERE SEPSIS WITHOUT SEPTIC SHOCK (4) UTI (urinary tract infection) Code(s): N39.0 - URINARY TRACT INFECTION, SITE NOT SPECIFIED Qualifiers: Urinary tract infection type: acute cystitis Hematuria presence: with hematuria Qualified Code(s): N30.01 - Acute cystitis with hematuria (5) Urinary retention Code(s): R33.9 - RETENTION OF URINE, UNSPECIFIED (6) Hypertension Code(s): I10 - ESSENTIAL (PRIMARY) HYPERTENSION Qualifiers: Hypertension type: essential hypertension Qualified Code(s): I10 - Essential (primary) hypertension (7) Parkinson disease Code(s): G20 - PARKINSON'S DISEASE (8) Prostate cancer Code(s): C61 - MALIGNANT NEOPLASM OF PROSTATE Assessment/Plan 82 y.o. male with PMH of Prostate CA, hematuria, Parkinsons Disease, HTN presenting with altered mental status, dysuria, oliguria, worsening renal function, fever, tachycardia, hypoxia, elevated wbc and lactic acid level Sepsis Gram negative Bacteremia Prostate CA with stricture s/p suprapubic catheter placement Altered mental status Hematuria Leukocytosis Fever ROBERT - improving continue abx await for repeat blood cx report monitor wbc rest as per the the icu transfuse if needed cc 40 min
--- NOTE | 2018-01-26 16:56 | PN ---
Physical Exam: SUBJECTIVE: Pt seen and examined today in icu. Resting in bed comfortably. Denies any pain, sob, or fever. No acute events overnight. OBJECTIVE: Vital Signs Period Temp Pulse Resp BP Sys/Howard Pulse Ox Last 24 Hr 97.8 F-99 F 79-88 17-22 96-126/54-78 GENERAL: Resting in bed. Hand tremors. AAOx3. HEAD: NC/AT EYES: EOMI. ENT: WNL NECK: Supple LUNGS: CTA B/L HEART: RRR, no MRG, s1,s2+ ABDOMEN: NT, ND, No HSM. . EXTREMITIES: No CCE NEUROLOGICAL: Parkinson's disease PSYCH: Normal mood, normal affect. SKIN: Warm. Laboratory Results - last 24 hr 01/25/18 01/25/18 01/26/18 18:40 18:40 05:30 WBC 17.6 H 14.9 H RBC 2.59 L 2.55 L Hgb 8.2 L 8.4 L Hct 24.0 L 23.5 L MCV 92.4 92.1 MCH 31.4 32.8 MCHC 34.0 35.6 RDW 14.2 D 14.5 Plt Count 76 L 74 L MPV 10.2 9.8 Absolute Neuts (auto) 14.7 11.9 Total Counted 100 Neutrophils % 83.2 H 79.9 Neutrophils % (Manual) 75.0 Band Neutrophils % 7.0 Lymphocytes % 8.2 D 9.8 Lymphocytes % (Manual) 10.0 D Monocytes % 6.5 6.6 Monocytes % (Manual) 5 Eosinophils % 2.0 D 3.4 Eosinophils % (Manual) 3.0 D Basophils % 0.1 0.3 Nucleated RBC % 0 0 Hypochromia 1+ Toxic Granulation 1+ Platelet Estimate Decreased Platelet Comment No clumping noted Polychromasia 1+ Sodium 141 Potassium 3.6 Chloride 110 H Carbon Dioxide 25 Anion Gap 6 L BUN 23 H Creatinine 0.8 Creat Clearance w eGFR > 60 Random Glucose 90 D Calcium 8.1 L Phosphorus Magnesium Total Bilirubin 0.7 AST 32 ALT 8 L Alkaline Phosphatase 91 Total Protein 4.8 L Albumin 2.4 L 01/26/18 05:30 WBC RBC Hgb Hct MCV MCH MCHC RDW Plt Count MPV Absolute Neuts (auto) Total Counted Neutrophils % Neutrophils % (Manual) Band Neutrophils % Lymphocytes % Lymphocytes % (Manual) Monocytes % Monocytes % (Manual) Eosinophils % Eosinophils % (Manual) Basophils % Nucleated RBC % Hypochromia Toxic Granulation Platelet Estimate Platelet Comment Polychromasia Sodium 141 Potassium 3.6 Chloride 109 H Carbon Dioxide 25 Anion Gap 7 L BUN 19 H Creatinine 0.8 Creat Clearance w eGFR > 60 Random Glucose 98 Calcium 8.2 L Phosphorus 2.1 L Magnesium 2.0 Total Bilirubin 0.6 AST 31 ALT 12 D Alkaline Phosphatase 93 Total Protein 5.0 L Albumin 2.6 L Active Medications Generic Name Dose Route Start Last Admin Trade Name Freq PRN Reason Stop Dose Admin Acetaminophen 650 mg 01/23/18 05:33 01/23/18 21:53 Tylenol - PO 650 mg Q4H PRN Administration FEVER Aspirin 81 mg 01/23/18 10:00 01/26/18 09:09 Asa - PO 81 mg DAILY [facility] Administration Carbidopa/Levodopa 1.5 each 01/23/18 10:00 01/26/18 13:06 Sinemet 25/250 - PO 1.5 each QID [facility] Administration Clonazepam 0.125 mg 01/23/18 05:29 01/23/18 09:39 Klonopin - PO 0.125 mg BID PRN Administration ANXIETY Entacapone 200 mg 01/23/18 10:00 01/26/18 13:06 Comtan - PO 200 mg QID [facility] Administration Meropenem 1 gm/ Dextrose 100 mls @ 200 mls/hr 01/24/18 18:00 01/26/18 09:10 IVPB 200 mls/hr Q8H-IV [facility] Administration Lactobacillus Acidophilus 1 tab 01/23/18 06:00 01/26/18 13:06 Bacid - PO 1 tab TID [facility] Administration Magnesium Hydroxide 30 ml 01/23/18 10:00 01/26/18 09:10 Milk Of Magnesia - PO Not Given DAILY [facility] Meclizine HCl 25 mg 01/23/18 10:00 01/26/18 09:09 Antivert - PO 25 mg DAILY [facility] Administration Padimate O 1 applic 01/26/18 15:38 Chapstick - TP PRN PRN ORAL PAIN/MOUTH SORES Ropinirole HCl 1 mg 01/24/18 17:00 01/26/18 12:22 Requip - PO 1 mg 0900,1300,1700,2100 [facility] Administration Tamsulosin HCl 0.8 mg 01/23/18 08:30 01/26/18 09:07 Flomax - PO 0.8 mg DAILY@0830 [facility] Administration ASSESSMENT/PLAN: G.U -Acute Urinary Retention 2/2 Obstructive Uropathy, 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 Irrigated bladder with tumi syringe, evacuated clots. Will need cystoscopy and OIU as outpatient once patient's CBC returns to normal and is afebrile. No acute surgical intervention required at this time. -Kidney/Bladder Ultrasound (01/25/18) performed today at bedside. Per Dr Castano- --> Evaluation of bladder reveals echogenic material most likely blood clots. Possibility of neoplasm CANNOT be excluded therefore cystoscopic evaluation is recommended I.D -Dr Gutierrez ----> bacteremia not from urinary source as urine cultures are negative. Blood Cultures + for Enterobacter Aerogenes -Sensative to Meropenem -Contine w/ I.V Meropenem 200 mls/hr Q8H Neuro- Parkinson's Disease Requip 1 mg po daily Comtan 200 mg PO QID Sinemet 25/250 1.5 each PO QID Chest X-Ray yesterday (01/25/18)--No definite airspace consolidation, pulmonary vascular congestion, or pleural effusion. FEN No Fluids Monitor Electrolytes Sodium Controlled DVT ppx: SCD's Compression stockings. Dispo Pt being transferred to med-surg. Visit type - Emergency Visit Emergency Visit: Yes ED Registration Date: 01/23/18 Care time: The patient presented to the Emergency Department on the above date and was hospitalized for further evaluation of their emergent condition. - New Patient This patient is new to me today: No - Critical Care Critical Care patient: Yes Total Critical Care Time (in minutes): 40 Critical Care Statement: The care of this patient involved high complexity decision making to prevent further life threatening deterioration of the patient 's condition and/or to evaluate & treat vital organ system(s) failure or risk of failure.
[2018-01-26] MEDS ORDERED: clonazePAM 0.5 MG TABLET PO PRN (19:19)
--- NOTE | 2018-01-26 19:43 | PN ---
Progress Note, Physician History of Present Illness: No new complaints Hospitalists will be covering me from 01/27 until Thu01/27/18 - Current Medication List Current Medications: Active Medications Acetaminophen (Tylenol -) 650 mg PO Q4H PRN PRN Reason: FEVER Aspirin (Asa -) 81 mg PO DAILY [facility] Carbidopa/Levodopa (Sinemet 25/250 -) 1.5 each PO QID [facility] Clonazepam (Klonopin -) 0.125 mg PO BID PRN PRN Reason: ANXIETY Entacapone (Comtan -) 200 mg PO QID [facility] Meropenem 1 gm/ Dextrose 100 mls @ 200 mls/hr IVPB Q8H-IV [facility] Lactobacillus Acidophilus (Bacid -) 1 tab PO TID [facility] Magnesium Hydroxide (Milk Of Magnesia -) 30 ml PO DAILY [facility] Meclizine HCl (Antivert -) 25 mg PO DAILY [facility] Padimate O (Chapstick -) 1 applic TP PRN PRN PRN Reason: ORAL PAIN/MOUTH SORES Ropinirole HCl (Requip -) 1 mg PO 0900,1300,1700,2100 [facility] Tamsulosin HCl (Flomax -) 0.8 mg PO DAILY@0830 [facility] - Objective Vital Signs: Vital Signs Temperature 97.8 F 01/26/18 16:16 Pulse Rate 77 01/26/18 17:50 Respiratory Rate 20 01/26/18 17:50 Blood Pressure 126/58 01/26/18 17:50 O2 Sat by Pulse Oximetry (%) 100 01/24/18 09:00 Neck: Yes: WNL, Supple Cardiovascular: Yes: WNL, Regular Rate and Rhythm Respiratory: Yes: WNL, Regular, CTA Bilaterally Gastrointestinal: Yes: WNL, Normal Bowel Sounds, Soft Labs: CBC, BMP 01/26/18 05:30 01/26/18 05:30 INR, PTT INR 1.21 (0.82-1.09) H 01/22/18 22:46 Problem List - Problems (1) Sepsis Assessment/Plan: Improved BC (+) for enterobacter Aerogenes Repeat BC have been negative Cont IV antibxs Code(s): A41.9 - SEPSIS, UNSPECIFIED ORGANISM Qualifiers: Sepsis type: sepsis due to unspecified organism Qualified Code(s): A41.9 - Sepsis, unspecified organism (2) Hypertension Code(s): I10 - ESSENTIAL (PRIMARY) HYPERTENSION Qualifiers: Hypertension type: essential hypertension Qualified Code(s): I10 - Essential (primary) hypertension (3) Parkinson disease Assessment/Plan: Cont sinemet/comtan Code(s): G20 - PARKINSON'S DISEASE (4) ROBERT (acute kidney injury) Assessment/Plan: Due to obstructive uropathy S/P percutaneous suprapubic cath Cont flomax Code(s): N17.9 - ACUTE KIDNEY FAILURE, UNSPECIFIED (5) Anemia Code(s): D64.9 - ANEMIA, UNSPECIFIED
[2018-01-27] MEDS: MEROPENEM 1 GM in SODIUM CHLORIDE 100 ML IVPB SCH ×4 (01:58→19:00)
[2018-01-27] MEDS: LACTOBACILLUS ACIDOPHILUS 1 TABLET PO SCH ×3 (05:42→22:15)
[2018-01-27 08:09] LABS: BASO % 0.1 % (0-2.0); EOS % 5.3 % (0-4.5); HEMATOCRIT 23.7 % (35.4-49); HEMOGLOBIN 8.4 GM/dL (11.7-16.9); LYMPH % 17.7 % (8-40); MCH 32.5 pg (25.7-33.7); MCHC 35.4 g/dl (32.0-35.9); MEAN CELL VOLUME 91.9 fl (80-96); MEAN PLT VOLUME 9.1 fl (7.5-11.1); MONO % 14.6 % (3.8-10.2); NEUT % 62.3 % (42.8-82.8); PLATELET COUNT 102 K/MM3 (134-434); RBC 2.57 M/mm3 (4.00-5.60); RDW 14.4 % (11.9-15.9); WHITE BLOOD COUNT 7.3 K/mm3 (4.0-10.0)
[2018-01-27 08:39] LABS: CHLORIDE 109 mmol/L (98-107); POTASSIUM 3.7 mmol/L (3.5-5.1); SODIUM 143 mmol/L (136-145)
[2018-01-27 08:56] LABS: ALBUMIN 2.6 g/dl (3.4-5.0); ALK PHOS 92 U/L (45-117); ANION GAP 7 (8-16); BILIRUBIN,TOTAL 0.5 mg/dL (0.2-1.0); BLOOD UREA NITROGEN 14 mg/dL (7-18); CALCIUM 8.2 mg/dL (8.5-10.1); CO2 27 mmol/L (21-32); CREATININE 0.8 mg/dL (0.7-1.3); GLUCOSE,RANDOM 97 mg/dL (74-106); SGOT/AST 26 U/L (15-37); SGPT/ALT 19 U/L (12-78); TOT PROT 5.1 g/dl (6.4-8.2)
--- NOTE | 2018-01-27 09:07 | PN ---
Progress Note, Physician Chief Complaint: No CP or SOB History of Present Illness: Eating breakfast with assistance of RN BP well controlled - Current Medication List Current Medications: Active Medications Acetaminophen (Tylenol -) 650 mg PO Q4H PRN PRN Reason: FEVER Aspirin (Asa -) 81 mg PO DAILY [facility] Carbidopa/Levodopa (Sinemet 25/250 -) 1.5 each PO QID [facility] Last Admin: 01/26/18 21:33 Dose: 1.5 each Clonazepam (Klonopin -) 0.125 mg PO BID PRN PRN Reason: ANXIETY Entacapone (Comtan -) 200 mg PO QID [facility] Last Admin: 01/26/18 22:53 Dose: 200 mg Meropenem 1 gm/ Sodium (Chloride) 100 mls @ 200 mls/hr IVPB Q8H-IV [facility] Last Admin: 01/27/18 01:58 Dose: 200 mls/hr Lactobacillus Acidophilus (Bacid -) 1 tab PO TID [facility] Last Admin: 01/27/18 05:42 Dose: 1 tab Magnesium Hydroxide (Milk Of Magnesia -) 30 ml PO DAILY [facility] Meclizine HCl (Antivert -) 25 mg PO DAILY [facility] Padimate O (Chapstick -) 1 applic TP PRN PRN PRN Reason: ORAL PAIN/MOUTH SORES Ropinirole HCl (Requip -) 1 mg PO 0900,1300,1700,2100 [facility] Last Admin: 01/26/18 21:32 Dose: 1 mg Tamsulosin HCl (Flomax -) 0.8 mg PO DAILY@0830 [facility] - Objective Vital Signs: Vital Signs Temperature 98.1 F 01/27/18 05:00 Pulse Rate 83 01/27/18 05:00 Respiratory Rate 20 01/27/18 05:00 Blood Pressure 125/61 01/27/18 05:00 O2 Sat by Pulse Oximetry (%) 98 01/26/18 21:00 Constitutional: Yes: No Distress Cardiovascular: Yes: Regular Rate and Rhythm Respiratory: Yes: CTA Bilaterally Gastrointestinal: Yes: Soft Genitourinary: Yes: Other (Suprapubic catheter, urine appears dark, hematuria) Edema: No Labs: CBC, BMP 01/27/18 06:10 INR, PTT INR 1.21 (0.82-1.09) H 01/22/18 22:46 Microbiology 01/25/18 18:40 Blood - Peripheral Venous Blood Culture - Preliminary NO GROWTH OBTAINED AFTER 24 HOURS, INCUBATION TO CONTINUE FOR 4 DAYS. 01/25/18 18:30 Blood - Peripheral Venous Blood Culture - Preliminary NO GROWTH OBTAINED AFTER 24 HOURS, INCUBATION TO CONTINUE FOR 4 DAYS. Laboratory Tests 01/27/18 01/27/18 06:10 06:10 WBC 7.3 Hgb 8.4 L Plt Count 102 L D Sodium Pending Potassium Pending Creatinine Pending Assessment/Plan Assessment/Plan 11/07/2016 Echo: Normal LV size and fxn without sig valve abnl 1. Gram Negative sepsis source with lactic acidosis, leukocytosis, hematuria , urinary retention s/p Percutaneous Suprapubic Catheter placement 2. Demand ischemia in setting of sepsis. 3. Acute hypoxic respiratory failure 4. Acute kidney injury 5. PVCs 6. Parkinson's Disease 7. HTN 8. Hyperlipidemia 9. Prostate culture 10. Thrombocytopenia improving Plan: 1. POD#4 SPT, appears to have hematuria. 2. IVF, abx per C&S, trend WBC and lactate. TnI flat. 3. Repeat echo normal LV fxn, no sig valve dz 4. Hold ARB pending renal recovery, resumed ASA. 5. DVT prophylaxis as per the primary medical team
[2018-01-27] MEDS: TAMSULOSIN HCL 0.4 MG CAP.ER.24H (FP) PO SCH (09:11)
[2018-01-27] MEDS ORDERED: PT OWN MED DRAWER 7, Y5N ONE ×8 (09:17→22:10)
[2018-01-27] MEDS: rOPINIRole HCL 1 MG TABLET (FP) PO SCH ×4 (09:18→22:15)
[2018-01-27] MEDS ORDERED: ASPIRIN 81 MG CHEWABLE TABLETS PO SCH (10:00)
[2018-01-27] MEDS: MECLIZINE HCL 25 MG TABLET (FP) PO SCH (10:55)
[2018-01-27] MEDS: CARBIDOPA/LEVODOPA 25/250 TABLET (FP) PO SCH ×4 (10:55→22:15)
[2018-01-27] MEDS: MAGNESIUM HYDROX 2400MG/30ML ORAL SUSPENSION 30 ML CUP PO SCH (10:56)
[2018-01-27] MEDS: ENTACAPONE 200 MG TABLET PO SCH ×4 (10:56→22:15)
[2018-01-27] MEDS: LIP BALM (CHAPSTICK) TP PRN ×3 (12:12→22:14)
[2018-01-27] MEDS: ACETAMINOPHEN 325 MG TABLET (FP) PO PRN (14:03)
[2018-01-27 14:44] LABS: ANISOCYTOSIS 1+; MACROCYTOSIS 0; PLATELET ESTIMATE DECREASED
--- NOTE | 2018-01-27 15:35 | PN ---
Physical Exam: SUBJECTIVE: Patient seen and examined. lethargic but easily arousable and maintains alertness while in conversation. requests to have SCD's removed, only wants TEDs denied chest pain, fevers, sob. OBJECTIVE: Vital Signs Period Temp Pulse Resp BP Sys/Howard Pulse Ox Last 24 Hr 97.7 F-99.2 F 77-94 20-22 108-143/58-78 98 GENERAL: The patient is alert with stimulation, in no acute distress. HEAD: Normal with no signs of trauma. EYES: right eye with deformity, left pupil reactive to light, extraocular movements intact, sclera anicteric, conjunctiva clear. No ptosis. OROPHARNYX: moist mucous membranes LUNGS: Breath sounds equal, clear to auscultation bilaterally, no wheezes, no crackles HEART: Regular rate and rhythm, S1, S2 without murmur, rub or gallop. ABDOMEN: Soft, nontender, +distended, normoactive bowel sounds, no guarding, left lateral abdomen with healing vesicle. EXTREMITIES: 2+ radial and dp pulses, warm, well-perfused, teds and scd's in place NEUROLOGICAL: Normal speech, gait not observed. SKIN: Warm, clammy, normal turgor, b/l medial thighs with erythema, left inner thigh with small serous fluid filled vesicles intact. Suprapupic catheter in place with dark red drainage. blood clot in penis unclear if leakage from kern or penis, no active bleeding from penis noted. Laboratory Results - last 24 hr 01/27/18 01/27/18 06:10 06:10 WBC 7.3 RBC 2.57 L Hgb 8.4 L Hct 23.7 L MCV 91.9 MCH 32.5 MCHC 35.4 RDW 14.4 Plt Count 102 L D MPV 9.1 Absolute Neuts (auto) 4.6 Neutrophils % 62.3 D Neutrophils % (Manual) 66.3 Band Neutrophils % 1.0 Lymphocytes % 17.7 D Lymphocytes % (Manual) 14.9 D Monocytes % 14.6 H D Monocytes % (Manual) 9 Eosinophils % 5.3 H Eosinophils % (Manual) 5.9 H D Basophils % 0.1 Basophils % (Manual) 1.0 D Myelocytes % (Man) 1 D Promyelocytes % (Man) 0 Blast Cells % (Manual) 0 Nucleated RBC % 0 Metamyelocytes 1 D Hypochromia 0 Platelet Estimate Decreased Polychromasia 0 Poikilocytosis 0 Anisocytosis 1+ Microcytosis 1+ Macrocytosis 0 Sodium 143 Potassium 3.7 Chloride 109 H Carbon Dioxide 27 Anion Gap 7 L BUN 14 Creatinine 0.8 Creat Clearance w eGFR > 60 Random Glucose 97 Calcium 8.2 L Total Bilirubin 0.5 AST 26 ALT 19 D Alkaline Phosphatase 92 Total Protein 5.1 L Albumin 2.6 L Active Medications Generic Name Dose Route Start Last Admin Trade Name Freq PRN Reason Stop Dose Admin Acetaminophen 650 mg 01/26/18 19:19 01/27/18 14:03 Tylenol - PO 650 mg Q4H PRN Administration FEVER Carbidopa/Levodopa 1.5 each 01/26/18 22:00 01/27/18 14:02 Sinemet 25/250 - PO 1.5 each QID [facility] Administration Clonazepam 0.125 mg 01/26/18 19:19 Klonopin - PO BID PRN ANXIETY Entacapone 200 mg 01/26/18 22:00 01/27/18 14:03 Comtan - PO 200 mg QID [facility]AL Administration Meropenem 1 gm/ Sodium 100 mls @ 200 mls/hr 01/27/18 02:00 01/27/18 10:58 Chloride IVPB 200 mls/hr Q8H-IV [facility]AL Administration Lactobacillus Acidophilus 1 tab 01/26/18 22:00 01/27/18 14:02 Bacid - PO 1 tab TID [facility]STAL Administration Magnesium Hydroxide 30 ml 01/27/18 10:00 01/27/18 10:56 Milk Of Magnesia - PO 30 ml DAILY [facility] Administration Meclizine HCl 25 mg 01/27/18 10:00 01/27/18 10:55 Antivert - PO 25 mg DAILY [facility]AL Administration Padimate O 1 applic 01/26/18 15:38 01/27/18 12:12 Chapstick - TP 1 applic PRN PRN Administration ORAL PAIN/MOUTH SORES Ropinirole HCl 1 mg 01/26/18 21:00 01/27/18 12:56 Requip - PO 1 mg 0900,1300,1700,2100 [facility]AL Administration Tamsulosin HCl 0.8 mg 01/27/18 08:30 01/27/18 09:11 Flomax - PO 0.8 mg DAILY@0830 [facility]AL Administration ASSESSMENT/PLAN: 82 year old male, from [facility], with prostate cancer, HTN, HLD, peripheral neuropathy and parkinson's disease, bibems for hematuria, dysuria, fever and hypoxia found to have sepsis due to UTI/gram negative bactermia. Was treated in the ICU from 01/23-01/26. Now transferred to med-surg floor for further management. Lethargy likely due to acute infectious process, will pursue further neurological w.u if mentation declines acutely. #Sepsis due to UTI/gram neg bactermia- improving - suprapubic catheter placed on 01/23 - continue q12h bladder irrigation - Merropenem 1gm IVPB q8hr - started 01/23, today is day 5 - continue tylenol 650mg po q4h prn for fever - ID consult: Dr. Gutierrez #hyphosphotemia - replete with nutraphos packets po daily #ROBERT likely due to urinary retention/BPH - improved - Cr trending down with placement of kern - continue flomax 0.8mg po daily - held hyzaar due to ROBERT, BP currently well controlled, will continue to hold while renal recovery - stop ASA due to possible plan for cystoscopy/thrombocytopenia #Hematuria - transfuse as needed - continue bladder irrigation, monitor for clot - unclear if pt has a bladder mass contributing, will need a cystoscopy once stable - urology consult: dr. Arechiga #Parkinsons - continue home medications: sinemet 1.5QID and entacapone 200QID po daily, requip 1mg po QID #Anxiety - continue home medication: Klonopin 0.125mg po bid, DVT prophylaxis with TEDs, no medical ac due to hematuria #diet: Na controlled as tolerated #physical therapy once pt is stable for mobility Visit type - Emergency Visit Emergency Visit: No - New Patient This patient is new to me today: Yes Date on this admission: 01/27/18 - Critical Care Critical Care patient: No - Discharge Referral Referred to [facility] No
--- NOTE | 2018-01-27 17:45 | PN ---
Teaching Attending Note Name of Resident: Lynn Rai ATTENDING PHYSICIAN STATEMENT I saw and evaluated the patient. I reviewed the resident's note and discussed the case with the resident. I agree with the resident's findings and plan as documented. SUBJECTIVE: Patient says he doesn't feel well but is vague about complaints. OBJECTIVE: Vital Signs Period Temp Pulse Resp BP Sys/Howard Pulse Ox Last 24 Hr 97.7 F-99.2 F 77-94 20-22 123-143/58-77 98-98 HEART: S1S2, RRR LUNGS: Clear ABDOMEN: Obese, soft, non-tender, non-distended, normal BS EXTREMITIES: No edema Laboratory Results - last 24 hr 01/27/18 01/27/18 06:10 06:10 WBC 7.3 RBC 2.57 L Hgb 8.4 L Hct 23.7 L MCV 91.9 MCH 32.5 MCHC 35.4 RDW 14.4 Plt Count 102 L D MPV 9.1 Absolute Neuts (auto) 4.6 Neutrophils % 62.3 D Neutrophils % (Manual) 66.3 Band Neutrophils % 1.0 Lymphocytes % 17.7 D Lymphocytes % (Manual) 14.9 D Monocytes % 14.6 H D Monocytes % (Manual) 9 Eosinophils % 5.3 H Eosinophils % (Manual) 5.9 H D Basophils % 0.1 Basophils % (Manual) 1.0 D Myelocytes % (Man) 1 D Promyelocytes % (Man) 0 Blast Cells % (Manual) 0 Nucleated RBC % 0 Metamyelocytes 1 D Hypochromia 0 Platelet Estimate Decreased Polychromasia 0 Poikilocytosis 0 Anisocytosis 1+ Microcytosis 1+ Macrocytosis 0 Sodium 143 Potassium 3.7 Chloride 109 H Carbon Dioxide 27 Anion Gap 7 L BUN 14 Creatinine 0.8 Creat Clearance w eGFR > 60 Random Glucose 97 Calcium 8.2 L Total Bilirubin 0.5 AST 26 ALT 19 D Alkaline Phosphatase 92 Total Protein 5.1 L Albumin 2.6 L Current Medications Generic Name Dose Route Start Last Admin Trade Name Freq PRN Reason Stop Dose Admin Acetaminophen 650 mg 01/26/18 19:19 01/27/18 14:03 Tylenol - PO 650 mg Q4H PRN Administration FEVER Carbidopa/Levodopa 1.5 each 01/26/18 22:00 01/27/18 14:02 Sinemet 25/250 - PO 1.5 each QID [facility]STAL Administration Clonazepam 0.125 mg 01/26/18 19:19 Klonopin - PO BID PRN ANXIETY Entacapone 200 mg 01/26/18 22:00 01/27/18 14:03 Comtan - PO 200 mg QID [facility]STAL Administration Meropenem 1 gm/ Sodium 100 mls @ 200 mls/hr 01/27/18 02:00 01/27/18 10:58 Chloride IVPB 200 mls/hr Q8H-IV C[facility]STAL Administration Lactobacillus Acidophilus 1 tab 01/26/18 22:00 01/27/18 14:02 Bacid - PO 1 tab TID C[facility]STAL Administration Magnesium Hydroxide 30 ml 01/27/18 10:00 01/27/18 10:56 Milk Of Magnesia - PO 30 ml DAILY C[facility]STAL Administration Meclizine HCl 25 mg 01/27/18 10:00 01/27/18 10:55 Antivert - PO 25 mg DAILY [facility]STAL Administration Padimate O 1 applic 01/26/18 15:38 01/27/18 12:12 Chapstick - TP 1 applic PRN PRN Administration ORAL PAIN/MOUTH SORES Ropinirole HCl 1 mg 01/26/18 21:00 01/27/18 12:56 Requip - PO 1 mg 0900,1300,1700,2100 [facility]AL Administration Tamsulosin HCl 0.8 mg 01/27/18 08:30 01/27/18 09:11 Flomax - PO 0.8 mg DAILY@0830 [facility]AL Administration ASSESSMENT AND PLAN: 1. Acute kidney injury secondary to obstructive uropathy/urinary retention from prostate cancer and urethral stricture - s/p suprapubic catheter placement - Bladder US shows echogenic material, likely clots, but neoplasm not excluded - Hematuria persists - Creatinine improved - Hold aspirin - Continue to hold Cozaar, HCTZ - Continue Flomax - Plan for cystoscopy 2. Severe sepsis secondary to Enterobacter bacteremia - Blood cultures 01/25 negative - Continue Merrem 3. Acute metabolic encephalopathy secondary to sepsis ad hypoxia - Improving 4. Acute hypoxic respiratory failure - Resolved 5. Demand ischemia 6. Acute blood loss anemia secondary to hematuria - Hemoglobin stable - Hold aspirin 7. Parkinson disease - Continue Requip, Comtan, Sinemet 8. HTN - Cozaar, HCTZ held secondary to ROBERT 9. Hyperlipidemia 10. Thrombocytopenia - Improving - Hold aspirin
[2018-01-28] MEDS ORDERED: PT OWN MED DRAWER 7, Y5N ONE ×6 (00:55→21:07)
[2018-01-28] MEDS: MEROPENEM 1 GM in SODIUM CHLORIDE 100 ML IVPB SCH ×3 (01:54→19:04)
[2018-01-28] MEDS: LACTOBACILLUS ACIDOPHILUS 1 TABLET PO SCH ×3 (06:28→22:02)
[2018-01-28 07:24] LABS: BASO % 0.2 % (0-2.0); EOS % 4.4 % (0-4.5); HEMATOCRIT 22.1 % (35.4-49); HEMOGLOBIN 7.9 GM/dL (11.7-16.9); LYMPH % 24.2 % (8-40); MCH 33.2 pg (25.7-33.7); MCHC 35.8 g/dl (32.0-35.9); MEAN CELL VOLUME 92.7 fl (80-96); MEAN PLT VOLUME 8.9 fl (7.5-11.1); MONO % 16.8 % (3.8-10.2); NEUT % 54.4 % (42.8-82.8); PLATELET COUNT 106 K/MM3 (134-434); RBC 2.39 M/mm3 (4.00-5.60); RDW 13.5 % (11.9-15.9); WHITE BLOOD COUNT 7.2 K/mm3 (4.0-10.0)
[2018-01-28 07:30] LABS: ANION GAP 4 (8-16); BLOOD UREA NITROGEN 13 mg/dL (7-18); CALCIUM 8.1 mg/dL (8.5-10.1); CHLORIDE 107 mmol/L (98-107); CO2 30 mmol/L (21-32); CREATININE 0.8 mg/dL (0.7-1.3); GLUCOSE,RANDOM 99 mg/dL (74-106); POTASSIUM 3.5 mmol/L (3.5-5.1); SODIUM 141 mmol/L (136-145)
[2018-01-28] MEDS: TAMSULOSIN HCL 0.4 MG CAP.ER.24H (FP) PO SCH (08:22)
[2018-01-28] MEDS: rOPINIRole HCL 1 MG TABLET (FP) PO SCH ×4 (08:23→22:01)
--- NOTE | 2018-01-28 10:40 | PN ---
Physical Exam: SUBJECTIVE: Patient seen and examined. easily arousable. denies chest pain, fevers, shortness of breath. discussed plan for cystoscopy and being NPO at midnight, pt in agreement. aware of prbc transfusion today. OBJECTIVE: Vital Signs Period Temp Pulse Resp BP Sys/Howard Pulse Ox Last 24 Hr 97.5 F-99.2 F 76-94 18-22 106-132/54-65 98-98 GENERAL: The patient is alert with stimulation, in no acute distress. EYES: right eye with deformity, left pupil reactive to light, extraocular movements intact, sclera anicteric, conjunctiva clear. No ptosis. OROPHARNYX: moist mucous membranes LUNGS: Breath sounds equal, clear to auscultation bilaterally, no wheezes, no crackles HEART: Regular rate and rhythm, S1, S2 without murmur, rub or gallop. ABDOMEN: Soft, nontender, +distended in lower abdomen, normoactive bowel sounds , no guarding, left lateral abdomen with healing vesicle covered with gauze - no erythema or discharge. EXTREMITIES: 2+ radial and dp pulses, warm, well-perfused, teds in place NEUROLOGICAL: Normal speech, gait not observed. SKIN: Warm, dry, normal turgor, b/l medial thighs with erythema, right inner thigh with small serous fluid filled vesicles intact. erythema on left thigh diminished today. (error in yesterday's note, fluid filled vesicle is on right not on left) Suprapupic catheter in place with dark red drainage. Laboratory Results - last 24 hr 01/25/18 01/27/18 01/28/18 05:30 06:10 06:30 WBC 7.2 RBC 2.39 L Hgb 7.9 L Hct 22.1 L MCV 92.7 MCH 33.2 MCHC 35.8 RDW 13.5 Plt Count 106 L MPV 8.9 Absolute Neuts (auto) 3.9 Neutrophils % 54.4 Neutrophils % (Manual) 66.3 Band Neutrophils % 1.0 Lymphocytes % 24.2 D Lymphocytes % (Manual) 14.9 D Monocytes % 16.8 H Monocytes % (Manual) 9 Eosinophils % 4.4 Eosinophils % (Manual) 5.9 H D Basophils % 0.2 Basophils % (Manual) 1.0 D Myelocytes % (Man) 1 D Promyelocytes % (Man) 0 Blast Cells % (Manual) 0 Nucleated RBC % 0 0 Metamyelocytes 1 D Hypochromia 0 Platelet Estimate Decreased Polychromasia 0 Poikilocytosis 0 Anisocytosis 1+ Microcytosis 1+ Macrocytosis 0 Sodium Potassium Chloride Carbon Dioxide Anion Gap BUN Creatinine Creat Clearance w eGFR Random Glucose Calcium Blood Type O POSITIVE Antibody Screen Negative Crossmatch See Detail 01/28/18 06:30 WBC RBC Hgb Hct MCV MCH MCHC RDW Plt Count MPV Absolute Neuts (auto) Neutrophils % Neutrophils % (Manual) Band Neutrophils % Lymphocytes % Lymphocytes % (Manual) Monocytes % Monocytes % (Manual) Eosinophils % Eosinophils % (Manual) Basophils % Basophils % (Manual) Myelocytes % (Man) Promyelocytes % (Man) Blast Cells % (Manual) Nucleated RBC % Metamyelocytes Hypochromia Platelet Estimate Polychromasia Poikilocytosis Anisocytosis Microcytosis Macrocytosis Sodium 141 Potassium 3.5 Chloride 107 Carbon Dioxide 30 Anion Gap 4 L BUN 13 Creatinine 0.8 Creat Clearance w eGFR > 60 Random Glucose 99 Calcium 8.1 L Blood Type Antibody Screen Crossmatch Active Medications Generic Name Dose Route Start Last Admin Trade Name Freq PRN Reason Stop Dose Admin Acetaminophen 650 mg 01/26/18 19:19 01/27/18 14:03 Tylenol - PO 650 mg Q4H PRN Administration FEVER Carbidopa/Levodopa 1.5 each 01/26/18 22:00 01/27/18 22:15 Sinemet 25/250 - PO 1.5 each QID [facility] Administration Clonazepam 0.125 mg 01/26/18 19:19 Klonopin - PO BID PRN ANXIETY Entacapone 200 mg 01/26/18 22:00 01/27/18 22:15 Comtan - PO 200 mg QID [facility]STAL Administration Meropenem 1 gm/ Sodium 100 mls @ 200 mls/hr 01/27/18 02:00 01/28/18 01:54 Chloride IVPB 200 mls/hr Q8H-IV C[facility]STAL Administration Lactobacillus Acidophilus 1 tab 01/26/18 22:00 01/28/18 06:28 Bacid - PO 1 tab TID C[facility]STAL Administration Magnesium Hydroxide 30 ml 01/27/18 10:00 01/27/18 10:56 Milk Of Magnesia - PO 30 ml DAILY [facility]AL Administration Meclizine HCl 25 mg 01/27/18 10:00 01/27/18 10:55 Antivert - PO 25 mg DAILY [facility]STAL Administration Padimate O 1 applic 01/26/18 15:38 01/27/18 22:14 Chapstick - TP 1 applic PRN PRN Administration ORAL PAIN/MOUTH SORES Potassium Phos/Sodium Phos 1 packet 01/28/18 10:00 Phos-Nak Packet - PO DAILY [facility] Ropinirole HCl 1 mg 01/26/18 21:00 01/28/18 08:23 Requip - PO 1 mg 0900,1300,1700,2100 C[facility]STAL Administration Tamsulosin HCl 0.8 mg 01/27/18 08:30 01/28/18 08:22 Flomax - PO 0.8 mg DAILY@0830 C[facility]STAL Administration ASSESSMENT/PLAN: 82 year old male, from [facility], with prostate cancer, HTN, HLD, peripheral neuropathy and parkinson's disease, bibems for hematuria, dysuria, fever and hypoxia found to have sepsis due to UTI/gram negative bactermia. Was treated in the ICU from 01/23-01/26. Now transferred to med-surg floor for further management. Lethargy likely due to acute infectious process, will pursue further neurological w.u if mentation declines acutely, mentation improved today. #Urethral stricture - discussed with urology, Dr. Owen, pt will undergo cystoscopy study with optical urethrotomy possible TUVP tomorrow. - NPO at midnight, not on ac - ASA held, 1 unit prbc's given for low h/h today, repeat labs in the morning. #Sepsis due to UTI/gram neg bactermia- improving - suprapubic catheter placed on 01/23 - continue q12h bladder irrigation - Merropenem 1gm IVPB q8hr - started 01/23, today is day 6 - continue tylenol 650mg po q4h prn for fever - ID consult: Dr. Gutierrez #hyphosphotemia - replete with nutraphos packets po daily #ROBERT likely due to urinary retention/BPH - improved - Cr trending down with placement of kern - continue flomax 0.8mg po daily - held hyzaar due to ROBERT, BP currently well controlled, will continue to hold while renal recovery - stop ASA due to possible plan for cystoscopy/thrombocytopenia #Hematuria - transfuse as needed - continue bladder irrigation, monitor for clots - unclear if pt has a bladder mass contributing, will need a cystoscopy once stable - urology consult: dr. Arechiga #Parkinsons - continue home medications: sinemet 1.5QID and entacapone 200QID po daily, requip 1mg po QID #Anxiety - continue home medication: Klonopin 0.125mg po bid, DVT prophylaxis with TEDs, no medical ac due to hematuria #diet: Na controlled as tolerated #physical therapy once pt is stable for mobility Visit type - Emergency Visit Emergency Visit: No - New Patient This patient is new to me today: No - Critical Care Critical Care patient: No
[2018-01-28 11:05] LABS: ANISOCYTOSIS 1+; PLATELET ESTIMATE DECREASED
[2018-01-28 11:27] LABS: MACROCYTOSIS 1+
[2018-01-28] MEDS: CARBIDOPA/LEVODOPA 25/250 TABLET (FP) PO SCH ×4 (11:35→22:01)
[2018-01-28] MEDS: MECLIZINE HCL 25 MG TABLET (FP) PO SCH (11:35)
[2018-01-28] MEDS: ENTACAPONE 200 MG TABLET PO SCH ×4 (11:36→22:01)
[2018-01-28] MEDS: MAGNESIUM HYDROX 2400MG/30ML ORAL SUSPENSION 30 ML CUP PO SCH (11:36)
[2018-01-28] MEDS: NAPH,MB-DB/K PH,MBDB POWDER PACKET PO SCH (11:37)
--- NOTE | 2018-01-28 15:27 | PN ---
Teaching Attending Note Name of Resident: Lynn Rai ATTENDING PHYSICIAN STATEMENT I saw and evaluated the patient. I reviewed the resident's note and discussed the case with the resident. I agree with the resident's findings and plan as documented. SUBJECTIVE: Patient is more alert today. He has no complaints. OBJECTIVE: Vital Signs Period Temp Pulse Resp BP Sys/Howard Pulse Ox Last 24 Hr 97.5 F-98.4 F 76-89 18-18 106-132/54-61 98 HEART: S1S2, RRR LUNGS: Clear ABDOMEN: Obese, soft, non-tender, non-distended, normal BS EXTREMITIES: No edema Laboratory Results - last 24 hr 01/25/18 01/28/18 01/28/18 05:30 06:30 06:30 WBC 7.2 RBC 2.39 L Hgb 7.9 L Hct 22.1 L MCV 92.7 MCH 33.2 MCHC 35.8 RDW 13.5 Plt Count 106 L MPV 8.9 Absolute Neuts (auto) 3.9 Neutrophils % 54.4 Neutrophils % (Manual) 52.5 D Band Neutrophils % 2.0 Lymphocytes % 24.2 D Lymphocytes % (Manual) 29.3 D Monocytes % 16.8 H Monocytes % (Manual) 6 Eosinophils % 4.4 Eosinophils % (Manual) 6.1 H Basophils % 0.2 Basophils % (Manual) 0.0 Myelocytes % (Man) 3 H D Promyelocytes % (Man) 0 Blast Cells % (Manual) 0 Nucleated RBC % 0 Metamyelocytes 1 Hypochromia 0 Platelet Estimate Decreased Polychromasia 0 Poikilocytosis 0 Anisocytosis 1+ Microcytosis 1+ Macrocytosis 1+ Sodium 141 Potassium 3.5 Chloride 107 Carbon Dioxide 30 Anion Gap 4 L BUN 13 Creatinine 0.8 Creat Clearance w eGFR > 60 Random Glucose 99 Calcium 8.1 L Blood Type O POSITIVE Antibody Screen Negative Crossmatch See Detail 01/28/18 11:15 WBC RBC Hgb Hct MCV MCH MCHC RDW Plt Count MPV Absolute Neuts (auto) Neutrophils % Neutrophils % (Manual) Band Neutrophils % Lymphocytes % Lymphocytes % (Manual) Monocytes % Monocytes % (Manual) Eosinophils % Eosinophils % (Manual) Basophils % Basophils % (Manual) Myelocytes % (Man) Promyelocytes % (Man) Blast Cells % (Manual) Nucleated RBC % Metamyelocytes Hypochromia Platelet Estimate Polychromasia Poikilocytosis Anisocytosis Microcytosis Macrocytosis Sodium Potassium Chloride Carbon Dioxide Anion Gap BUN Creatinine Creat Clearance w eGFR Random Glucose Calcium Blood Type O POSITIVE Antibody Screen Negative Crossmatch See Detail Current Medications Generic Name Dose Route Start Last Admin Trade Name Freq PRN Reason Stop Dose Admin Acetaminophen 650 mg 01/26/18 19:19 01/27/18 14:03 Tylenol - PO 650 mg Q4H PRN Administration FEVER Carbidopa/Levodopa 1.5 each 01/26/18 22:00 01/28/18 11:35 Sinemet 25/250 - PO 1.5 each QID [facility]STAL Administration Clonazepam 0.125 mg 01/26/18 19:19 Klonopin - PO BID PRN ANXIETY Entacapone 200 mg 01/26/18 22:00 01/28/18 11:36 Comtan - PO 200 mg QID CRISTAL Administration Meropenem 1 gm/ Sodium 100 mls @ 200 mls/hr 01/27/18 02:00 01/28/18 11:37 Chloride IVPB 200 mls/hr Q8H-IV C[facility]STAL Administration Lactobacillus Acidophilus 1 tab 01/26/18 22:00 01/28/18 06:28 Bacid - PO 1 tab TID CRISTAL Administration Magnesium Hydroxide 30 ml 01/27/18 10:00 01/28/18 11:36 Milk Of Magnesia - PO 30 ml DAILY CRISTAL Administration Meclizine HCl 25 mg 01/27/18 10:00 01/28/18 11:35 Antivert - PO 25 mg DAILY CRISTAL Administration Padimate O 1 applic 01/26/18 15:38 01/27/18 22:14 Chapstick - TP 1 applic PRN PRN Administration ORAL PAIN/MOUTH SORES Potassium Phos/Sodium Phos 1 packet 01/28/18 10:00 01/28/18 11:37 Phos-Nak Packet - PO 1 packet DAILY CRISTAL Administration Ropinirole HCl 1 mg 01/26/18 21:00 01/28/18 08:23 Requip - PO 1 mg 0900,1300,1700,2100 CRISTAL Administration Tamsulosin HCl 0.8 mg 01/27/18 08:30 01/28/18 08:22 Flomax - PO 0.8 mg DAILY@0830 CRISTAL Administration ASSESSMENT AND PLAN: 1. Acute kidney injury secondary to obstructive uropathy/urinary retention from prostate cancer and urethral stricture - s/p suprapubic catheter placement 01/23 - Bladder US shows echogenic material, likely clots, but neoplasm not excluded - Hematuria persists - Creatinine improved - Continue to hold aspirin - Continue to hold Cozaar, HCTZ - Continue Flomax - Plan for cystoscopy tomorrow 2. Severe sepsis secondary to Enterobacter bacteremia - Blood cultures 01/25 negative - Continue Merrem 3. Acute metabolic encephalopathy secondary to sepsis ad hypoxia - Improving 4. Acute hypoxic respiratory failure - Resolved 5. Demand ischemia 6. Acute blood loss anemia secondary to hematuria - Continue to hold aspirin - Hemoglobin 7.9 today - will transfuse 1 unit PRBCs prior to cystoscopy tomorrow 7. Parkinson disease - Continue Requip, Comtan, Sinemet 8. HTN - Cozaar, HCTZ held secondary to ROBERT 9. Hyperlipidemia 10. Thrombocytopenia - Improving - Continue to hold aspirin 11. Obesity with BMI 34.1
--- NOTE | 2018-01-28 15:41 | PN ---
Progress Note, Physician History of Present Illness: patient stable no new issues catheter clearing up urine patient awake and alert - Current Medication List Current Medications: Active Medications Acetaminophen (Tylenol -) 650 mg PO Q4H PRN PRN Reason: FEVER Last Admin: 01/27/18 14:03 Dose: 650 mg Carbidopa/Levodopa (Sinemet 25/250 -) 1.5 each PO QID [facility] Last Admin: 01/28/18 11:35 Dose: 1.5 each Clonazepam (Klonopin -) 0.125 mg PO BID PRN PRN Reason: ANXIETY Entacapone (Comtan -) 200 mg PO QID [facility] Last Admin: 01/28/18 11:36 Dose: 200 mg Meropenem 1 gm/ Sodium (Chloride) 100 mls @ 200 mls/hr IVPB Q8H-IV [facility] Last Admin: 01/28/18 11:37 Dose: 200 mls/hr Lactobacillus Acidophilus (Bacid -) 1 tab PO TID [facility] Last Admin: 01/28/18 06:28 Dose: 1 tab Magnesium Hydroxide (Milk Of Magnesia -) 30 ml PO DAILY [facility] Last Admin: 01/28/18 11:36 Dose: 30 ml Meclizine HCl (Antivert -) 25 mg PO DAILY [facility] Last Admin: 01/28/18 11:35 Dose: 25 mg Padimate O (Chapstick -) 1 applic TP PRN PRN PRN Reason: ORAL PAIN/MOUTH SORES Last Admin: 01/27/18 22:14 Dose: 1 applic Potassium Phos/Sodium Phos (Phos-Nak Packet -) 1 packet PO DAILY [facility] Last Admin: 01/28/18 11:37 Dose: 1 packet Ropinirole HCl (Requip -) 1 mg PO 0900,1300,1700,2100 [facility] Last Admin: 01/28/18 08:23 Dose: 1 mg Tamsulosin HCl (Flomax -) 0.8 mg PO DAILY@0830 [facility] Last Admin: 01/28/18 08:22 Dose: 0.8 mg - Objective Vital Signs: Vital Signs Temperature 98.4 F 01/28/18 06:00 Pulse Rate 85 01/28/18 06:00 Respiratory Rate 18 01/28/18 06:00 Blood Pressure 118/61 01/28/18 06:00 O2 Sat by Pulse Oximetry (%) 98 01/27/18 21:00 Constitutional: Yes: No Distress, Calm Cardiovascular: Yes: Regular Rate and Rhythm Respiratory: Yes: Regular, CTA Bilaterally Gastrointestinal: Yes: Normal Bowel Sounds, Soft Musculoskeletal: Yes: WNL Extremities: Yes: WNL Neurological: Yes: Alert Psychiatric: Yes: Alert Labs: CBC, BMP 01/28/18 06:30 01/28/18 06:30 INR, PTT INR 1.21 (0.82-1.09) H 01/22/18 22:46 Assessment/Plan Problem List - Problems (1) ROBERT (acute kidney injury) Code(s): N17.9 - ACUTE KIDNEY FAILURE, UNSPECIFIED (2) Demand ischemia Code(s): I24.8 - OTHER FORMS OF ACUTE ISCHEMIC HEART DISEASE (3) Severe sepsis Code(s): A41.9 - SEPSIS, UNSPECIFIED ORGANISM; R65.20 - SEVERE SEPSIS WITHOUT SEPTIC SHOCK (4) UTI (urinary tract infection) Code(s): N39.0 - URINARY TRACT INFECTION, SITE NOT SPECIFIED Qualifiers: Urinary tract infection type: acute cystitis Hematuria presence: with hematuria Qualified Code(s): N30.01 - Acute cystitis with hematuria (5) Urinary retention Code(s): R33.9 - RETENTION OF URINE, UNSPECIFIED (6) Hypertension Code(s): I10 - ESSENTIAL (PRIMARY) HYPERTENSION Qualifiers: Hypertension type: essential hypertension Qualified Code(s): I10 - Essential (primary) hypertension (7) Parkinson disease Code(s): G20 - PARKINSON'S DISEASE (8) Prostate cancer Code(s): C61 - MALIGNANT NEOPLASM OF PROSTATE Assessment/Plan 82 y.o. male with PMH of Prostate CA, hematuria, Parkinsons Disease, HTN presenting with altered mental status, dysuria, oliguria, worsening renal function, fever, tachycardia, hypoxia, elevated wbc and lactic acid level Sepsis Gram negative Bacteremia Prostate CA with stricture s/p suprapubic catheter placement Altered mental status Hematuria Leukocytosis Fever ROBERT - improving continue abx await for repeat blood cx report monitor wbc monitor h and h
--- NOTE | 2018-01-28 15:43 | PN ---
Progress Note, Physician History of Present Illness: stable no new issues patient improving wbc has normalized - Current Medication List Current Medications: Active Medications Acetaminophen (Tylenol -) 650 mg PO Q4H PRN PRN Reason: FEVER Last Admin: 01/27/18 14:03 Dose: 650 mg Carbidopa/Levodopa (Sinemet 25/250 -) 1.5 each PO QID [facility] Last Admin: 01/28/18 11:35 Dose: 1.5 each Clonazepam (Klonopin -) 0.125 mg PO BID PRN PRN Reason: ANXIETY Entacapone (Comtan -) 200 mg PO QID [facility] Last Admin: 01/28/18 11:36 Dose: 200 mg Meropenem 1 gm/ Sodium (Chloride) 100 mls @ 200 mls/hr IVPB Q8H-IV [facility] Last Admin: 01/28/18 11:37 Dose: 200 mls/hr Lactobacillus Acidophilus (Bacid -) 1 tab PO TID [facility] Last Admin: 01/28/18 06:28 Dose: 1 tab Magnesium Hydroxide (Milk Of Magnesia -) 30 ml PO DAILY [facility] Last Admin: 01/28/18 11:36 Dose: 30 ml Meclizine HCl (Antivert -) 25 mg PO DAILY [facility] Last Admin: 01/28/18 11:35 Dose: 25 mg Padimate O (Chapstick -) 1 applic TP PRN PRN PRN Reason: ORAL PAIN/MOUTH SORES Last Admin: 01/27/18 22:14 Dose: 1 applic Potassium Phos/Sodium Phos (Phos-Nak Packet -) 1 packet PO DAILY [facility] Last Admin: 01/28/18 11:37 Dose: 1 packet Ropinirole HCl (Requip -) 1 mg PO 0900,1300,1700,2100 [facility] Last Admin: 01/28/18 08:23 Dose: 1 mg Tamsulosin HCl (Flomax -) 0.8 mg PO DAILY@0830 [facility] Last Admin: 01/28/18 08:22 Dose: 0.8 mg - Objective Vital Signs: Vital Signs Temperature 98.7 F 01/28/18 14:37 Pulse Rate 96 H 01/28/18 14:37 Respiratory Rate 22 01/28/18 14:37 Blood Pressure 136/58 01/28/18 14:37 O2 Sat by Pulse Oximetry (%) 98 01/27/18 21:00 Constitutional: Yes: No Distress, Calm Cardiovascular: Yes: S1, S2 Respiratory: Yes: Regular, CTA Bilaterally Gastrointestinal: Yes: Normal Bowel Sounds, Soft Genitourinary: Yes: Other (suprapubic in place urine clearing up) Musculoskeletal: Yes: WNL Extremities: Yes: WNL Neurological: Yes: Alert Labs: CBC, BMP 01/28/18 06:30 01/28/18 06:30 INR, PTT INR 1.21 (0.82-1.09) H 01/22/18 22:46 Assessment/Plan Problem List - Problems (1) ROBERT (acute kidney injury) Code(s): N17.9 - ACUTE KIDNEY FAILURE, UNSPECIFIED (2) Demand ischemia Code(s): I24.8 - OTHER FORMS OF ACUTE ISCHEMIC HEART DISEASE (3) Severe sepsis Code(s): A41.9 - SEPSIS, UNSPECIFIED ORGANISM; R65.20 - SEVERE SEPSIS WITHOUT SEPTIC SHOCK (4) UTI (urinary tract infection) Code(s): N39.0 - URINARY TRACT INFECTION, SITE NOT SPECIFIED Qualifiers: Urinary tract infection type: acute cystitis Hematuria presence: with hematuria Qualified Code(s): N30.01 - Acute cystitis with hematuria (5) Urinary retention Code(s): R33.9 - RETENTION OF URINE, UNSPECIFIED (6) Hypertension Code(s): I10 - ESSENTIAL (PRIMARY) HYPERTENSION Qualifiers: Hypertension type: essential hypertension Qualified Code(s): I10 - Essential (primary) hypertension (7) Parkinson disease Code(s): G20 - PARKINSON'S DISEASE (8) Prostate cancer Code(s): C61 - MALIGNANT NEOPLASM OF PROSTATE Assessment/Plan 82 y.o. male with PMH of Prostate CA, hematuria, Parkinsons Disease, HTN presenting with altered mental status, dysuria, oliguria, worsening renal function, fever, tachycardia, hypoxia, elevated wbc and lactic acid level Sepsis Gram negative Bacteremia Prostate CA with stricture s/p suprapubic catheter placement Altered mental status Hematuria Leukocytosis Fever ROBERT - improving continue abx repeat blood cx negative monitor wbc monitor h and h
[2018-01-28 16:02] VITALS: BMI 34.0
--- NOTE | 2018-01-28 17:45 | PN ---
Progress Note (short form) - Note Progress Note: UROLOGY NOTE 82 Y/O Male patient with history of Prostate cancer, HT, Hyperlipedemia and parkinson disease, developed AUR and sepsis, on SPC. Plan: NPO after midnight for tomorrow Cystoscopy and optical urethrotomy possible TUVP.
[2018-01-29] MEDS: LIP BALM (CHAPSTICK) TP PRN (01:57)
[2018-01-29] MEDS: MEROPENEM 1 GM in SODIUM CHLORIDE 100 ML IVPB SCH ×4 (02:00→19:06)
[2018-01-29] MEDS: LACTOBACILLUS ACIDOPHILUS 1 TABLET PO SCH ×3 (05:57→21:10)
[2018-01-29 07:59] LABS: BASO % 0.6 % (0-2.0); EOS % 4.2 % (0-4.5); HEMATOCRIT 28.4 % (35.4-49); HEMOGLOBIN 9.9 GM/dL (11.7-16.9); LYMPH % 27.2 % (8-40); MCH 31.6 pg (25.7-33.7); MCHC 34.9 g/dl (32.0-35.9); MEAN CELL VOLUME 90.5 fl (80-96); MEAN PLT VOLUME 9.5 fl (7.5-11.1); MONO % 12.8 % (3.8-10.2); NEUT % 55.2 % (42.8-82.8); PLATELET COUNT 125 K/MM3 (134-434); RBC 3.13 M/mm3 (4.00-5.60); RDW 14.6 % (11.9-15.9); WHITE BLOOD COUNT 6.8 K/mm3 (4.0-10.0)
[2018-01-29 08:07] LABS: ANION GAP 6 (8-16); BLOOD UREA NITROGEN 12 mg/dL (7-18); CALCIUM 8.3 mg/dL (8.5-10.1); CHLORIDE 109 mmol/L (98-107); CO2 29 mmol/L (21-32); CREATININE 0.8 mg/dL (0.7-1.3); GLUCOSE,RANDOM 96 mg/dL (74-106); MAGNESIUM 2.1 mg/dL (1.8-2.4); PHOSPHOROUS 2.6 mg/dL (2.5-4.9); SODIUM 144 mmol/L (136-145)
[2018-01-29 08:24] LABS: INR 1.01 (0.82-1.09); PROTHROMBIN TIME (PATIENT) 11.4 SEC (9.7-13.0)
[2018-01-29 08:48] LABS: ACTIVATED PTT 18.6 SECONDS (25.2-36.5)
--- NOTE | 2018-01-29 08:53 | PN ---
Physical Exam: SUBJECTIVE: Patient seen and examined c.o lower abdominal pain, feels like gas and like he needs to have a bowel movement denies fevers, shortness of breath attempted to wean off supplemental oxygen, when on room air desaturated down, placed back on 1L nasal cannula to maintain >88% OBJECTIVE: Vital Signs Period Temp Pulse Resp BP Sys/Howard Pulse Ox Last 24 Hr 98.2 F-98.9 F 75-96 17-72 111-138/57-80 88-98 GENERAL: The patient is alert with stimulation, in no acute distress. EYES: right eye with deformity, left pupil reactive to light, extraocular movements intact OROPHARNYX: moist mucous membranes LUNGS: Breath sounds equal, clear to auscultation bilaterally, no wheezes, no crackles HEART: Regular rate and rhythm, S1, S2 without murmur, rub or gallop. ABDOMEN: Soft, nontender, +distended in lower abdomen, normoactive bowel sounds , no guarding, left lateral abdomen with healing vesicle covered with gauze - no erythema or discharge. EXTREMITIES: 2+ radial and dp pulses, warm, well-perfused, teds in place NEUROLOGICAL: Normal speech, gait not observed. SKIN: Warm, dry, normal turgor, b/l medial thighs with erythema, right inner thigh with small serous fluid filled vesicles intact. erythema on left thigh improved Suprapupic catheter in place with dark red drainage. catheter insertion site is clean, dry and intact. clots coming from penis Laboratory Results - last 24 hr 01/25/18 01/28/18 01/28/18 05:30 06:30 11:15 WBC RBC Hgb Hct MCV MCH MCHC RDW Plt Count MPV Absolute Neuts (auto) Neutrophils % Neutrophils % (Manual) 52.5 D Band Neutrophils % 2.0 Lymphocytes % Lymphocytes % (Manual) 29.3 D Monocytes % Monocytes % (Manual) 6 Eosinophils % Eosinophils % (Manual) 6.1 H Basophils % Basophils % (Manual) 0.0 Myelocytes % (Man) 3 H D Promyelocytes % (Man) 0 Blast Cells % (Manual) 0 Nucleated RBC % Metamyelocytes 1 Hypochromia 0 Platelet Estimate Decreased Polychromasia 0 Poikilocytosis 0 Anisocytosis 1+ Microcytosis 1+ Macrocytosis 1+ PT with INR INR Sodium Potassium Chloride Carbon Dioxide Anion Gap BUN Creatinine Creat Clearance w eGFR Random Glucose Calcium Phosphorus Magnesium Blood Type O POSITIVE O POSITIVE Antibody Screen Negative Negative Crossmatch See Detail See Detail 01/29/18 01/29/18 01/29/18 07:35 07:35 07:35 WBC 6.8 RBC 3.13 L Hgb 9.9 L Hct 28.4 L D MCV 90.5 MCH 31.6 MCHC 34.9 RDW 14.6 Plt Count 125 L MPV 9.5 Absolute Neuts (auto) 3.8 Neutrophils % 55.2 Neutrophils % (Manual) Band Neutrophils % Lymphocytes % 27.2 Lymphocytes % (Manual) Monocytes % 12.8 H Monocytes % (Manual) Eosinophils % 4.2 Eosinophils % (Manual) Basophils % 0.6 Basophils % (Manual) Myelocytes % (Man) Promyelocytes % (Man) Blast Cells % (Manual) Nucleated RBC % 0 Metamyelocytes Hypochromia Platelet Estimate Polychromasia Poikilocytosis Anisocytosis Microcytosis Macrocytosis PT with INR 11.40 INR 1.01 Sodium 144 Potassium 4.0 Chloride 109 H Carbon Dioxide 29 Anion Gap 6 L BUN 12 Creatinine 0.8 Creat Clearance w eGFR > 60 Random Glucose 96 Calcium 8.3 L Phosphorus 2.6 D Magnesium 2.1 Blood Type Antibody Screen Crossmatch Active Medications Generic Name Dose Route Start Last Admin Trade Name Roccoq PRN Reason Stop Dose Admin Acetaminophen 650 mg 01/26/18 19:19 01/27/18 14:03 Tylenol - PO 650 mg Q4H PRN Administration FEVER Carbidopa/Levodopa 1.5 each 01/26/18 22:00 01/28/18 22:01 Sinemet 25/250 - PO 1.5 each QID [facility] Administration Clonazepam 0.125 mg 01/26/18 19:19 Klonopin - PO BID PRN ANXIETY Entacapone 200 mg 01/26/18 22:00 01/28/18 22:01 Comtan - PO 200 mg QID [facility] Administration Meropenem 1 gm/ Sodium 100 mls @ 200 mls/hr 01/27/18 02:00 01/29/18 02:00 Chloride IVPB 200 mls/hr Q8H-IV [facility] Administration Lactobacillus Acidophilus 1 tab 01/26/18 22:00 01/29/18 05:57 Bacid - PO 1 tab TID [facility] Administration Magnesium Hydroxide 30 ml 01/27/18 10:00 01/28/18 11:36 Milk Of Magnesia - PO 30 ml DAILY [facility] Administration Meclizine HCl 25 mg 01/27/18 10:00 01/28/18 11:35 Antivert - PO 25 mg DAILY [facility] Administration Padimate O 1 applic 01/26/18 15:38 01/29/18 01:57 Chapstick - TP 1 applic PRN PRN Administration ORAL PAIN/MOUTH SORES Potassium Phos/Sodium Phos 1 packet 01/28/18 10:00 01/28/18 11:37 Phos-Nak Packet - PO 1 packet DAILY [facility] Administration Ropinirole HCl 1 mg 01/26/18 21:00 01/28/18 22:01 Requip - PO 1 mg 0900,1300,1700,2100 [facility] Administration Tamsulosin HCl 0.8 mg 01/27/18 08:30 01/28/18 08:22 Flomax - PO 0.8 mg DAILY@0830 [facility] Administration ASSESSMENT/PLAN: 82 year old male, from [facility], with prostate cancer, HTN, HLD, peripheral neuropathy and parkinson's disease, bibems for hematuria, dysuria, fever and hypoxia found to have sepsis due to UTI/gram negative bactermia. Was treated in the ICU from 01/23-01/26. Now transferred to med-surg floor for further management. Lethargy likely due to acute infectious process, will pursue further neurological w.u if mentation declines acutely, mentation stable today. #Urethral stricture - to undergo cystoscopy study with optical urethrotomy possible TUVP today. - labs stable #Sepsis due to UTI/gram neg bactermia- improving - suprapubic catheter placed on 01/23 - continue q12h bladder irrigation - Merropenem 1gm IVPB q8hr - started 01/23, today is day 7 - continue tylenol 650mg po q4h prn for fever - ID consult: Dr. Gutierrez #hyphosphotemia - replete with nutraphos packets po daily, phos today wnl, will give few more days of nutraphos packets and then stop #ROBERT likely due to urinary retention/BPH - improved - continue flomax 0.8mg po daily - held hyzaar due to ROBERT, BP currently well controlled, will continue to hold while renal recovery - stop ASA due to possible plan for cystoscopy/thrombocytopenia #Hematuria - transfuse as needed - continue bladder irrigation, monitor for clots - urology consult: dr. Arechiga #Parkinsons - continue home medications: sinemet 1.5QID and entacapone 200QID po daily, requip 1mg po QID #Anxiety - continue home medication: Klonopin 0.125mg po bid, DVT prophylaxis with TEDs, no medical ac due to hematuria #diet: Na controlled as tolerated #physical therapy once pt is stable for mobility Visit type - Emergency Visit Emergency Visit: No - New Patient This patient is new to me today: No - Critical Care Critical Care patient: No
[2018-01-29] MEDS ORDERED: PT OWN MED DRAWER 7, Y5N ONE ×3 (10:24→20:56)
[2018-01-29] MEDS: CARBIDOPA/LEVODOPA 25/250 TABLET (FP) PO SCH ×4 (10:26→21:09)
[2018-01-29] MEDS: MAGNESIUM HYDROX 2400MG/30ML ORAL SUSPENSION 30 ML CUP PO SCH (10:26)
[2018-01-29] MEDS: TAMSULOSIN HCL 0.4 MG CAP.ER.24H (FP) PO SCH (10:26)
[2018-01-29] MEDS: NAPH,MB-DB/K PH,MBDB POWDER PACKET PO SCH (10:27)
[2018-01-29] MEDS: MECLIZINE HCL 25 MG TABLET (FP) PO SCH (10:27)
[2018-01-29] MEDS: ENTACAPONE 200 MG TABLET PO SCH ×4 (10:29→21:10)
[2018-01-29] MEDS: rOPINIRole HCL 1 MG TABLET (FP) PO SCH ×4 (10:30→21:10)
[2018-01-29 10:49] LABS: ACANTHOCYTES 0; ANISOCYTOSIS 0; HELMET CELLS 0; HOWELL-JOLLY BODIES 0; MACROCYTOSIS 0; OVALOCYTE 0; PLATELET ESTIMATE DECREASED; ROULEAU 0; SICKELED CELLS 0; TARGET CELLS 0; TEAR DROP CELLS 0; TOXIC GRANULATION 0
[2018-01-29] MEDS: ACETAMINOPHEN 325 MG TABLET (FP) PO PRN (13:08)
--- NOTE | 2018-01-29 13:17 | PN ---
Progress Note, Physician History of Present Illness: patient looks slightly confused still with suprapubic urine draining clear - Current Medication List Current Medications: Active Medications Acetaminophen (Tylenol -) 650 mg PO Q4H PRN PRN Reason: FEVER Last Admin: 01/29/18 13:08 Dose: 650 mg Carbidopa/Levodopa (Sinemet 25/250 -) 1.5 each PO QID [facility] Last Admin: 01/29/18 13:10 Dose: 1.5 each Clonazepam (Klonopin -) 0.125 mg PO BID PRN PRN Reason: ANXIETY Entacapone (Comtan -) 200 mg PO QID [facility] Last Admin: 01/29/18 13:10 Dose: 200 mg Meropenem 1 gm/ Sodium (Chloride) 100 mls @ 200 mls/hr IVPB Q8H-IV [facility] Last Admin: 01/29/18 10:17 Dose: 200 mls/hr Lactobacillus Acidophilus (Bacid -) 1 tab PO TID [facility] Last Admin: 01/29/18 13:10 Dose: 1 tab Magnesium Hydroxide (Milk Of Magnesia -) 30 ml PO DAILY [facility] Last Admin: 01/29/18 10:26 Dose: 30 ml Meclizine HCl (Antivert -) 25 mg PO DAILY [facility] Last Admin: 01/29/18 10:27 Dose: 25 mg Padimate O (Chapstick -) 1 applic TP PRN PRN PRN Reason: ORAL PAIN/MOUTH SORES Last Admin: 01/29/18 01:57 Dose: 1 applic Potassium Phos/Sodium Phos (Phos-Nak Packet -) 1 packet PO DAILY [facility] Last Admin: 01/29/18 10:27 Dose: 1 packet Ropinirole HCl (Requip -) 1 mg PO 0900,1300,1700,2100 [facility] Last Admin: 01/29/18 13:09 Dose: 1 mg Tamsulosin HCl (Flomax -) 0.8 mg PO DAILY@0830 [facility] Last Admin: 01/29/18 10:26 Dose: 0.8 mg - Objective Vital Signs: Vital Signs Temperature 98.3 F 01/29/18 09:00 Pulse Rate 103 H 01/29/18 09:00 Respiratory Rate 18 01/29/18 09:00 Blood Pressure 139/73 01/29/18 09:00 O2 Sat by Pulse Oximetry (%) 99 01/29/18 10:00 Constitutional: Yes: No Distress, Calm Cardiovascular: Yes: Regular Rate and Rhythm Respiratory: Yes: Regular, CTA Bilaterally Gastrointestinal: Yes: Normal Bowel Sounds, Soft Genitourinary: Yes: Menendez Present (suprapubic) Musculoskeletal: Yes: WNL Extremities: Yes: WNL Neurological: Yes: Alert, Other Psychiatric: Yes: Other Labs: CBC, BMP 01/29/18 07:35 01/29/18 07:35 INR, PTT INR 1.01 (0.82-1.09) 01/29/18 07:35 Assessment/Plan Problem List - Problems (1) ROBERT (acute kidney injury) Code(s): N17.9 - ACUTE KIDNEY FAILURE, UNSPECIFIED (2) Demand ischemia Code(s): I24.8 - OTHER FORMS OF ACUTE ISCHEMIC HEART DISEASE (3) Severe sepsis Code(s): A41.9 - SEPSIS, UNSPECIFIED ORGANISM; R65.20 - SEVERE SEPSIS WITHOUT SEPTIC SHOCK (4) UTI (urinary tract infection) Code(s): N39.0 - URINARY TRACT INFECTION, SITE NOT SPECIFIED Qualifiers: Urinary tract infection type: acute cystitis Hematuria presence: with hematuria Qualified Code(s): N30.01 - Acute cystitis with hematuria (5) Urinary retention Code(s): R33.9 - RETENTION OF URINE, UNSPECIFIED (6) Hypertension Code(s): I10 - ESSENTIAL (PRIMARY) HYPERTENSION Qualifiers: Hypertension type: essential hypertension Qualified Code(s): I10 - Essential (primary) hypertension (7) Parkinson disease Code(s): G20 - PARKINSON'S DISEASE (8) Prostate cancer Code(s): C61 - MALIGNANT NEOPLASM OF PROSTATE Assessment/Plan 82 y.o. male with PMH of Prostate CA, hematuria, Parkinsons Disease, HTN presenting with altered mental status, dysuria, oliguria, worsening renal function, fever, tachycardia, hypoxia, elevated wbc and lactic acid level Sepsis Gram negative Bacteremia Prostate CA with stricture s/p suprapubic catheter placement Altered mental status Hematuria Leukocytosis Fever ROBERT - improving continue abx repeat blood cx negative monitor wbc monitor h and h
--- NOTE | 2018-01-29 14:58 | PN ---
Teaching Attending Note Name of Resident: Lynn Rai ATTENDING PHYSICIAN STATEMENT I saw and evaluated the patient. I reviewed the resident's note and discussed the case with the resident. I agree with the resident's findings and plan as documented. SUBJECTIVE: Patient appears comfortable laying in bed. OBJECTIVE: Vital Signs Period Temp Pulse Resp BP Sys/Howard Pulse Ox Last 24 Hr 98.2 F-98.9 F 75-103 17-72 111-139/57-80 88-99 HEART: S1S2, RRR LUNGS: Clear ABDOMEN: Obese, soft, non-tender, non-distended, normal BS EXTREMITIES: No edema Laboratory Results - last 24 hr 01/28/18 01/29/18 01/29/18 11:15 07:35 07:35 WBC 6.8 RBC 3.13 L Hgb 9.9 L Hct 28.4 L D MCV 90.5 MCH 31.6 MCHC 34.9 RDW 14.6 Plt Count 125 L MPV 9.5 Absolute Neuts (auto) 3.8 Neutrophils % 55.2 Neutrophils % (Manual) 52.5 Band Neutrophils % 2.0 Lymphocytes % 27.2 Lymphocytes % (Manual) 24.3 Monocytes % 12.8 H Monocytes % (Manual) 12 H D Eosinophils % 4.2 Eosinophils % (Manual) 5.1 H Basophils % 0.6 Basophils % (Manual) 0.0 Myelocytes % (Man) 4 H D Promyelocytes % (Man) 0 Blast Cells % (Manual) 0 Nucleated RBC % 0 Metamyelocytes 0 D Hypochromia 0 Toxic Granulation 0 Dohle Bodies 0 Platelet Estimate Decreased Polychromasia 0 Poikilocytosis 0 Basophilic Stippling 0 Anisocytosis 0 Microcytosis 0 Macrocytosis 0 Spherocytes 0 Sickle Cells 0 Target Cells 0 Tear Drop Cells 0 Ovalocytes 0 Stomatocytes 0 Helmet Cells 0 Ritter-Lynndyl Bodies 0 [place] Rings 0 [place] Cells 0 Acanthocytes (Spur) 0 Rouleaux 0 Fragmented RBCs 0 Schistocytes 0 PT with INR 11.40 INR 1.01 PTT (Actin FS) 18.6 L* Sodium Potassium Chloride Carbon Dioxide Anion Gap BUN Creatinine Creat Clearance w eGFR Random Glucose Calcium Phosphorus Magnesium Blood Type O POSITIVE Antibody Screen Negative Crossmatch See Detail 01/29/18 07:35 WBC RBC Hgb Hct MCV MCH MCHC RDW Plt Count MPV Absolute Neuts (auto) Neutrophils % Neutrophils % (Manual) Band Neutrophils % Lymphocytes % Lymphocytes % (Manual) Monocytes % Monocytes % (Manual) Eosinophils % Eosinophils % (Manual) Basophils % Basophils % (Manual) Myelocytes % (Man) Promyelocytes % (Man) Blast Cells % (Manual) Nucleated RBC % Metamyelocytes Hypochromia Toxic Granulation Dohle Bodies Platelet Estimate Polychromasia Poikilocytosis Basophilic Stippling Anisocytosis Microcytosis Macrocytosis Spherocytes Sickle Cells Target Cells Tear Drop Cells Ovalocytes Stomatocytes Helmet Cells Ritter-Lynndyl Bodies [place] Rings Trista Cells Acanthocytes (Spur) Rouleaux Fragmented RBCs Schistocytes PT with INR INR PTT (Actin FS) Sodium 144 Potassium 4.0 Chloride 109 H Carbon Dioxide 29 Anion Gap 6 L BUN 12 Creatinine 0.8 Creat Clearance w eGFR > 60 Random Glucose 96 Calcium 8.3 L Phosphorus 2.6 D Magnesium 2.1 Blood Type Antibody Screen Crossmatch Current Medications Generic Name Dose Route Start Last Admin Trade Name Freq PRN Reason Stop Dose Admin Acetaminophen 650 mg 01/26/18 19:19 01/29/18 13:08 Tylenol - PO 650 mg Q4H PRN Administration FEVER Carbidopa/Levodopa 1.5 each 01/26/18 22:00 01/29/18 13:10 Sinemet 25/250 - PO 1.5 each QID [facility] Administration Clonazepam 0.125 mg 01/26/18 19:19 Klonopin - PO BID PRN ANXIETY Entacapone 200 mg 01/26/18 22:00 01/29/18 13:10 Comtan - PO 200 mg QID [facility] Administration Meropenem 1 gm/ Sodium 100 mls @ 200 mls/hr 01/27/18 02:00 01/29/18 10:17 Chloride IVPB 200 mls/hr Q8H-IV [facility] Administration Lactobacillus Acidophilus 1 tab 01/26/18 22:00 01/29/18 13:10 Bacid - PO 1 tab TID [facility] Administration Magnesium Hydroxide 30 ml 01/27/18 10:00 01/29/18 10:26 Milk Of Magnesia - PO 30 ml DAILY [facility] Administration Meclizine HCl 25 mg 01/27/18 10:00 01/29/18 10:27 Antivert - PO 25 mg DAILY [facility] Administration Padimate O 1 applic 01/26/18 15:38 01/29/18 01:57 Chapstick - TP 1 applic PRN PRN Administration ORAL PAIN/MOUTH SORES Potassium Phos/Sodium Phos 1 packet 01/28/18 10:00 01/29/18 10:27 Phos-Nak Packet - PO 02/01/18 10:01 1 packet DAILY [facility] Administration Ropinirole HCl 1 mg 01/26/18 21:00 01/29/18 13:09 Requip - PO 1 mg 0900,1300,1700,2100 [facility] Administration Tamsulosin HCl 0.8 mg 01/27/18 08:30 01/29/18 10:26 Flomax - PO 0.8 mg DAILY@0830 [facility] Administration ASSESSMENT AND PLAN: 1. Acute kidney injury secondary to obstructive uropathy/urinary retention from prostate cancer and urethral stricture - s/p suprapubic catheter placement 01/23 - Bladder US shows echogenic material, likely clots, but neoplasm not excluded - Hematuria persists - Creatinine improved - Continue to hold aspirin - Continue to hold Cozaar, HCTZ - Continue Flomax - Plan for cystoscopy today 2. Severe sepsis secondary to Enterobacter bacteremia - Blood cultures 01/25 negative - Continue Merrem 3. Acute metabolic encephalopathy secondary to sepsis ad hypoxia - Improving 4. Acute hypoxic respiratory failure - Continue oxygen to maintain saturation > 90% 5. Demand ischemia 6. Acute blood loss anemia secondary to hematuria - Continue to hold aspirin - Transfused 2 unit PRBCs this admission 7. Hypophosphatemia - Improved 8. Parkinson disease - Continue Requip, Comtan, Sinemet 9. HTN - Cozaar, HCTZ held secondary to ROBERT 10. Hyperlipidemia 11. Thrombocytopenia - Improving - Continue to hold aspirin 12. Obesity with BMI 34.1
[2018-01-29] MEDS ORDERED: BUPIVACAINE 0.75% IN DEXTROSE/PF 2ML AMPULE NR ONE (16:47)
[2018-01-29] MEDS ORDERED: ceFAZolin SODIUM 1 GM VIAL IVPB ONE (17:02)
[2018-01-29] MEDS ORDERED: PROMETHAZINE HCL 25 MG/1 ML VIAL IVPUSH PRN ×2 (17:42→18:07)
[2018-01-29] MEDS ORDERED: ONDANSETRON 4 MG/2 ML VIAL IVPUSH PRN ×2 (17:42→18:07)
[2018-01-29] MEDS ORDERED: oxyCODONE HCL 5 MG TABLET PO PRN ×2 (17:42→18:07)
--- NOTE | 2018-01-29 17:49 | OP ---
Operative Note - Note: Operative Date: 01/29/18 Pre-Operative Diagnosis: gross hematuria uretheral stricture, bladder tumor Operation: cysto,oiu,turbt,evacuation of clots,d/c of spt. Findings: blood clots, badder tumor Post-Operative Diagnosis: Same as Pre-op Surgeon: Darlene Arechiga Anesthesia: General Specimens Removed: bladder tumor chips Estimated Blood Loss (mls): 40 Drains & Tubes with Location: 22f 30cc 3way kern Drains, Volume Out (mls): 0 Operative Report Dictated: Yes
--- NOTE | 2018-01-29 20:42 | OP ---
DATE OF OPERATION: 01/29/2018 PREOPERATIVE DIAGNOSES: Urethral stricture disease, gross hematuria, clot retention. POSTOPERATIVE DIAGNOSES: Clot retention, bladder tumor, urethral stricture. OPERATIVE PROCEDURE: Cystourethroscopy, optimal internal urethrotomy, evacuation of clots, transurethral resection of bladder tumor, placement of Menendez catheter, and removal of suprapubic catheter. ANESTHESIA: General. Under the above-stated anesthesia, patient is prepped and draped in the usual sterile manner. He is placed in the dorsal lithotomy position. A scope was introduced into the . A long anterior urethral stricture was found. An optical urethrotome was used. A Glidewire was passed via the cystoscope, and the urethrotome was used to excise the strictured area at the 12 o'clock position. This was carried into the corpora spongiosum. No extravasation or bleeding was noted. The bladder was entered. A large amount of clots was found. Vigorous irrigation with an Jump On Itik evacuator released approximately 700 mL of formed clots. Inspection of the base of the bladder revealed multiple papillary lesions. Therefore, a resectoscope was inserted. Resection of the lesions was performed. Ureteral orifices were within normal limits. The area that was resected was cauterized. No active bleeding was noted. The cystoscope was removed. A 22-Tajik 3-way Menendez was inserted per urethra. The suprapubic tube was then removed. The area dressed. The patient tolerated the procedure well. He returned to the recovery room in good condition. Letty [id number]
[2018-01-30] MEDS: MEROPENEM 1 GM in SODIUM CHLORIDE 100 ML IVPB SCH ×4 (02:27→17:52)
[2018-01-30] MEDS: LACTOBACILLUS ACIDOPHILUS 1 TABLET PO SCH ×3 (06:17→21:37)
--- NOTE | 2018-01-30 08:17 | PN ---
Progress Note (short form) - Note Progress Note: Anesthesia post Op Pt seen and examined S:sleeping comfortably O: Vital Signs Temperature 100 F H 01/30/18 05:00 Pulse Rate 97 H 01/30/18 05:00 Respiratory Rate 20 01/30/18 05:00 Blood Pressure 133/94 01/30/18 05:00 O2 Sat by Pulse Oximetry (%) 97 01/30/18 05:00 CBC, BMP 01/29/18 07:35 01/29/18 07:35 A/P: Current Active Problems ROBERT (acute kidney injury) (Acute) Anemia (Acute) Demand ischemia (Acute) Elevated troponin I level (Acute) Severe sepsis (Acute) Suprapubic catheter (Acute) UTI (urinary tract infection) (Acute) Urinary retention (Acute) s/p cysto TURBT Doing well post op Continue current care Dwayne Tinsley MD
[2018-01-30 09:02] LABS: ALBUMIN 2.7 g/dl (3.4-5.0); ANION GAP 7 (8-16); BLOOD UREA NITROGEN 13 mg/dL (7-18); CALCIUM 8.1 mg/dL (8.5-10.1); CHLORIDE 110 mmol/L (98-107); CO2 27 mmol/L (21-32); CREATININE 0.8 mg/dL (0.7-1.3); GLUCOSE,RANDOM 94 mg/dL (74-106); POTASSIUM 4.2 mmol/L (3.5-5.1); SGOT/AST 20 U/L (15-37); SGPT/ALT 24 U/L (12-78); SODIUM 144 mmol/L (136-145)
[2018-01-30 09:03] LABS: ALK PHOS 116 U/L (45-117); BILIRUBIN,TOTAL 0.5 mg/dL (0.2-1.0); TOT PROT 5.5 g/dl (6.4-8.2)
[2018-01-30] MEDS: rOPINIRole HCL 1 MG TABLET (FP) PO SCH ×4 (10:04→21:38)
[2018-01-30] MEDS: TAMSULOSIN HCL 0.4 MG CAP.ER.24H (FP) PO SCH (10:04)
[2018-01-30] MEDS: MECLIZINE HCL 25 MG TABLET (FP) PO SCH (10:04)
[2018-01-30] MEDS: ENTACAPONE 200 MG TABLET PO SCH ×4 (10:05→21:38)
[2018-01-30] MEDS: CARBIDOPA/LEVODOPA 25/250 TABLET (FP) PO SCH ×4 (10:05→21:36)
[2018-01-30] MEDS: MAGNESIUM HYDROX 2400MG/30ML ORAL SUSPENSION 30 ML CUP PO SCH (10:06)
[2018-01-30 10:07] LABS: BASO % 0.5 % (0-2.0); EOS % 1.2 % (0-4.5); HEMATOCRIT 27.9 % (35.4-49); HEMOGLOBIN 9.8 GM/dL (11.7-16.9); LYMPH % 15.8 % (8-40); MCH 31.9 pg (25.7-33.7); MCHC 34.9 g/dl (32.0-35.9); MEAN CELL VOLUME 91.3 fl (80-96); MEAN PLT VOLUME 9.3 fl (7.5-11.1); MONO % 8.9 % (3.8-10.2); NEUT % 73.6 % (42.8-82.8); PLATELET COUNT 178 K/MM3 (134-434); RBC 3.06 M/mm3 (4.00-5.60); RDW 14.5 % (11.9-15.9); WHITE BLOOD COUNT 11.3 K/mm3 (4.0-10.0)
[2018-01-30] MEDS: NAPH,MB-DB/K PH,MBDB POWDER PACKET PO SCH (10:07)
--- NOTE | 2018-01-30 14:50 | PN ---
Physical Exam: SUBJECTIVE: Patient seen and examined at the bedside. Denies discomfort. OBJECTIVE: Patient presents with gross hematuria, uretheral stricture, bladder tumor s/p evacuation of clots with Dr. Arechiga, started on CBI Findings: Vital Signs Period Temp Pulse Resp BP Sys/Howard Pulse Ox Last 24 Hr 97.5 F-100 F 79-97 18-20 114-160/41-94 97-100 GENERAL: The patient is awake, alert, and fully oriented, in no acute distress. HEAD: Normal with no signs of trauma. EYES: PERRL, extraocular movements intact, sclera anicteric, conjunctiva clear. No ptosis. ENT: Ears normal, nares patent, oropharynx clear without exudates, moist mucous membranes. NECK: Trachea midline, full range of motion, supple. LUNGS: Breath sounds equal, clear to auscultation bilaterally HEART: Regular rate and rhythm ABDOMEN: Soft, nontender, nondistended, normoactive bowel sounds EXTREMITIES: 2+ pulses, warm, well-perfused, no edema. NEUROLOGICAL: mild upper extremity tremors at rest PSYCH: Normal mood, normal affect. SKIN: Warm, dry, normal turgor, no rashes or lesions noted Laboratory Results - last 24 hr 01/30/18 01/30/18 01/30/18 08:18 08:18 09:35 WBC Cancelled 11.3 H Corrected WBC (auto) Cancelled RBC Cancelled 3.06 L Hgb Cancelled 9.8 L Hct Cancelled 27.9 L MCV Cancelled 91.3 MCH Cancelled 31.9 MCHC Cancelled 34.9 RDW Cancelled 14.5 Plt Count Cancelled 178 D MPV Cancelled 9.3 Absolute Neuts (auto) Cancelled 8.4 Neutrophils % Cancelled 73.6 D Lymphocytes % Cancelled 15.8 D Monocytes % Cancelled 8.9 Eosinophils % Cancelled 1.2 Basophils % Cancelled 0.5 Nucleated RBC % Cancelled 0 Platelet Estimate Cancelled Platelet Comment Cancelled Sodium 144 Potassium 4.2 Chloride 110 H Carbon Dioxide 27 Anion Gap 7 L BUN 13 Creatinine 0.8 Creat Clearance w eGFR > 60 Random Glucose 94 Calcium 8.1 L Total Bilirubin 0.5 AST 20 D ALT 24 D Alkaline Phosphatase 116 D Total Protein 5.5 L Albumin 2.7 L Active Medications Generic Name Dose Route Start Last Admin Trade Name Freq PRN Reason Stop Dose Admin Acetaminophen 650 mg 01/29/18 18:07 Tylenol - PO Q4H PRN FEVER Carbidopa/Levodopa 1.5 each 01/29/18 22:00 01/30/18 13:43 Sinemet 25/250 - PO 1.5 each QID CRISTAL Administration Clonazepam 0.125 mg 01/29/18 18:07 Klonopin - PO BID PRN ANXIETY Entacapone 200 mg 01/29/18 22:00 01/30/18 13:44 Comtan - PO 200 mg QID CRISTAL Administration Meropenem 1 gm/ Sodium 100 mls @ 200 mls/hr 01/30/18 02:00 01/30/18 11:19 Chloride IVPB 200 mls/hr Q8H-IV CRISTAL Administration Lactobacillus Acidophilus 1 tab 01/29/18 22:00 01/30/18 13:43 Bacid - PO 1 tab TID CRISTAL Administration Magnesium Hydroxide 30 ml 01/30/18 10:00 01/30/18 10:06 Milk Of Magnesia - PO Not Given DAILY CRISTAL Meclizine HCl 25 mg 01/30/18 10:00 01/30/18 10:04 Antivert - PO 25 mg DAILY CRISTAL Administration Ondansetron HCl 4 mg 01/29/18 18:07 Zofran Injection IVPUSH Q6H PRN NAUSEA AND/OR VOMITING Oxycodone HCl 5 mg 01/29/18 18:07 01/30/18 10:04 Roxicodone - PO 01/30/18 17:41 5 mg Q4H PRN Administration PAIN LEVEL 1-5 Padimate O 1 applic 01/29/18 18:07 Chapstick - TP PRN PRN ORAL PAIN/MOUTH SORES Potassium Phos/Sodium Phos 1 packet 01/30/18 10:00 01/30/18 10:07 Phos-Nak Packet - PO 02/01/18 10:01 1 packet DAILY CRISTAL Administration Ropinirole HCl 1 mg 01/29/18 21:00 01/30/18 13:44 Requip - PO 1 mg 0900,1300,1700,2100 CRISTAL Administration Tamsulosin HCl 0.8 mg 01/30/18 08:30 01/30/18 10:04 Flomax - PO 0.8 mg DAILY@0830 CRISTAL Administration ASSESSMENT/PLAN: Patient is an 82 year old male with a significant past medical history of prostate cancer, UTIs, hematuria and parkinsons disease. Patient is from [facility] and presents to the ER on 01/23/18 with fever, gross hematuria, lactic acidosis (7.1) elevated WBC, ROBERT, hypoxia and metabolic encephalopathy. He was transferred to the ICU on admission. ID: Severe sepsis, resolved. Severe sepsis secondary to UTI> patient presented with hematuria, ROBERT, elevated urine WBC, Lactic acid of 7.1. He is s/p suprapubic catheter on 01/23. and s/p cystoscopy on 01/29/2018. Blood cultures with gram negative bacteria, repeat blood cultures negative. On meropenem per ID. Ureteral stricture: s/p cystoscopoy for gross hematuria and uretheral stricture. s/p evacuation of clots with Dr. Arechiga. Now on CBI. Urology following. Renal: ROBERT, resolved: Coozar and hctz held for ROBERT. Neuro: Acute metabolic encephalopathy in the setting of sepsis and hypoxia, improved On 2 liters of nasal cannula, wean off as tolerated. Parkinsons: RUE tremors at rest. On Comtan, Sinemet, Requip. Electrolyte imbalance Hypophosphotemia: replete with Phos packs. Heme Thrombocytopenia: ASA held, platelets now wnl, restart ASA if no further hematuria. Monitor CBC. Acute blood loss anemia. s/p 2 units of prbcs. Card: Hypertension: controlled. Cozaar, hctz on hold currently for ROBERT fen monitor intake and output monitor electrolyes low salt diet Prophy: [facility] physical therapy Visit type - Emergency Visit Emergency Visit: Yes ED Registration Date: 01/23/18 Care time: The patient presented to the Emergency Department on the above date and was hospitalized for further evaluation of their emergent condition. - New Patient This patient is new to me today: Yes Date on this admission: 02/02/18 - Critical Care Critical Care patient: No - Discharge Referral Referred to [facility] Med P.C.: No
--- NOTE | 2018-01-30 15:45 | PN ---
Progress Note, Physician History of Present Illness: stable much more awake and alert no issues patients suprapubic removed foleys placed with irrigation - Current Medication List Current Medications: Active Medications Acetaminophen (Tylenol -) 650 mg PO Q4H PRN PRN Reason: FEVER Carbidopa/Levodopa (Sinemet 25/250 -) 1.5 each PO QID [facility] Last Admin: 01/30/18 13:43 Dose: 1.5 each Clonazepam (Klonopin -) 0.125 mg PO BID PRN PRN Reason: ANXIETY Entacapone (Comtan -) 200 mg PO QID [facility] Last Admin: 01/30/18 13:44 Dose: 200 mg Meropenem 1 gm/ Sodium (Chloride) 100 mls @ 200 mls/hr IVPB Q8H-IV [facility] Last Admin: 01/30/18 11:19 Dose: 200 mls/hr Lactobacillus Acidophilus (Bacid -) 1 tab PO TID [facility] Last Admin: 01/30/18 13:43 Dose: 1 tab Magnesium Hydroxide (Milk Of Magnesia -) 30 ml PO DAILY [facility] Last Admin: 01/30/18 10:06 Dose: Not Given Meclizine HCl (Antivert -) 25 mg PO DAILY [facility] Last Admin: 01/30/18 10:04 Dose: 25 mg Ondansetron HCl (Zofran Injection) 4 mg IVPUSH Q6H PRN PRN Reason: NAUSEA AND/OR VOMITING Oxycodone HCl (Roxicodone -) 5 mg PO Q4H PRN PRN Reason: PAIN LEVEL 1-5 Stop: 01/30/18 17:41 Last Admin: 01/30/18 10:04 Dose: 5 mg Padimate O (Chapstick -) 1 applic TP PRN PRN PRN Reason: ORAL PAIN/MOUTH SORES Potassium Phos/Sodium Phos (Phos-Nak Packet -) 1 packet PO DAILY [facility] Stop: 02/01/18 10:01 Last Admin: 01/30/18 10:07 Dose: 1 packet Ropinirole HCl (Requip -) 1 mg PO 0900,1300,1700,2100 [facility] Last Admin: 01/30/18 13:44 Dose: 1 mg Tamsulosin HCl (Flomax -) 0.8 mg PO DAILY@0830 [facility] Last Admin: 01/30/18 10:04 Dose: 0.8 mg - Objective Vital Signs: Vital Signs Temperature 99.2 F 01/30/18 09:00 Pulse Rate 79 01/30/18 09:00 Respiratory Rate 18 01/30/18 09:00 Blood Pressure 138/72 01/30/18 09:00 O2 Sat by Pulse Oximetry (%) 97 01/30/18 05:00 Constitutional: Yes: No Distress, Calm Cardiovascular: Yes: Regular Rate and Rhythm Respiratory: Yes: Regular, CTA Bilaterally Gastrointestinal: Yes: Normal Bowel Sounds, Soft Genitourinary: Yes: Menendez Present Musculoskeletal: Yes: WNL Extremities: Yes: WNL Neurological: Yes: Alert, Oriented Psychiatric: Yes: Alert, Oriented Labs: CBC, BMP 01/30/18 09:35 01/30/18 08:18 INR, PTT INR 1.01 (0.82-1.09) 01/29/18 07:35 Assessment/Plan Problem List - Problems (1) ROBERT (acute kidney injury) Code(s): N17.9 - ACUTE KIDNEY FAILURE, UNSPECIFIED (2) Demand ischemia Code(s): I24.8 - OTHER FORMS OF ACUTE ISCHEMIC HEART DISEASE (3) Severe sepsis Code(s): A41.9 - SEPSIS, UNSPECIFIED ORGANISM; R65.20 - SEVERE SEPSIS WITHOUT SEPTIC SHOCK (4) UTI (urinary tract infection) Code(s): N39.0 - URINARY TRACT INFECTION, SITE NOT SPECIFIED Qualifiers: Urinary tract infection type: acute cystitis Hematuria presence: with hematuria Qualified Code(s): N30.01 - Acute cystitis with hematuria (5) Urinary retention Code(s): R33.9 - RETENTION OF URINE, UNSPECIFIED (6) Hypertension Code(s): I10 - ESSENTIAL (PRIMARY) HYPERTENSION Qualifiers: Hypertension type: essential hypertension Qualified Code(s): I10 - Essential (primary) hypertension (7) Parkinson disease Code(s): G20 - PARKINSON'S DISEASE (8) Prostate cancer Code(s): C61 - MALIGNANT NEOPLASM OF PROSTATE Assessment/Plan 82 y.o. male with PMH of Prostate CA, hematuria, Parkinsons Disease, HTN presenting with altered mental status, dysuria, oliguria, worsening renal function, fever, tachycardia, hypoxia, elevated wbc and lactic acid level Sepsis Gram negative Bacteremia Prostate CA with stricture s/p suprapubic catheter placement Altered mental status Hematuria Leukocytosis Fever ROBERT - improving continue abx if patient remains stable tomorrow then will stop abx tomorrow rest continue current mgmt
[2018-01-30] MEDS ORDERED: PT OWN MED DRAWER 7, Y5N ONE (17:07)
[2018-01-31] MEDS ORDERED: PT OWN MED DRAWER 7, Y5N ONE ×3 (00:43→20:29)
[2018-01-31] MEDS: MEROPENEM 1 GM in SODIUM CHLORIDE 100 ML IVPB SCH ×2 (01:19→09:49)
[2018-01-31] MEDS: LACTOBACILLUS ACIDOPHILUS 1 TABLET PO SCH ×3 (05:08→21:10)
[2018-01-31 07:24] LABS: BASO % 0.2 % (0-2.0); EOS % 4.2 % (0-4.5); HEMATOCRIT 25.1 % (35.4-49); HEMOGLOBIN 9.1 GM/dL (11.7-16.9); LYMPH % 18.7 % (8-40); MCH 32.5 pg (25.7-33.7); MCHC 36.1 g/dl (32.0-35.9); MEAN PLT VOLUME 8.8 fl (7.5-11.1); MONO % 9.4 % (3.8-10.2); NEUT % 67.5 % (42.8-82.8); PLATELET COUNT 164 K/MM3 (134-434); RBC 2.79 M/mm3 (4.00-5.60); WHITE BLOOD COUNT 8.2 K/mm3 (4.0-10.0)
[2018-01-31 08:02] LABS: CHLORIDE 109 mmol/L (98-107); POTASSIUM 3.7 mmol/L (3.5-5.1); SODIUM 143 mmol/L (136-145)
[2018-01-31 08:08] LABS: ALBUMIN 2.7 g/dl (3.4-5.0); ALK PHOS 118 U/L (45-117); ANION GAP 5 (8-16); BILIRUBIN,TOTAL 0.5 mg/dL (0.2-1.0); BLOOD UREA NITROGEN 12 mg/dL (7-18); CO2 29 mmol/L (21-32); CREATININE 0.6 mg/dL (0.7-1.3); GLUCOSE,RANDOM 104 mg/dL (74-106); MAGNESIUM 2.2 mg/dL (1.8-2.4); SGOT/AST 18 U/L (15-37); SGPT/ALT 14 U/L (12-78); TOT PROT 5.4 g/dl (6.4-8.2)
[2018-01-31] MEDS: CARBIDOPA/LEVODOPA 25/250 TABLET (FP) PO SCH ×4 (09:46→21:10)
[2018-01-31] MEDS: TAMSULOSIN HCL 0.4 MG CAP.ER.24H (FP) PO SCH (09:46)
[2018-01-31] MEDS: MECLIZINE HCL 25 MG TABLET (FP) PO SCH (09:47)
[2018-01-31] MEDS: MAGNESIUM HYDROX 2400MG/30ML ORAL SUSPENSION 30 ML CUP PO SCH (09:47)
[2018-01-31] MEDS: NAPH,MB-DB/K PH,MBDB POWDER PACKET PO SCH (09:47)
[2018-01-31] MEDS: ENTACAPONE 200 MG TABLET PO SCH ×4 (09:48→21:11)
[2018-01-31] MEDS: rOPINIRole HCL 1 MG TABLET (FP) PO SCH ×4 (09:49→21:11)
--- NOTE | 2018-01-31 10:37 | PN ---
Physical Exam: SUBJECTIVE: Patient seen and examined at the bedside. OBJECTIVE: Vital Signs Period Temp Pulse Resp BP Sys/Howard Pulse Ox Last 24 Hr 98.1 F-98.7 F 72-82 17-18 113-137/58-64 94-98 GENERAL: The patient is awake, alert, and oriented, in no acute distress, slow to response at times, but states he feels well. HEAD: Normal with no signs of trauma. EYES: PERRL, extraocular movements intact, sclera anicteric, conjunctiva clear. No ptosis. ENT: Ears normal, nares patent, oropharynx clear without exudates, moist mucous membranes. NECK: Trachea midline, full range of motion, supple. LUNGS: Breath sounds equal, clear to auscultation bilaterally HEART: Regular rate and rhythm ABDOMEN: Soft, nontender, nondistended, normoactive bowel sounds EXTREMITIES: 2+ pulses, warm, well-perfused, no edema. NEUROLOGICAL: mild upper extremity tremors at rest PSYCH: Normal mood, normal affect. SKIN: suprapubic cath site with dressing, no drainage Laboratory Results - last 24 hr 01/31/18 01/31/18 06:00 06:00 WBC 8.2 RBC 2.79 L Hgb 9.1 L Hct 25.1 L MCV 90.0 MCH 32.5 MCHC 36.1 H RDW 14.0 Plt Count 164 MPV 8.8 Absolute Neuts (auto) 5.6 Neutrophils % 67.5 Lymphocytes % 18.7 Monocytes % 9.4 Eosinophils % 4.2 D Basophils % 0.2 Nucleated RBC % 0 Sodium 143 Potassium 3.7 Chloride 109 H Carbon Dioxide 29 Anion Gap 5 L BUN 12 Creatinine 0.6 L Creat Clearance w eGFR > 60 Random Glucose 104 Calcium 8.0 L Magnesium 2.2 Total Bilirubin 0.5 AST 18 ALT 14 D Alkaline Phosphatase 118 H Total Protein 5.4 L Albumin 2.7 L Active Medications Generic Name Dose Route Start Last Admin Trade Name Freq PRN Reason Stop Dose Admin Acetaminophen 650 mg 01/29/18 18:07 Tylenol - PO Q4H PRN FEVER Carbidopa/Levodopa 1.5 each 01/29/18 22:00 01/31/18 09:46 Sinemet 25/250 - PO 1.5 each QID CRISTAL Administration Clonazepam 0.125 mg 01/29/18 18:07 Klonopin - PO BID PRN ANXIETY Entacapone 200 mg 01/29/18 22:00 01/31/18 09:48 Comtan - PO 200 mg QID CRISTAL Administration Meropenem 1 gm/ Sodium 100 mls @ 200 mls/hr 01/30/18 02:00 01/31/18 09:49 Chloride IVPB 200 mls/hr Q8H-IV CRISTAL Administration Lactobacillus Acidophilus 1 tab 01/29/18 22:00 01/31/18 05:08 Bacid - PO 1 tab TID CRISTAL Administration Magnesium Hydroxide 30 ml 01/30/18 10:00 01/31/18 09:47 Milk Of Magnesia - PO Not Given DAILY CRISTAL Meclizine HCl 25 mg 01/30/18 10:00 01/31/18 09:47 Antivert - PO 25 mg DAILY CRISTAL Administration Ondansetron HCl 4 mg 01/29/18 18:07 Zofran Injection IVPUSH Q6H PRN NAUSEA AND/OR VOMITING Padimate O 1 applic 01/29/18 18:07 Chapstick - TP PRN PRN ORAL PAIN/MOUTH SORES Potassium Phos/Sodium Phos 1 packet 01/30/18 10:00 01/31/18 09:47 Phos-Nak Packet - PO 02/01/18 10:01 1 packet DAILY CRISTAL Administration Ropinirole HCl 1 mg 01/29/18 21:00 01/31/18 09:49 Requip - PO 1 mg 0900,1300,1700,2100 CRISTAL Administration Tamsulosin HCl 0.8 mg 01/30/18 08:30 01/31/18 09:46 Flomax - PO 0.8 mg DAILY@0830 CRISTAL Administration ASSESSMENT/PLAN: Patient is an 82 year old male with a significant past medical history of prostate cancer, UTIs, hematuria and parkinsons disease. Patient is from [facility] and presents to the ER on 01/23/18 with fever, gross hematuria, lactic acidosis (7.1) elevated WBC, ROBERT, hypoxia and metabolic encephalopathy. He was transferred to the ICU on admission. ID: Severe sepsis, resolved. Severe sepsis secondary to UTI> patient presented with hematuria, ROBERT, elevated urine WBC, Lactic acid of 7.1. He is s/p suprapubic catheter on 01/23. and s/p cystoscopy on 01/29/2018. Blood cultures with gram negative bacteria, repeat blood cultures negative. Treated with meropenem per ID, now antibiotics have been stopped. On CBI. urology following. Renal: ROBERT, resolved: Coozar and hctz held for ROBERT, BP stable. Neuro: Acute metabolic encephalopathy in the setting of sepsis and hypoxia, resolved. Tolerating room air. Sepsis resolved. Mental status back to baseline. Parkinsons: RUE tremors at rest. On Comtan, Sinemet, Requip. Electrolyte imbalance Hypophosphotemia: replete with Phos packs. Heme Thrombocytopenia: ASA held, platelets now wnl, restart ASA if no further hematuria. Monitor CBC. Acute blood loss anemia. s/p 2 units of prbcs. Card: Hypertension: controlled. Cozaar, hctz on hold as pt had ROBERT, BP stable. fen monitor intake and output monitor electrolyes low salt diet Prophy: [facility] physical therapy Visit type - Emergency Visit Emergency Visit: Yes ED Registration Date: 01/23/18 Care time: The patient presented to the Emergency Department on the above date and was hospitalized for further evaluation of their emergent condition. - New Patient This patient is new to me today: No - Critical Care Critical Care patient: No - Discharge Referral Referred to [facility] Med P.C.: No
--- NOTE | 2018-01-31 11:04 | PN ---
Progress Note, Physician History of Present Illness: patient stable no issues awake and alert foleys with irrigation present - Current Medication List Current Medications: Active Medications Acetaminophen (Tylenol -) 650 mg PO Q4H PRN PRN Reason: FEVER Carbidopa/Levodopa (Sinemet 25/250 -) 1.5 each PO QID [facility] Last Admin: 01/31/18 09:46 Dose: 1.5 each Clonazepam (Klonopin -) 0.125 mg PO BID PRN PRN Reason: ANXIETY Entacapone (Comtan -) 200 mg PO QID [facility] Last Admin: 01/31/18 09:48 Dose: 200 mg Lactobacillus Acidophilus (Bacid -) 1 tab PO TID [facility] Last Admin: 01/31/18 05:08 Dose: 1 tab Magnesium Hydroxide (Milk Of Magnesia -) 30 ml PO DAILY [facility] Last Admin: 01/31/18 09:47 Dose: Not Given Meclizine HCl (Antivert -) 25 mg PO DAILY [facility] Last Admin: 01/31/18 09:47 Dose: 25 mg Ondansetron HCl (Zofran Injection) 4 mg IVPUSH Q6H PRN PRN Reason: NAUSEA AND/OR VOMITING Padimate O (Chapstick -) 1 applic TP PRN PRN PRN Reason: ORAL PAIN/MOUTH SORES Potassium Phos/Sodium Phos (Phos-Nak Packet -) 1 packet PO DAILY [facility] Stop: 02/01/18 10:01 Last Admin: 01/31/18 09:47 Dose: 1 packet Ropinirole HCl (Requip -) 1 mg PO 0900,1300,1700,2100 [facility] Last Admin: 01/31/18 09:49 Dose: 1 mg Tamsulosin HCl (Flomax -) 0.8 mg PO DAILY@0830 [facility] Last Admin: 01/31/18 09:46 Dose: 0.8 mg - Objective Vital Signs: Vital Signs Temperature 98.5 F 01/31/18 06:00 Pulse Rate 73 01/31/18 06:00 Respiratory Rate 17 01/31/18 06:00 Blood Pressure 137/64 01/31/18 06:00 O2 Sat by Pulse Oximetry (%) 96 01/31/18 04:57 Constitutional: Yes: No Distress, Calm Cardiovascular: Yes: Regular Rate and Rhythm Respiratory: Yes: Regular, CTA Bilaterally Gastrointestinal: Yes: Normal Bowel Sounds, Soft Genitourinary: Yes: Menendez Present Musculoskeletal: Yes: WNL Extremities: Yes: WNL Neurological: Yes: Alert, Oriented Psychiatric: Yes: Alert, Oriented Labs: CBC, BMP 01/31/18 06:00 01/31/18 06:00 INR, PTT INR 1.01 (0.82-1.09) 01/29/18 07:35 Assessment/Plan Problem List - Problems (1) ROBERT (acute kidney injury) Code(s): N17.9 - ACUTE KIDNEY FAILURE, UNSPECIFIED (2) Demand ischemia Code(s): I24.8 - OTHER FORMS OF ACUTE ISCHEMIC HEART DISEASE (3) Severe sepsis Code(s): A41.9 - SEPSIS, UNSPECIFIED ORGANISM; R65.20 - SEVERE SEPSIS WITHOUT SEPTIC SHOCK (4) UTI (urinary tract infection) Code(s): N39.0 - URINARY TRACT INFECTION, SITE NOT SPECIFIED Qualifiers: Urinary tract infection type: acute cystitis Hematuria presence: with hematuria Qualified Code(s): N30.01 - Acute cystitis with hematuria (5) Urinary retention Code(s): R33.9 - RETENTION OF URINE, UNSPECIFIED (6) Hypertension Code(s): I10 - ESSENTIAL (PRIMARY) HYPERTENSION Qualifiers: Hypertension type: essential hypertension Qualified Code(s): I10 - Essential (primary) hypertension (7) Parkinson disease Code(s): G20 - PARKINSON'S DISEASE (8) Prostate cancer Code(s): C61 - MALIGNANT NEOPLASM OF PROSTATE Assessment/Plan 82 y.o. male with PMH of Prostate CA, hematuria, Parkinsons Disease, HTN presenting with altered mental status, dysuria, oliguria, worsening renal function, fever, tachycardia, hypoxia, elevated wbc and lactic acid level Sepsis Gram negative Bacteremia Prostate CA with stricture s/p suprapubic catheter placement Altered mental status Hematuria Leukocytosis Fever ROBERT - improving plan stopped abx continue current mgmt patient stable no new issues
[2018-02-01] MEDS: LACTOBACILLUS ACIDOPHILUS 1 TABLET PO SCH ×3 (05:14→21:47)
[2018-02-01 06:47] LABS: BASO % 0.3 % (0-2.0); HEMATOCRIT 26.7 % (35.4-49); HEMOGLOBIN 9.3 GM/dL (11.7-16.9); LYMPH % 22.5 % (8-40); MCH 31.7 pg (25.7-33.7); MEAN CELL VOLUME 90.7 fl (80-96); MEAN PLT VOLUME 8.5 fl (7.5-11.1); NEUT % 65.2 % (42.8-82.8); PLATELET COUNT 187 K/MM3 (134-434); RBC 2.95 M/mm3 (4.00-5.60); RDW 14.1 % (11.9-15.9); WHITE BLOOD COUNT 7.6 K/mm3 (4.0-10.0)
[2018-02-01 07:24] LABS: ALBUMIN 2.8 g/dl (3.4-5.0); ANION GAP 8 (8-16); BILIRUBIN,TOTAL 0.5 mg/dL (0.2-1.0); BLOOD UREA NITROGEN 12 mg/dL (7-18); CALCIUM 8.2 mg/dL (8.5-10.1); CHLORIDE 109 mmol/L (98-107); CO2 26 mmol/L (21-32); CREATININE 0.7 mg/dL (0.7-1.3); GLUCOSE,RANDOM 102 mg/dL (74-106); MAGNESIUM 2.1 mg/dL (1.8-2.4); POTASSIUM 3.7 mmol/L (3.5-5.1); SGOT/AST 18 U/L (15-37); SGPT/ALT 16 U/L (12-78); SODIUM 143 mmol/L (136-145); TOT PROT 5.6 g/dl (6.4-8.2)
[2018-02-01 07:25] LABS: ALK PHOS 134 U/L (45-117)
[2018-02-01] MEDS: ACETAMINOPHEN 325 MG TABLET (FP) PO PRN ×2 (10:50→21:46)
[2018-02-01] MEDS: MAGNESIUM HYDROX 2400MG/30ML ORAL SUSPENSION 30 ML CUP PO SCH (10:51)
[2018-02-01] MEDS: TAMSULOSIN HCL 0.4 MG CAP.ER.24H (FP) PO SCH (10:52)
[2018-02-01] MEDS: NAPH,MB-DB/K PH,MBDB POWDER PACKET PO SCH (10:52)
[2018-02-01] MEDS: CARBIDOPA/LEVODOPA 25/250 TABLET (FP) PO SCH ×4 (10:52→21:45)
[2018-02-01] MEDS: ENTACAPONE 200 MG TABLET PO SCH ×4 (10:53→21:47)
[2018-02-01] MEDS: MECLIZINE HCL 25 MG TABLET (FP) PO SCH (10:53)
[2018-02-01] MEDS: rOPINIRole HCL 1 MG TABLET (FP) PO SCH ×4 (10:53→21:47)
[2018-02-01] MEDS: clonazePAM 0.5 MG TABLET PO PRN (10:54)
--- NOTE | 2018-02-01 12:43 | PN ---
Progress Note, Physician History of Present Illness: stable no new issues - Current Medication List Current Medications: Active Medications Acetaminophen (Tylenol -) 650 mg PO Q4H PRN PRN Reason: FEVER Last Admin: 02/01/18 10:50 Dose: 650 mg Carbidopa/Levodopa (Sinemet 25/250 -) 1.5 each PO QID [facility] Last Admin: 02/01/18 10:52 Dose: 1.5 each Clonazepam (Klonopin -) 0.125 mg PO BID PRN PRN Reason: ANXIETY Last Admin: 02/01/18 10:54 Dose: 0.125 mg Entacapone (Comtan -) 200 mg PO QID [facility] Last Admin: 02/01/18 10:53 Dose: 200 mg Lactobacillus Acidophilus (Bacid -) 1 tab PO TID [facility] Last Admin: 02/01/18 05:14 Dose: 1 tab Magnesium Hydroxide (Milk Of Magnesia -) 30 ml PO DAILY [facility] Last Admin: 02/01/18 10:51 Dose: 30 ml Meclizine HCl (Antivert -) 25 mg PO DAILY [facility] Last Admin: 02/01/18 10:53 Dose: 25 mg Ondansetron HCl (Zofran Injection) 4 mg IVPUSH Q6H PRN PRN Reason: NAUSEA AND/OR VOMITING Padimate O (Chapstick -) 1 applic TP PRN PRN PRN Reason: ORAL PAIN/MOUTH SORES Ropinirole HCl (Requip -) 1 mg PO 0900,1300,1700,2100 [facility] Last Admin: 02/01/18 10:53 Dose: 1 mg Tamsulosin HCl (Flomax -) 0.8 mg PO DAILY@0830 [facility] Last Admin: 02/01/18 10:52 Dose: 0.8 mg - Objective Vital Signs: Vital Signs Temperature 98.8 F 02/01/18 09:00 Pulse Rate 71 02/01/18 09:00 Respiratory Rate 18 02/01/18 09:00 Blood Pressure 145/77 02/01/18 09:00 O2 Sat by Pulse Oximetry (%) 96 02/01/18 09:00 Constitutional: Yes: No Distress, Calm Cardiovascular: Yes: Regular Rate and Rhythm Respiratory: Yes: Regular, CTA Bilaterally Gastrointestinal: Yes: Normal Bowel Sounds, Soft Genitourinary: Yes: Menendez Present Musculoskeletal: Yes: WNL Extremities: Yes: WNL Neurological: Yes: Alert, Oriented Psychiatric: Yes: Alert, Oriented Labs: CBC, BMP 02/01/18 06:00 02/01/18 06:00 INR, PTT INR 1.01 (0.82-1.09) 01/29/18 07:35 Assessment/Plan Problem List - Problems (1) ROBERT (acute kidney injury) Code(s): N17.9 - ACUTE KIDNEY FAILURE, UNSPECIFIED (2) Demand ischemia Code(s): I24.8 - OTHER FORMS OF ACUTE ISCHEMIC HEART DISEASE (3) Severe sepsis Code(s): A41.9 - SEPSIS, UNSPECIFIED ORGANISM; R65.20 - SEVERE SEPSIS WITHOUT SEPTIC SHOCK (4) UTI (urinary tract infection) Code(s): N39.0 - URINARY TRACT INFECTION, SITE NOT SPECIFIED Qualifiers: Urinary tract infection type: acute cystitis Hematuria presence: with hematuria Qualified Code(s): N30.01 - Acute cystitis with hematuria (5) Urinary retention Code(s): R33.9 - RETENTION OF URINE, UNSPECIFIED (6) Hypertension Code(s): I10 - ESSENTIAL (PRIMARY) HYPERTENSION Qualifiers: Hypertension type: essential hypertension Qualified Code(s): I10 - Essential (primary) hypertension (7) Parkinson disease Code(s): G20 - PARKINSON'S DISEASE (8) Prostate cancer Code(s): C61 - MALIGNANT NEOPLASM OF PROSTATE Assessment/Plan 82 y.o. male with PMH of Prostate CA, hematuria, Parkinsons Disease, HTN presenting with altered mental status, dysuria, oliguria, worsening renal function, fever, tachycardia, hypoxia, elevated wbc and lactic acid level Sepsis Gram negative Bacteremia Prostate CA with stricture s/p suprapubic catheter placement Altered mental status Hematuria Leukocytosis Fever ROBERT - improving plan stable off of abx rest continue current mgmt
[2018-02-01] MEDS: LIP BALM (CHAPSTICK) TP PRN (15:09)
[2018-02-01] MEDS ORDERED: PT OWN MED DRAWER 7, Y5N ONE (21:19)
--- NOTE | 2018-02-01 22:18 | PN ---
Progress Note, Physician History of Present Illness: No new complaints - Current Medication List Current Medications: Active Medications Acetaminophen (Tylenol -) 650 mg PO Q4H PRN PRN Reason: FEVER Last Admin: 02/01/18 21:46 Dose: 650 mg Carbidopa/Levodopa (Sinemet 25/250 -) 1.5 each PO QID [facility] Last Admin: 02/01/18 21:45 Dose: 1.5 each Clonazepam (Klonopin -) 0.125 mg PO BID PRN PRN Reason: ANXIETY Last Admin: 02/01/18 10:54 Dose: 0.125 mg Entacapone (Comtan -) 200 mg PO QID [facility] Last Admin: 02/01/18 21:47 Dose: 200 mg Lactobacillus Acidophilus (Bacid -) 1 tab PO TID [facility] Last Admin: 02/01/18 21:47 Dose: 1 tab Magnesium Hydroxide (Milk Of Magnesia -) 30 ml PO DAILY [facility] Last Admin: 02/01/18 10:51 Dose: 30 ml Meclizine HCl (Antivert -) 25 mg PO DAILY [facility] Last Admin: 02/01/18 10:53 Dose: 25 mg Ondansetron HCl (Zofran Injection) 4 mg IVPUSH Q6H PRN PRN Reason: NAUSEA AND/OR VOMITING Ropinirole HCl (Requip -) 1 mg PO 0900,1300,1700,2100 [facility] Last Admin: 02/01/18 21:47 Dose: 1 mg Tamsulosin HCl (Flomax -) 0.8 mg PO DAILY@0830 [facility] Last Admin: 02/01/18 10:52 Dose: 0.8 mg - Objective Vital Signs: Vital Signs Temperature 97.6 F 02/01/18 18:30 Pulse Rate 77 02/01/18 18:30 Respiratory Rate 18 02/01/18 18:30 Blood Pressure 123/62 02/01/18 18:30 O2 Sat by Pulse Oximetry (%) 96 02/01/18 09:00 Neck: Yes: WNL, Supple Cardiovascular: Yes: WNL, Regular Rate and Rhythm Respiratory: Yes: WNL, Regular, CTA Bilaterally Gastrointestinal: Yes: WNL, Normal Bowel Sounds, Soft Labs: CBC, BMP 02/01/18 06:00 02/01/18 06:00 INR, PTT INR 1.01 (0.82-1.09) 01/29/18 07:35 Problem List - Problems (1) Sepsis Assessment/Plan: Resolved BC (+) for enterobacter Aerogenes Repeat BC have been negative Pt is now off antibxs DC planning for am Code(s): A41.9 - SEPSIS, UNSPECIFIED ORGANISM Qualifiers: Sepsis type: sepsis due to unspecified organism Qualified Code(s): A41.9 - Sepsis, unspecified organism (2) Hypertension Assessment/Plan: Bp stable Code(s): I10 - ESSENTIAL (PRIMARY) HYPERTENSION Qualifiers: Hypertension type: essential hypertension Qualified Code(s): I10 - Essential (primary) hypertension (3) Parkinson disease Assessment/Plan: Cont sinemet/comtan Code(s): G20 - PARKINSON'S DISEASE (4) ROBERT (acute kidney injury) Code(s): N17.9 - ACUTE KIDNEY FAILURE, UNSPECIFIED (5) Anemia Code(s): D64.9 - ANEMIA, UNSPECIFIED
[2018-02-02] MEDS: LACTOBACILLUS ACIDOPHILUS 1 TABLET PO SCH ×2 (06:24→14:43)
[2018-02-02] MEDS: ENTACAPONE 200 MG TABLET PO SCH ×3 (10:43→17:12)
[2018-02-02] MEDS: CARBIDOPA/LEVODOPA 25/250 TABLET (FP) PO SCH ×3 (10:43→17:12)
[2018-02-02] MEDS: MAGNESIUM HYDROX 2400MG/30ML ORAL SUSPENSION 30 ML CUP PO SCH (10:43)
[2018-02-02] MEDS: rOPINIRole HCL 1 MG TABLET (FP) PO SCH ×3 (10:44→17:12)
[2018-02-02] MEDS: TAMSULOSIN HCL 0.4 MG CAP.ER.24H (FP) PO SCH (10:44)
[2018-02-02] MEDS: MECLIZINE HCL 25 MG TABLET (FP) PO SCH (10:44)
[2018-02-02] MEDS: ACETAMINOPHEN 325 MG TABLET (FP) PO PRN (10:45)
[2018-02-02] MEDS: LIP BALM (CHAPSTICK) TP PRN (10:45)
[2018-02-02] MEDS: clonazePAM 0.5 MG TABLET PO PRN (10:49)
--- NOTE | 2018-02-02 14:16 | DS ---
Physical Examination Vital Signs: Vital Signs Temperature 98.7 F 02/02/18 10:00 Pulse Rate 81 02/02/18 10:00 Respiratory Rate 18 02/02/18 10:00 Blood Pressure 141/62 02/02/18 10:00 O2 Sat by Pulse Oximetry (%) 96 02/02/18 10:00 Labs: CBC, BMP 02/01/18 06:00 02/01/18 06:00 Discharge Summary Reason For Visit: ACUTE KIDNEY INJURY,ELEVATED TROPONIN 1 LOVEL,WEAK Current Active Problems ROBERT (acute kidney injury) (Acute) Anemia (Acute) Demand ischemia (Acute) Elevated troponin I level (Acute) Severe sepsis (Acute) Suprapubic catheter (Acute) UTI (urinary tract infection) (Acute) Urinary retention (Acute) Condition: Good - Instructions Diet, Activity, Other Instructions: 2 gram sodium diet Referrals: Radhames Arechiga MD [Primary Care Provider] - Disposition: [facility] - Home Medications Comprehensive Discharge Medication List: Ambulatory Orders Aspirin 81 mg PO DAILY 11/12/17 Carbidopa/Levodopa 25/250 [Sinemet 25/250 -] 1.5 each PO QID 11/12/17 Cyanocobalamin [Vitamin B12 -] 1,000 mcg PO DAILY 11/12/17 Entacapone 200 mg PO QID 11/12/17 Losartan/Hydrochlorothiazide [Losartan-Hctz 100-12.5 mg Tab] 0.5 each PO DAILY 11/12/17 Ropinirole HCl [Requip] 1 mg PO ASDIR 11/12/17 Tamsulosin HCl [Flomax -] 0.8 mg PO DAILY 11/12/17 clonazePAM [Klonopin -] 0.125 mg PO BID 11/12/17 Acetaminophen [Tylenol] 325 mg PO BID PRN 01/23/18 Cyanocobalamin (Vitamin B-12) [Vitamin B-12] 1,000 mcg PO DAILY 01/23/18 Magnesium Hydrox 2400MG/30Ml [Milk of Magnesia -] 30 ml PO DAILY 01/23/18 Meclizine HCl 25 mg PO DAILY 01/23/18 Naph,Mb-Db/K pH,Mbdb [PHOS-NaK PACKET -] 1 packet PO DAILY #0 pow 02/02/18
[2018-02-02 15:02] VITALS: BP 122/58; PULSE 74; TEMP 98
--- NOTE | 2018-02-02 15:22 | PN ---
Progress Note, Physician - Current Medication List Current Medications: Active Medications Acetaminophen (Tylenol -) 650 mg PO Q4H PRN PRN Reason: FEVER Last Admin: 02/02/18 10:45 Dose: 650 mg Carbidopa/Levodopa (Sinemet 25/250 -) 1.5 each PO QID [facility] Last Admin: 02/02/18 14:43 Dose: 1.5 each Clonazepam (Klonopin -) 0.125 mg PO BID PRN PRN Reason: ANXIETY Last Admin: 02/02/18 10:49 Dose: 0.125 mg Entacapone (Comtan -) 200 mg PO QID [facility] Last Admin: 02/02/18 14:43 Dose: 200 mg Lactobacillus Acidophilus (Bacid -) 1 tab PO TID [facility] Last Admin: 02/02/18 14:43 Dose: 1 tab Magnesium Hydroxide (Milk Of Magnesia -) 30 ml PO DAILY [facility] Last Admin: 02/02/18 10:43 Dose: 30 ml Meclizine HCl (Antivert -) 25 mg PO DAILY [facility] Last Admin: 02/02/18 10:44 Dose: 25 mg Ondansetron HCl (Zofran Injection) 4 mg IVPUSH Q6H PRN PRN Reason: NAUSEA AND/OR VOMITING Ropinirole HCl (Requip -) 1 mg PO 0900,1300,1700,2100 [facility] Last Admin: 02/02/18 14:43 Dose: 1 mg Tamsulosin HCl (Flomax -) 0.8 mg PO DAILY@0830 [facility] Last Admin: 02/02/18 10:44 Dose: 0.8 mg - Objective Vital Signs: Vital Signs Temperature 98 F 02/02/18 15:01 Pulse Rate 74 02/02/18 15:01 Respiratory Rate 17 02/02/18 15:01 Blood Pressure 122/58 02/02/18 15:01 O2 Sat by Pulse Oximetry (%) 96 02/02/18 10:00 Labs: CBC, BMP 02/01/18 06:00 02/01/18 06:00 INR, PTT INR 1.01 (0.82-1.09) 01/29/18 07:35
--- NOTE | 2018-02-03 09:34 | PATH ---
Surgical Pathology Report Patient Name: JIE BAL [facility]. Rec. #: [id number] /Age/Gender: 1935 (Age: 82) / M Account: [id number] Location: [address] [place] [address] Taken: 01/29/2018 Received: 02/01/2018 Reported: 02/03/2018 Physicians: Darlene Arechiga M.D. PHYSICIAN EMERGENCY DEPT Specimen(s) Received A: BLADDER TUMOR B: BLADDER BLOOD CLOTS Clinical History Bladder tumor Final Diagnosis A. BLADDER TUMOR, EXCISIONAL BIOPSY: FIBROUS TISSUE DENUDED UROTHELIAL LINING SHOWING NECROSIS AND SEVERE ACUTE INFLAMMATION. NO TUMOR IS SEEN. B. BLADDER BLOOD CLOTS, EVACUATION: BLOOD CLOT, RECENT, WITH ACUTE INFLMMATORY EXUDATE. Electronically Signed Natalie Torrez M.D. Gross Description A. Received in formalin, labeled "bladder tumor" are multiple zavala, irregular portions of soft tissue measuring 1.5 x 1.5 x 0.2 cm in aggregate. The specimens are submitted in toto in one cassette. B. Received in formalin, labeled "bladder blood clots" are multiple dark brown portions of tissue consistent with blood clot measuring 7 x 7 x 2 cm in aggregate. Serial sections show no other soft tissue present. Visitor Use Assistant sections are submitted in 1 cassette. __ ARTHUR/02/01/2018 pablito/02/01/2018
== END 2018-02-02 17:48 | DRG 853 ==
LOC: JER 21:03 → JERBED 01-23 01:04 → J4W 01-23 06:04 → JICU 01-23 13:27 → J5S 01-26 20:34
PROVIDERS: ADMIT Internal Medicine; ATTEND Internal Medicine
PROC: 30233N1 Transfusion of Nonautologous Red Blood Cells into Peripheral Vein, Percutaneous Approach (ICD-10-PCS; 2018-01-25)
PROC: 0T9B70Z Drainage of Bladder with Drainage Device, Via Natural or Artificial Opening (ICD-10-PCS; 2018-01-29)
PROC: 0W9F30Z Drainage of Abdominal Wall with Drainage Device, Percutaneous Approach (ICD-10-PCS; 2018-01-29)
PROC: 0TBB8ZX Excision of Bladder, Via Natural or Artificial Opening Endoscopic, Diagnostic (ICD-10-PCS; principal; 2018-01-29 13:00)
PROC: 0T7D8ZZ Dilation of Urethra, Via Natural or Artificial Opening Endoscopic (ICD-10-PCS; 2018-01-29 13:00)
DX: A41.59 Other Gram-negative sepsis (principal); J96.01 Acute respiratory failure with hypoxia; G93.41 Metabolic encephalopathy; N17.9 Acute kidney failure, unspecified; N39.0 Urinary tract infection, site not specified; D62 Acute posthemorrhagic anemia; I24.8 Other forms of acute ischemic heart disease; E87.2 Acidosis; N13.8 Other obstructive and reflux uropathy; R65.20 Severe sepsis without septic shock; N35.8 Other urethral stricture; I10 Essential (primary) hypertension; D69.6 Thrombocytopenia, unspecified; C61 Malignant neoplasm of prostate; Z74.01 Bed confinement status; R31.0 Gross hematuria; Z87.891 Personal history of nicotine dependence; E78.5 Hyperlipidemia, unspecified; G20 Parkinson's disease; G62.9 Polyneuropathy, unspecified; R33.8 Other retention of urine; E83.39 Other disorders of phosphorus metabolism; F41.9 Anxiety disorder, unspecified; E66.9 Obesity, unspecified; Z68.34 Body mass index [BMI] 34.0-34.9, adult
CPT/HCPCS: 36415; 36430; 36511; 36600; 71045-TC-FY; 76775-TC; 76856-TC; 80048; 80053; 81003; 81015; 82375; 82550; 82553; 82803; 83050; 83605; 83735; 84100; 84484; 85025; 85027; 85610; 85730; 86850; 86900; 86901; 86922; 87040; 87086; 87186; 88304-TC; 88305-TC; 93005; 93010; 93306-TC; 94760; 99283-25; J0131; J1644; J7030; P9038; P9058

== ENCOUNTER 2018-07-04 04:57 | Inpatient (IN) | payer OTHER ==
--- NOTE | 2018-07-04 05:15 | PDOC ---
History of Present Illness - General Stated Complaint: DIFFUCULTY BREATHING History Source: EMS Exam Limitations: No Limitations - History of Present Illness Initial Comments: 07/04/18 19:32 82 year old man BIBA from [facility] who presents with complaints of being unresponsive since yesterday at approx 3pm. No history of trauma or falls reports from [email or web address] on [place]. 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 No further history initially presented, will call [facility] for collateral. Past History - Past Medical History Allergies/Adverse Reactions: Allergies Allergy/AdvReac Type Severity Reaction Status Date / Time No Known Allergies Allergy Verified 07/04/18 05:33 Home Medications: Ambulatory Orders Aspirin 81 mg PO DAILY 11/12/17 Cyanocobalamin [Vitamin B12 -] 1,000 mcg PO DAILY 11/12/17 Entacapone 200 mg PO QID 11/12/17 Losartan/Hydrochlorothiazide [Losartan-Hctz 100-12.5 mg Tab] 0.5 each PO DAILY 11/12/17 Ropinirole HCl [Requip] 1 mg PO HS 11/12/17 Tamsulosin HCl [Flomax -] 0.8 mg PO 1900 11/12/17 clonazePAM [Klonopin -] 0.125 mg PO HS 11/12/17 Meclizine HCl 25 mg PO DAILY PRN 01/23/18 Baclofen 5 mg PO HS 07/04/18 Carbidopa/Levodopa 25/250 [Sinemet 25/250 -] 1.5 tab PO QID 07/04/18 Duloxetine HCl [Cymbalta -] 20 mg PO DAILY 07/04/18 Ferrous Gluconate [Fergon -] 1 PO DAILY 07/04/18 Nitrofurantoin Monohyd/M-Cryst [Macrobid -] 1 tab PO DAILY 07/04/18 Ropinirole HCl 1 mg PO 06,11,15,19,23 07/04/18 Anemia: No Asthma: No Cancer: Yes (Prostate) Cardiac Disorders: No CVA: No COPD: No CHF: No Dementia: No Diabetes: No GI Disorders: No Disorders: Yes (Prostate Ca) HTN: Yes Hypercholesterolemia: Yes Liver Disease: No Seizures: No Thyroid Disease: No - Surgical History Abdominal Surgery: No Appendectomy: No Cardiac Surgery: No Cholecystectomy: No Lung Surgery: No Neurologic Surgery: No Orthopedic Surgery: No - Suicide/Smoking/Psychosocial Hx Smoking Status: No Smoking History: Unknown if ever smoked Have you smoked in the past 12 months: No Number of Cigarettes Smoked Daily: 0 If you are a former smoker, when did you quit?: 1950 Hx Alcohol Use: No Drug/Substance Use Hx: No Substance Use Type: None Hx Substance Use Treatment: No Review of Systems - Review of Systems Able to Perform ROS?: No (unable to obtain 2/2 AMS) *Physical Exam - Physical Exam Comments: 07/04/18 05:14 GCS: 4 GENERAL: Awake, alert, and fully oriented, in no acute distress HEAD: No signs of trauma, normocephalic, atraumatic EYES: R pupil colomboma, pupils sluggishly reactive to light, very slight blink to threat, sclera anicteric, conjunctiva clear ENT: oropharynx clear without exudates. NECK: supple, no JVD LUNGS: No distress, speaks full sentences, clear to auscultation bilaterally HEART: Regular rate and rhythm, normal S1 and S2, no murmurs, rubs or gallops, peripheral pulses normal and equal bilaterally. ABDOMEN: Soft, normoactive bowel sounds. No guarding, no rebound. No masses EXTREMITIES : R hand gripped and contracted, R forearm stiff and contracted at the elbow, no edema. No clubbing or cyanosis. NEUROLOGICAL: Cranial nerves II through XII grossly intact. Normal speech, normal gait, no focal sensorimotor deficits SKIN: cool, dry, tenting of the skin, no rashes or lesions noted Procedures - Central Line Central Line Lumen: triple Central Line Position: femoral (L) Complications: none Post Central Line Insertion: sutured - Intubation Blade used: Mac Tube Size (Fr): 7.5 Medications: Etomidate Tube position @ lip (cm): 24 Tube position confirmed by: Direct visualization Breath Sounds after Intubation: equal Intubation Complications: no complications Post Intubation Xray: Yes ED Treatment Course - LABORATORY CBC & Chemistry Diagram: 07/04/18 14:50 07/04/18 14:50 - RADIOLOGY Radiology Studies Ordered: Category Date Time Status HEAD CT WITHOUT CONTRAST [CT] Stat CT Scan 07/04/18 05:12 Ordered CHEST X-RAY PORTABLE* [RAD] Stat Radiology 07/04/18 05:11 Ordered Medical Decision Making - Medical Decision Making 07/04/18 05:12 Patient unresponsive since yesterday at approx 3pm. No history of trauma or falls reports from [place] on the [place]. History of hemorrhagic stroke with R arm deficit/contraction Pending further history. ED Course: Will start workup for altered mental status consider stroke, pna, uti, acs, metabolic derangement. cbc, cmp, lactic, cxr, head CT, ua ,ucx 07/04/18 19:32 Patient satting 100% on nrb and systolic bp 100-110, intermittently tachycardic. Multiple attempted at peripheral access without success. R IJ peripoheral access obtained. Fluids and zosyn started Patient clinicaly tenuous L femoral central line placed Patient signed out to day team. On reassessment, patient hypotensive to 40s map in the 30s. Rapidly bolused with pressure bag Patient desatting to the 70s. Patient intubated 7.5 tube, 24 at the lip, confirmed by capnography, auscultation and cxr Patient signed out to the day team resident Dr. Marie and attending Dr. Ken. *DC/Admit/Observation/Transfer Diagnosis at time of Disposition: ROBERT (acute kidney injury), Septic shock, UTI (urinary tract infection), Altered mental status, Ventilator dependence - Discharge Dispostion Condition at time of disposition: Critical - Referrals - Patient Instructions - Post Discharge Activity
[2018-07-04 05:42] LABS: URINE APPEARANCE CLOUDY; URINE COLOR AMBER; URINE GLUCOSE (UA) NEGATIVE (NEGATIVE); URINE KETONE NEGATIVE (NEGATIVE); URINE LEUK ESTERASE 1+ (NEGATIVE); URINE NITRITE NEGATIVE (NEGATIVE); URINE PROTEIN NEGATIVE (NEGATIVE)
[2018-07-04 05:51] LABS: EPI CELLS MODERATE /HPF (FEW)
[2018-07-04] MEDS ORDERED: PIPERACILLIN/TAZOB 3.375 GM 3.375 GM in DEXTROSE 5%-WATER - 50 ML IVPB ONE (06:29)
--- NOTE | 2018-07-04 06:29 | PDOC ---
Attending Attestation - Resident Resident Name: Yadi Jacobs - ED Attending Attestation I have performed the following: I have examined & evaluated the patient, The case was reviewed & discussed with the resident, I agree w/resident's findings & plan - HPI HPI: 07/04/18 23:29 [place]iveness [place] 12-15 hours. He cannot contribute to his history. He is dery, unresponsive, but breathing on his own. We spent an hour getting peripheral and central IV access, examining him, and placing kern catheter and drawing and redrawing labs and getting EKGs and rechecking vitals. Pt was ultiamtely intubated before we left the hospital at 7:30AM - Physicial Exam PE: 07/04/18 23:32 Agree with resident exam. Pt is afebrile, dry. - Critical Care Time Total Critical Care Time: 90 Critical Care Statement: The care of this patient involved high complexity decision making to prevent further life threatening deterioration of the patient 's condition and/or to evaluate & treat vital organ system(s) failure or risk of failure. - Medical Decision Making 07/04/18 23:32 Pt intubated, hydratedl signed out to the day team who will check all his labs and imaging studies and admit him to the ICU Procedures - Central Line Central Line Position: femoral (L) Complications: none Post Central Line Insertion: sutured, good blood return - Intubation Intubation Method: orotracheal Blade used: Mac Tube Size (Fr): 7.0 Medications: Etomidate, Succinylcholine Tube position @ lip (cm): 22 Tube position confirmed by: Direct visualization, CO2 detector, Chest x-ray, Breath sounds Breath Sounds after Intubation: equal Intubation Complications: no complications, oral-unsuccessful attempt Post Intubation Xray: Yes
[2018-07-04] MEDS ORDERED: SODIUM CHLORIDE 1,000 ML IV SCH ×3 (07:15→18:12)
[2018-07-04 07:38] LABS: ALBUMIN 3.6 g/dl (3.4-5.0); ALK PHOS 187 U/L (45-117); ANION GAP 18 MMOL/L (8-16); BILIRUBIN,TOTAL 1.3 mg/dL (0.2-1); BLOOD UREA NITROGEN 31 mg/dL (7-18); CHLORIDE 103 mmol/L (98-107); CO2 18 mmol/L (21-32); CREATININE 2.7 mg/dL (0.55-1.3); GLUCOSE,RANDOM 187 mg/dL (74-106); POTASSIUM 4.4 mmol/L (3.5-5.1); SGOT/AST 43 U/L (15-37); SGPT/ALT 27 U/L (13-61); SODIUM 138 mmol/L (136-145); TOT PROT 6.9 g/dl (6.4-8.2)
[2018-07-04 07:45] LABS: ARTERIAL BLD GAS O2 SATURATION 99.2 % (90-98.9); ARTERIAL BLOOD GAS pH 7.43 (7.35-7.45); CARBOXYHEMOGLOBIN 0.2 gm% (0.5-2.0)
[2018-07-04] MEDS ORDERED: ETOMIDATE 40 MG/20 ML VIAL IVPUSH ONE (07:48)
[2018-07-04] MEDS ORDERED: SUCCINYLCHOLINE CHLORIDE 200 MG/10 ML VIAL IVPUSH ONE (07:48)
[2018-07-04] MEDS ORDERED: SODIUM CHLORIDE 0.9% 1000 ML INFUS.BAG IV ONE ×2 (07:48→07:51)
[2018-07-04] MEDS ORDERED: VANCOMYCIN 1 GRAM (PRE-DOCKED) 1,000 MG/250 ML BAG IVPB ONE (07:48)
[2018-07-04] MEDS: FENTANYL INJECTION 500 MCG in DEXTROSE 5%-WATER - 90 ML IVPB SCH ×2 (08:00→17:27)
[2018-07-04] MEDS ORDERED: MIDAZOLAM HCL 2 MG/2 ML SINGLE DOSE VIAL IVPUSH ONE (08:01)
--- NOTE | 2018-07-04 08:05 | PDOC ---
*Physical Exam - Vital Signs Last Vital Signs Temp Pulse Resp BP Pulse Ox 100.9 F H 95 H 21 H 106/62 89 L 07/04/18 07:18 07/04/18 05:00 07/04/18 07:47 07/04/18 05:00 07/04/18 05:00 ED Treatment Course - LABORATORY CBC & Chemistry Diagram: 07/04/18 06:36 07/04/18 06:02 - ADDITIONAL ORDERS Additional order review: Laboratory Results 07/04/18 07/04/18 07/04/18 07:25 06:32 06:32 PT with INR INR PTT (Actin FS) Anticoagulation Therapy No Result Required. Puncture Site Left radial ABG pH 7.43 ABG pCO2 at Pt Temp 20.0 L ABG pO2 at Pt Temp 194.0 H* D ABG HCO3 13.1 L* ABG O2 Sat (Measured) 99.2 H ABG O2 Content 19.1 ABG Base Excess -9.0 L Justin Test No Result Required. Carboxyhemoglobin 0.2 L Methemoglobin 0.6 O2 Delivery Device No Result Required. Oxygen Flow Rate No Result Required. Vent Mode No Result Required. Vent Rate No Result Required. Mechanical Rate No Result Required. Pressure Support Vent No Result Required. Sodium Potassium Chloride Carbon Dioxide Anion Gap BUN Creatinine Creat Clearance w eGFR Random Glucose Lactic Acid 9.4 H* Calcium Total Bilirubin AST ALT Alkaline Phosphatase Ammonia 39.30 H Troponin I Total Protein Albumin Urine Color Urine Appearance Urine pH Ur Specific [place] Urine Protein Urine Glucose (UA) Urine Ketones Urine Blood Urine Nitrite Urine Bilirubin Urine Urobilinogen Ur Leukocyte Esterase Urine WBC (Auto) Urine RBC (Auto) Ur Epithelial Cells 07/04/18 07/04/18 07/04/18 06:02 06:02 06:02 PT with INR INR PTT (Actin FS) Anticoagulation Therapy Puncture Site ABG pH ABG pCO2 at Pt Temp ABG pO2 at Pt Temp ABG HCO3 ABG O2 Sat (Measured) ABG O2 Content ABG Base Excess Justin Test Carboxyhemoglobin Methemoglobin O2 Delivery Device Oxygen Flow Rate Vent Mode Vent Rate Mechanical Rate Pressure Support Vent Sodium 138 Potassium 4.4 Chloride 103 Carbon Dioxide 18 L Anion Gap 18 H BUN 31 H Creatinine 2.7 H Creat Clearance w eGFR 22.68 Random Glucose 187 H Lactic Acid 7.5 H* Calcium 9.0 Total Bilirubin 1.3 H AST 43 H ALT 27 Alkaline Phosphatase 187 H Ammonia Troponin I Cancelled < 0.02 Total Protein 6.9 Albumin 3.6 Urine Color Urine Appearance Urine pH Ur Specific [place] Urine Protein Urine Glucose (UA) Urine Ketones Urine Blood Urine Nitrite Urine Bilirubin Urine Urobilinogen Ur Leukocyte Esterase Urine WBC (Auto) Urine RBC (Auto) Ur Epithelial Cells 07/04/18 07/04/18 06:02 05:15 PT with INR Cancelled INR Cancelled PTT (Actin FS) Cancelled Anticoagulation Therapy Puncture Site ABG pH ABG pCO2 at Pt Temp ABG pO2 at Pt Temp ABG HCO3 ABG O2 Sat (Measured) ABG O2 Content ABG Base Excess Justin Test Carboxyhemoglobin Methemoglobin O2 Delivery Device Oxygen Flow Rate Vent Mode Vent Rate Mechanical Rate Pressure Support Vent Sodium Potassium Chloride Carbon Dioxide Anion Gap BUN Creatinine Creat Clearance w eGFR Random Glucose Lactic Acid Calcium Total Bilirubin AST ALT Alkaline Phosphatase Ammonia Troponin I Total Protein Albumin Urine Color Jennie Urine Appearance Cloudy Urine pH 5.0 Ur Specific [place] 1.011 Urine Protein Negative Urine Glucose (UA) Negative Urine Ketones Negative Urine Blood 3+ H Urine Nitrite Negative Urine Bilirubin 2.0 Urine Urobilinogen 2.0 Ur Leukocyte Esterase 1+ H Urine WBC (Auto) 29 Urine RBC (Auto) 776 Ur Epithelial Cells Moderate 07/04/18 06:02 RBC Cancelled MCV Cancelled MCHC Cancelled RDW Cancelled MPV Cancelled Neutrophils % Cancelled Lymphocytes % Cancelled Monocytes % Cancelled Eosinophils % Cancelled Basophils % Cancelled - RADIOLOGY Radiology Studies Ordered: Category Date Time Status CXRPORT [CHEST X-RAY PORTABLE*] [RAD] Stat Radiology 07/04/18 07:44 Ordered KUB (KID UR & BLAD) [RAD] Stat Radiology 07/04/18 07:58 Ordered - Medications Given in the ED: ED Medications Discontinued Medications Generic Name Dose Route Start Last Admin Trade Name Freq PRN Reason Stop Dose Admin Piperacillin Sod/Tazobactam 50 mls @ 100 mls/hr 07/04/18 06:29 07/04/18 06:39 Sod 3.375 gm/ Dextrose IVPB 07/04/18 06:58 100 mls/hr ONCE ONE Administration Protocol Medical Decision Making - Medical Decision Making 07/04/18 08:[address] Jacobs. Patient is 82M with history of subarachnoid hemorrhage, prostate cancer, DM, parkinson's here today with altered mental status. Patient is unable to provide history. History of vomiting. L femoral central line placed by prior team. ROS: Unable to obtain 2/2 patient mental statust PE: VITALS: 100.9, 24 122 60/42 GENERAL: Obtunded, ill-appearing HEAD: No signs of trauma, normocephalic, atraumatic EYES: R coloboma, L 4mm sluggish but reactive ENT: Auricles normal inspection, hearing grossly normal, nares patent, oropharynx clear without exudates. Moist mucosa NECK: No JVD LUNGS: Clear bilaterally, using accessory muscles HEART: Tachycardic, cold extremities ABDOMEN: Soft,distended, nontender EXTREMITIES: Normal inspection, Normal range of motion, no edema. No clubbing or cyanosis. NEUROLOGICAL: Obtunded, associate software development engineer intact, limited movement from pain SKIN: Warm, Dry, normal turgor, no rashes or lesions noted. Initial lactate 7.5. Second lactate drawn before fluids given. Patient intubated for airway protection. 3L fluids given, still hypotensive. Levophed started, titrating to MAP of 65. Spo2 unreliable given shock status, ETCO2 shows normal wave form 18-20. Patient is in metabolic acidosis with respiratory compensation, causing low bicarb. DDx at this point is still broad. Initial x-ray shows no infiltrate. UA doesn't show obvious infection, but possible UTI. Large amount of secretions in airway, concern for aspiration 2/2 obstruction or simple vomiting, og tube placed with suction to decompress. Also concern for head bleed given prior history. Patient is currently pending CT head, repeat CXR, ICU admission. Case discussed with Fortunato Pérez, accepted to ICU 07/04/18 09:[address] Davis, accepted for admission. Patient became bradycardic with rate to 30s with wide variation in rate. Given atropine, HRs stablized. Patient taken to ct scan, head/abdomen performed. Patient taken to ICU. *DC/Admit/Observation/Transfer Diagnosis at time of Disposition: ROBERT (acute kidney injury), Septic shock, UTI (urinary tract infection), Altered mental status, Ventilator dependence - Discharge Dispostion Condition at time of disposition: Critical Decision to Admit order: Yes - Referrals - Patient Instructions - Post Discharge Activity
--- NOTE | 2018-07-04 08:06 | PDOC ---
*Physical Exam - Vital Signs Last Vital Signs Temp Pulse Resp BP Pulse Ox 100.9 F H 95 H 21 H 106/62 89 L 07/04/18 07:18 07/04/18 05:00 07/04/18 07:47 07/04/18 05:00 07/04/18 05:00 - Physical Exam Comments: 07/04/18 07:59 gen: responsive to painful stimuli, heart: +s1s2 tachy lungs: diminished bl bs abd: soft, distended ext: no c/c/e, central line L groin Heart Score/ECG Review - ECG Intrepretation Comment:: 07/04/18 08:03 sinus tach at 105, nl axis, nl interval, no acute st/t wave findings ED Treatment Course - LABORATORY CBC & Chemistry Diagram: 07/04/18 06:36 07/04/18 06:02 - ADDITIONAL ORDERS Additional order review: Laboratory Results 07/04/18 07/04/18 07/04/18 07:25 06:32 06:02 PT with INR INR PTT (Actin FS) Anticoagulation Therapy No Result Required. Puncture Site Left radial ABG pH 7.43 ABG pCO2 at Pt Temp 20.0 L ABG pO2 at Pt Temp 194.0 H* D ABG HCO3 13.1 L* ABG O2 Sat (Measured) 99.2 H ABG O2 Content 19.1 ABG Base Excess -9.0 L Justin Test No Result Required. Carboxyhemoglobin 0.2 L Methemoglobin 0.6 O2 Delivery Device No Result Required. Oxygen Flow Rate No Result Required. Vent Mode No Result Required. Vent Rate No Result Required. Mechanical Rate No Result Required. Pressure Support Vent No Result Required. Sodium Potassium Chloride Carbon Dioxide Anion Gap BUN Creatinine Creat Clearance w eGFR Random Glucose Lactic Acid 7.5 H* Calcium Total Bilirubin AST ALT Alkaline Phosphatase Ammonia 39.30 H Troponin I Total Protein Albumin Urine Color Urine Appearance Urine pH Ur Specific [place] Urine Protein Urine Glucose (UA) Urine Ketones Urine Blood Urine Nitrite Urine Bilirubin Urine Urobilinogen Ur Leukocyte Esterase Urine WBC (Auto) Urine RBC (Auto) Ur Epithelial Cells 07/04/18 07/04/18 07/04/18 06:02 06:02 06:02 PT with INR Cancelled INR Cancelled PTT (Actin FS) Cancelled Anticoagulation Therapy Puncture Site ABG pH ABG pCO2 at Pt Temp ABG pO2 at Pt Temp ABG HCO3 ABG O2 Sat (Measured) ABG O2 Content ABG Base Excess Justin Test Carboxyhemoglobin Methemoglobin O2 Delivery Device Oxygen Flow Rate Vent Mode Vent Rate Mechanical Rate Pressure Support Vent Sodium 138 Potassium 4.4 Chloride 103 Carbon Dioxide 18 L Anion Gap 18 H BUN 31 H Creatinine 2.7 H Creat Clearance w eGFR 22.68 Random Glucose 187 H Lactic Acid Calcium 9.0 Total Bilirubin 1.3 H AST 43 H ALT 27 Alkaline Phosphatase 187 H Ammonia Troponin I Cancelled < 0.02 Total Protein 6.9 Albumin 3.6 Urine Color Urine Appearance Urine pH Ur Specific [place] Urine Protein Urine Glucose (UA) Urine Ketones Urine Blood Urine Nitrite Urine Bilirubin Urine Urobilinogen Ur Leukocyte Esterase Urine WBC (Auto) Urine RBC (Auto) Ur Epithelial Cells 07/04/18 05:15 PT with INR INR PTT (Actin FS) Anticoagulation Therapy Puncture Site ABG pH ABG pCO2 at Pt Temp ABG pO2 at Pt Temp ABG HCO3 ABG O2 Sat (Measured) ABG O2 Content ABG Base Excess Justin Test Carboxyhemoglobin Methemoglobin O2 Delivery Device Oxygen Flow Rate Vent Mode Vent Rate Mechanical Rate Pressure Support Vent Sodium Potassium Chloride Carbon Dioxide Anion Gap BUN Creatinine Creat Clearance w eGFR Random Glucose Lactic Acid Calcium Total Bilirubin AST ALT Alkaline Phosphatase Ammonia Troponin I Total Protein Albumin Urine Color Jennie Urine Appearance Cloudy Urine pH 5.0 Ur Specific [place] 1.011 Urine Protein Negative Urine Glucose (UA) Negative Urine Ketones Negative Urine Blood 3+ H Urine Nitrite Negative Urine Bilirubin 2.0 Urine Urobilinogen 2.0 Ur Leukocyte Esterase 1+ H Urine WBC (Auto) 29 Urine RBC (Auto) 776 Ur Epithelial Cells Moderate 07/04/18 06:02 RBC Cancelled MCV Cancelled MCHC Cancelled RDW Cancelled MPV Cancelled Neutrophils % Cancelled Lymphocytes % Cancelled Monocytes % Cancelled Eosinophils % Cancelled Basophils % Cancelled - Medications Given in the ED: ED Medications Discontinued Medications Generic Name Dose Route Start Last Admin Trade Name Freq PRN Reason Stop Dose Admin Piperacillin Sod/Tazobactam 50 mls @ 100 mls/hr 07/04/18 06:29 07/04/18 06:39 Sod 3.375 gm/ Dextrose IVPB 07/04/18 06:58 100 mls/hr ONCE ONE Administration Protocol Medical Decision Making - Critical Care Time Total Critical Care Time (minutes): 45 Critical Care Statement: The care of this patient involved high complexity decision making to prevent further life threatening deterioration of the patient 's condition and/or to evaluate & treat vital organ system(s) failure or risk of failure. - Medical Decision Making 07/04/18 08:03 a/p: 82yo male sent from [facility] for unresponsiveness -sepsis workup started -pt signed out from the prior attending pending labs, imaging -lactate 7 bicarb 13 pt intubated upon my evaluation for hypotension and unresponsive, airway protection per transfer paperowrk pt is a full code pt with a uti fluids given, broad spectrum abx ordered labs pending 07/04/18 08:06 resident discussed the case with [place] from the ICU [facility] 07/04/18 08:06 microblog sent to [facility] for admission 07/04/18 09:24 resident discussed the case with [facility] who accepts pt to service *DC/Admit/Observation/Transfer Diagnosis at time of Disposition: ROBERT (acute kidney injury), Septic shock, UTI (urinary tract infection), Altered mental status, Ventilator dependence - Discharge Dispostion Condition at time of disposition: Critical Decision to Admit order: Yes Decision to Admit order Date/Time: Decision to Admit Order Category Date Time Status Decision to Admit to Hospital Routine Admission 07/04/18 07:52 Ordered - Referrals - Patient Instructions - Post Discharge Activity
[2018-07-04] MEDS ORDERED: ACETAMINOPHEN 1000 MG/100 ML VIAL (NON FORMULARY) IVPB ONE ×2 (08:07→15:18)
[2018-07-04 09:09] LABS: BASO % 0.1 % (0-2.0); HEMATOCRIT 38.9 % (35.4-49); LYMPH % 3.7 % (8-40); MCH 34.4 pg (25.7-33.7); MCHC 35.9 g/dl (32.0-35.9); MEAN CELL VOLUME 95.6 fl (80-96); MEAN PLT VOLUME 9.5 fl (7.5-11.1); MONO % 6.4 % (3.8-10.2); NEUT % 89.8 % (42.8-82.8); PLATELET COUNT 186 K/MM3 (134-434); RBC 4.07 M/mm3 (4.00-5.60); RDW 13.3 % (11.9-15.9)
[2018-07-04 09:21] LABS: ANISOCYTOSIS 1+; MACROCYTOSIS 1+; PLATELET ESTIMATE NORMAL; ROULEAU 1+
[2018-07-04 09:26] LABS: INR 1.09 (0.83-1.09); PROTHROMBIN TIME (PATIENT) 12.9 SEC (9.7-13.0)
[2018-07-04] MEDS ORDERED: HEPARIN NA (PORCINE) 5,000 UNITS/ML 1ML VIAL SQ SCH (10:00)
[2018-07-04] MEDS ORDERED: MINERAL OIL ENEMA 133 ML ENEMA PR ONE (10:04)
--- NOTE | 2018-07-04 10:38 | HP ---
CHIEF COMPLAINT: unresponsive PCP: Roberto Patient comes from [facility] HISTORY OF PRESENT ILLNESS: 82 yo Male with PMH Prostate CA, HTN, HLD, Parkinsons admitted after [facility] at [facility]. Pt has reportedly been less responsive than normal since around 3pm yesterday afternoon. Unable to obtain history from patient, however no history of falls or trauma as per ED evaluation. As per pts girlfriend who was arrived once pt was in the ICU, he had numerous episodes of vomiting yesterday prior to the onset of lethargy and altered mental status. 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) Social History: Smoking: none Alcohol: none Drugs: none Family History: Allergies No Known Allergies Allergy (Verified 07/04/18 05:33) HOME MEDICATIONS: Home Medications Medication Instructions Recorded Aspirin 81 mg PO DAILY 11/12/17 Carbidopa/Levodopa 25/250 [Sinemet 1.5 each PO QID 11/12/17 25/250 -] Cyanocobalamin [Vitamin B12 -] 1,000 mcg PO DAILY 11/12/17 Entacapone 200 mg PO QID 11/12/17 Losartan/Hydrochlorothiazide 0.5 each PO DAILY 11/12/17 [Losartan-Hctz 100-12.5 mg Tab] Ropinirole HCl [Requip] 1 mg PO ASDIR 11/12/17 Tamsulosin HCl [Flomax -] 0.8 mg PO DAILY 11/12/17 clonazePAM [Klonopin -] 0.125 mg PO BID 11/12/17 Acetaminophen [Tylenol] 325 mg PO BID PRN 01/23/18 Cyanocobalamin (Vitamin B-12) 1,000 mcg PO DAILY 01/23/18 [Vitamin B-12] Magnesium Hydrox 2400MG/30Ml [Milk 30 ml PO DAILY 01/23/18 of Magnesia -] Meclizine HCl 25 mg PO DAILY 01/23/18 Naph,Mb-Db/K pH,Mbdb [PHOS-NaK 1 packet PO DAILY #0 pow 02/02/18 PACKET -] REVIEW OF SYSTEMS Unable to Obtain PHYSICAL EXAMINATION Vital Signs - 24 hr 07/04/18 07/04/18 07/04/18 05:00 07:18 07:47 Temperature 100.9 F H Pulse Rate 95 H Respiratory 14 21 H Rate Blood Pressure 106/62 O2 Sat by Pulse 89 L Oximetry (%) 07/04/18 07/04/18 10:14 10:15 Temperature 99.7 F H 99.7 F H Pulse Rate 106 H 66 Respiratory 16 15 Rate Blood Pressure 101/56 L 101/56 L O2 Sat by Pulse Oximetry (%) GENERAL: Intubated and Sedated HEAD: Normocephalic, atraumatic. EYES: Right coloboma, Left pupil constricted but reactive to light EARS, NOSE, THROAT: oropharynx clear without exudates. Moist mucous membranes. NECK: supple without lymphadenopathy LUNGS: Mechanical breath sounds, no obvious crackles/rhonchi/wheezes HEART: Regular rate and rhythm, normal S1 and S2 without murmur ABDOMEN: Distended, hypooactive bowel sounds : Menendez in place draining dark mike urine MUSCULOSKELETAL: No bony deformities or tenderness. EXTREMITIES: 2+ pulses, warm, well-perfused. No peripheral edema. NEUROLOGICAL: Intubated and sedated, pupillary reflex intact, does not respond to painful stimul (though sedation noted) SKIN: Warm, dry, no rashes or lesions noted Laboratory Results - last 24 hr 07/04/18 07/04/18 07/04/18 05:15 06:02 06:02 WBC Cancelled Corrected WBC (auto) Cancelled RBC Cancelled Hgb Cancelled Hct Cancelled MCV Cancelled MCH Cancelled MCHC Cancelled RDW Cancelled Plt Count Cancelled MPV Cancelled Absolute Neuts (auto) Cancelled Neutrophils % Cancelled Neutrophils % (Manual) Band Neutrophils % Lymphocytes % Cancelled Lymphocytes % (Manual) Monocytes % Cancelled Monocytes % (Manual) Eosinophils % Cancelled Eosinophils % (Manual) Basophils % Cancelled Basophils % (Manual) Myelocytes % (Man) Promyelocytes % (Man) Blast Cells % (Manual) Nucleated RBC % Cancelled Metamyelocytes Platelet Estimate Cancelled Platelet Comment Cancelled Anisocytosis Macrocytosis Rouleaux PT with INR Cancelled INR Cancelled PTT (Actin FS) Cancelled Anticoagulation Therapy Puncture Site ABG pH ABG pCO2 at Pt Temp ABG pO2 at Pt Temp ABG HCO3 ABG O2 Sat (Measured) ABG O2 Content ABG Base Excess Justin Test Carboxyhemoglobin Methemoglobin O2 Delivery Device Oxygen Flow Rate Vent Mode Vent Rate Mechanical Rate Pressure Support Vent Sodium Potassium Chloride Carbon Dioxide Anion Gap BUN Creatinine Creat Clearance w eGFR Random Glucose Lactic Acid Calcium Total Bilirubin AST ALT Alkaline Phosphatase Ammonia Troponin I Total Protein Albumin Urine Color Mike Urine Appearance Cloudy Urine pH 5.0 Ur Specific [place] 1.011 Urine Protein Negative Urine Glucose (UA) Negative Urine Ketones Negative Urine Blood 3+ H Urine Nitrite Negative Urine Bilirubin 2.0 Urine Urobilinogen 2.0 Ur Leukocyte Esterase 1+ H Urine WBC (Auto) 29 Urine RBC (Auto) 776 Ur Epithelial Cells Moderate 07/04/18 07/04/18 07/04/18 06:02 06:02 06:02 WBC Corrected WBC (auto) RBC Hgb Hct MCV MCH MCHC RDW Plt Count MPV Absolute Neuts (auto) Neutrophils % Neutrophils % (Manual) Band Neutrophils % Lymphocytes % Lymphocytes % (Manual) Monocytes % Monocytes % (Manual) Eosinophils % Eosinophils % (Manual) Basophils % Basophils % (Manual) Myelocytes % (Man) Promyelocytes % (Man) Blast Cells % (Manual) Nucleated RBC % Metamyelocytes Platelet Estimate Platelet Comment Anisocytosis Macrocytosis Rouleaux PT with INR INR PTT (Actin FS) Anticoagulation Therapy Puncture Site ABG pH ABG pCO2 at Pt Temp ABG pO2 at Pt Temp ABG HCO3 ABG O2 Sat (Measured) ABG O2 Content ABG Base Excess Justin Test Carboxyhemoglobin Methemoglobin O2 Delivery Device Oxygen Flow Rate Vent Mode Vent Rate Mechanical Rate Pressure Support Vent Sodium 138 Potassium 4.4 Chloride 103 Carbon Dioxide 18 L Anion Gap 18 H BUN 31 H Creatinine 2.7 H Creat Clearance w eGFR 22.68 Random Glucose 187 H Lactic Acid 7.5 H* Calcium 9.0 Total Bilirubin 1.3 H AST 43 H ALT 27 Alkaline Phosphatase 187 H Ammonia Troponin I < 0.02 Cancelled Total Protein 6.9 Albumin 3.6 Urine Color Urine Appearance Urine pH Ur Specific [place] Urine Protein Urine Glucose (UA) Urine Ketones Urine Blood Urine Nitrite Urine Bilirubin Urine Urobilinogen Ur Leukocyte Esterase Urine WBC (Auto) Urine RBC (Auto) Ur Epithelial Cells 07/04/18 07/04/18 07/04/18 06:32 06:32 06:36 WBC 18.0 H Corrected WBC (auto) RBC 4.07 Hgb 14.0 Hct 38.9 D MCV 95.6 MCH 34.4 H MCHC 35.9 RDW 13.3 Plt Count 186 MPV 9.5 D Absolute Neuts (auto) 16.1 H Neutrophils % 89.8 H D Neutrophils % (Manual) 74.0 D Band Neutrophils % 12.0 Lymphocytes % 3.7 L D Lymphocytes % (Manual) 9.0 D Monocytes % 6.4 Monocytes % (Manual) 4 Eosinophils % 0.0 D Eosinophils % (Manual) 0.0 D Basophils % 0.1 Basophils % (Manual) 0.0 Myelocytes % (Man) 0 D Promyelocytes % (Man) 0 Blast Cells % (Manual) 0 Nucleated RBC % 0 Metamyelocytes 1 D Platelet Estimate Normal Platelet Comment Anisocytosis 1+ Macrocytosis 1+ Rouleaux 1+ PT with INR INR PTT (Actin FS) Anticoagulation Therapy Puncture Site ABG pH ABG pCO2 at Pt Temp ABG pO2 at Pt Temp ABG HCO3 ABG O2 Sat (Measured) ABG O2 Content ABG Base Excess Justin Test Carboxyhemoglobin Methemoglobin O2 Delivery Device Oxygen Flow Rate Vent Mode Vent Rate Mechanical Rate Pressure Support Vent Sodium Potassium Chloride Carbon Dioxide Anion Gap BUN Creatinine Creat Clearance w eGFR Random Glucose Lactic Acid 9.4 H* Calcium Total Bilirubin AST ALT Alkaline Phosphatase Ammonia 39.30 H Troponin I Total Protein Albumin Urine Color Urine Appearance Urine pH Ur Specific [place] Urine Protein Urine Glucose (UA) Urine Ketones Urine Blood Urine Nitrite Urine Bilirubin Urine Urobilinogen Ur Leukocyte Esterase Urine WBC (Auto) Urine RBC (Auto) Ur Epithelial Cells 07/04/18 07/04/18 06:36 07:25 WBC Corrected WBC (auto) RBC Hgb Hct MCV MCH MCHC RDW Plt Count MPV Absolute Neuts (auto) Neutrophils % Neutrophils % (Manual) Band Neutrophils % Lymphocytes % Lymphocytes % (Manual) Monocytes % Monocytes % (Manual) Eosinophils % Eosinophils % (Manual) Basophils % Basophils % (Manual) Myelocytes % (Man) Promyelocytes % (Man) Blast Cells % (Manual) Nucleated RBC % Metamyelocytes Platelet Estimate Platelet Comment Anisocytosis Macrocytosis Rouleaux PT with INR 12.90 INR 1.09 PTT (Actin FS) Anticoagulation Therapy No Result Required. Puncture Site Left radial ABG pH 7.43 ABG pCO2 at Pt Temp 20.0 L ABG pO2 at Pt Temp 194.0 H* D ABG HCO3 13.1 L* ABG O2 Sat (Measured) 99.2 H ABG O2 Content 19.1 ABG Base Excess -9.0 L Justin Test No Result Required. Carboxyhemoglobin 0.2 L Methemoglobin 0.6 O2 Delivery Device No Result Required. Oxygen Flow Rate No Result Required. Vent Mode No Result Required. Vent Rate No Result Required. Mechanical Rate No Result Required. Pressure Support Vent No Result Required. Sodium Potassium Chloride Carbon Dioxide Anion Gap BUN Creatinine Creat Clearance w eGFR Random Glucose Lactic Acid Calcium Total Bilirubin AST ALT Alkaline Phosphatase Ammonia Troponin I Total Protein Albumin Urine Color Urine Appearance Urine pH Ur Specific [place] Urine Protein Urine Glucose (UA) Urine Ketones Urine Blood Urine Nitrite Urine Bilirubin Urine Urobilinogen Ur Leukocyte Esterase Urine WBC (Auto) Urine RBC (Auto) Ur Epithelial Cells ASSESSMENT/PLAN: 82 yo Male with PMH Prostate CA, HTN, HLD, Parkinsons admitted [facility]. Severe Sepsis likely secondary to UTI vs other unknown infectious source -UA noted with likely UTI, 1+ LE with 29 WBCs, though likely would not be the source for such a severe sepsis -Lactic Acid 7.5 -> 9.4 -> 5.4 -> 5.6, pt will need continued fluids, monitor for overload though less concerned with pt intubated -Trend Lactic Acid -ID Consulted -CXR okay -CT Abdomen with colonic dilation and some colitis but no free air or ischemia noted, NGT to low intermittent wall suction -Vanc dosed based on levels -Zosyn adjusted for renal function -C. dif pending, Flagyl for now as per ID HTN -Hold home meds for now with renal function and hypotension Parkinson's -Carbidopa/Levodopa when able BPH/Prostate CA -continue Flomax 0.8 mg PO HS when able DVT Prophylaxis -SCDs FEN -Fluids: NS @ 250 cc/hr -Electrolytes: No electrolyte abnormalities, BMP in AM -Nutrition: NPO Disposition ICU Visit type - Emergency Visit Emergency Visit: Yes ED Registration Date: 07/04/18 Care time: The patient presented to the Emergency Department on the above date and was hospitalized for further evaluation of their emergent condition. - New Patient This patient is new to me today: Yes Date on this admission: 07/04/18 - Critical Care Critical Care patient: Yes Total Critical Care Time (in minutes): 50 Critical Care Statement: The care of this patient involved high complexity decision making to prevent further life threatening deterioration of the patient 's condition and/or to evaluate & treat vital organ system(s) failure or risk of failure.
[2018-07-04 10:53] LABS: ARTERIAL BLD GAS O2 SATURATION 98.5 % (90-98.9); ARTERIAL BLOOD GAS BASE EXCESS -6.3 meq/l (-2-2); ARTERIAL BLOOD GAS PCO2 27.8 mmHg (35-45)
[2018-07-04 10:54] LABS: ALLENS TEST POSITIVE
--- NOTE | 2018-07-04 11:26 | EKG ---
Test Reason : Blood Pressure : / mmHG Vent. Rate : 105 BPM Atrial Rate : 105 BPM P-R Int : 150 ms QRS Dur : 066 ms QT Int : 340 ms P-R-T Axes : 038 006 055 degrees QTc Int : 449 ms SINUS TACHYCARDIA INFERIOR INFARCT (CITED ON OR BEFORE 27-JAN-1999) ABNORMAL ECG WHEN COMPARED WITH ECG OF 23-JAN-2018 01:10, PREMATURE VENTRICULAR COMPLEXES ARE NO LONGER PRESENT NONSPECIFIC T WAVE ABNORMALITY NO LONGER EVIDENT IN ANTERIOR LEADS Confirmed by BLAKE FAITH MD ([id number]) on 07/04/2018 11:25:50 AM Referred By: Confirmed By:BLAKE FAITH MD
[2018-07-04] MEDS: SODIUM CHLORIDE 1,000 ML IV SCH ×2 (12:30→17:29)
--- NOTE | 2018-07-04 12:30 | CONSULT ---
Consult - text type - Consultation Consultation Note: PULM/CCM Pt seen and examined in ICU CC: ams, resp failure HPI: hx obtained from medical record 2/2 pt clinical conditon. Briefly Mr Swain is a 82 yo man, [place] residence 2/2 advanced parkinson disorder who had been in declining health. He was noted to be vomiting yesterday, and then becoming increasingly somulent. He was sent to ED early this am, was noted to be hypoxic on NRB and not protecting his airway. He was intubated in ED, was noted to have distended abdomen and hypoactive BS. Pt was briefly hypotensive post intubation, responsive to IVF. His lactate (9) and WBC (18) count were both elevated, BUN/CR 31/2.7 c/w ROBERT. He was started on broad specturm abx and pancultured. A femoral central line was placed but pt never required vaspopressors. He was briefly bradycardic, was given atropine with approp response. CTAP showed stool throughout, with colitis. There was no free air. Lactated improved to 5 with IVF. Pt transferred to ICU for further care Family arrived at bedside (significant other of >25 years who is his "HCP" and sister) both of who related pt would not want aggressive measure given his advanced parkinsons and in light of his multisystem organ dysfunction. It was agreed to continued current level of support but not to escalate if pt were to deteriorate , they are awaiting children/extended family to arrive (to be made DNR). 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 Peripheral Neuropathy,Parkinson's,Vertigo,Other Cardio/Vascular HTN,Hyperlipdemia Renal/ Hematuria Heme/Onc Other Past Surgical History Past Surgical History None Social History Smoking history Unknown if ever smoked Have you smoked in the past 12 No months Hx Alcohol Use No History of Substance Use None Ambulatory Orders Aspirin 81 mg PO DAILY 11/12/17 Carbidopa/Levodopa 25/250 [Sinemet 25/250 -] 1.5 each PO QID 11/12/17 Cyanocobalamin [Vitamin B12 -] 1,000 mcg PO DAILY 11/12/17 Entacapone 200 mg PO QID 11/12/17 Losartan/Hydrochlorothiazide [Losartan-Hctz 100-12.5 mg Tab] 0.5 each PO DAILY 11/12/17 Ropinirole HCl [Requip] 1 mg PO ASDIR 11/12/17 Tamsulosin HCl [Flomax -] 0.8 mg PO DAILY 11/12/17 clonazePAM [Klonopin -] 0.125 mg PO BID 11/12/17 Acetaminophen [Tylenol] 325 mg PO BID PRN 01/23/18 Cyanocobalamin (Vitamin B-12) [Vitamin B-12] 1,000 mcg PO DAILY 01/23/18 Magnesium Hydrox 2400MG/30Ml [Milk of Magnesia -] 30 ml PO DAILY 01/23/18 Meclizine HCl 25 mg PO DAILY 01/23/18 Naph,Mb-Db/K pH,Mbdb [PHOS-NaK PACKET -] 1 packet PO DAILY #0 pow 02/02/18 Vital Signs Temp 99.7 F H 07/04/18 10:15 Pulse 113 H 07/04/18 10:30 Resp 20 07/04/18 10:30 BP 101/56 L 07/04/18 10:15 Pulse Ox 100 07/04/18 10:30 Intake & Output 07/03/18 07/04/18 07/04/18 23:59 11:59 23:59 Weight 95.5 kg Other: Voiding Method Indwelling Catheter Height 5 ft 8 in Body Mass Index (BMI) 32.0 Weight Measurement Method Estimated by Staff Active Medications Heparin Sodium (Porcine) (Heparin -) 5,000 unit SQ BID CRISTAL Fentanyl 500 mcg/ Dextrose 100 mls @ 10 mls/hr IVPB TITR CRISTAL Last Admin: 07/04/18 08:00 Dose: 50 mcg/hr, 10 mls/hr Norepinephrine Bitartrate 8, (000 mcg/ Dextrose) 500 mls @ 10.2 mls/hr IV ASDIR CRISTAL; Protocol Sodium Chloride (Normal Saline -) 1,000 mls @ 150 mls/hr IV ASDIR CRISTAL Piperacillin Sod/Tazobactam (Sod 2.25 gm/ Dextrose) 50 mls @ 100 mls/hr IVPB Q6H-IV CRISTAL; Protocol CBC, BMP 07/04/18 06:36 07/04/18 06:02 PE: GEN: Intubated, Sedated HEENT: Pinpoint reactive, neck supple PULM: scattered rhonic CV: tachy, regular, no mr/g apreciated ABD: distended, grimace to palpation, absent BS EXT: cool, 2+ pulses Neuro: localizes to noxious stimuli CXR; no dense infiltrate or pulm edema, ETT and NGT in satifactory position EKG: sinus tach no acute ischemic changes A/ 82 y/o man advanced parkinsons now with ischemic vs infectious colitis with likely ileus, sepsis and possible UTI c/b multisystem organ dysfunction family leaning toward palliative extubation and comfort care P/ -full vent support for normocapnea and Fio2 as needed -vanc/PT/flagyl -NPO, NG to intermittent LWS -IVF, trend Cr -restart home meds if when able to us GI tract -Family does not wish to purse dialysis, prolonged mechanical ventilation, or increasing levels of critical care support/capped care Beto ACNP [id number] 45min CCT
--- NOTE | 2018-07-04 12:55 | PN ---
Progress Note (short form) - Note Progress Note: ID consult dictated sepsis acute respiratory failure colitis possible uti advanced parkinsons disease-has been [place] poorly at the [place] for last several months, essentially bedbound ROBERT vancomycin based on levels continue zosyn adjsuted for robert stool cdiff add flagyl no history of MDRO d/w daughter and girlfriend at the bedside overall prognosis is poor over 35 minutes spent in the care of this critically ill ICU patient Problem List - Problems (1) Septic shock Code(s): A41.9 - SEPSIS, UNSPECIFIED ORGANISM; R65.21 - SEVERE SEPSIS WITH SEPTIC SHOCK (2) Respiratory failure Code(s): J96.90 - RESPIRATORY FAILURE, UNSP, UNSP W HYPOXIA OR HYPERCAPNIA (3) Colitis Code(s): K52.9 - NONINFECTIVE GASTROENTERITIS AND COLITIS, UNSPECIFIED (4) UTI (urinary tract infection) Code(s): N39.0 - URINARY TRACT INFECTION, SITE NOT SPECIFIED (5) Parkinson disease Code(s): G20 - PARKINSON'S DISEASE
--- NOTE | 2018-07-04 13:38 | CONS ---
DATE OF CONSULTATION: 07/04/2018 REQUESTED BY: Hospitalist Service This is an 82-year-old man with history of Parkinson disease. He has been residing at the retirement since November 2015 due to his worsening Parkinson's. He was brought from the retirement; was unresponsive early this morning. He was intubated in the emergency room. He had a head CT that was unremarkable. He had a CT scan of his abdomen and pelvis that was notable for colitis. He remains minimally responsive. He has no evidence of any trauma. PAST MEDICAL HISTORY: Notable for history of prostate cancer, hypertension, hyperlipidemia. He is status post cystoscopy with TURBT and evacuation of clots and was found to have a bladder tumor in January 2018. He is also noted to have had an enterobacter bacteremia in January that was treated with carbapenem. Notable for Parkinson disease as well. SURGICAL HISTORY: Notable for the TURBT, prostate cancer, bladder tumor, hypertension, hyperlipidemia. [facility]ICATIONS [facility]: Klonopin; Flomax; Requip; meclizine; losartan; hydrochlorothiazide; entacapone; vitamin B12; carbidopa; levodopa; aspirin. SOCIAL HISTORY: He has a girlfriend who visits him regularly. He has been at the retirement almost 2 years. He has 3 adult children who live out of town. PHYSICAL EXAMINATION: Vital Signs: His temperature maximum is 100.9, currently 99.7, pulse of 113, blood pressure 101/56, respiratory rate is 20. He is intubated on 50%, saturating 100. HEENT: He is normocephalic. His eyes are anicteric. He is orally intubated. Lungs: Diminished breath sounds at the bases. Heart: Regular rate and rhythm. Abdomen: Firm. He has diminished bowel sounds. He is unresponsive, so it is difficult to assess tenderness. Extremities: Without edema. Skin: He has a small 1-cm area of deep tissue injury in the sacrum. Chest x-ray shows weak inspiration without any infiltrate. He had a CT scan of his abdomen and pelvis that shows collapsed right colon with thickening and irregularity, suspicious for colitis. He had a CT that showed no evidence of acute intracranial pathology. REVIEW OF SYSTEMS: His girlfriend reports that the retirement said he vomited once yesterday. She is not aware if he has had any diarrhea there. LABORATORIES: Notable for a white count of 18,000, hemoglobin 14, platelets of 186. BUN is 31, creatinine is 2.7. Lactic acid was 7.5; is now 5.4. LFTs with alkaline phosphatase of 187. Ammonia 39.3. Urinalysis with 1+ leukocytes with 29 white cells, 776 red cells, and moderate epithelial cells. Blood and urine cultures are pending. SUMMARY: This is an elderly man with Parkinson disease admitted with severe sepsis. He was intubated in the emergency room. He is notable for the fact that he has leukocytosis; no acute kidney injury; lactic acidosis; evidence of colitis on CT scan with possible urinary tract infection. He has been given vancomycin, which we will dose renally based on his acute kidney injury. Would continue Zosyn, also adjusted for his acute kidney injury. We will send a Clostridium difficile for possible colitis. Will add IV Flagyl at this time, as he is not currently taking any oral medications, to empirically treat him. Family is considering palliative care, which they will discuss further after the remaining siblings arrive. At this time, we will continue to support him and he is currently off pressors. He did have an episode of bradycardia in the emergency room requiring atropine. Further recommendations to follow. GEOVANY ALTAMIRANO M.D. CHANTE/[id number]
--- NOTE | 2018-07-04 14:52 | CONSULT ---
Consult Consult Specialty:: Nephrology Reason for Consultation:: ROBERT - History of Present Illness Chief Complaint: altered mental status History of Present Illness: Pt is an 82 year old make with pmhx of subarachnoid hemorrhage, prostate cancer , DM, and parkinsons who presents with altered mental status. He was found to be in resp failure and intubated. I was called to evaluate him for ROBERT. He remains in the ICU. He is unable to give history. His daughter is at bedside and assisted with history. - History Source History Provided By: Medical Record - Past Medical History COOK VEGETABLE: Yes: Peripheral Neuropathy, Parkinson's (RUE tremor), Vertigo, Other Cardio/Vascular: Yes: HTN, Hyperlipdemia Renal/: Yes: Hematuria - Past Surgical History Past Surgical History: Yes: None - Alcohol/Substance Use Hx Alcohol Use: No History of Substance Use: reports: None - Smoking History Smoking history: Unknown if ever smoked Have you smoked in the past 12 months: No Aproximately how many cigarettes per day: 0 If you are a former smoker, when did you quit?: 1950 - Social History Usual Living Arrangement: Alone Home Medications - Allergies Allergies/Adverse Reactions: Allergies Allergy/AdvReac Type Severity Reaction Status Date / Time No Known Allergies Allergy Verified 07/04/18 05:33 - Home Medications Home Medications: Ambulatory Orders Aspirin 81 mg PO DAILY 11/12/17 Carbidopa/Levodopa 25/250 [Sinemet 25/250 -] 1.5 each PO QID 11/12/17 Cyanocobalamin [Vitamin B12 -] 1,000 mcg PO DAILY 11/12/17 Entacapone 200 mg PO QID 11/12/17 Losartan/Hydrochlorothiazide [Losartan-Hctz 100-12.5 mg Tab] 0.5 each PO DAILY 11/12/17 Ropinirole HCl [Requip] 1 mg PO ASDIR 11/12/17 Tamsulosin HCl [Flomax -] 0.8 mg PO DAILY 11/12/17 clonazePAM [Klonopin -] 0.125 mg PO BID 11/12/17 Acetaminophen [Tylenol] 325 mg PO BID PRN 01/23/18 Cyanocobalamin (Vitamin B-12) [Vitamin B-12] 1,000 mcg PO DAILY 01/23/18 Magnesium Hydrox 2400MG/30Ml [Milk of Magnesia -] 30 ml PO DAILY 01/23/18 Meclizine HCl 25 mg PO DAILY 01/23/18 Naph,Mb-Db/K pH,Mbdb [PHOS-NaK PACKET -] 1 packet PO DAILY #0 pow 02/02/18 Family Disease History - Family Disease History Family History: Unable to Obtain Review of Systems Unable to obtain ROS, reason: lethargy Physical Exam Vital Signs: Vital Signs Temperature 99.7 F H 07/04/18 10:15 Pulse Rate 58 L 07/04/18 14:00 Respiratory Rate 20 07/04/18 14:00 Blood Pressure 90/52 L 07/04/18 14:00 O2 Sat by Pulse Oximetry (%) 100 07/04/18 10:30 Constitutional: Yes: No Distress Eyes: Yes: Conjunctiva Clear HENT: Yes: Atraumatic Cardiovascular: Yes: S1, S2 Respiratory: Yes: Mechanically Ventilated Gastrointestinal: Yes: Soft Renal/: Yes: Kern Present Musculoskeletal: Yes: Muscle Weakness Edema: Yes Edema: LLE: Trace, RLE: Trace Neurological: Yes: Lethargy Labs: CBC, BMP 07/04/18 06:36 07/04/18 06:02 Laboratory Tests 01/31/18 02/01/18 07/04/18 06:00 06:00 06:02 WBC Hgb BUN 31 H Creatinine 0.6 L 0.7 2.7 H Lactic Acid 07/04/18 07/04/18 07/04/18 06:02 06:32 06:36 WBC 18.0 H Hgb 14.0 BUN Creatinine Lactic Acid 7.5 H* 9.4 H* 07/04/18 10:40 WBC Hgb BUN Creatinine Lactic Acid 5.4 H* Imaging - Results Chest X-ray: Report Reviewed Cat Scan: Report Reviewed Problem List - Problems (1) ROBERT (acute kidney injury) Code(s): N17.9 - ACUTE KIDNEY FAILURE, UNSPECIFIED (2) Altered mental status Code(s): R41.82 - ALTERED MENTAL STATUS, UNSPECIFIED Assessment/Plan Current Medications Generic Name Dose Route Start Last Admin Trade Name Freq PRN Reason Stop Dose Admin Heparin Sodium (Porcine) 5,000 unit 07/04/18 10:00 Heparin - SQ BID CRISTAL Fentanyl 500 mcg/ Dextrose 100 mls @ 10 mls/hr 07/04/18 08:00 07/04/18 08:00 IVPB 50 mcg/hr TITR CRISTAL 10 mls/hr Administration 50 MCG/HR Norepinephrine Bitartrate 8, 500 mls @ 10.2 mls/hr 07/04/18 08:00 000 mcg/ Dextrose IV ASDIR CRISTAL Protocol 0.03 MCG/KG/MIN Sodium Chloride 1,000 mls @ 150 mls/hr 07/04/18 10:30 Normal Saline - IV ASDIR CRISTAL Piperacillin Sod/Tazobactam 50 mls @ 100 mls/hr 07/04/18 15:00 Sod 2.25 gm/ Dextrose IVPB Q6H-IV CRISTAL Protocol Metronidazole 500 mg in 100 mls @ 100 mls/hr 07/04/18 14:30 Flagyl 500mg Premixed Ivpb - IVPB Q8H-IV CRISTAL Impression 1. ROBERT 2. lactic acidosis 3. resp failure requiring intubation 4. parkinsons 5. hypotension 6. shock Plan - continue fluids - monitor urine output - monitor lactic acid - vent support - discussed with family, they are leaning toward comfort measure and do not want any aggressive measures such as HD - check ua and lytes - keyure kern - discussed with ICU team - cont ICU care Dr Cazares
[2018-07-04] MEDS ORDERED: PIPERACILLIN/TAZOBACTAM 2.25 GM VIAL IVPB ONE ×2 (14:54→21:57)
[2018-07-04] MEDS ORDERED: DEXTROSE 5%-WATER - 50 ML IVPB ONE ×2 (14:54→21:57)
[2018-07-04 15:09] LABS: HEMATOCRIT 34.2 % (35.4-49); HEMOGLOBIN 12.3 GM/dL (11.7-16.9); LYMPH % 7.2 % (8-40); MCH 34.1 pg (25.7-33.7); MCHC 35.9 g/dl (32.0-35.9); MEAN CELL VOLUME 94.9 fl (80-96); MEAN PLT VOLUME 9.4 fl (7.5-11.1); MONO % 6.3 % (3.8-10.2); NEUT % 86.5 % (42.8-82.8); PLATELET COUNT 161 K/MM3 (134-434); RDW 13.3 % (11.9-15.9); WHITE BLOOD COUNT 12.9 K/mm3 (4.0-10.0)
[2018-07-04] MEDS: PIPERACILLIN/TAZOB 2.25 GM 2.25 GM in DEXTROSE 5%-WATER - 50 ML IVPB SCH ×2 (15:15→21:00)
[2018-07-04] MEDS: NOREPINEPHRINE BITARTRATE 8,000 MCG in DEXTROSE 5%-WATER - 492 ML IV SCH (15:17)
[2018-07-04 15:31] LABS: ANION GAP 10 MMOL/L (8-16); BLOOD UREA NITROGEN 35 mg/dL (7-18); CALCIUM 7.7 mg/dL (8.5-10.1); CHLORIDE 113 mmol/L (98-107); CO2 19 mmol/L (21-32); CREATININE 2.1 mg/dL (0.55-1.3); GLUCOSE,RANDOM 137 mg/dL (74-106); MAGNESIUM 2.4 mg/dL (1.8-2.4); PHOSPHOROUS 3.3 mg/dL (2.5-4.9); POTASSIUM 4.1 mmol/L (3.5-5.1); SODIUM 141 mmol/L (136-145)
--- NOTE | 2018-07-04 15:36 | PN ---
Teaching Attending Note Name of Resident: Mahamed Davis ATTENDING PHYSICIAN STATEMENT I saw and evaluated the patient. I reviewed the resident's note and discussed the case with the resident. I agree with the resident's findings and plan as documented. evaluated the patient in the ICU, he is intubated and sedated and the information was gathered from the medical records and the patient family member. He is a 82 Y/O M W Parkinson disease, HX of bladder cancer and surgery. per his family member for the past couple of months he has been eating less. for past couple of days he has been vomiting and non responsive since last night. In the ED he was non responsive and was intubated for airway protection. He was also found to be in severe sepsis which responded to IV fluids. Kern was placed and he has 300 CC of dark blood in the kern, also has blood in the NGT. PhEX: He is in intubated , in the kern is dark tarry fluid, not clear blood. in the NGT is also blood. and coffee ground discharge. CVS:S1S2 Lungs: vent breath sounds Abd: bs absent, is guarded EXT:1+ DP pulses Labs and images reviewed A&P: Most likely due to ischemic changes vs perforation but in the CT there was no finding in favor of perforation. He is on broad spectrom antibiotics, C/W hydration and no pressers at this time. GOC: discussed with the family he is DNR and plan is continuation of care with no further escalation of the care Prognosis: guarded
[2018-07-04] MEDS ORDERED: fentaNYL CITRATE 250 MCG/5 ML VIAL ONE (17:17)
[2018-07-04 17:50] LABS: COCAINE, UR NEGATIVE ng/ml (CUTOFF=300); METHADONE, UR NEGATIVE ng/ml (CUTOFF=300); OPIATES, URI NEGATIVE ng/ml (CUTOFF=300); PHENCYCLIDINE,URINE NEGATIVE ng/ml (CUTOFF=25); URINE BARBITURATES NEGATIVE ng/ml (CUTOFF=200)
[2018-07-04 18:08] LABS: URINE AMPHETAMINES POSITIVE ng/ml (CUTOFF=500); URINE BENZODIAZEPINES POSITIVE ng/ml (CUTOFF=200)
[2018-07-05] MEDS ORDERED: ACETAMINOPHEN INJECTION 100 ML IVPB ONE (02:59)
[2018-07-05] MEDS: ACETAMINOPHEN 1000 MG/100 ML VIAL (NON FORMULARY) IVPB PRN (03:07)
[2018-07-05] MEDS: PIPERACILLIN/TAZOB 2.25 GM 2.25 GM in DEXTROSE 5%-WATER - 50 ML IVPB SCH ×3 (03:43→17:16)
[2018-07-05] MEDS ORDERED: PIPERACILLIN/TAZOBACTAM 2.25 GM VIAL IVPB ONE ×3 (04:03→17:07)
[2018-07-05] MEDS ORDERED: DEXTROSE 5%-WATER - 50 ML IVPB ONE ×3 (04:03→17:07)
[2018-07-05] MEDS ORDERED: fentaNYL CITRATE 250 MCG/5 ML VIAL ONE ×2 (04:04→16:24)
[2018-07-05 05:37] LABS: HEMATOCRIT 33.4 % (35.4-49); HEMOGLOBIN 11.3 GM/dL (11.7-16.9); LYMPH % 4.6 % (8-40); MCH 32.5 pg (25.7-33.7); MCHC 33.9 g/dl (32.0-35.9); MEAN PLT VOLUME 9.5 fl (7.5-11.1); MONO % 6.4 % (3.8-10.2); PLATELET COUNT 130 K/MM3 (134-434); RBC 3.48 M/mm3 (4.00-5.60); RDW 13.4 % (11.9-15.9); WHITE BLOOD COUNT 17.5 K/mm3 (4.0-10.0)
[2018-07-05 05:55] LABS: INR 1.55 (0.83-1.09); PROTHROMBIN TIME (PATIENT) 18.4 SEC (9.7-13.0)
[2018-07-05 06:21] LABS: ALBUMIN 2.4 g/dl (3.4-5.0); ALK PHOS 103 U/L (45-117); ANION GAP 8 MMOL/L (8-16); BILIRUBIN,TOTAL 1.3 mg/dL (0.2-1); BLOOD UREA NITROGEN 45 mg/dL (7-18); CALCIUM 7.1 mg/dL (8.5-10.1); CHLORIDE 119 mmol/L (98-107); CO2 16 mmol/L (21-32); CREATININE 2.4 mg/dL (0.55-1.3); GLUCOSE,RANDOM 116 mg/dL (74-106); POTASSIUM 4.1 mmol/L (3.5-5.1); SGOT/AST 69 U/L (15-37); SGPT/ALT 30 U/L (13-61); SODIUM 142 mmol/L (136-145); TOT PROT 4.7 g/dl (6.4-8.2)
--- NOTE | 2018-07-05 07:30 | PN ---
Physical Exam: SUBJECTIVE: Patient seen and examined. Intubated/sedated. OBJECTIVE: Vital Signs Period Temp Pulse Resp BP Sys/Howard Pulse Ox Last 24 Hr 99.1 F-101.9 F 58-113 15-28 78-117/28-89 96-100 GEN: Intubated, Sedated HEENT: Pinpoint reactive, neck supple, ETT and OGT in place PULM: B/l diffuse coarse breath sounds with good air entry CV: Tachycardic w/ regular rhythm, no murmur appreciated ABD: Distended but not rigid : Menendez in place EXT: Cool, 2+ pulses. L fem CVC in place Neuro: Localizes to painful stimuli Active Medications Generic Name Dose Route Start Last Admin Trade Name Freq PRN Reason Stop Dose Admin Acetaminophen 1,000 mg 07/05/18 02:51 07/05/18 03:07 Ofirmev Injection - IVPB 1,000 mg Q6H PRN Administration FEVER Fentanyl 500 mcg/ Dextrose 100 mls @ 10 mls/hr 07/04/18 08:00 07/04/18 17:27 IVPB 50 mcg/hr TITR CRISTAL 10 mls/hr Administration 50 MCG/HR Norepinephrine Bitartrate 8, 500 mls @ 10.2 mls/hr 07/04/18 08:00 07/04/18 15 :17 000 mcg/ Dextrose IV Not Given ASDIR CRISTAL Protocol 0.03 MCG/KG/MIN Piperacillin Sod/Tazobactam 50 mls @ 100 mls/hr 07/04/18 15:00 07/05/18 03:43 Sod 2.25 gm/ Dextrose IVPB 100 mls/hr Q6H-IV CRISTAL Administration Protocol Metronidazole 500 mg in 100 mls @ 100 mls/hr 07/04/18 14:30 07/05/18 02:00 Flagyl 500mg Premixed Ivpb - IVPB 100 mls/hr Q8H-IV CRISTAL Administration Sodium Chloride 1,000 mls @ 250 mls/hr 07/04/18 18:12 07/04/18 18:31 Normal Saline - IV 250 mls/hr ASDIR CRISTAL Administration ASSESSMENT/PLAN: Neuro Sedated/Analgesia -Fentanyl/Proprofol gtt CV Hypotension -Family does not wish for escalation of care, will not add pressors -IVF (LR) Pulm Acute respiratory failure -s/p intubation GI Nutrition -NPO -OGT in place Menendez in place ROBERT/Lactic acidosis -Cont. IVF (LR) Heme No anemia ID +Blood cultures Leukocytosis to 17 -Pt on Zosyn/Flagyl -ID consulted Endo -BGM LTD ETT OGT L fem CVC Menendez Dispo: Patient continues to require ICU level of care. At this time family does not wish for escalation of care and has signed DNR and has designated that we should not use pressors for hypotension. Palliative consulted Visit type - Emergency Visit Emergency Visit: Yes ED Registration Date: 07/04/18 Care time: The patient presented to the Emergency Department on the above date and was hospitalized for further evaluation of their emergent condition. - New Patient This patient is new to me today: Yes Date on this admission: 07/05/18 - Critical Care Critical Care patient: Yes Total Critical Care Time (in minutes): 30 Critical Care Statement: The care of this patient involved high complexity decision making to prevent further life threatening deterioration of the patient 's condition and/or to evaluate & treat vital organ system(s) failure or risk of failure.
[2018-07-05] MEDS ORDERED: LACTATED RINGERS SOLUTION 1,000 ML/1,000 ML INFUS.BAG IV SCH (09:00)
[2018-07-05] MEDS: FENTANYL INJECTION 500 MCG in DEXTROSE 5%-WATER - 90 ML IVPB SCH ×2 (10:10→16:58)
[2018-07-05] MEDS: NOREPINEPHRINE BITARTRATE 8,000 MCG in DEXTROSE 5%-WATER - 492 ML IV SCH (10:12)
[2018-07-05 10:47] LABS: ANISOCYTOSIS 3+; MACROCYTOSIS 0; OVALOCYTE 1+; PLATELET ESTIMATE DECREASED; TEAR DROP CELLS 1+
[2018-07-05] MEDS ORDERED: VANCOMYCIN 1 GRAM (PRE-DOCKED) 1,000 MG/250 ML BAG IVPB ONE (11:36)
--- NOTE | 2018-07-05 11:41 | PN ---
Progress Note, Physician History of Present Illness: Sedated on ventilator Febrile WBC elevated BC GNR, GPCCL - Current Medication List Current Medications: Active Medications Acetaminophen (Ofirmev Injection -) 1,000 mg IVPB Q6H PRN PRN Reason: FEVER Last Admin: 07/05/18 03:07 Dose: 1,000 mg Fentanyl 500 mcg/ Dextrose 100 mls @ 10 mls/hr IVPB TITR CRISTAL Last Admin: 07/05/18 10:10 Dose: Not Given Piperacillin Sod/Tazobactam (Sod 2.25 gm/ Dextrose) 50 mls @ 100 mls/hr IVPB Q6H-IV CRISTAL; Protocol Last Admin: 07/05/18 09:26 Dose: 100 mls/hr Metronidazole (Flagyl 500mg Premixed Ivpb -) 500 mg in 100 mls @ 100 mls/hr IVPB Q8H-IV CRISTAL Last Admin: 07/05/18 10:10 Dose: 100 mls/hr Lactated Ringer's (Lactated Ringers Solution) 1,000 ml in 1,000 mls @ 150 mls/ hr IV ASDIR CRISTAL Vancomycin HCl 1,000 mg/ (Dextrose) 250 mls @ 166.667 mls/hr IVPB ONCE ONE; Protocol Stop: 07/05/18 13:05 - Objective Vital Signs: Vital Signs Temperature 99.9 F H 07/05/18 08:00 Pulse Rate 108 H 07/05/18 10:00 Respiratory Rate 16 07/05/18 10:00 Blood Pressure 100/47 L 07/05/18 10:00 O2 Sat by Pulse Oximetry (%) 100 07/04/18 20:00 Constitutional: Yes: No Distress Eyes: Yes: Conjunctiva Clear Cardiovascular: Yes: Regular Rate and Rhythm, S1, S2 Respiratory: Yes: Mechanically Ventilated Gastrointestinal: Yes: Normal Bowel Sounds, Soft. No: Tenderness Labs: CBC, BMP 07/05/18 05:15 07/05/18 05:15 INR, PTT INR 1.55 (0.83-1.09) H 07/05/18 05:15 Assessment/Plan Respiratory failure Sepsis ?polymicrobial bacteremia Renal failure UTI Await BC Continue zosyn/ flagyl Redose vancomycin Ventilatory support
--- NOTE | 2018-07-05 11:58 | PN ---
Physical Exam: SUBJECTIVE: Patient seen and examined this AM. He is intubated and sedated. Discussed with pts girlfriend who is the healthcare proxy. She stated that the children will likely be here today to visit him. She states at this point she would like to continue current care without escalation of care. OBJECTIVE: Vital Signs Period Temp Pulse Resp BP Sys/Howard Pulse Ox Last 24 Hr 99.1 F-101.9 F 58-112 15-28 78-117/2883 96-100 GENERAL: Intubated and Sedated HEAD: Normocephalic, atraumatic. EYES: Right coloboma, Left pupil constricted but reactive to light EARS, NOSE, THROAT: oropharynx clear without exudates. Moist mucous membranes. NECK: supple without lymphadenopathy LUNGS: Mechanical breath sounds, no obvious crackles/rhonchi/wheezes HEART: Regular rate and rhythm, normal S1 and S2 without murmur ABDOMEN: Distended, hypooactive bowel sounds, some hand movement response on palpation of abdomen : Menendez in place draining dark mike urine MUSCULOSKELETAL: No bony deformities or tenderness. EXTREMITIES: 2+ pulses, warm, well-perfused. No peripheral edema. NEUROLOGICAL: Intubated and sedated, pupillary reflex intact, minimal response to painful stimuli SKIN: Warm, dry, no rashes or lesions noted Laboratory Results - last 24 hr 07/04/18 07/04/18 07/04/18 14:50 14:50 14:50 WBC 12.9 H RBC 3.60 L Hgb 12.3 Hct 34.2 L MCV 94.9 MCH 34.1 H MCHC 35.9 RDW 13.3 Plt Count 161 MPV 9.4 Absolute Neuts (auto) 11.1 H Neutrophils % 86.5 H Neutrophils % (Manual) Band Neutrophils % Lymphocytes % 7.2 L D Lymphocytes % (Manual) Monocytes % 6.3 Monocytes % (Manual) Eosinophils % 0.0 Eosinophils % (Manual) Basophils % 0.0 Basophils % (Manual) Myelocytes % (Man) Promyelocytes % (Man) Blast Cells % (Manual) Nucleated RBC % 0 Metamyelocytes Hypochromia Platelet Estimate Platelet Comment Polychromasia Poikilocytosis Anisocytosis Microcytosis Macrocytosis Spherocytes Tear Drop Cells Ovalocytes [place] Cells PT with INR INR Sodium 141 Potassium 4.1 Chloride 113 H Carbon Dioxide 19 L Anion Gap 10 BUN 35 H Creatinine 2.1 H Creat Clearance w eGFR 30.31 POC Glucometer Random Glucose 137 H Lactic Acid 5.6 H* Calcium 7.7 L Phosphorus 3.3 Magnesium 2.4 Total Bilirubin AST ALT Alkaline Phosphatase Total Protein Albumin Random Vancomycin Opiates Screen Methadone Screen Barbiturate Screen Phencyclidine Screen Ur Amphetamines Screen MDMA (Ecstasy) Screen Benzodiazepines Screen Cocaine Screen U Marijuana (THC) Screen Influenza A (Rapid) Influenza B (Rapid) 07/04/18 07/04/18 07/05/18 16:44 17:07 05:15 WBC RBC Hgb Hct MCV MCH MCHC RDW Plt Count MPV Absolute Neuts (auto) Neutrophils % Neutrophils % (Manual) Band Neutrophils % Lymphocytes % Lymphocytes % (Manual) Monocytes % Monocytes % (Manual) Eosinophils % Eosinophils % (Manual) Basophils % Basophils % (Manual) Myelocytes % (Man) Promyelocytes % (Man) Blast Cells % (Manual) Nucleated RBC % Metamyelocytes Hypochromia Platelet Estimate Platelet Comment Polychromasia Poikilocytosis Anisocytosis Microcytosis Macrocytosis Spherocytes Tear Drop Cells Ovalocytes Trista Cells PT with INR INR Sodium Potassium Chloride Carbon Dioxide Anion Gap BUN Creatinine Creat Clearance w eGFR POC Glucometer [phone] Random Glucose Lactic Acid Calcium Phosphorus Magnesium Total Bilirubin AST ALT Alkaline Phosphatase Total Protein Albumin Random Vancomycin 7.8 L Opiates Screen Negative Methadone Screen Negative Barbiturate Screen Negative Phencyclidine Screen Negative Ur Amphetamines Screen Positive A* MDMA (Ecstasy) Screen Negative Benzodiazepines Screen Positive A* Cocaine Screen Negative U Marijuana (THC) Screen Negative Influenza A (Rapid) Influenza B (Rapid) 07/05/18 07/05/18 07/05/18 05:15 05:15 05:15 WBC 17.5 H RBC 3.48 L Hgb 11.3 L Hct 33.4 L MCV 96.0 MCH 32.5 MCHC 33.9 RDW 13.4 Plt Count 130 L MPV 9.5 Absolute Neuts (auto) 15.6 H Neutrophils % 89.0 H Neutrophils % (Manual) 48.0 D Band Neutrophils % 31.0 Lymphocytes % 4.6 L D Lymphocytes % (Manual) 2.0 L D Monocytes % 6.4 Monocytes % (Manual) 5 Eosinophils % 0.0 Eosinophils % (Manual) 0.0 Basophils % 0.0 Basophils % (Manual) 0.0 Myelocytes % (Man) 0 Promyelocytes % (Man) 0 Blast Cells % (Manual) 0 Nucleated RBC % 0 Metamyelocytes 5 H D Hypochromia 0 Platelet Estimate Decreased Platelet Comment Present Polychromasia 1+ Poikilocytosis 1+ Anisocytosis 3+ Microcytosis 0 Macrocytosis 0 Spherocytes 1+ Tear Drop Cells 1+ Ovalocytes 1+ [place] Cells 1+ PT with INR 18.40 H INR 1.55 H Sodium 142 Potassium 4.1 Chloride 119 H Carbon Dioxide 16 L Anion Gap 8 BUN 45 H Creatinine 2.4 H Creat Clearance w eGFR 25.98 POC Glucometer Random Glucose 116 H Lactic Acid Calcium 7.1 L Phosphorus Magnesium Total Bilirubin 1.3 H AST 69 H ALT 30 Alkaline Phosphatase 103 Total Protein 4.7 L Albumin 2.4 L Random Vancomycin Opiates Screen Methadone Screen Barbiturate Screen Phencyclidine Screen Ur Amphetamines Screen MDMA (Ecstasy) Screen Benzodiazepines Screen Cocaine Screen U Marijuana (THC) Screen Influenza A (Rapid) Influenza B (Rapid) 07/05/18 07/05/18 05:15 06:00 WBC RBC Hgb Hct MCV MCH MCHC RDW Plt Count MPV Absolute Neuts (auto) Neutrophils % Neutrophils % (Manual) Band Neutrophils % Lymphocytes % Lymphocytes % (Manual) Monocytes % Monocytes % (Manual) Eosinophils % Eosinophils % (Manual) Basophils % Basophils % (Manual) Myelocytes % (Man) Promyelocytes % (Man) Blast Cells % (Manual) Nucleated RBC % Metamyelocytes Hypochromia Platelet Estimate Platelet Comment Polychromasia Poikilocytosis Anisocytosis Microcytosis Macrocytosis Spherocytes Tear Drop Cells Ovalocytes Trista Cells PT with INR INR Sodium Potassium Chloride Carbon Dioxide Anion Gap BUN Creatinine Creat Clearance w eGFR POC Glucometer Random Glucose Lactic Acid 5.0 H* Calcium Phosphorus Magnesium Total Bilirubin AST ALT Alkaline Phosphatase Total Protein Albumin Random Vancomycin Opiates Screen Methadone Screen Barbiturate Screen Phencyclidine Screen Ur Amphetamines Screen MDMA (Ecstasy) Screen Benzodiazepines Screen Cocaine Screen U Marijuana (THC) Screen Influenza A (Rapid) Negative Influenza B (Rapid) Negative Active Medications Generic Name Dose Route Start Last Admin Trade Name Freq PRN Reason Stop Dose Admin Acetaminophen 1,000 mg 07/05/18 02:51 07/05/18 03:07 Ofirmev Injection - IVPB 1,000 mg Q6H PRN Administration FEVER Fentanyl 500 mcg/ Dextrose 100 mls @ 10 mls/hr 07/04/18 08:00 07/05/18 10:10 IVPB Not Given TITR CRISTAL 50 MCG/HR Piperacillin Sod/Tazobactam 50 mls @ 100 mls/hr 07/04/18 15:00 07/05/18 09:26 Sod 2.25 gm/ Dextrose IVPB 100 mls/hr Q6H-IV CRISTAL Administration Protocol Metronidazole 500 mg in 100 mls @ 100 mls/hr 07/04/18 14:30 07/05/18 10:10 Flagyl 500mg Premixed Ivpb - IVPB 100 mls/hr Q8H-IV CRISTAL Administration Lactated Ringer's 1,000 ml in 1,000 mls @ 150 mls/hr 07/05/18 09:59 Lactated Ringers Solution IV ASDIR CRISTAL Vancomycin HCl 1,000 mg in 250 mls @ 166.667 mls/hr 07/05/18 11:36 Vancomycin (Pre-Docked) IVPB 07/05/18 13:05 ONCE ONE Protocol ASSESSMENT/PLAN: 82 yo Male with PMH Prostate CA, HTN, HLD, Parkinsons admitted after being found unresponsive at shelter. Severe Sepsis likely secondary to UTI vs Gram Negative Bacteremia -UA noted with likely UTI, 1+ LE with 29 WBCs, though likely would not be the source for such a severe sepsis -Lactic Acid 7.5 -> 9.4 -> 5.4 -> 5.6 -> 5.0, pt will need continued fluids, monitor for overload though less concerned with pt intubated -Trend Lactic Acid -ID Consulted -CXR okay -CT Abdomen with colonic dilation and some colitis but no free air or ischemia noted, NGT to low intermittent wall suction -Vanc dosed based on levels, Vanc trough low this AM. -Zosyn adjusted for renal function -C. dif pending, Flagyl for now as per ID -Blood cultures pending non lactose fermenting Gram negative bacteria AND Coag Negative Staph HTN -Hold home meds for now with renal function and hypotension Parkinson's -Carbidopa/Levodopa when able BPH/Prostate CA -continue Flomax 0.8 mg PO HS when able DVT Prophylaxis -SCDs FEN -Fluids: LR @ 150 cc/hr -Electrolytes: No electrolyte abnormalities, BMP in AM -Nutrition: NPO Disposition ICU, prognosis is poor Visit type - Emergency Visit Emergency Visit: Yes ED Registration Date: 07/04/18 Care time: The patient presented to the Emergency Department on the above date and was hospitalized for further evaluation of their emergent condition. - New Patient This patient is new to me today: No - Critical Care Critical Care patient: Yes Total Critical Care Time (in minutes): 35 Critical Care Statement: The care of this patient involved high complexity decision making to prevent further life threatening deterioration of the patient 's condition and/or to evaluate & treat vital organ system(s) failure or risk of failure.
[2018-07-05] MEDS ORDERED: PROPOFOL 1,000,000 MCG/100 ML VIAL IVPB SCH (12:00)
[2018-07-05] MEDS ORDERED: DEXTROSE 50%-WATER 25 GM/50 ML DISP.SYRIN ONE (12:03)
[2018-07-05] MEDS ORDERED: DEXTROSE 50%-WATER - 25 GM/50 ML VIAL IVPUSH ONE (12:15)
--- NOTE | 2018-07-05 12:18 | PN ---
Teaching Attending Note Name of Resident: Jair Traylor ATTENDING PHYSICIAN STATEMENT I saw and evaluated the patient. I reviewed the resident's note and discussed the case with the resident. I agree with the resident's findings and plan as documented. SUBJECTIVE: Patient seen and examined in the ICU. Remains intubated and sedated on Fentanyl. No pressors. Left femoral line remains intact. OBJECTIVE: Intake & Output 07/02/18 07/03/18 07/04/18 07/05/18 23:59 23:59 23:59 23:59 Intake Total 2490 3420 Output Total 250 200 Balance 2240 3220 Weight 210 lb 8.663 oz Last Vital Signs Temp Pulse Resp BP Pulse Ox 99.9 F H 108 H 16 100/47 L 100 07/05/18 08:00 07/05/18 10:00 07/05/18 10:00 07/05/18 10:00 07/04/18 20:00 Active Medications Acetaminophen (Ofirmev Injection -) 1,000 mg IVPB Q6H PRN PRN Reason: FEVER Last Admin: 07/05/18 03:07 Dose: 1,000 mg Fentanyl 500 mcg/ Dextrose 100 mls @ 10 mls/hr IVPB TITR CRISTAL Last Admin: 07/05/18 10:10 Dose: Not Given Piperacillin Sod/Tazobactam (Sod 2.25 gm/ Dextrose) 50 mls @ 100 mls/hr IVPB Q6H-IV CRISTAL; Protocol Last Admin: 07/05/18 09:26 Dose: 100 mls/hr Metronidazole (Flagyl 500mg Premixed Ivpb -) 500 mg in 100 mls @ 100 mls/hr IVPB Q8H-IV CRISTAL Last Admin: 07/05/18 10:10 Dose: 100 mls/hr Lactated Ringer's (Lactated Ringers Solution) 1,000 ml in 1,000 mls @ 150 mls/ hr IV ASDIR CRISTAL Vancomycin HCl (Vancomycin (Pre-Docked)) 1,000 mg in 250 mls @ 166.667 mls/hr IVPB ONCE ONE; Protocol Stop: 07/05/18 13:05 Propofol (Diprivan -) 1,000,000 mcg in 100 mls @ 5.73 mls/hr IVPB TITR CRISTAL; Protocol GEN: Intubated, Sedated HEENT: slowly reactive, neck supple, ETT and OGT in place PULM: vented, bilateral coarse breath sounds CV: Tachycardic w/ regular rhythm, no murmur appreciated ABD: Softly distended, (+) BS : Menendez in place EXT: Cool, 2+ pulses. L fem CVC in place Neuro: Localizes to painful stimuli Laboratory Results - last 24 hr 07/04/18 07/04/18 07/04/18 14:50 14:50 14:50 WBC 12.9 H RBC 3.60 L Hgb 12.3 Hct 34.2 L MCV 94.9 MCH 34.1 H MCHC 35.9 RDW 13.3 Plt Count 161 MPV 9.4 Absolute Neuts (auto) 11.1 H Neutrophils % 86.5 H Neutrophils % (Manual) Band Neutrophils % Lymphocytes % 7.2 L D Lymphocytes % (Manual) Monocytes % 6.3 Monocytes % (Manual) Eosinophils % 0.0 Eosinophils % (Manual) Basophils % 0.0 Basophils % (Manual) Myelocytes % (Man) Promyelocytes % (Man) Blast Cells % (Manual) Nucleated RBC % 0 Metamyelocytes Hypochromia Platelet Estimate Platelet Comment Polychromasia Poikilocytosis Anisocytosis Microcytosis Macrocytosis Spherocytes Tear Drop Cells Ovalocytes Trista Cells PT with INR INR Sodium 141 Potassium 4.1 Chloride 113 H Carbon Dioxide 19 L Anion Gap 10 BUN 35 H Creatinine 2.1 H Creat Clearance w eGFR 30.31 POC Glucometer Random Glucose 137 H Lactic Acid 5.6 H* Calcium 7.7 L Phosphorus 3.3 Magnesium 2.4 Total Bilirubin AST ALT Alkaline Phosphatase Total Protein Albumin Random Vancomycin Opiates Screen Methadone Screen Barbiturate Screen Phencyclidine Screen Ur Amphetamines Screen MDMA (Ecstasy) Screen Benzodiazepines Screen Cocaine Screen U Marijuana (THC) Screen Influenza A (Rapid) Influenza B (Rapid) 07/04/18 07/04/18 07/05/18 16:44 17:07 05:15 WBC RBC Hgb Hct MCV MCH MCHC RDW Plt Count MPV Absolute Neuts (auto) Neutrophils % Neutrophils % (Manual) Band Neutrophils % Lymphocytes % Lymphocytes % (Manual) Monocytes % Monocytes % (Manual) Eosinophils % Eosinophils % (Manual) Basophils % Basophils % (Manual) Myelocytes % (Man) Promyelocytes % (Man) Blast Cells % (Manual) Nucleated RBC % Metamyelocytes Hypochromia Platelet Estimate Platelet Comment Polychromasia Poikilocytosis Anisocytosis Microcytosis Macrocytosis Spherocytes Tear Drop Cells Ovalocytes [place] Cells PT with INR INR Sodium Potassium Chloride Carbon Dioxide Anion Gap BUN Creatinine Creat Clearance w eGFR POC Glucometer 198.54146 Random Glucose Lactic Acid Calcium Phosphorus Magnesium Total Bilirubin AST ALT Alkaline Phosphatase Total Protein Albumin Random Vancomycin 7.8 L Opiates Screen Negative Methadone Screen Negative Barbiturate Screen Negative Phencyclidine Screen Negative Ur Amphetamines Screen Positive A* MDMA (Ecstasy) Screen Negative Benzodiazepines Screen Positive A* Cocaine Screen Negative U Marijuana (THC) Screen Negative Influenza A (Rapid) Influenza B (Rapid) 07/05/18 07/05/18 07/05/18 05:15 05:15 05:15 WBC 17.5 H RBC 3.48 L Hgb 11.3 L Hct 33.4 L MCV 96.0 MCH 32.5 MCHC 33.9 RDW 13.4 Plt Count 130 L MPV 9.5 Absolute Neuts (auto) 15.6 H Neutrophils % 89.0 H Neutrophils % (Manual) 48.0 D Band Neutrophils % 31.0 Lymphocytes % 4.6 L D Lymphocytes % (Manual) 2.0 L D Monocytes % 6.4 Monocytes % (Manual) 5 Eosinophils % 0.0 Eosinophils % (Manual) 0.0 Basophils % 0.0 Basophils % (Manual) 0.0 Myelocytes % (Man) 0 Promyelocytes % (Man) 0 Blast Cells % (Manual) 0 Nucleated RBC % 0 Metamyelocytes 5 H D Hypochromia 0 Platelet Estimate Decreased Platelet Comment Present Polychromasia 1+ Poikilocytosis 1+ Anisocytosis 3+ Microcytosis 0 Macrocytosis 0 Spherocytes 1+ Tear Drop Cells 1+ Ovalocytes 1+ [place] Cells 1+ PT with INR 18.40 H INR 1.55 H Sodium 142 Potassium 4.1 Chloride 119 H Carbon Dioxide 16 L Anion Gap 8 BUN 45 H Creatinine 2.4 H Creat Clearance w eGFR 25.98 POC Glucometer Random Glucose 116 H Lactic Acid Calcium 7.1 L Phosphorus Magnesium Total Bilirubin 1.3 H AST 69 H ALT 30 Alkaline Phosphatase 103 Total Protein 4.7 L Albumin 2.4 L Random Vancomycin Opiates Screen Methadone Screen Barbiturate Screen Phencyclidine Screen Ur Amphetamines Screen MDMA (Ecstasy) Screen Benzodiazepines Screen Cocaine Screen U Marijuana (THC) Screen Influenza A (Rapid) Influenza B (Rapid) 07/05/18 07/05/18 05:15 06:00 WBC RBC Hgb Hct MCV MCH MCHC RDW Plt Count MPV Absolute Neuts (auto) Neutrophils % Neutrophils % (Manual) Band Neutrophils % Lymphocytes % Lymphocytes % (Manual) Monocytes % Monocytes % (Manual) Eosinophils % Eosinophils % (Manual) Basophils % Basophils % (Manual) Myelocytes % (Man) Promyelocytes % (Man) Blast Cells % (Manual) Nucleated RBC % Metamyelocytes Hypochromia Platelet Estimate Platelet Comment Polychromasia Poikilocytosis Anisocytosis Microcytosis Macrocytosis Spherocytes Tear Drop Cells Ovalocytes [place] Cells PT with INR INR Sodium Potassium Chloride Carbon Dioxide Anion Gap BUN Creatinine Creat Clearance w eGFR POC Glucometer Random Glucose Lactic Acid 5.0 H* Calcium Phosphorus Magnesium Total Bilirubin AST ALT Alkaline Phosphatase Total Protein Albumin Random Vancomycin Opiates Screen Methadone Screen Barbiturate Screen Phencyclidine Screen Ur Amphetamines Screen MDMA (Ecstasy) Screen Benzodiazepines Screen Cocaine Screen U Marijuana (THC) Screen Influenza A (Rapid) Negative Influenza B (Rapid) Negative ASSESSMENT/PLAN: Acute Respiratory Failure Resolving Hypotension ROBERT Lactic acidosis Sepsis (?) Polymicrobial Bacteremia UTI Sedation vacations Need to discuss with family GOC, marginal BP so may need pressors If family wishes to continue treatment will need to D/C femoral access and replace ABX per ID IVF resuscitation Strict I & O Enteral feeds ICU monitoring Dr Clinton Critical care time spent in reviewing chart, evaluating patient and formulating plan - 36 minutes.
[2018-07-05] MEDS: LACTATED RINGERS SOLUTION 1,000 ML/1,000 ML INFUS.BAG IV SCH ×2 (12:58→17:39)
--- NOTE | 2018-07-05 17:04 | PN ---
Progress Note, Physician History of Present Illness: Pt seen and examined at bedside. He remains in the ICU. He remains intubated. - Current Medication List Current Medications: Active Medications Acetaminophen (Ofirmev Injection -) 1,000 mg IVPB Q6H PRN PRN Reason: FEVER Last Admin: 07/05/18 03:07 Dose: 1,000 mg Fentanyl 500 mcg/ Dextrose 100 mls @ 10 mls/hr IVPB TITR CRISTAL Last Admin: 07/05/18 10:10 Dose: Not Given Piperacillin Sod/Tazobactam (Sod 2.25 gm/ Dextrose) 50 mls @ 100 mls/hr IVPB Q6H-IV CRISTAL; Protocol Last Admin: 07/05/18 09:26 Dose: 100 mls/hr Metronidazole (Flagyl 500mg Premixed Ivpb -) 500 mg in 100 mls @ 100 mls/hr IVPB Q8H-IV CRISTAL Last Admin: 07/05/18 10:10 Dose: 100 mls/hr Lactated Ringer's (Lactated Ringers Solution) 1,000 ml in 1,000 mls @ 150 mls/ hr IV ASDIR CRISTAL Last Admin: 07/05/18 12:58 Dose: Not Given Propofol (Diprivan -) 1,000,000 mcg in 100 mls @ 5.73 mls/hr IVPB TITR CRISTAL; Protocol Last Admin: 07/05/18 12:55 Dose: 10 mcg/kg/min, 5.73 mls/hr Pantoprazole Sodium (Protonix Iv) 40 mg IVPUSH BID CRISTAL - Objective Vital Signs: Vital Signs Temperature 100 F H 07/05/18 09:00 Pulse Rate 115 H 07/05/18 12:00 Respiratory Rate 23 H 07/05/18 16:04 Blood Pressure 98/60 07/05/18 12:00 O2 Sat by Pulse Oximetry (%) 98 07/05/18 09:20 Constitutional: Yes: Calm Eyes: Yes: Conjunctiva Clear HENT: Yes: Atraumatic Neck: Yes: Supple Cardiovascular: Yes: S1, S2 Respiratory: Yes: Mechanically Ventilated Genitourinary: Yes: Menendez Present Musculoskeletal: Yes: Muscle Weakness Edema: Yes Neurological: Yes: Lethargy Labs: CBC, BMP 07/05/18 05:15 07/05/18 05:15 INR, PTT INR 1.55 (0.83-1.09) H 07/05/18 05:15 Problem List - Problems (1) ROBERT (acute kidney injury) Code(s): N17.9 - ACUTE KIDNEY FAILURE, UNSPECIFIED (2) Altered mental status Code(s): R41.82 - ALTERED MENTAL STATUS, UNSPECIFIED Assessment/Plan Current Medications Generic Name Dose Route Start Last Admin Trade Name Freq PRN Reason Stop Dose Admin Acetaminophen 1,000 mg 07/05/18 02:51 07/05/18 03:07 Ofirmev Injection - IVPB 1,000 mg Q6H PRN Administration FEVER Fentanyl 500 mcg/ Dextrose 100 mls @ 10 mls/hr 07/04/18 08:00 07/05/18 10:10 IVPB Not Given TITR CRISTAL 50 MCG/HR Piperacillin Sod/Tazobactam 50 mls @ 100 mls/hr 07/04/18 15:00 07/05/18 09:26 Sod 2.25 gm/ Dextrose IVPB 100 mls/hr Q6H-IV CRISTAL Administration Protocol Metronidazole 500 mg in 100 mls @ 100 mls/hr 07/04/18 14:30 07/05/18 10:10 Flagyl 500mg Premixed Ivpb - IVPB 100 mls/hr Q8H-IV CRISTAL Administration Lactated Ringer's 1,000 ml in 1,000 mls @ 150 mls/hr 07/05/18 09:59 07/05/18 12:58 Lactated Ringers Solution IV Not Given ASDIR CRISTAL Propofol 1,000,000 mcg in 100 mls @ 5.73 mls/hr 07/05/18 12:00 07/05/18 12:55 Diprivan - IVPB 10 mcg/kg/min TITR CRISTAL 5.73 mls/hr Administration Protocol 10 MCG/KG/MIN Pantoprazole Sodium 40 mg 07/05/18 22:00 Protonix Iv IVPUSH BID CRISTAL Impression 1. ROBERT 2. lactic acidosis 3. resp failure requiring intubation 4. parkinsons 5. hypotension 6. shock Plan - renal function worsening, family including children and significant other do not want HD therapy if needed - bp is improved - monitor output - repeat labs in am - will need to discuss overall GOC - vent support - discussed with ICU team Dr Cazares
--- NOTE | 2018-07-05 17:36 | PN ---
Progress Note (short form) - Note Progress Note: Discussion held with patient's family, Sruthi Stephenson, Doris Anaya, Edelmira Colindres and Edilberto Swain. After talking amongst themselves, they have decided that they would like to transition toward comfort care for the patient. They expressed that they do not feel like he would like for the current interventions to be continued knowing that there is no likely meaningful outcome. They have elected, unanimously, to withhold/withdraw life sustaining treatments including extubating the patient, all imaging, all lab tests, and medications other than for comfort measures. 07/05/2018 1730 Withdraw of life-sustaining treatment formed signed by patient's partner and all children Labs, imaging, abx D/C'ed Morphine IVP, Morphine gtt, and Ativan IVP ordered 07/05/2018 1815 Once comfort measures implemented, will extubate patient Family continues to be at bedside All questions answered
[2018-07-05] MEDS ORDERED: MORPHINE 100 MG in SODIUM CHLORIDE 98 ML IVPB SCH ×2 (18:15→18:30)
[2018-07-05] MEDS ORDERED: morphine SULFATE 4 MG/ML VIAL IVPUSH ONE (18:30)
[2018-07-05] MEDS ORDERED: LORazepam 2 MG/ML SDV VIAL IVPUSH ONE (18:30)
[2018-07-05] MEDS ORDERED: PANTOPRAZOLE SODIUM 40 MG VIAL IVPUSH SCH (22:00)
--- NOTE | 2018-07-06 08:40 | PN ---
Teaching Attending Note Name of Resident: Dari Ortiz ATTENDING PHYSICIAN STATEMENT I saw and evaluated the patient. I reviewed the resident's note and discussed the case with the resident. I agree with the resident's findings and plan as documented. SUBJECTIVE: Patient is in ICU, extubated, on comfort measures. OBJECTIVE: Vital Signs Temperature 99.7 F H 07/06/18 07:39 Pulse Rate 64 07/06/18 07:39 Respiratory Rate 16 07/06/18 07:39 Blood Pressure 87/46 L 07/06/18 07:39 O2 Sat by Pulse Oximetry (%) 96 07/06/18 07:53 GENERAL: comfort measures, extubated , NAD HEAD: Normocephalic, atraumatic. supple EYES: Left pupil constricted but reactive to light EARS, NOSE, THROAT: oropharynx clear without exudates. Moist mucous membranes. NECK: supple without lymphadenopathy LUNGS:coarse BS Bl HEART: tachycardic , normal S1 and S2 . ABDOMEN: Distended, hypoactive bowel sounds : Menendez in place draining dark mike urine EXTREMITIES: 2+ pulses, warm, well-perfused. No peripheral edema. NEUROLOGICAL: extubated with minimal response to painful stimuli SKIN: Warm, dry, no rashes or lesions noted CBCD WBC 17.5 K/mm3 (4.0-10.0) H 07/05/18 05:15 RBC 3.48 M/mm3 (4.00-5.60) L 07/05/18 05:15 Hgb 11.3 GM/dL (11.7-16.9) L 07/05/18 05:15 Hct 33.4 % (35.4-49) L 07/05/18 05:15 MCV 96.0 fl (80-96) 07/05/18 05:15 MCHC 33.9 g/dl (32.0-35.9) 07/05/18 05:15 RDW 13.4 % (11.9-15.9) 07/05/18 05:15 Plt Count 130 K/MM3 (134-434) L 07/05/18 05:15 MPV 9.5 fl (7.5-11.1) 07/05/18 05:15 CMP Sodium 142 mmol/L (136-145) 07/05/18 05:15 Potassium 4.1 mmol/L (3.5-5.1) 07/05/18 05:15 Chloride 119 mmol/L (98-107) H 07/05/18 05:15 Carbon Dioxide 16 mmol/L (21-32) L 07/05/18 05:15 Anion Gap 8 MMOL/L (8-16) 07/05/18 05:15 BUN 45 mg/dL (7-18) H 07/05/18 05:15 Creatinine 2.4 mg/dL (0.55-1.3) H 07/05/18 05:15 Creat Clearance w eGFR 25.98 (>60) 07/05/18 05:15 Random Glucose 116 mg/dL (74-106) H 07/05/18 05:15 Calcium 7.1 mg/dL (8.5-10.1) L 07/05/18 05:15 Total Bilirubin 1.3 mg/dL (0.2-1) H 07/05/18 05:15 AST 69 U/L (15-37) H 07/05/18 05:15 ALT 30 U/L (13-61) 07/05/18 05:15 Alkaline Phosphatase 103 U/L (45-117) 07/05/18 05:15 Total Protein 4.7 g/dl (6.4-8.2) L 07/05/18 05:15 Albumin 2.4 g/dl (3.4-5.0) L 07/05/18 05:15 CARDIAC ENZYMES Troponin I < 0.02 ng/ml (0.00-0.05) 07/04/18 06:02 Current Medications Generic Name Dose Route Start Last Admin Trade Name Velma PRN Reason Stop Dose Admin Acetaminophen 1,000 mg 07/05/18 02:51 07/05/18 03:07 Ofirmev Injection - IVPB 1,000 mg Q6H PRN Administration FEVER Fentanyl 500 mcg/ Dextrose 100 mls @ 10 mls/hr 07/04/18 08:00 07/05/18 16:58 IVPB 50 mcg/hr TITR CRISTAL 10 mls/hr Administration 50 MCG/HR Morphine Sulfate 100 mg/ 100 mls @ 1 mls/hr 07/05/18 18:30 07/06/18 06:01 Sodium Chloride IVPB 07/06/18 18:29 2 mg/hr TITR CRISTAL 2 mls/hr Titration Protocol 1 MG/HR Home Medications Medication Instructions Recorded Aspirin 81 mg PO DAILY 11/12/17 Cyanocobalamin [Vitamin B12 -] 1,000 mcg PO DAILY 11/12/17 Entacapone 200 mg PO QID 11/12/17 Losartan/Hydrochlorothiazide 0.5 each PO DAILY 11/12/17 [Losartan-Hctz 100-12.5 mg Tab] Ropinirole HCl [Requip] 1 mg PO HS 11/12/17 Tamsulosin HCl [Flomax -] 0.8 mg PO 1900 11/12/17 clonazePAM [Klonopin -] 0.125 mg PO HS 11/12/17 Meclizine HCl 25 mg PO BID 01/23/18 Baclofen 5 mg PO HS 07/04/18 Carbidopa/Levodopa 25/250 [Sinemet 1.5 tab PO QID 07/04/18 25/250 -] Duloxetine HCl [Cymbalta -] 20 mg PO DAILY 07/04/18 Ferrous Gluconate [Fergon -] 324 mg PO DAILY 07/04/18 Nitrofurantoin Monohyd/M-Cryst 1 tab PO DAILY 07/04/18 [Macrobid -] Ropinirole HCl 1 mg PO 06,11,15,19,23 07/04/18 Acetaminophen [Tylenol 1,000 mg PO BID 07/05/18 .Extra-Strength -] Magnesium Hydrox 2400MG/30Ml [Milk 30 ml PO PRN 07/05/18 of Magnesia -] Microbiology 07/05/18 06:00 Sputum - Endotrachea Suction/Ventilator Gram Stain - Final 07/05/18 06:00 Sputum - Endotrachea Suction/Ventilator Sputum Culture - Preliminary NORMAL RESPIRATORY DIANE 07/04/18 06:27 Blood - Peripheral Venous Blood Culture - Final Proteus Mirabilus - Esbl Produ 07/04/18 06:27 Blood - Peripheral Venous Blood Culture - Preliminary Staphylococcus Coagulase Neg 07/04/18 05:15 Urine - Urine Clean Catch Urine Culture - Final Contaminated: Please Repeat ASSESSMENT AND PLAN: 82 yo Male with PMHx of Prostate CA, HTN, HLD, Parkinsons admitted after being found unresponsive at care home. # Severe Sepsis due to polymicrobial bacteremia/ESBL , s/p extubation with comfort measures now, on MS drip as per ICU team. # Acute Respiratory Failure extubated #HTN: hypotenstion, comfort measure #Parkinson's: Carbidopa/Levodopa on hold , comfort measure #BPH/Prostate CA: comfort care DVT Prophylaxis: SCDs Comfort / Supportive measures Antibiotics stopped DNR / DNI
--- NOTE | 2018-07-06 09:06 | PN ---
Physical Exam: SUBJECTIVE: Patient seen and examined. Compassionately extubated and Started on comfort care yesterday OBJECTIVE: Vital Signs Period Temp Pulse Resp BP Sys/Howard Pulse Ox Last 24 Hr 99.2 F-100.2 F 64-120 14-26 63-100/36-60 90-98 Vital Signs Temperature 99.7 F H 07/06/18 07:39 Pulse Rate 72 07/06/18 12:48 Respiratory Rate 18 07/06/18 12:48 Blood Pressure 106/52 L 07/06/18 12:48 O2 Sat by Pulse Oximetry (%) 96 07/06/18 07:53 GENERAL:Patient non responseive to sternal rub, miosed pupils bilaterally HEAD: Normal with no signs of trauma. EYES: miosed pupils bilaterally ENT: NC- oxygen Laboratory Results - last 24 hr 07/05/18 07/05/18 07/05/18 05:15 05:18 06:00 Neutrophils % (Manual) 48.0 D Band Neutrophils % 31.0 Lymphocytes % (Manual) 2.0 L D Monocytes % (Manual) 5 Eosinophils % (Manual) 0.0 Basophils % (Manual) 0.0 Myelocytes % (Man) 0 Promyelocytes % (Man) 0 Blast Cells % (Manual) 0 Metamyelocytes 5 H D Hypochromia 0 Platelet Estimate Decreased Platelet Comment Present Polychromasia 1+ Poikilocytosis 1+ Anisocytosis 3+ Microcytosis 0 Macrocytosis 0 Spherocytes 1+ Tear Drop Cells 1+ Ovalocytes 1+ Trista Cells 1+ POC Glucometer 133.32728 Influenza A (Rapid) Negative Influenza B (Rapid) Negative 07/05/18 07/05/18 11:53 17:45 Neutrophils % (Manual) Band Neutrophils % Lymphocytes % (Manual) Monocytes % (Manual) Eosinophils % (Manual) Basophils % (Manual) Myelocytes % (Man) Promyelocytes % (Man) Blast Cells % (Manual) Metamyelocytes Hypochromia Platelet Estimate Platelet Comment Polychromasia Poikilocytosis Anisocytosis Microcytosis Macrocytosis Spherocytes Tear Drop Cells Ovalocytes [place] Cells POC Glucometer 80.67880 165.42102 Influenza A (Rapid) Influenza B (Rapid) Active Medications Generic Name Dose Route Start Last Admin Trade Name Freq PRN Reason Stop Dose Admin Acetaminophen 1,000 mg 07/05/18 02:51 07/05/18 03:07 Ofirmev Injection - IVPB 1,000 mg Q6H PRN Administration FEVER Fentanyl 500 mcg/ Dextrose 100 mls @ 10 mls/hr 07/04/18 08:00 07/05/18 16:58 IVPB 50 mcg/hr TITR CRISTAL 10 mls/hr Administration 50 MCG/HR Morphine Sulfate 100 mg/ 100 mls @ 1 mls/hr 07/05/18 18:30 07/06/18 06:01 Sodium Chloride IVPB 07/06/18 18:29 2 mg/hr TITR CRISTAL 2 mls/hr Titration Protocol 1 MG/HR ASSESSMENT/PLAN: 82 yo Male with PMH Prostate CA, HTN, HLD, Parkinsons admitted after being found unresponsive at [facility] now on comfort care Severe Sepsis likely secondary to UTI vs Gram Negative Bacteremia -Pt compassionately extubated yesterday, on comfort care only -Hold antibiotics -Cont morphine drip HTN Parkinson's BPH/Prostate CA -Comfort measures only, stop all other medications cont morphine drip Disposition Comfort measures Visit type - Emergency Visit Emergency Visit: Yes ED Registration Date: 07/04/18 Care time: The patient presented to the Emergency Department on the above date and was hospitalized for further evaluation of their emergent condition. - New Patient This patient is new to me today: Yes Date on this admission: 07/06/18 - Critical Care Critical Care patient: No - Discharge Referral Referred to [facility] Med P.C.: No
[2018-07-06] MEDS: ACETAMINOPHEN 1000 MG/100 ML VIAL (NON FORMULARY) IVPB PRN (09:20)
--- NOTE | 2018-07-06 10:25 | PN ---
Physical Exam: SUBJECTIVE: Patient seen and examined at bedside. Compassionately extubated.Appears comfortable on MS drip. OBJECTIVE: Vital Signs Period Temp Pulse Resp BP Sys/Howard Pulse Ox Last 24 Hr 99.2 F-100.2 F 64-120 14-26 63-100/36-60 90-97 GEN: Extubated, poorly responsive, NAD HEENT: supple PULM: bilateral coarse breath sounds CV: Tachycardic w/ regular rhythm ABD: Softly distended, (+) BS : Menendez in place EXT: Cool, 2+ pulses. Neuro: Poorly responsive Laboratory Results - last 24 hr 07/05/18 07/05/18 07/05/18 05:15 05:18 11:53 Neutrophils % (Manual) 48.0 D Band Neutrophils % 31.0 Lymphocytes % (Manual) 2.0 L D Monocytes % (Manual) 5 Eosinophils % (Manual) 0.0 Basophils % (Manual) 0.0 Myelocytes % (Man) 0 Promyelocytes % (Man) 0 Blast Cells % (Manual) 0 Metamyelocytes 5 H D Hypochromia 0 Platelet Estimate Decreased Platelet Comment Present Polychromasia 1+ Poikilocytosis 1+ Anisocytosis 3+ Microcytosis 0 Macrocytosis 0 Spherocytes 1+ Tear Drop Cells 1+ Ovalocytes 1+ Trista Cells 1+ POC Glucometer 133.80706 80.30963 07/05/18 17:45 Neutrophils % (Manual) Band Neutrophils % Lymphocytes % (Manual) Monocytes % (Manual) Eosinophils % (Manual) Basophils % (Manual) Myelocytes % (Man) Promyelocytes % (Man) Blast Cells % (Manual) Metamyelocytes Hypochromia Platelet Estimate Platelet Comment Polychromasia Poikilocytosis Anisocytosis Microcytosis Macrocytosis Spherocytes Tear Drop Cells Ovalocytes [place] Cells POC Glucometer 165.22357 Active Medications Generic Name Dose Route Start Last Admin Trade Name Freq PRN Reason Stop Dose Admin Acetaminophen 1,000 mg 07/05/18 02:51 07/06/18 09:20 Ofirmev Injection - IVPB 1,000 mg Q6H PRN Administration FEVER Fentanyl 500 mcg/ Dextrose 100 mls @ 10 mls/hr 07/04/18 08:00 07/05/18 16:58 IVPB 50 mcg/hr TITR CRISTAL 10 mls/hr Administration 50 MCG/HR Morphine Sulfate 100 mg/ 100 mls @ 1 mls/hr 07/05/18 18:30 07/06/18 06:01 Sodium Chloride IVPB 07/06/18 18:29 2 mg/hr TITR CRISTAL 2 mls/hr Titration Protocol 1 MG/HR ASSESSMENT/PLAN: 82 yo Male with PMH Prostate CA, HTN, HLD, Parkinsons admitted after being found unresponsive at [facility] now on comfort care. * Comfort measures only, stop all other medications cont morphine drip Visit type - Emergency Visit Emergency Visit: Yes ED Registration Date: 07/04/18 Care time: The patient presented to the Emergency Department on the above date and was hospitalized for further evaluation of their emergent condition. - New Patient This patient is new to me today: Yes Date on this admission: 07/06/18 - Critical Care Critical Care patient: Yes Total Critical Care Time (in minutes): 33 Critical Care Statement: The care of this patient involved high complexity decision making to prevent further life threatening deterioration of the patient 's condition and/or to evaluate & treat vital organ system(s) failure or risk of failure. - Discharge Referral Referred to [facility] Med P.C.: No
--- NOTE | 2018-07-06 10:40 | PN ---
Teaching Attending Note Name of Resident: Cordell Goel ATTENDING PHYSICIAN STATEMENT I saw and evaluated the patient. I reviewed the resident's note and discussed the case with the resident. I agree with the resident's findings and plan as documented. SUBJECTIVE: Patient seen and examined in the ICU. Compassionately extubated. Appears comfortable on MS drip. OBJECTIVE: Intake & Output 07/03/18 07/04/18 07/05/18 07/06/18 23:59 23:59 23:59 23:59 Intake Total 2490 5346 7 Output Total 250 450 100 Balance 2240 4896 -93 Weight 210 lb 8.663 oz Last Vital Signs Temp Pulse Resp BP Pulse Ox 99.7 F H 64 16 87/46 L 96 07/06/18 07:39 07/06/18 07:39 07/06/18 07:39 07/06/18 07:39 07/06/18 07:53 Active Medications Acetaminophen (Ofirmev Injection -) 1,000 mg IVPB Q6H PRN PRN Reason: FEVER Last Admin: 07/06/18 09:20 Dose: 1,000 mg Fentanyl 500 mcg/ Dextrose 100 mls @ 10 mls/hr IVPB TITR CRISTAL Last Admin: 07/05/18 16:58 Dose: 50 mcg/hr, 10 mls/hr Morphine Sulfate 100 mg/ (Sodium Chloride) 100 mls @ 1 mls/hr IVPB TITR CRISTAL; Protocol Stop: 07/06/18 18:29 Last Titration: 07/06/18 06:01 Dose: 2 mg/hr, 2 mls/hr GEN: Extubated, poorly responsive, NAD HEENT: supple PULM: bilateral coarse breath sounds CV: Tachycardic w/ regular rhythm ABD: Softly distended, (+) BS : Menendez in place EXT: Cool, 2+ pulses. L fem CVC in place Neuro: Poorly responsive Laboratory Results - last 24 hr 07/05/18 07/05/18 07/05/18 05:15 05:18 11:53 Neutrophils % (Manual) 48.0 D Band Neutrophils % 31.0 Lymphocytes % (Manual) 2.0 L D Monocytes % (Manual) 5 Eosinophils % (Manual) 0.0 Basophils % (Manual) 0.0 Myelocytes % (Man) 0 Promyelocytes % (Man) 0 Blast Cells % (Manual) 0 Metamyelocytes 5 H D Hypochromia 0 Platelet Estimate Decreased Platelet Comment Present Polychromasia 1+ Poikilocytosis 1+ Anisocytosis 3+ Microcytosis 0 Macrocytosis 0 Spherocytes 1+ Tear Drop Cells 1+ Ovalocytes 1+ Trista Cells 1+ POC Glucometer [phone] [phone] 07/05/18 17:45 Neutrophils % (Manual) Band Neutrophils % Lymphocytes % (Manual) Monocytes % (Manual) Eosinophils % (Manual) Basophils % (Manual) Myelocytes % (Man) Promyelocytes % (Man) Blast Cells % (Manual) Metamyelocytes Hypochromia Platelet Estimate Platelet Comment Polychromasia Poikilocytosis Anisocytosis Microcytosis Macrocytosis Spherocytes Tear Drop Cells Ovalocytes Trista Cells POC Glucometer [phone] ASSESSMENT/PLAN: Acute Respiratory Failure Resolving Hypotension ROBERT Lactic acidosis Sepsis (?) Polymicrobial Bacteremia UTI MS drip for comfort Aspiration precautions O2 as needed Comfort / Supportive measures DNR / DNI Floor Dr Clinton
[2018-07-06 11:03] VITALS: BMI 31.9
--- NOTE | 2018-07-06 11:14 | PN ---
Progress Note, Physician History of Present Illness: Compassionately extubated Shacandi UE when examined Febrile WBC elevated BC ESBL, SCN Now on comfort measures - Current Medication List Current Medications: Active Medications Acetaminophen (Ofirmev Injection -) 1,000 mg IVPB Q6H PRN PRN Reason: FEVER Last Admin: 07/06/18 09:20 Dose: 1,000 mg Fentanyl 500 mcg/ Dextrose 100 mls @ 10 mls/hr IVPB TITR CRISTAL Last Admin: 07/05/18 16:58 Dose: 50 mcg/hr, 10 mls/hr Morphine Sulfate 100 mg/ (Sodium Chloride) 100 mls @ 1 mls/hr IVPB TITR CRISTAL; Protocol Stop: 07/06/18 18:29 Last Titration: 07/06/18 06:01 Dose: 2 mg/hr, 2 mls/hr - Objective Vital Signs: Vital Signs Temperature 99.7 F H 07/06/18 07:39 Pulse Rate 64 07/06/18 07:39 Respiratory Rate 16 07/06/18 07:39 Blood Pressure 87/46 L 07/06/18 07:39 O2 Sat by Pulse Oximetry (%) 96 07/06/18 07:53 Constitutional: Yes: No Distress Cardiovascular: Yes: Regular Rate and Rhythm, S1, S2 Respiratory: Yes: Diminished Gastrointestinal: Yes: Normal Bowel Sounds, Soft. No: Tenderness Edema: Yes Labs: CBC, BMP 07/05/18 05:15 07/05/18 05:15 INR, PTT INR 1.55 (0.83-1.09) H 07/05/18 05:15 Assessment/Plan Respiratory failure s/p extubation Sepsis polymicrobial bacteremia ESBL, SCN Renal failure UTI Antibiotics stopped Comfort measures only
--- NOTE | 2018-07-06 13:24 | PN ---
Progress Note, Physician History of Present Illness: Pt seen in ICU. He is extubated and on comfort care. - Current Medication List Current Medications: Active Medications Acetaminophen (Ofirmev Injection -) 1,000 mg IVPB Q6H PRN PRN Reason: FEVER Last Admin: 07/06/18 09:20 Dose: 1,000 mg Fentanyl 500 mcg/ Dextrose 100 mls @ 10 mls/hr IVPB TITR CRISTAL Last Admin: 07/05/18 16:58 Dose: 50 mcg/hr, 10 mls/hr Morphine Sulfate 100 mg/ (Sodium Chloride) 100 mls @ 1 mls/hr IVPB TITR CRISTAL; Protocol Stop: 07/06/18 18:29 Last Titration: 07/06/18 06:01 Dose: 2 mg/hr, 2 mls/hr - Objective Vital Signs: Vital Signs Temperature 99.7 F H 07/06/18 07:39 Pulse Rate 72 07/06/18 12:48 Respiratory Rate 18 07/06/18 12:48 Blood Pressure 106/52 L 07/06/18 12:48 O2 Sat by Pulse Oximetry (%) 96 07/06/18 07:53 Constitutional: Yes: Calm Eyes: Yes: Conjunctiva Clear HENT: Yes: Atraumatic Cardiovascular: Yes: S1, S2 Respiratory: Yes: On Nasal O2 Gastrointestinal: Yes: Soft Musculoskeletal: Yes: Muscle Weakness Edema: No Neurological: Yes: Lethargy Labs: CBC, BMP 07/05/18 05:15 07/05/18 05:15 INR, PTT INR 1.55 (0.83-1.09) H 07/05/18 05:15 Problem List - Problems (1) ROBERT (acute kidney injury) Code(s): N17.9 - ACUTE KIDNEY FAILURE, UNSPECIFIED (2) Altered mental status Code(s): R41.82 - ALTERED MENTAL STATUS, UNSPECIFIED Assessment/Plan Current Medications Generic Name Dose Route Start Last Admin Trade Name Freq PRN Reason Stop Dose Admin Acetaminophen 1,000 mg 07/05/18 02:51 07/06/18 09:20 Ofirmev Injection - IVPB 1,000 mg Q6H PRN Administration FEVER Fentanyl 500 mcg/ Dextrose 100 mls @ 10 mls/hr 07/04/18 08:00 07/05/18 16:58 IVPB 50 mcg/hr TITR CRISTAL 10 mls/hr Administration 50 MCG/HR Morphine Sulfate 100 mg/ 100 mls @ 1 mls/hr 07/05/18 18:30 07/06/18 06:01 Sodium Chloride IVPB 07/06/18 18:29 2 mg/hr TITR CRISTAL 2 mls/hr Titration Protocol 1 MG/HR Impression 1. ROBERT 2. lactic acidosis 3. resp failure requiring intubation 4. parkinsons 5. hypotension 6. shock Plan - no new labs - pt now on comfort care - fluids stopped - management per ICU team - will follow PRN Dr Cazares
[2018-07-06] MEDS: MORPHINE 100 MG in SODIUM CHLORIDE 98 ML IVPB SCH (22:18)
[2018-07-07] MEDS: ACETAMINOPHEN 1000 MG/100 ML VIAL (NON FORMULARY) IVPB PRN ×2 (06:55→17:01)
--- NOTE | 2018-07-07 07:56 | PN ---
Physical Exam: SUBJECTIVE: Patient seen and examined. Not verbal/withdraws to stimuli OBJECTIVE: Vital Signs Period Temp Pulse Resp BP Sys/Howard Pulse Ox Last 24 Hr 99.1 F-100.2 F 72-134 6-18 74-106/37-52 100-100 GEN: Extubated, poorly responsive, NAD HEENT: supple PULM: bilateral coarse breath sounds CV: Tachycardic w/ regular rhythm ABD: Soft, mild distention, +BS : Menendez in place EXT: Cool, 2+ pulses Neuro: Poorly responsive Active Medications Generic Name Dose Route Start Last Admin Trade Name Freq PRN Reason Stop Dose Admin Acetaminophen 1,000 mg 07/05/18 02:51 07/07/18 06:55 Ofirmev Injection - IVPB 1,000 mg Q6H PRN Administration FEVER Fentanyl 500 mcg/ Dextrose 100 mls @ 10 mls/hr 07/04/18 08:00 07/05/18 16:58 IVPB 50 mcg/hr TITR CRISTAL 10 mls/hr Administration 50 MCG/HR Morphine Sulfate 100 mg/ 100 mls @ 3 mls/hr 07/06/18 22:00 07/06/18 22:18 Sodium Chloride IVPB 2 mg/hr TITR CRISATL 2 mls/hr Administration Protocol 3 MG/HR ASSESSMENT/PLAN: The pt is an 82M with PMH Prostate CA, HTN, HLD, Parkinsons admitted [facility] at [facility] now on comfort care. -Comfort measures only, stop all other medications cont morphine drip -Patient does not require ICU level of care, floor transfer order placed 2017 Visit type - Emergency Visit Emergency Visit: Yes ED Registration Date: 07/04/18 Care time: The patient presented to the Emergency Department on the above date and was hospitalized for further evaluation of their emergent condition. - New Patient This patient is new to me today: No - Critical Care Critical Care patient: Yes Total Critical Care Time (in minutes): 35 Critical Care Statement: The care of this patient involved high complexity decision making to prevent further life threatening deterioration of the patient 's condition and/or to evaluate & treat vital organ system(s) failure or risk of failure.
[2018-07-07] MEDS ORDERED: PT OWN MED DRAWER 7, Y5N ONE (08:51)
--- NOTE | 2018-07-07 10:54 | PN ---
Teaching Attending Note Name of Resident: Jair Traylor ATTENDING PHYSICIAN STATEMENT I saw and evaluated the patient. I reviewed the resident's note and discussed the case with the resident. I agree with the resident's findings and plan as documented. SUBJECTIVE: Patient seen and examined in the ICU. NAD on MS drip. OBJECTIVE: Intake & Output 07/04/18 07/05/18 07/06/18 07/07/18 23:59 23:59 23:59 23:59 Intake Total 2490 5346 131 124 Output Total 250 450 100 400 Balance 2240 4896 31 -276 Weight 210 lb 8.663 oz 210 lb Last Vital Signs Temp Pulse Resp BP Pulse Ox 99.6 F 115 H 9 L 120/88 99 07/07/18 08:00 07/07/18 10:00 07/07/18 10:00 07/07/18 10:00 07/07/18 08:45 Active Medications Acetaminophen (Ofirmev Injection -) 1,000 mg IVPB Q6H PRN PRN Reason: FEVER Last Admin: 07/07/18 06:55 Dose: 1,000 mg Fentanyl 500 mcg/ Dextrose 100 mls @ 10 mls/hr IVPB TITR CRISTAL Last Admin: 07/05/18 16:58 Dose: 50 mcg/hr, 10 mls/hr Morphine Sulfate 100 mg/ (Sodium Chloride) 100 mls @ 3 mls/hr IVPB TITR CRISTAL; Protocol Last Admin: 07/06/18 22:18 Dose: 2 mg/hr, 2 mls/hr GEN: Extubated, poorly responsive, NAD HEENT: supple PULM: bilateral coarse breath sounds CV: Tachycardic w/ regular rhythm ABD: Softly distended, (+) BS : Menendez in place EXT: Cool, 2+ pulses. L fem CVC in place Neuro: Poorly responsive ASSESSMENT/PLAN: Acute Respiratory Failure Resolving Hypotension ROBERT Lactic acidosis Sepsis (?) Polymicrobial Bacteremia UTI MS drip for comfort Aspiration precautions O2 as needed Comfort / Supportive measures DNR / DNI Floor Dr Clinton
[2018-07-07] MEDS: MORPHINE 100 MG in SODIUM CHLORIDE 98 ML IVPB SCH (12:42)
--- NOTE | 2018-07-07 14:31 | PN ---
Physical Exam: SUBJECTIVE: Patient seen and examined this AM. Unable to respond to questioning , pt does not wake up or respond to auditory or physical stimuli. OBJECTIVE: Vital Signs Period Temp Pulse Resp BP Sys/Howard Pulse Ox Last 24 Hr 98.9 F-100.2 F 92-134 6-14 74-125/37-99 99-100 GENERAL: Extubated, still minimally responsive HEAD: Normocephalic, atraumatic. EYES: Right coloboma, Left pupil constricted but reactive to light EARS, NOSE, THROAT: oropharynx clear without exudates. Moist mucous membranes. NECK: supple without lymphadenopathy LUNGS: Mechanical breath sounds, no obvious crackles/rhonchi/wheezes HEART: Regular rate and rhythm, normal S1 and S2 without murmur ABDOMEN: Distended, hypooactive bowel sounds : Menendez in place draining dark urine MUSCULOSKELETAL: No bony deformities or tenderness. EXTREMITIES: 2+ pulses, warm, well-perfused. No peripheral edema. NEUROLOGICAL: pupillary reflex intact, minimal response to painful stimuli SKIN: Warm, dry, no rashes or lesions noted Active Medications Generic Name Dose Route Start Last Admin Trade Name Freq PRN Reason Stop Dose Admin Acetaminophen 1,000 mg 07/05/18 02:51 07/07/18 06:55 Ofirmev Injection - IVPB 1,000 mg Q6H PRN Administration FEVER Morphine Sulfate 100 mg/ 100 mls @ 3 mls/hr 07/06/18 22:00 07/07/18 12:42 Sodium Chloride IVPB 2 mg/hr TITR CRISTAL 2 mls/hr Administration Protocol 3 MG/HR ASSESSMENT/PLAN: 82 yo Male with PMH Prostate CA, HTN, HLD, Parkinsons [facility] Severe sepsis likely secondary to bacteremia -Pt is comfort care only at this point as per health care proxy -Morphine drip for comfort -Tylenol for fever/pain Disposition Comfort care, prognosis very poor Visit type - Emergency Visit Emergency Visit: Yes ED Registration Date: 07/04/18 Care time: The patient presented to the Emergency Department on the above date and was hospitalized for further evaluation of their emergent condition. - New Patient This patient is new to me today: No - Critical Care Critical Care patient: Yes Total Critical Care Time (in minutes): 35 Critical Care Statement: The care of this patient involved high complexity decision making to prevent further life threatening deterioration of the patient 's condition and/or to evaluate & treat vital organ system(s) failure or risk of failure.
--- NOTE | 2018-07-07 18:44 | PN ---
Teaching Attending Note Name of Resident: Mahamed Davis ATTENDING PHYSICIAN STATEMENT I saw and evaluated the patient. I reviewed the resident's note and discussed the case with the resident. I agree with the resident's findings and plan as documented. SUBJECTIVE: Non-verbal s/p extubation OBJECTIVE: low grade fever - T 100.1. Hemodynamically Stable Last Vital Signs Temp Pulse Resp BP Pulse Ox 100.1 F H 101 H 8 L 105/45 L 100 07/07/18 16:00 07/07/18 16:00 07/07/18 16:00 07/07/18 16:00 07/07/18 17:56 HEENT - Atraumatic. Normocephalic. Heart - S1, S2, RRR Lungs - Poor air entry - decreased at bases Abdomen - Soft. Bowel Sounds normal. Extremities - no calf swelling. Current Medications Generic Name Dose Route Start Last Admin Trade Name Freq PRN Reason Stop Dose Admin Morphine Sulfate 100 mg/ 100 mls @ 3 mls/hr 07/06/18 22:00 07/07/18 12:42 Sodium Chloride IVPB 2 mg/hr TITR CRISTAL 2 mls/hr Administration Protocol 3 MG/HR ASSESSMENT AND PLAN: 82 year Male with PMHx of Prostate CA, HTN, HLD, Parkinsons [facility] He was intubated for respiratory failure and severe sepsis. He was eventually extubated and now is for comfort measures. 1. Acute Respiratory Failure sec to Severe Sepsis due to ESBL bacteremia Source unknown, possible UTI Antibiotics held. Extubated and on MS drip for comfort care. Supplemental O2 for comfort. 2. HTN/HLD - hypotensive currently - all home meds held. 3. Parkinson's Disease - Carbidopa/Levodopa held as patient is NPO. DNR / DNI For comfort measures only.
[2018-07-07] MEDS: FENTANYL INJECTION 500 MCG in DEXTROSE 5%-WATER - 90 ML IVPB SCH (19:57)
--- NOTE | 2018-07-08 07:56 | PN ---
Physical Exam: SUBJECTIVE: Patient seen and examined this AM. Does not respond to verbal or physical stimulation. OBJECTIVE: Vital Signs Period Temp Pulse Resp BP Sys/Howard Pulse Ox Last 24 Hr 98.3 F-100.1 F 98-125 8-14 86-131/37-99 96-100 GENERAL: Extubated, still minimally responsive HEAD: Normocephalic, atraumatic. EYES: Right coloboma, Left pupil constricted but reactive to light EARS, NOSE, THROAT: oropharynx clear without exudates. Moist mucous membranes. NECK: supple without lymphadenopathy LUNGS: Mechanical breath sounds, no obvious crackles/rhonchi/wheezes HEART: Regular rate and rhythm, normal S1 and S2 without murmur ABDOMEN: Distended, hypooactive bowel sounds : Menendez in place draining dark urine MUSCULOSKELETAL: No bony deformities or tenderness. EXTREMITIES: 2+ pulses, warm, well-perfused. No peripheral edema. NEUROLOGICAL: pupillary reflex intact, minimal response to painful stimuli SKIN: Warm, dry, no rashes or lesions noted Active Medications Generic Name Dose Route Start Last Admin Trade Name Freq PRN Reason Stop Dose Admin Morphine Sulfate 100 mg/ 100 mls @ 3 mls/hr 07/06/18 22:00 07/07/18 12:42 Sodium Chloride IVPB 2 mg/hr TITR CRISTAL 2 mls/hr Administration Protocol 3 MG/HR ASSESSMENT/PLAN: 82 yo Male with PMH Prostate CA, HTN, HLD, Parkinsons admitted [facility]. Severe sepsis likely secondary to bacteremia -Pt is comfort care only at this point as per health care proxy -Morphine drip for comfort -Tylenol for fever/pain -Scopolamine patch for secretions Disposition Comfort care, prognosis very poor Visit type - Emergency Visit Emergency Visit: Yes ED Registration Date: 07/04/18 Care time: The patient presented to the Emergency Department on the above date and was hospitalized for further evaluation of their emergent condition. - New Patient This patient is new to me today: No - Critical Care Critical Care patient: No
--- NOTE | 2018-07-08 10:02 | PN ---
Progress Note (short form) - Note Progress Note: PULMONARY Lethargic on morphine gtt. Pt poorly responsive. Vital Signs Period Temp Pulse Resp BP Sys/Howard Pulse Ox Last 24 Hr 98.3 F-100.1 F 98-109 8-14 86-131/37-58 96-100 Gen: lethargic, mildly tachypneic Heart: tachycardic Lung: bilateral rhonchi Abd: soft, nontender Ext: no edema CBC, BMP 07/05/18 05:15 07/05/18 05:15 Active Medications Morphine Sulfate 100 mg/ (Sodium Chloride) 100 mls @ 3 mls/hr IVPB TITR CRISTAL; Protocol Last Admin: 07/07/18 12:42 Dose: 2 mg/hr, 2 mls/hr A/P s/p Acute Respiratory Failure ESBL Bacteremia UTI Severe Sepsis HTN Hyperlipidemia Parkinsons - continue supportive care - titrate morphine gtt to RR <25 - ativan as needed - can use scopalamine patch for secretions
[2018-07-08] MEDS ORDERED: LORazepam 2 MG/ML SDV VIAL IVPUSH PRN (12:31)
[2018-07-08] MEDS ORDERED: PT OWN MED DRAWER 7, Y5N ONE (14:02)
[2018-07-08] MEDS: SCOPOLAMINE HYDROBROMIDE 1 PATCH PATCH.TD72 TD SCH (14:05)
--- NOTE | 2018-07-08 18:52 | PN ---
Teaching Attending Note Name of Resident: Mahamed Davis ATTENDING PHYSICIAN STATEMENT I saw and evaluated the patient. I reviewed the resident's note and discussed the case with the resident. I agree with the resident's findings and plan as documented. SUBJECTIVE: Comfortable. Not verbal. OBJECTIVE: T 99.9. Hemodynamically Stable. Last Vital Signs Temp Pulse Resp BP Pulse Ox 99.5 F 118 H 18 126/62 95 07/08/18 17:14 07/08/18 17:14 07/08/18 17:14 07/08/18 17:14 07/08/18 09:00 HEENT - Atraumatic. Normocephalic. Heart - S1, S2, tachy Lungs - Poor air entry - decreased at bases Abdomen - Soft. Bowel Sounds normal. Extremities - no calf swelling. Current Medications Generic Name Dose Route Start Last Admin Trade Name Freq PRN Reason Stop Dose Admin Morphine Sulfate 100 mg/ 100 mls @ 3 mls/hr 07/06/18 22:00 07/07/18 12:42 Sodium Chloride IVPB 2 mg/hr TITR CRISTAL 2 mls/hr Administration Protocol 3 MG/HR Lorazepam 1 mg 07/08/18 12:31 Ativan Injection - IVPUSH Q6H PRN AGITATION Scopolamine HBr 1 patch 07/08/18 12:30 07/08/18 14:05 Transderm-Scop - TD 1 patch Q72H CRISTAL Administration ASSESSMENT AND PLAN: 82 year Male with PMHx of Prostate CA, HTN, HLD, Parkinsons admitted [facility]. He was intubated for respiratory failure and severe sepsis. He was eventually extubated and is now for comfort measures. 1. Acute Respiratory Failure sec to Severe Sepsis due to ESBL bacteremia Source unknown, possible UTI Antibiotics held. Extubated and on MS drip for comfort care. Supplemental O2 for comfort. Ativan prn and Scopolamine patch for secretions. 2. HTN/HLD - all home meds held. 3. Parkinson's Disease - Carbidopa/Levodopa held as patient is NPO. DNR / DNI For comfort measures only.
--- NOTE | 2018-07-09 07:55 | PN ---
Physical Exam: SUBJECTIVE: Patient seen and examined this AM. He seems to be resting comfortably arousable to painful stimuli OBJECTIVE: Vital Signs Period Temp Pulse Resp BP Sys/Hoawrd Pulse Ox Last 24 Hr 98.5 F-99.9 F 100-118 12-18 108-135/53-64 95-97 GENERAL: still minimally responsive to painful stimuli HEAD: Normocephalic, atraumatic. EYES: Pupils reactive, right coloboma EARS, NOSE, THROAT: Moist mucous membranes. NECK: supple without lymphadenopathy LUNGS: no obvious crackles/rhonchi/wheezes, though upper airway sounds very wet HEART: Regular rate and rhythm, normal S1 and S2 without murmur ABDOMEN: less Distended, hypooactive bowel sounds : Menendez in place draining dark urine MUSCULOSKELETAL: No bony deformities or tenderness. EXTREMITIES: No peripheral edema. NEUROLOGICAL: pupillary reflex intact, minimal response to painful stimuli SKIN: Warm, dry, no rashes or lesions noted Active Medications Generic Name Dose Route Start Last Admin Trade Name Freq PRN Reason Stop Dose Admin Morphine Sulfate 100 mg/ 100 mls @ 3 mls/hr 07/06/18 22:00 07/07/18 12:42 Sodium Chloride IVPB 2 mg/hr TITR CRISTAL 2 mls/hr Administration Protocol 3 MG/HR Lorazepam 1 mg 07/08/18 12:31 Ativan Injection - IVPUSH Q6H PRN AGITATION Scopolamine HBr 1 patch 07/08/18 12:30 07/08/18 14:05 Transderm-Scop - TD 1 patch Q72H CRISTAL Administration ASSESSMENT/PLAN: 82 yo Male with PMH Prostate CA, HTN, HLD, Parkinsons admitted after [facility] at [facility]. Severe sepsis likely secondary to bacteremia -Pt is comfort care only at this point as per health care proxy -Morphine drip for comfort -Tylenol for fever/pain -Scopolamine patch for secretions -All home medications held Disposition Comfort care, prognosis very poor, Partner (HCP) requesting bed at [facility] Visit type - Emergency Visit Emergency Visit: Yes ED Registration Date: 07/04/18 Care time: The patient presented to the Emergency Department on the above date and was hospitalized for further evaluation of their emergent condition. - New Patient This patient is new to me today: No - Critical Care Critical Care patient: No
--- NOTE | 2018-07-09 19:21 | PN ---
Teaching Attending Note Name of Resident: Mahaemd Davis ATTENDING PHYSICIAN STATEMENT I saw and evaluated the patient. I reviewed the resident's note and discussed the case with the resident. I agree with the resident's findings and plan as documented. SUBJECTIVE: Poorly responsive, non-verbal. OBJECTIVE: Appears comfortable. Fever. Hemodynamically Stable. Last Vital Signs Temp Pulse Resp BP Pulse Ox 100.9 F H 110 H 18 112/55 L 95 07/09/18 18:30 07/09/18 18:30 07/09/18 18:30 07/09/18 18:30 07/09/18 09:00 HEENT - Atraumatic. Normocephalic. Heart - S1, S2, tachy Lungs - Poor air entry - decreased at bases Abdomen - Soft. Bowel Sounds normal. Extremities - no calf swelling. Current Medications Generic Name Dose Route Start Last Admin Trade Name Freq PRN Reason Stop Dose Admin Morphine Sulfate 100 mg/ 100 mls @ 3 mls/hr 07/06/18 22:00 07/07/18 12:42 Sodium Chloride IVPB 2 mg/hr TITR CRISTAL 2 mls/hr Administration Protocol 3 MG/HR Lorazepam 1 mg 07/08/18 12:31 Ativan Injection - IVPUSH Q6H PRN AGITATION Scopolamine HBr 1 patch 07/08/18 12:30 07/08/18 14:05 Transderm-Scop - TD 1 patch Q72H CRISTAL Administration ASSESSMENT AND PLAN 82 year Male with PMHx of Prostate CA, HTN, HLD, Parkinsons admitted after being found unresponsive [facility]. He was intubated for respiratory failure and severe sepsis. He was eventually extubated and is now for comfort measures. 1. Acute Respiratory Failure sec to Severe Sepsis due to ESBL bacteremia Source unknown, possible UTI Antibiotics held. Extubated and on MS drip for comfort care. Sedated, poorly responsive, comfortable. Supplemental O2 for comfort. Ativan prn and Scopolamine patch for secretions. For referral to Hospice. 2. HTN/HLD - all home meds held. 3. Parkinson's Disease - Carbidopa/Levodopa held as patient is NPO. DNR / DNI For comfort measures only.
[2018-07-10] MEDS: MORPHINE 100 MG in SODIUM CHLORIDE 98 ML IVPB SCH (03:40)
[2018-07-10] MEDS: SODIUM CHLORIDE 500 ML IV ONE (12:00)
[2018-07-10] MEDS ORDERED: ACETAMINOPHEN 1000 MG/100 ML VIAL (NON FORMULARY) IVPB ONE ×2 (15:44→21:45)
--- NOTE | 2018-07-10 15:45 | PN ---
Physical Exam: SUBJECTIVE: Patient seen and examined OBJECTIVE: Vital Signs Period Temp Pulse Resp BP Sys/Howard Pulse Ox Last 24 Hr 100.1 F-101.3 F 110-121 16-20 107-146/52-61 95-95 Vital Signs Temp 101.3 F H 07/10/18 14:52 Pulse 121 H 07/10/18 14:52 Resp 20 07/10/18 14:52 BP 107/53 L 07/10/18 14:52 Pulse Ox 95 07/10/18 10:00 Intake & Output 07/09/18 07/10/18 07/10/18 23:59 11:59 23:59 Intake Total 24 24 0 Output Total 1300 300 400 Balance -7275 -598 -172 Intake: IV 24 24 Morphine Sulfate 100 mg 24 24 In Normal Saline - 98 ml @ 3 MG/HR 3 mls/hr IVPB TITR CRISTAL Rx#:[id number] Oral 0 0 Output: Urine 1300 300 400 Menendez 1300 300 400 Other: Voiding Method Indwelling Catheter Indwelling Catheter Bowel Movement No No GENERAL: The patient flexes to pain with tremor of R UE HEAD: Normal with no signs of trauma. EYES: Dilated R pupil non reactive, miosed L pupil non reactive ENT: NC-oxygen, dry mucous membranes. LUNGS: Spontaneous resp. on NC HEART:S1, S2 tachy NEUROLOGICAL: Flexes to pain Active Medications Generic Name Dose Route Start Last Admin Trade Name Freq PRN Reason Stop Dose Admin Acetaminophen 1,000 mg 07/10/18 15:44 Ofirmev Injection - IVPB 07/10/18 15:45 ONCE ONE Morphine Sulfate 100 mg/ 100 mls @ 3 mls/hr 07/06/18 22:00 07/10/18 03:40 Sodium Chloride IVPB 2 mg/hr TITR CRISTAL 2 mls/hr Administration Protocol 3 MG/HR Lorazepam 1 mg 07/08/18 12:31 Ativan Injection - IVPUSH Q6H PRN AGITATION Scopolamine HBr 1 patch 07/08/18 12:30 07/08/18 14:05 Transderm-Scop - TD 1 patch Q72H CRISTAL Administration ASSESSMENT/PLAN: 82 yo Male with PMH Prostate CA, HTN, HLD, Parkinsons admitted after being found unresponsive at halfway now on comfort care. Severe sepsis likely secondary to bacteremia now on comfort care -Pt is comfort care only at this point as per health care proxy -Morphine drip for comfort, escalate for agitation/comfort as needed -Tylenol for fever/pain -Scopolamine patch for secretions -All home medications held Disposition Comfort care, prognosis very poor, Partner (HCP) requesting bed at [facility] Visit type - Emergency Visit Emergency Visit: Yes ED Registration Date: 07/04/18 Care time: The patient presented to the Emergency Department on the above date and was hospitalized for further evaluation of their emergent condition. - New Patient This patient is new to me today: Yes Date on this admission: 07/10/18 - Critical Care Critical Care patient: No - Discharge Referral Referred to [facility] Med P.C.: No
--- NOTE | 2018-07-10 17:31 | PN ---
Teaching Attending Note Name of Resident: Dari Ortiz ATTENDING PHYSICIAN STATEMENT I saw and evaluated the patient. I reviewed the resident's note and discussed the case with the resident. I agree with the resident's findings and plan as documented. SUBJECTIVE: Non-verbal, poorly responsive OBJECTIVE: Febrile, Hemodynamically Stable. Last Vital Signs Temp Pulse Resp BP Pulse Ox 101.3 F H 121 H 20 107/53 L 95 07/10/18 14:52 07/10/18 14:52 07/10/18 14:52 07/10/18 14:52 07/10/18 10:00 HEENT - Atraumatic. Normocephalic. Heart - S1, S2, tachy Lungs - Poor air entry - decreased at bases Abdomen - Soft. Bowel Sounds normal. Extremities - no calf swelling. Neuro - poorly responsive but flexes to touch stimuli. WILLIAM. Current Medications Generic Name Dose Route Start Last Admin Trade Name Freq PRN Reason Stop Dose Admin Morphine Sulfate 100 mg/ 100 mls @ 3 mls/hr 07/06/18 22:00 07/10/18 03:40 Sodium Chloride IVPB 2 mg/hr TITR CRISTAL 2 mls/hr Administration Protocol 3 MG/HR Lorazepam 1 mg 07/08/18 12:31 Ativan Injection - IVPUSH Q6H PRN AGITATION Scopolamine HBr 1 patch 07/08/18 12:30 07/08/18 14:05 Transderm-Scop - TD 1 patch Q72H CRISTAL Administration ASSESSMENT AND PLAN 82 year Male with PMHx of Prostate CA, HTN, HLD, Parkinsons admitted after being found unresponsive at snf. He was intubated for respiratory failure and severe sepsis. He was eventually extubated and is now for comfort measures. 1. Acute Respiratory Failure sec to Severe Sepsis due to ESBL bacteremia Source unknown, possible UTI Antibiotics held. Extubated and on MS drip for comfort care. Sedated, poorly responsive, flexes to tactile stimuli - may require up-titration of morphine drip. Supplemental O2 for comfort. Ativan prn for agitation and Scopolamine patch for secretions. Referred to Hospice. 2. HTN/HLD - all home meds held. 3. Parkinson's Disease - Carbidopa/Levodopa held as patient is NPO. DNR / DNI For comfort measures only.
[2018-07-11] MEDS ORDERED: ACETAMINOPHEN 1000 MG/100 ML VIAL (NON FORMULARY) IVPB ONE (03:50)
[2018-07-11] MEDS: SCOPOLAMINE HYDROBROMIDE 1 PATCH PATCH.TD72 TD SCH (12:43)
[2018-07-11] MEDS: MORPHINE 100 MG in SODIUM CHLORIDE 98 ML IVPB SCH (15:41)
[2018-07-11] MEDS: SODIUM CHLORIDE 500 ML IV ONE (15:45)
--- NOTE | 2018-07-11 17:41 | PN ---
Progress Note (short form) - Note Progress Note: SUBJECTIVE: Non-verbal, obtunded. OBJECTIVE: Febrile, diaphoretic Last Vital Signs Temp Pulse Resp BP Pulse Ox 101.6 F H 115 H 14 94/49 L 95 07/11/18 09:31 07/11/18 09:31 07/11/18 09:31 07/11/18 09:31 07/11/18 10:00 HEENT - Atraumatic. Normocephalic. Heart - S1, S2, tachy Lungs - Poor air entry - decreased at bases Abdomen - Soft. Bowel Sounds normal. Extremities - no calf swelling. Neuro - poorly responsive but flexes to touch stimuli. WILLIAM. Current Medications Generic Name Dose Route Start Last Admin Trade Name Freq PRN Reason Stop Dose Admin Morphine Sulfate 100 mg/ 100 mls @ 3 mls/hr 07/06/18 22:00 07/11/18 15:41 Sodium Chloride IVPB 4 mg/hr TITR CRISTAL 4 mls/hr Administration Protocol 3 MG/HR Sodium Chloride 500 mls @ 21 mls/hr 07/10/18 18:07 07/11/18 15:45 Normal Saline - IV 07/11/18 17:55 21 mls/hr ASDIR ONE Administration Lorazepam 1 mg 07/08/18 12:31 Ativan Injection - IVPUSH Q6H PRN AGITATION Scopolamine HBr 1 patch 07/08/18 12:30 07/11/18 12:43 Transderm-Scop - TD 1 patch Q72H CRISTAL Administration ASSESSMENT AND PLAN 82 year Male with PMHx of Prostate CA, HTN, HLD, Parkinsons admitted after being found unresponsive at longterm. He was intubated for respiratory failure and severe sepsis. He was eventually extubated and is now for comfort measures. 1. Acute Respiratory Failure sec to Severe Sepsis due to ESBL bacteremia Source unknown, possible UTI Antibiotics held. Extubated and on MS drip for comfort care. Sedated, poorly responsive, flexes to tactile stimuli - drip uptitrated to 3mls/hr. Supplemental O2 for comfort. Ativan prn for agitation and Scopolamine patch for secretions. Tylenol for fever. Referred to Hospice. 2. HTN/HLD - all home meds held. 3. Parkinson's Disease - Carbidopa/Levodopa held as patient is NPO. DNR / DNI For comfort measures only. Visit type - Emergency Visit Emergency Visit: Yes ED Registration Date: 07/04/18 Care time: The patient presented to the Emergency Department on the above date and was hospitalized for further evaluation of their emergent condition. - New Patient This patient is new to me today: No - Critical Care Critical Care patient: No - Discharge Referral Referred to [facility] No
[2018-07-12 07:00] VITALS: BP 80/44; PULSE 110; TEMP 102.1
--- NOTE | 2018-07-12 11:24 | HOSP ---
Physical Examination Vital Signs: Vital Signs Temperature 102.1 F H 07/12/18 06:59 Pulse Rate 110 H 07/12/18 06:59 Respiratory Rate 16 07/12/18 06:59 Blood Pressure 80/44 L 07/12/18 06:59 O2 Sat by Pulse Oximetry (%) 94 L 07/11/18 21:00 Labs: CBC, BMP 07/05/18 05:15 07/05/18 05:15 Hospitalist Encounter Assessment: Arrived to evaluate pt, noted completely non responsive to verbal or physical stimuli No corneal or pupillary reflex No heart or lung sounds for 2 minutes No response to verbal or painful stimuli Time of called at 10:24 am. Nursing made aware and family to be notified Visit type - Emergency Visit Emergency Visit: Yes ED Registration Date: 07/04/18 Care time: The patient presented to the Emergency Department on the above date and was hospitalized for further evaluation of their emergent condition. - New Patient This patient is new to me today: No - Critical Care Critical Care patient: No
--- NOTE | 2018-07-12 11:24 | DS ---
Physical Exam: SUBJECTIVE: Patient seen and examined this AM OBJECTIVE: Vital Signs Period Temp Pulse Resp BP Sys/Howard Pulse Ox Last 24 Hr 102.1 F-103.5 F 32-110 16-16 75-80/38-44 94 PHYSICAL EXAM GENERAL: Unresponsive to verbal or painful stimuli EYES: unreactive pupils, no corneal reflex LUNGS: No breath sounds HEART: No heart sounds noted LABS HOSPITAL COURSE: Date of Admission:07/04/18 Date of Discharge: 07/12/18 HPI on Admission: 82 yo Male with PMH Prostate CA, HTN, HLD, Parkinsons admitted after being found unresponsive at halfway. Pt has reportedly been less responsive than normal since around 3pm yesterday afternoon. Unable to obtain history from patient, however no history of falls or trauma as per ED evaluation. As per pts girlfriend who was arrived once pt was in the ICU, he had numerous episodes of vomiting yesterday prior to the onset of lethargy and altered mental status. Hospital Course: Pt was initially intubated, started on pressors and broad spectrum antibiotics. After extensive discussion with the family and healthcare proxy, pt was compassionately extubated and place on comfort measures. After a few days on comfort measures, he was found completely unresponsive, after thorough examination, time of was called on 07/12/18 at 10:24 am. Minutes to complete discharge: 35 Discharge Summary Reason For Visit: SEPTIC SHOCK Current Active Problems ROBERT (acute kidney injury) (Acute) Altered mental status (Acute) Colitis (Acute) Parkinson disease (Acute) Respiratory failure (Acute) Septic shock (Acute) UTI (urinary tract infection) (Acute) Ventilator dependence (Acute) Condition: Critical - Instructions Disposition: - Home Medications Comprehensive Discharge Medication List: Ambulatory Orders Aspirin 81 mg PO DAILY 11/12/17 Cyanocobalamin [Vitamin B12 -] 1,000 mcg PO DAILY 11/12/17 Entacapone 200 mg PO QID 11/12/17 Losartan/Hydrochlorothiazide [Losartan-Hctz 100-12.5 mg Tab] 0.5 each PO DAILY 11/12/17 Ropinirole HCl [Requip] 1 mg PO HS 11/12/17 Tamsulosin HCl [Flomax -] 0.8 mg PO 1900 11/12/17 clonazePAM [Klonopin -] 0.125 mg PO HS 11/12/17 Meclizine HCl 25 mg PO BID 01/23/18 Baclofen 5 mg PO HS 07/04/18 Carbidopa/Levodopa 25/250 [Sinemet 25/250 -] 1.5 tab PO QID 07/04/18 Duloxetine HCl [Cymbalta -] 20 mg PO DAILY 07/04/18 Ferrous Gluconate [Fergon -] 324 mg PO DAILY 07/04/18 Nitrofurantoin Monohyd/M-Cryst [Macrobid -] 1 tab PO DAILY 07/04/18 Ropinirole HCl 1 mg PO 06,,,,07/04/18 Acetaminophen [Tylenol .Extra-Strength -] 1,000 mg PO BID 07/05/18 Magnesium Hydrox 2400MG/30Ml [Milk of Magnesia -] 30 ml PO PRN 07/05/18 This patient is new to me today: No Emergency Visit: Yes ED Registration Date: 07/04/18 Care time: The patient presented to the Emergency Department on the above date and was hospitalized for further evaluation of their emergent condition. Critical Care patient: No - Discharge Referral Referred to [facility] Med P.C.: No
--- NOTE | 2018-07-12 12:41 | PN ---
Teaching Attending Note Name of Resident: Mahamed Davis ATTENDING PHYSICIAN STATEMENT I saw and evaluated the patient. I reviewed the resident's note and discussed the case with the resident. I agree with the resident's findings UBJECTIVE: Non-verbal, obtunded. On entering patient's room, it was noted that he had no chest rise. He was unresponsive, with no heart or breath sounds. He was pronounced at 10:24am CAUSE of - Severe Sepsis secondary to ESBL Bacteremia He was [employer], DNR/DNI on Morphine drip, Ativan prn, and Scopolamine patch. He was maintained in a comfortable state until he passed. November He Rest in Peace.
== END 2018-07-12 10:25 | disposition expired | DRG 871 ==
LOC: JER 04:57 → JERBED 07:52 → JICU 09:25 → J8W 07-07 19:27
PROVIDERS: ADMIT Internal Medicine
PROC: 0CHY7BZ Insertion of Airway into Mouth and Throat, Via Natural or Artificial Opening (ICD-10-PCS; principal; 2018-07-04)
PROC: 5A1945Z Respiratory Ventilation, 24-96 Consecutive Hours (ICD-10-PCS; 2018-07-04)
PROC: 06HN33Z Insertion of Infusion Device into Left Femoral Vein, Percutaneous Approach (ICD-10-PCS; 2018-07-04)
PROC: B51CZZA Fluoroscopy of Left Lower Extremity Veins, Guidance (ICD-10-PCS; 2018-07-04)
DX: A41.9 Sepsis, unspecified organism (principal); J96.00 Acute respiratory failure, unspecified whether with hypoxia or hypercapnia; R65.21 Severe sepsis with septic shock; I69.351 Hemiplegia and hemiparesis following cerebral infarction affecting right dominant side; N39.0 Urinary tract infection, site not specified; E87.2 Acidosis; Z99.11 Dependence on respirator [ventilator] status; Z66 Do not resuscitate; N19 Unspecified kidney failure; I95.9 Hypotension, unspecified; E87.5 Hyperkalemia; G20 Parkinson's disease; F02.80 Dementia in other diseases classified elsewhere, unspecified severity, without behavioral disturbance, psychotic disturbance, mood disturbance, and anxiety; G62.9 Polyneuropathy, unspecified; K52.9 Noninfective gastroenteritis and colitis, unspecified; Z74.01 Bed confinement status; Z87.891 Personal history of nicotine dependence; C61 Malignant neoplasm of prostate; Z85.46 Personal history of malignant neoplasm of prostate
CPT/HCPCS: 36415; 36600; 70450-TC; 71045-TC-FY; 74018-TC-FY; 74176-TC; 80048; 80053; 80307; 81003; 81015; 82140; 82375; 82803; 82962; 83050; 83605; 83735; 84100; 84484; 85025; 85610; 87040; 87070; 87086; 87186; 87205; 87324; 87449; 87804; 93005; 93010; 94002; 99285-25; G0480; J0131; J7030